=== PATIENT | female | born 1925 | race Caucasian/White ===

== ENCOUNTER 2016-05-07 02:39 | Emergency (ER) | payer OTHER ==
[~2016-05-07] VITALS: Ht 167.6 cm; Wt 81.3 kg
[~2016-05-07 02:39] MED LIST: B-COTAB18 PO; CALC-214 PO; CHOL100010 PO; CMD25 PO; CMD5 PO; CPR500 PO; FLUO20CA35 PO; FURO-85 PO; HYDR-5688 PO; LEVO150T PO; METO50TA7 PO; MGNO400 PO; MULT-188 PO; POTA10CA28 PO; PRED-301 PO; VERA240C2 PO
[2016-05-07 02:44] VITALS: TEMP 36.4; Ht 167.6 cm; Wt 81.3 kg
--- NOTE | 2016-05-07 03:06 | EMERGENCY ROOM VISIT NOTE ---
History Report prepared by Merna: Al Shaikh Under the Supervision of: Dr. Anne Sanabria M.D. First contact with patient: 02:56 Chief Complaint: LEG PAIN,LEG INJURY Stated Complaint: RIGHT LEG PAIN - CALF WARM TO TOUCH,HX BLOOD CLOTS History of Present Illness The patient is an 89 year old female who presents to the Emergency Room with complaints of constant pain in the right lower extremity that began two hours prior to arrival. The patient did not experience any trauma and simply states that she was sitting on the couch when the pain began. She was concerned because she has a history of blood clots. Her last blood clot was found in March of 2013. She did have her INR checked last week, which was 2.0. She denies any pain in her chest or experiencing any shortness of breath. Source of History: patient Onset: 2 hours [employer] Position: leg (right) Timing: constant Associated Symptoms: No SOB, No chest pain Review of Systems See HPI for pertinent positives & negatives. A total of 10 systems reviewed and were otherwise negative. 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 (11) Osteoarthritis (12) Osteoporosis (13) Polymyalgia rheumatica Surgical Problems: (1) Status post appendectomy (2) Status post cataract extraction (3) Status post cholecystectomy (4) Status post partial colectomy (5) Status post right knee replacement Family History Breast cancer SISTER Heart disease FATHER Skin cancer FATHER Suicide BROTHER Social History Smoking Status: Never Smoker Alcohol Use: none Drug Use: none Marital Status: single Housing Status: lives with family Occupation Status: retired Current/Historical Medications Scheduled Acetaminophen (Tylenol), 650 MG PO DAILY B-Complex Vitamins (Vitamin B Complex), 1 TAB PO DAILY Calcium W/ Magnesium (Calcium & Magnesium), 1 TAB PO DAILY Cephalexin Monohydrate (Keflex), 500 MG PO QID Cholecalciferol (Vitamin D3), 1 TAB PO DAILY Fluoxetine (Prozac), 10 MG PO QAM Furosemide (Lasix), 20 MG PO DAILY Latanoprost (Xalatan 0.005% Oph Page), 1 DROPS OP HS Levothyroxine Sodium (Levothyroxine Sodium), 125 MCG PO DAILY Magnesium Oxide (Mag-Ox), 400 MG PO BID Metoprolol Succ (Toprol Xl) (Toprol-Xl), 50 MG PO DAILY Ocuvite Preservision (Ocuvite Preservision), 1 TAB PO DAILY Ofloxacin (Oph) (Ocuflox Oph Soln), 1 DROPS OPL DIRECTED Potassium Chloride (Micro-K Ext Rel), 10 MEQ PO DAILY Prednisone (Prednisone), 5 MG PO DAILY Warfarin Sod (Coumadin), 2.5 MG PO DIRECTED Warfarin Sod (Coumadin), 5 MG PO DIRECTED Allergies Coded Allergies: Alendronate (Verified Allergy, Unknown, 05/07/16) Physical Exam Vital Signs Date Time Temp Pulse Resp B/P Pulse Ox O2 Delivery O2 Flow Rate FiO2 05/07/16 06:36 87 20 132/66 93 05/07/16 05:26 104 20 145/109 95 Room Air 05/07/16 04:16 101 20 144/112 94 Room Air 05/07/16 02:44 36.4 111 18 131/80 95 Room Air Physical Exam Vital signs reviewed. General: Elderly female, in no significant distress. HEENT: No scleral icterus, PERRLA, neck supple. Atraumatic. Cardiovascular: Regular rate and rhythm, no extra sounds. Pulmonary: Clear to auscultation bilaterally, normal work of breathing. Abdomen: Soft, nontender, nondistended, positive bowel sounds. Musculoskeletal: Atraumatic, no peripheral edema. Extremities: There is warmth and tenderness to the right leg along the calf with a small excoriation to the skin of the distal knee with dried blood. No active bleeding. Neurologic: Patient awake alert and oriented x 3 Skin: Warm, dry, no rash Medical Decision & Procedures ER Provider Diagnostic Interpretation: X-ray results as stated below per my interpretation and radiologist interpretation. Other radiology results as stated below per my review and radiologist interpretation: US VENOUS RIGHT LOWER EXTREMITY: Nonocclusive chronic calcified thrombus seen within the popliteal vein. No acute deep vein thrombosis within the lower extremity. Edema noted within the calf. Radiologist: Kevyn Goodwin M.D. CTA CHEST: No evidence of pulmonary embolus. No thoracic aortic dissection or aneurysm. Breathing notion artifact. Probable mild pulmonary vascular congestion. No pleural effusion of pneumothorax Coronary artery calcifications. Mild enlargement of the heart. No pericardial effusion. Subcentimeter mediastinal and hilar hymph nodes, likely reactive. No acute osseous abnormality. Radiologist: Kevyn Arciniega M.D. Laboratory Results 05/07/16 03:30 Red Blood Count 4.07, Mean Corpuscular Volume 97.1, Mean Corpuscular Hemoglobin 31.9, Mean Corpuscular Hemoglobin Concent 32.9, Mean Platelet Volume 9.7, Neutrophils (%) (Auto) 60.1, Lymphocytes (%) (Auto) 26.1, Monocytes (%) (Auto) 10.9, Eosinophils (%) (Auto) 2.5, Basophils (%) (Auto) 0.2, Neutrophils # (Auto ) 5.32, Lymphocytes # (Auto) 2.31, Monocytes # (Auto) 0.97, Eosinophils # (Auto ) 0.22, Basophils # (Auto) 0.02 05/07/16 03:30 Test 05/07/16 03:30 White Blood Count 8.86 K/uL (4.8-10.8) Red Blood Count 4.07 M/uL (4.2-5.4) Hemoglobin 13.0 g/dL (12.0-16.0) Hematocrit 39.5 % (37-47) Mean Corpuscular Volume 97.1 fL (80-100) Mean Corpuscular Hemoglobin 31.9 pg (25-34) Mean Corpuscular Hemoglobin Concent 32.9 g/dl (32-36) Platelet Count 204 K/uL (130-400) Mean Platelet Volume 9.7 fL (7.4-10.4) Neutrophils (%) (Auto) 60.1 % Lymphocytes (%) (Auto) 26.1 % Monocytes (%) (Auto) 10.9 % Eosinophils (%) (Auto) 2.5 % Basophils (%) (Auto) 0.2 % Neutrophils # (Auto) 5.32 K/uL (1.4-6.5) Lymphocytes # (Auto) 2.31 K/uL (1.2-3.4) Monocytes # (Auto) 0.97 K/uL (0.11-0.59) Eosinophils # (Auto) 0.22 K/uL (0-0.5) Basophils # (Auto) 0.02 K/uL (0-0.2) RDW Standard Deviation 54.5 fL (36.4-46.3) RDW Coefficient of Variation 15.3 % (11.5-14.5) Immature Granulocyte % (Auto) 0.2 % Immature Granulocyte # (Auto) 0.02 K/uL (0.00-0.02) Prothrombin Time 24.0 SECONDS (9.0-12.0) Prothromb Time International Ratio 2.2 (0.9-1.1) Activated Partial Thromboplast Time 34.4 SECONDS (21.0-31.0) Partial Thromboplastin Ratio 1.3 Anion Gap 8.0 mmol/L (3-11) Est Creatinine Clear Calc Drug Dose 48.0 ml/min Estimated GFR () 68.9 Estimated GFR (Non- 59.5 BUN/Creatinine Ratio 16.3 (10-20) Calcium Level 8.6 mg/dl (8.5-10.1) Total Bilirubin 0.7 mg/dl (0.2-1) Direct Bilirubin 0.2 mg/dl (0-0.2) Aspartate Amino Transf (AST/SGOT) 16 U/L (15-37) Alanine Aminotransferase (ALT/SGPT) 16 U/L (12-78) Alkaline Phosphatase 77 U/L (45-117) Total Protein 7.4 gm/dl (6.4-8.2) Albumin 3.1 gm/dl (3.4-5.0) Laboratory results per my review. Medications Administered Medications (Trade) Dose Ordered Sig/Mike Route Start Time Stop Time Status Last Admin Dose Admin Metoprolol Succinate (Toprol Xl Tab) 50 mg NOW STAT PO 05/07/16 05:24 05/07/16 05:26 DC 05/07/16 05:34 50 MG Cephalexin Monohydrate (Keflex Cap) 500 mg NOW ONCE PO 05/07/16 06:30 05/07/16 06:31 DC 05/07/16 06:26 500 MG ED Course 0300: Past medical records reviewed. The patient was evaluated in room A3. A complete history and physical examination was performed. 0524: Ordered Metoprolol 50 mg PO. 0630: Ordered Cephalexin 500 mg PO. 0619: Upon reevaluation, the patient appeared to have improvement of his symptoms. I discussed findings with him. He verbalized agreement of the treatment plan. The patient was discharged home. Medical Decision Differential diagnosis: Etiologies such as DVT, musculoskeletal, infection, joint effusion, trauma, lymphedema, idiopathic, CHF, as well as others were entertained.. This pt was evaluated and appeared to be in no distress. Lab work was obtained and is fairly unrevealing. INR is 2.2. US is negative for DVT. Pt is noted to be slightly tachycardic and hypertensive, I suspect this is b/c she is due for her toprol XL this morning. Pt was given 50 mg po. pt has a "problem with picking" and a small wound to anterior cloud, I suspect she has a cellulitis. Pt was given a Rx for keflex for 7 days and asked to f/u closely with her PCP this week. She will return to the ED for worsening of symptoms or any medical concerns. Impression Primary Impression: Cellulitis of right lower extremity Additional Impression: Chronic deep vein thrombosis (DVT) Scribe Attestation The scribe's documentation has been prepared under my direction and personally reviewed by me in its entirety. I confirm that the note above accurately reflects all work, treatment, procedures, and medical decision making performed by me. Departure Information Dispostion Home / Self-Care Prescriptions Cephalexin Monohydrate (KEFLEX) 500 Mg Cap 500 MG PO QID for 7 Days, #28 CAP Prov: Anne Sanabria M.D. 05/07/16 Referrals Radha Camp DO (PCP) Forms HOME CARE DOCUMENTATION FORM, IMPORTANT VISIT INFORMATION Patient Instructions My [facility] Additional Instructions Diagnosis: Chronic DVT right lower extremity, cellulitis Keflex 500 mg 4 times daily for 7 days. Tylenol 650 mg every 6 hours as needed for pain. Follow-up with her primary care physician this week for reevaluation. Return to the emergency department for worsening of symptoms or any medical concerns. Problem Qualifiers Additional Impression: Chronic deep vein thrombosis (DVT) DVT location: lower extremity Affected thrombotic vein of extremity: popliteal Laterality: right Qualified Codes: I82.531 - Chronic embolism and thrombosis of right popliteal vein
[2016-05-07] MEDS ORDERED: CHOL1000 PO (03:11)
[2016-05-07] MEDS ORDERED: LEVO125T4 PO (03:12)
[2016-05-07] MEDS ORDERED: MAGN400T6 PO (03:13)
[2016-05-07] MEDS ORDERED: MULT-190 PO (03:16)
[2016-05-07] MEDS ORDERED: ACET-1311 PO (03:17)
[2016-05-07 03:39] LABS: BASO % 0.2 %; BASO ABS # 0.02 K/uL (0-0.2); COMPLETE YES; EOS % 2.5 %; HEMATOCRIT 39.5 % (37-47); IG% 0.2 %; LYMPH % 26.1 %; LYMPH ABS # 2.31 K/uL (1.2-3.4); MEAN CELL VOLUME 97.1 fL (80-100); MEAN CORPUSCULAR HEMOGLOBIN 31.9 pg (25-34); MEAN CORPUSCULAR HGB CONC 32.9 g/dl (32-36); MEAN PLATELET VOLUME 9.7 fL (7.4-10.4); MONO % 10.9 %; NEUT % 60.1 %; PLATELET COUNT 204 K/uL (130-400); RED BLOOD COUNT 4.07 M/uL (4.2-5.4); WHITE BLOOD COUNT 8.86 K/uL (4.8-10.8)
[2016-05-07 03:51] LABS: INR 2.2 (0.9-1.1); PARTIAL THROMBOPLASTIN RATIO 1.3
[2016-05-07 03:56] LABS: BUN/CREATININE RATIO 16.3 (10-20); CALCIUM 8.6 mg/dl (8.5-10.1); CREATININE 0.87 mg/dl (0.60-1.20); POTASSIUM 3.8 mmol/L (3.5-5.1)
[2016-05-07] MEDS ORDERED: OPTIRAY 320 IV PRN (04:45)
[2016-05-07] MEDS ORDERED: METOPROLOL SUCC 50MG EXT REL TAB PO STA (05:24)
[2016-05-07] MEDS ORDERED: LATA0.5S OP (06:00)
[2016-05-07] MEDS ORDERED: OFLO0.3S OPL (06:01)
[2016-05-07] MEDS ORDERED: CEPH500C2 PO (06:17)
[2016-05-07] MEDS ORDERED: CEPHALEXIN MONOHYDRATE 250 MG CAP PO ONE (06:30)
[2016-05-07 06:36] VITALS: BP 132/66; PULSE 87; O2SAT 93
--- NOTE | 2016-05-07 06:40 | DIAGNOSTIC IMAGING REPORT ---
ULTRASOUND RIGHT VENOUS DOPP LOWER EXT UNILAT CLINICAL HISTORY: Right lower extremity swelling. History of DVT. COMPARISON STUDY: No previous studies for comparison. FINDINGS: Real-time and color flow Doppler imaging were performed. Flow was seen within the femoral, popliteal and calf veins with no acute intraluminal thrombus demonstrated. The saphenous vein is patent. There is wall thickening and calcification within the popliteal vein. This is felt to be chronic. IMPRESSION: No evidence of acute right lower extremity DVT Electronically signed by: Ish Govea M.D. 05/07/2016 6:38 AM Dictated Date/Time: 05/07/2016 6:37 AM
--- NOTE | 2016-05-07 07:17 | DIAGNOSTIC IMAGING REPORT ---
CT ANGIOGRAM OF THE CHEST CLINICAL HISTORY: Tachycardia, history of chronic DVT. COMPARISON STUDY: May 17, 2014 TECHNIQUE: Following the IV administration of 100 mL of Optiray-320, CT angiogram of the thorax was performed from the thoracic inlet to the lung bases utilizing the pulmonary embolus protocol. Images are reviewed in the axial, sagittal, and coronal planes. IV contrast was administered without complication. MIP imaging was performed. CT DOSE: 999.13 mGy.cm FINDINGS: No pathologically enlarged axillary mediastinal or hilar lymph nodes were visualized. There was no evidence of thoracic aortic dilatation. There is suboptimal pulmonary arterial opacification. The examination was repeated with similar results. The technologist reports an IV malfunction. No central emboli are visualized. No pleural effusions are visualized. There was no evidence of focal pulmonary consolidation. There is suspected mild septal thickening/edema. The heart is enlarged. There are coronary artery calcifications. IMPRESSION: 1. No pulmonary emboli identified 2. No evidence of focal pulmonary consolidation 3. Cardiomegaly, coronary artery calcifications, and mild septal thickening/edema. Electronically signed by: Ish Govea M.D. 05/07/2016 7:16 AM Dictated Date/Time: 05/07/2016 7:11 AM
[2016-08-07] MEDS ORDERED: LEVO125T4 PO (20:47)
[2016-08-10] MEDS ORDERED: AMOX875T PO (10:50)
[2016-11-07] MEDS ORDERED: LCTX PO (12:52)
[2016-11-07] MEDS ORDERED: AMOX1TAB43 PO (12:52)
[2016-11-13] MEDS ORDERED: METO1TAB66 PO (12:02)
== END 2016-05-07 06:38 | disposition home or self-care (01) ==
LOC: C.EDB 02:41 → C.EDA 06:38
DX: L03.115 Cellulitis of right lower limb (principal); I82.531 Chronic embolism and thrombosis of right popliteal vein; R26.9 Unspecified abnormalities of gait and mobility; I49.9 Cardiac arrhythmia, unspecified; E03.9 Hypothyroidism, unspecified; H35.30 Unspecified macular degeneration; D47.2 Monoclonal gammopathy; M19.90 Unspecified osteoarthritis, unspecified site; M81.0 Age-related osteoporosis without current pathological fracture; M35.3 Polymyalgia rheumatica; Z80.3 Family history of malignant neoplasm of breast; Z82.49 Family history of ischemic heart disease and other diseases of the circulatory system; Z80.8 Family history of malignant neoplasm of other organs or systems; Z79.01 Long term (current) use of anticoagulants; Z79.899 Other long term (current) drug therapy

== ENCOUNTER 2016-08-06 18:00 | Emergency (ER) | payer OTHER ==
[~2016-08-06 18:00] MED LIST changes: +ACET-1311 PO; +CHOL1000 PO; -CHOL100010 PO; -CPR500 PO; -HYDR-5688 PO; +LATA0.5S OP; +LEVO125T5 PO; -LEVO150T PO; +MAGN400T6 PO; -MGNO400 PO; -MULT-188 PO; +MULT-190 PO; +OFLO0.3S OPL; -VERA240C2 PO
[2016-08-06 18:13] VITALS: TEMP 36.8
[2016-08-06] MEDS ORDERED: SODIUM CHLORIDE 0.9% 1000ML 500 ML IV ONE (18:25)
[2016-08-06] MEDS ORDERED: ONDANSETRON INJ 2 MG/ML 2 ML VIAL IV STA (18:25)
[2016-08-06] MEDS ORDERED: PIPERACILLIN/TAZOBACTAM 4.5 GM/100ML D5W IV STA (18:25)
[2016-08-06] MEDS ORDERED: ACETAMINOPHEN 325 MG TAB PO ONE (18:30)
--- NOTE | 2016-08-06 18:38 | EMERGENCY ROOM VISIT NOTE ---
History Report prepared by Merna: Claire Allison Under the Supervision of: Dr. Jan Huffman M.D. First contact with patient: 18:20 Chief Complaint: WOUND INFECTION Stated Complaint: LF LEG CELLULITIS??,CHILLS,NAUSEA History of Present Illness The patient is a 89 year old female who presents to the Emergency Room with complaints of a worsening left lower extremity infection that was first noticed yesterday. The patient noticed some weeping from the area yesterday, but states that it subsided at night and was not there this morning. She is also experiencing pain in her left leg that worsened this afternoon after riding a motorized scooter while shopping. She is also experiencing erythema on her left lower leg, which she first noticed earlier today. She is also experiencing chills and nausea, but denies vomiting. The patient was scratched by a cat on her left leg 2 days ago. She adds that she had cellulitis in her right leg about one month ago. The patient was evaluated in the ED for that and was discharged. She was treated with Keflex for that infection. The patient is also experiencing increased urinary frequency, but denies cough and congestion. The patient denies any history of diabetes. She adds that she is on 5 mg of prednisone a day. She is on Coumadin for a history of blood clots. She also has a history of atrial fibrillation. Source of History: patient Onset: yesterday Position: leg (left) Quality: other (left lower extremity infection) Timing: worsening Associated Symptoms: + chills, + nausea, + urinary symptoms (increased frequency), No cough Note: left leg pain, left leg erythema, left leg weeping, no congestion Review of Systems See HPI for pertinent positives & negatives. A total of 10 systems reviewed and were otherwise negative. 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 (11) Osteoarthritis (12) Osteoporosis (13) Polymyalgia rheumatica Surgical Problems: (1) Status post appendectomy (2) Status post cataract extraction (3) Status post cholecystectomy (4) Status post partial colectomy (5) Status post right knee replacement Family History Breast cancer SISTER Heart disease FATHER Skin cancer FATHER Suicide BROTHER Social History Smoking Status: Never Smoker Alcohol Use: none Drug Use: none Marital Status: single Housing Status: lives with family Occupation Status: retired Current/Historical Medications Scheduled Acetaminophen (Tylenol), 650 MG PO DAILY Amoxicillin & Pot Clavulanate (Augmentin 875-125 mg), 875 MG PO BID B-Complex Vitamins (Vitamin B Complex), 1 TAB PO DAILY Calcium W/ Magnesium (Calcium & Magnesium), 1 TAB PO DAILY Cholecalciferol (Vitamin D3), 1 TAB PO DAILY Fluoxetine (Prozac), 10 MG PO QAM Furosemide (Lasix), 20 MG PO DAILY Latanoprost (Xalatan 0.005% Oph Page), 1 DROPS OP HS Levothyroxine Sodium (Levothyroxine Sodium), 125 MCG PO DAILY Magnesium Oxide (Mag-Ox), 400 MG PO BID Metoprolol Succ (Toprol Xl) (Toprol-Xl), 50 MG PO DAILY Ocuvite Preservision (Ocuvite Preservision), 1 TAB PO DAILY Ofloxacin (Oph) (Ocuflox Oph Soln), 1 DROPS OPL DIRECTED Potassium Chloride (Micro-K Ext Rel), 10 MEQ PO DAILY Prednisone (Prednisone), 5 MG PO DAILY Warfarin Sod (Coumadin), 2.5 MG PO DIRECTED Warfarin Sod (Coumadin), 5 MG PO DIRECTED Allergies Coded Allergies: Alendronate (Verified Allergy, Unknown, 05/07/16) Physical Exam Vital Signs Date Time Temp Pulse Resp B/P Pulse Ox O2 Delivery O2 Flow Rate FiO2 08/06/16 21:22 89 18 102/59 95 08/06/16 19:49 76 18 128/57 95 Room Air 08/06/16 18:36 90 08/06/16 18:13 36.8 93 18 128/77 93 Room Air Physical Exam GENERAL: Patient is in no acute distress. HEENT: No acute trauma, normocephalic atraumatic, mucous membranes moist, no nasal congestion, no scleral icterus. NECK: No stridor, no adenopathy, no meningismus, trachea is midline. LUNGS: Clear to auscultation bilaterally, no wheeze, no rhonchi, breath sounds equal. HEART: Irregular rhythm with a normal rate, no murmurs. ABDOMEN: Soft, nontender, bowel sounds positive, no hernias, no peritonitis. EXTREMITIES: Bilateral pedal edema that is slightly worse on the left; distal left leg, ankle, and foot are erythematous and warm, no discharge or weeping, exam consistent with cellulitis. NEUROLOGIC: Oriented x 3, no acute motor or sensory deficits, no focal weakness. SKIN: No rash, no jaundice, no diaphoresis. Medical Decision & Procedures ER Provider Diagnostic Interpretation: Radiology results as stated below per my review and radiologist interpretation: CHEST ONE VIEW PORTABLE FINDINGS: Chronic right hilar enlargement. Mild stable cardiomegaly. Lungs are clear. Diaphragms are smooth. IMPRESSION: Chronic change. No acute process. Electronically signed by: Aung Infante M.D. 08/06/2016 7:05 PM Dictated Date/Time: 08/06/2016 7:05 PM Venous Doppler left leg LEFT VENOUS DOPP LOWER EXT UNILAT FINDINGS: Normal study IMPRESSION: Normal study . note is made of lower calf soft tissue edema Electronically signed by: Aung Infante M.D. 08/06/2016 8:45 PM Dictated Date/Time: 08/06/2016 8:44 PM Laboratory Results 08/06/16 18:25 Red Blood Count 4.75, Mean Corpuscular Volume 97.7, Mean Corpuscular Hemoglobin 30.1, Mean Corpuscular Hemoglobin Concent 30.8, Mean Platelet Volume 9.5, Neutrophils (%) (Auto) 86.8, Lymphocytes (%) (Auto) 9.0, Monocytes (%) (Auto) 3.6, Eosinophils (%) (Auto) 0.4, Basophils (%) (Auto) 0.1, Neutrophils # (Auto) 6.74, Lymphocytes # (Auto) 0.70, Monocytes # (Auto) 0.28, Eosinophils # (Auto) 0.03, Basophils # (Auto) 0.01 08/06/16 18:25 Test 08/06/16 18:25 08/06/16 18:44 White Blood Count 7.77 K/uL (4.8-10.8) Red Blood Count 4.75 M/uL (4.2-5.4) Hemoglobin 14.3 g/dL (12.0-16.0) Hematocrit 46.4 % (37-47) Mean Corpuscular Volume 97.7 fL (80-100) Mean Corpuscular Hemoglobin 30.1 pg (25-34) Mean Corpuscular Hemoglobin Concent 30.8 g/dl (32-36) Platelet Count 203 K/uL (130-400) Mean Platelet Volume 9.5 fL (7.4-10.4) Neutrophils (%) (Auto) 86.8 % Lymphocytes (%) (Auto) 9.0 % Monocytes (%) (Auto) 3.6 % Eosinophils (%) (Auto) 0.4 % Basophils (%) (Auto) 0.1 % Neutrophils # (Auto) 6.74 K/uL (1.4-6.5) Lymphocytes # (Auto) 0.70 K/uL (1.2-3.4) Monocytes # (Auto) 0.28 K/uL (0.11-0.59) Eosinophils # (Auto) 0.03 K/uL (0-0.5) Basophils # (Auto) 0.01 K/uL (0-0.2) RDW Standard Deviation 55.7 fL (36.4-46.3) RDW Coefficient of Variation 15.5 % (11.5-14.5) Immature Granulocyte % (Auto) 0.1 % Immature Granulocyte # (Auto) 0.01 K/uL (0.00-0.02) Prothrombin Time 21.4 SECONDS (9.0-12.0) Prothromb Time International Ratio 1.9 (0.9-1.1) Activated Partial Thromboplast Time 28.7 SECONDS (21.0-31.0) Partial Thromboplastin Ratio 1.1 Anion Gap 6.0 mmol/L (3-11) Estimated GFR () 76.9 Estimated GFR (Non- 66.4 BUN/Creatinine Ratio 22.7 (10-20) Calcium Level 8.7 mg/dl (8.5-10.1) Total Bilirubin 1.2 mg/dl (0.2-1) Aspartate Amino Transf (AST/SGOT) 22 U/L (15-37) Alanine Aminotransferase (ALT/SGPT) 22 U/L (12-78) Alkaline Phosphatase 82 U/L (45-117) Total Protein 7.8 gm/dl (6.4-8.2) Albumin 3.4 gm/dl (3.4-5.0) Globulin 4.4 gm/dl (2.5-4.0) Albumin/Globulin Ratio 0.8 (0.9-2) Bedside Lactic Acid Venous 1.13 mmol/L (0.90-1.70) Laboratory results reviewed by me. Medications Administered Medications (Trade) Dose Ordered Sig/Mike Route Start Time Stop Time Status Last Admin Dose Admin Sodium Chloride (Nss 1000ml) 500 ml @ 999 mls/hr Q31M ONCE IV 08/06/16 18:25 08/06/16 18:55 DC 08/06/16 18:25 999 MLS/HR Piperacillin Sod/ Tazobactam Sod (Zosyn Iv) 4.5 gm ONE STAT IV 08/06/16 18:25 08/06/16 18:29 DC 08/06/16 19:23 4.5 GM Acetaminophen (Tylenol Tab) 650 mg ONE ONCE PO 08/06/16 18:30 08/06/16 18:31 DC 08/06/16 19:26 650 MG Ondansetron HCl (Zofran Inj) 4 mg NOW STAT IV 08/06/16 18:25 08/06/16 18:29 DC 08/06/16 19:19 4 MG Amoxicillin/ Clavulanate Potassium (Augmentin Tab) 875 mg BID ONCE PO 08/06/16 21:00 08/06/16 21:01 DC 08/06/16 21:11 875 MG ECG Indication: nausea Rate (beats per minute): 89 Rhythm: atrial fibrillation Findings: nonspecific-ST abn, no acute ischemic change ED Course 182: The patient was evaluated in room B5. A complete history and physical exam was performed. 1825: Ordered Zofran Inj 4 mg IV, Zosyn 4.5 gm IV, Sodium Chloride 500 ml @ 999 mls/hr IV 1830: Ordered Tylenol Tab 650 mg PO 7: Reevaluated the patient. Discussed results and discharge instructions: she verbalized understanding and agreement. The patient is ready for discharge. 2100: Ordered Augmentin Tab 875 mg PO Medical Decision Differential diagnoses considered include cellulitis, DVT, sepsis, bacteremia, hematoma, electrolyte imbalance, anemia. There is no leukocytosis or concerning anemia. No significant electrolyte abnormality, kidney failure or hepatitis. Chest x-ray does not show pneumonia or CHF. Left leg ultrasound does not show DVT. EKG shows A. fib, no acute ischemic change. Blood cultures are pending. Lactic acid level is not elevated making sepsis less likely. INR is elevated consistent with her Coumadin use. The patient has a left leg cellulitis. She has had a cellulitis of the other leg and has done well as an outpatient. She is anxious to be discharged home. The patient was given oral Tylenol and IV Zofran, she received IV Zosyn for antibiotic coverage. The patient is feeling improved, she will be discharged on Augmentin twice a day for 10 days. Tylenol for pain, elevation and rest were encouraged. She can return here if things are worsening or not improving. She will see her doctor's office in a few days for a recheck. Impression Primary Impression: Left leg cellulitis Scribe Attestation The scribe's documentation has been prepared under my direction and personally reviewed by me in its entirety. I confirm that the note above accurately reflects all work, treatment, procedures, and medical decision making performed by me. Departure Information Dispostion Home / Self-Care Prescriptions Amoxicillin & Pot Clavulanate (Augmentin 875-125 mg) 1 Tab Tab 875 MG PO BID for 10 Days, #20 TAB Prov: Jan Huffman M.D. 08/06/16 Referrals Radha Camp DO (PCP) Forms HOME CARE DOCUMENTATION FORM, IMPORTANT VISIT INFORMATION, WORK / SCHOOL INSTRUCTIONS Patient Instructions My [facility] Additional Instructions augmentin 2x per day for 10 days tylenol for fever and chills try to keep the leg elevated and stay off of your feet see you doctor in 2 days for a recheck return for worsening symptoms or if not improving keep a good watch on your coumadin levels as antibiotics can raise the number
[2016-08-06 18:44] LABS: HEMATOCRIT 46.4 % (37-47); MEAN CELL VOLUME 97.7 fL (80-100); MEAN CORPUSCULAR HEMOGLOBIN 30.1 pg (25-34); MEAN CORPUSCULAR HGB CONC 30.8 g/dl (32-36); MEAN PLATELET VOLUME 9.5 fL (7.4-10.4); PLATELET COUNT 203 K/uL (130-400); RED BLOOD COUNT 4.75 M/uL (4.2-5.4); WHITE BLOOD COUNT 7.77 K/uL (4.8-10.8)
[2016-08-06 18:53] LABS: INR 1.9 (0.9-1.1); PARTIAL THROMBOPLASTIN RATIO 1.1; PROTHROMBIN TIME (PATIENT) 21.4 SECONDS (9.0-12.0)
[2016-08-06 19:04] LABS: BASO % 0.1 %; BASO ABS # 0.01 K/uL (0-0.2); COMPLETE YES; EOS % 0.4 %; IG% 0.1 %; MONO % 3.6 %; NEUT % 86.8 %
--- NOTE | 2016-08-06 19:07 | DIAGNOSTIC IMAGING REPORT ---
CHEST ONE VIEW PORTABLE CLINICAL HISTORY: Sepsis dyspnea COMPARISON STUDY: 07/02/2015 FINDINGS: Chronic right hilar enlargement. Mild stable cardiomegaly. Lungs are clear. Diaphragms are smooth. IMPRESSION: Chronic change. No acute process. Electronically signed by: Aung Infante M.D. 08/06/2016 7:05 PM Dictated Date/Time: 08/06/2016 7:05 PM
[2016-08-06 19:10] LABS: ALT/SGPT 22 U/L (12-78); AST/SGOT 22 U/L (15-37); BLOOD UREA NITROGEN 18 mg/dl (7-18); BUN/CREATININE RATIO 22.7 (10-20); CALCIUM 8.7 mg/dl (8.5-10.1); CARBON DIOXIDE 30 mmol/L (21-32); CHLORIDE 104 mmol/L (98-107); CREATININE 0.79 mg/dl (0.60-1.20); GLUCOSE 104 mg/dl (70-99); POTASSIUM 4.2 mmol/L (3.5-5.1); SODIUM 140 mmol/L (136-145)
[2016-08-06 19:13] LABS: ALB/GLOB RATIO 0.8 (0.9-2); ALKALINE PHOSPHATASE 82 U/L (45-117)
--- NOTE | 2016-08-06 20:46 | DIAGNOSTIC IMAGING REPORT ---
Venous Doppler left leg LEFT VENOUS DOPP LOWER EXT UNILAT CLINICAL HISTORY: swelling, hist dv pain. Edema. TECHNIQUE: Venous Doppler COMPARISON STUDY: None FINDINGS: Normal study IMPRESSION: Normal study . note is made of lower calf soft tissue edema Electronically signed by: Aung Infante M.D. 08/06/2016 8:45 PM Dictated Date/Time: 08/06/2016 8:44 PM
[2016-08-06] MEDS ORDERED: AMOX875T PO (20:59)
[2016-08-06] MEDS ORDERED: AMOXICILLIN/CLAVULANATE TAB 875 MG TAB PO ONE (21:00)
[2016-08-06 21:22] VITALS: BP 102/59; PULSE 89; O2SAT 95
[2016-08-07] MEDS ORDERED: DIFL0.0519 OPB (19:21)
[2016-08-07] MEDS ORDERED: TORS20TA2 PO (19:21)
[2016-08-07] MEDS ORDERED: BIMA0.01 OPB (19:21)
[2016-08-07] MEDS ORDERED: SYN25 PO (19:21)
[2016-08-07] MEDS ORDERED: RANI150T2 PO (19:21)
[2016-08-07] MEDS ORDERED: LEVO125T5 PO (20:47)
[2016-08-07] MEDS ORDERED: CALC500C70 PO (20:47)
--- NOTE | 2016-08-09 11:42 | Pharmacy Progress Note ---
ED Pharmacist Culture FollowUp Date of Service: August 09, 2016. Patient returned to the hospital and is currently admitted 2nd positive blood cultures from this ED visit. Now resulted as Pasteurella multocida. Spoke with Adriana Osman from infectious disease who is aware and managing. Patient is currently on azithromycin and is switching from Zosyn to Unasyn based on these results. Further management to be completed by inpatient providers.
[2016-08-10] MEDS ORDERED: AMOX875T PO (10:50)
[2016-10-30] MEDS ORDERED: LEVO125T5 PO (11:04)
[2016-10-30] MEDS ORDERED: METO-452 PO (11:04)
[2016-11-07] MEDS ORDERED: AMOX1TAB43 PO (12:52)
[2016-11-07] MEDS ORDERED: LCTX PO (12:52)
[2016-11-13] MEDS ORDERED: METO-452 PO (12:02)
== END 2016-08-06 21:23 | disposition home or self-care (01) ==
LOC: C.EDB 18:00
DX: L03.116 Cellulitis of left lower limb (principal); I48.91 Unspecified atrial fibrillation; E03.9 Hypothyroidism, unspecified; M19.90 Unspecified osteoarthritis, unspecified site; M81.0 Age-related osteoporosis without current pathological fracture; M35.3 Polymyalgia rheumatica; Z90.49 Acquired absence of other specified parts of digestive tract; Z98.49 Cataract extraction status, unspecified eye; Z96.651 Presence of right artificial knee joint; Z98.890 Other specified postprocedural states; Z79.01 Long term (current) use of anticoagulants; Z79.899 Other long term (current) drug therapy; Z88.8 Allergy status to other drugs, medicaments and biological substances

== ENCOUNTER 2016-08-07 18:21 | Inpatient (IN) | payer OTHER ==
[~2016-08-07] VITALS: Ht 165.1 cm; Wt 76.0 kg
[~2016-08-07 18:21] MED LIST changes: +AMOX875T PO
[2016-08-07] MEDS ORDERED: PIPERACILLIN/TAZOBACTAM 4.5 GM/100ML D5W IV STA (18:45)
[2016-08-07] MEDS ORDERED: SODIUM CHLORIDE 0.9% 1000ML 1,000 ML IV ONE (18:45)
[2016-08-07] MEDS ORDERED: SODIUM CHLORIDE 0.9% 1000ML 500 ML IV STA (18:45)
--- NOTE | 2016-08-07 19:10 | DIAGNOSTIC IMAGING REPORT ---
CHEST ONE VIEW PORTABLE HISTORY: Atypical CHEST PAIN COMPARISON: Chest 08/06/2016. FINDINGS: The lungs are clear. No pleural effusions. No pneumothorax. Mildly tortuous thoracic aorta, unchanged. The heart remains mildly enlarged. Right hilar enlargement remains stable. IMPRESSION: Stable mild cardiomegaly. Electronically signed by: Enoch Ovalle M.D. 08/07/2016 7:09 PM Dictated Date/Time: 08/07/2016 7:08 PM
[2016-08-07 19:16] LABS: HEMATOCRIT 40.3 % (37-47); MEAN CELL VOLUME 96.9 fL (80-100); MEAN CORPUSCULAR HEMOGLOBIN 31.3 pg (25-34); MEAN CORPUSCULAR HGB CONC 32.3 g/dl (32-36); MEAN PLATELET VOLUME 9.5 fL (7.4-10.4); PLATELET COUNT 166 K/uL (130-400); RED BLOOD COUNT 4.16 M/uL (4.2-5.4); WHITE BLOOD COUNT 9.94 K/uL (4.8-10.8)
[2016-08-07] MEDS ORDERED: RANI150T2 PO (19:21)
[2016-08-07] MEDS ORDERED: DIFL0.0519 OPB (19:21)
[2016-08-07] MEDS ORDERED: SYN25 PO (19:21)
[2016-08-07] MEDS ORDERED: TORS20TA2 PO (19:21)
[2016-08-07] MEDS ORDERED: BIMA0.01 OPB (19:21)
[2016-08-07 19:33] LABS: BLOOD UREA NITROGEN 19 mg/dl (7-18); BUN/CREATININE RATIO 24.2 (10-20); CALCIUM 8.3 mg/dl (8.5-10.1); CARBON DIOXIDE 28 mmol/L (21-32); CHLORIDE 107 mmol/L (98-107); CREATININE 0.78 mg/dl (0.60-1.20); GLUCOSE 113 mg/dl (70-99); POTASSIUM 3.9 mmol/L (3.5-5.1); SODIUM 141 mmol/L (136-145)
[2016-08-07 19:36] LABS: ALKALINE PHOSPHATASE 74 U/L (45-117); ALT/SGPT 21 U/L (12-78); AST/SGOT 21 U/L (15-37)
[2016-08-07 19:41] LABS: INR 1.8 (0.9-1.1); PARTIAL THROMBOPLASTIN RATIO 1.5; PROTHROMBIN TIME (PATIENT) 19.7 SECONDS (9.0-12.0)
[2016-08-07 19:59] LABS: BASO % 0.1 %; BASO ABS # 0.01 K/uL (0-0.2); COMPLETE YES; EOS % 0.2 %; IG% 0.2 %; LYMPH % 13.4 %; LYMPH ABS # 1.33 K/uL (1.2-3.4); MONO % 9.1 %
[2016-08-07 20:01] VITALS: BP 122/74; PULSE 90; TEMP 37; O2SAT 95
[2016-08-07] MEDS ORDERED: ONDANSETRON INJ 2 MG/ML 2 ML VIAL IV PRN (20:15)
[2016-08-07 20:30] VITALS: BMI 27.9
[2016-08-07] MEDS ORDERED: PIPERACILL/TAZOBAC CONSULT ACTIVE PRN (20:31)
[2016-08-07] MEDS ORDERED: AZITHROMYCIN 250 MG TAB PO STA (20:36)
[2016-08-07 20:38] VITALS: Ht 165.1 cm; Wt 76.0 kg
[2016-08-07] MEDS ORDERED: PATIENT'S HEIGHT AND/OR WEIGHT NEEDED SCH (20:45)
[2016-08-07] MEDS ORDERED: CALC500C70 PO (20:47)
[2016-08-07] MEDS ORDERED: LEVO125T5 PO (20:47)
--- NOTE | 2016-08-07 21:40 | History and Physical ---
History & Physical Date & Time of Service: August 07, 2016 at 21:17 Chief Complaint: Bacteria in Blood Primary Care Physician: Radha Camp DO History of Present Illness 89 year old female who received a call that she had positive blood cultures and was referred to the ER for further evaluation. Patient notes that 5 days ago a cat scratched the bottom of her left day. The following day and reports her leg was a little sore. By the next day leg started to become red and extend up to the knee. She reports associated chills, nausea, and dry heaves. She was seen in the ER yesterday and discharged home on Augmentin. She also had an US that was negative for DVT. Blood cultures were drawn and are growing gram negative bacilli. Patient reports feeling much better than yesterday. She thinks her LLE redness is a little better. There has not been any drainage. She denies any further chills or fever. She denies chest pain, shortness of breath, lightheadedness, dizziness, diaphoresis, or syncopal event. She denies any urinary symptoms. In the ER, vitals are stable and labs are unremarkable. She was given IV Zosyn. Past Medical/Surgical History Medical Problems: (1) Atrial fibrillation Status: Chronic (2) Chronic diastolic (congestive) heart failure Status: Chronic (3) DVT (deep venous thrombosis) Status: Chronic (4) History of pulmonary embolism Status: Chronic (5) Hypothyroidism Status: Chronic (6) Macular degeneration Status: Chronic (7) Monoclonal gammopathy Status: Chronic (8) Osteoarthritis Status: Chronic (9) Osteoporosis Status: Chronic (10) Polymyalgia rheumatica Status: Chronic Surgical Problems: (1) Status post appendectomy Status: Chronic (2) Status post cataract extraction Status: Chronic (3) Status post cholecystectomy Status: Chronic (4) Status post partial colectomy Permanent Comment: [address] [facility] diverticulitis with perforation Status: Chronic (5) Status post right knee replacement Status: Chronic Family History non contributory due to patient's advanced age Social History Smoking Status: Never Smoker Alcohol Use: none Housing status: lives alone Immunizations History of Influenza Vaccine: Yes Influenza Vaccine Date: Feb 03, 2016 History of Tetanus Vaccine?: Yes Tetanus Immunization Date: Jan 11, 2014 History of Pneumococcal: Yes Pneumococcal Date: Apr 27, 2014 Multi-Drug Resistant Organisms History of MDRO: No Allergies Coded Allergies: Alendronate (Verified Allergy, Unknown, 08/07/16) Home Medications Scheduled Amoxicillin & Pot Clavulanate (Augmentin 875-125 mg), 875 MG PO BID B-Complex Vitamins (Vitamin B Complex), 1 TAB PO DAILY Bimatoprost (Lumigan), 1 DROP OPB HS Calcium/Vitamin D (Os-Keanu 500 Plus D), 1 TAB PO DAILY Cholecalciferol (Vitamin D3), 1 TAB PO DAILY Difluprednate (Durezol), 1 DROP OPB BID Fluoxetine (Prozac), 10 MG PO QAM Levothyroxine Sodium (Levothyroxine Sodium), 1 TAB PO DAILY Magnesium Oxide (Mag-Ox), 400 MG PO DAILY Metoprolol Succ (Toprol Xl) (Toprol-Xl), 25 MG PO DAILY Ocuvite Preservision (Ocuvite Preservision), 1 TAB PO DAILY Potassium Chloride (Micro-K Ext Rel), 10 MEQ PO 2XWK Prednisone (Prednisone), 5 MG PO DAILY Ranitidine HCl (Ranitidine HCl), 150 MG PO BID Torsemide (Demadex), 10 MG PO 2XWK Warfarin Sod (Coumadin), 2.5 MG PO DIRECTED Warfarin Sod (Coumadin), 5 MG PO DIRECTED Scheduled PRN Acetaminophen (Tylenol), 650 MG PO DAILY PRN for Pain Review of Systems ROS per HPI, all other systems reviewed and negative Physical Exam Vital Signs Date Time Temp Pulse Resp B/P Pulse Ox O2 Delivery O2 Flow Rate FiO2 08/07/16 20:30 Room Air 08/07/16 20:20 88 20 113/63 94 Room Air 08/07/16 18:27 37.2 90 18 105/63 95 Room Air General Appearance: no apparent distress Head: normocephalic Eyes: normal inspection ENT: hearing grossly normal Neck: supple, no JVD Respiratory/Chest: lungs clear, normal breath sounds, no respiratory distress Cardiovascular: regular rate, rhythm, no edema, normal peripheral pulses Abdomen/GI: normal bowel sounds, non tender, soft Extremities/Musculoskelatal: normal inspection, no calf tenderness Neurologic/Psych: no motor/sensory deficits, alert, normal mood/affect, oriented x 3 Skin: + pertinent finding (erythema noted to LLE covering foot and extending up the leg to just below the knee, warm to touch, a few scabbed areas noted medially on the lower portion of the leg, no drainage noted; erythema outlined in marker by nurse) Diagnostics Laboratory Results Results Past 24 Hours Test 08/07/16 19:00 08/07/16 19:06 Range/Units White Blood Count 9.94 4.8-10.8 K/uL Red Blood Count 4.16 4.2-5.4 M/uL Hemoglobin 13.0 12.0-16.0 g/dL Hematocrit 40.3 37-47 % Mean Corpuscular Volume 96.9 80-100 fL Mean Corpuscular Hemoglobin 31.3 25-34 pg Mean Corpuscular Hemoglobin Concent 32.3 32-36 g/dl Platelet Count 166 130-400 K/uL Mean Platelet Volume 9.5 7.4-10.4 fL Neutrophils (%) (Auto) 77.0 % Lymphocytes (%) (Auto) 13.4 % Monocytes (%) (Auto) 9.1 % Eosinophils (%) (Auto) 0.2 % Basophils (%) (Auto) 0.1 % Neutrophils # (Auto) 7.66 1.4-6.5 K/uL Lymphocytes # (Auto) 1.33 1.2-3.4 K/uL Monocytes # (Auto) 0.90 0.11-0.59 K/uL Eosinophils # (Auto) 0.02 0-0.5 K/uL Basophils # (Auto) 0.01 0-0.2 K/uL RDW Standard Deviation 56.4 36.4-46.3 fL RDW Coefficient of Variation 15.8 11.5-14.5 % Immature Granulocyte % (Auto) 0.2 % Immature Granulocyte # (Auto) 0.02 0.00-0.02 K/uL Red Blood Cell Morphology Unremarkable Prothrombin Time 19.7 9.0-12.0 SECONDS Prothromb Time International Ratio 1.8 0.9-1.1 Activated Partial Thromboplast Time 38.1 21.0-31.0 SECONDS Partial Thromboplastin Ratio 1.5 Sodium Level 141 136-145 mmol/L Potassium Level 3.9 3.5-5.1 mmol/L Chloride Level 107 98-107 mmol/L Carbon Dioxide Level 28 21-32 mmol/L Anion Gap 6.0 3-11 mmol/L Blood Urea Nitrogen 19 7-18 mg/dl Creatinine 0.78 0.60-1.20 mg/dl Estimated GFR () 78.1 Estimated GFR (Non- 67.4 BUN/Creatinine Ratio 24.2 10-20 Random Glucose 113 70-99 mg/dl Calcium Level 8.3 8.5-10.1 mg/dl Total Bilirubin 1.7 0.2-1 mg/dl Direct Bilirubin 0.5 0-0.2 mg/dl Aspartate Amino Transf (AST/SGOT) 21 15-37 U/L Alanine Aminotransferase (ALT/SGPT) 21 12-78 U/L Alkaline Phosphatase 74 45-117 U/L Total Protein 7.0 6.4-8.2 gm/dl Albumin 2.7 3.4-5.0 gm/dl Lipase 132 73-393 U/L Bedside Lactic Acid Venous 1.05 0.90-1.70 mmol/L Diagnostic Radiology CXR IMPRESSION: Stable mild cardiomegaly. Impression Assessment and Plan GRAM NEGATIVE BACTEREMIA, LLE CELLULITIS - admit to med/surg - patient presenting after being seen in the ER yesterday for LLE redness and diagnosed with cellulitis, discharged on Augmentin; found to have positive blood cultures growing gram negative bacilli - currently no signs of sepsis - afebrile, vitals stable - only notable source at this time is LLE cellulitis, noted patient reports cat scratch - no open areas to culture on leg - also will check urine - noted patient denies urinary symptoms - s/p Zosyn in the ER, will continue with and add on azithromycin for Bartonella coverage in the setting of a cat scratch - ID consult ATRIAL FIBRILLATION - rate controlled on beta panda, will continue - on Coumadin, INR 1.8 - continue Coumadin, check INR daily and adjust accordingly HX DVT/PE - on Coumadin CHRONIC DIASTOLIC CHF - will hold diuretics in the setting of infection - appears to be euvolemic PMR - on chronic Prednisone, will continue - no role for stress dose steroids at this time DVT PROPHYLAXIS - on Coumadin CODE STATUS - Patient is a DNR as per my discussion with her. DISPO - In my clinical judgment this beneficiary meets acute admission criteria, established by [facility], that includes being hospitalized through two midnights. ATTENDING NOTE : record reviewed pt interviewed and examined care coordinated with Anu STEWART please see her documentation for detail patient history 89 yo F came to ED with left lower leg swelling /erythema -cellulitis , had recent episode of cat scratch ( was playing with pat cat , scratch her left leg ) was seen in ED yesterday , lower ext Doppler was negative for DVT was discharged home with oral antibiotics blood culture drawn yesterday -+ ve for gram negative bacilli pt admitted for gram negative bacteremia , will require IV abx P/E: GEN ; no sign of distress , very pleasant HT ; regular S1/S2 LUNGS; CTA ABDOMEN ; soft, non tender EXT ; left legs marked edema , + erythema extending up to knee , + tenderness, increased warmth NEURO: no foal deficit , AAO x3 A/P ; LEFT LEG CELLULITIS /GRAM NEGATIVE BACTEREMIA : secondary to Cat scratch started on IV Unasyn repeat blood culture ordered no evidence of sepsis , normal white count, no fever , hemodynamically stable ID eval requested for duration of abx FULL CODE please refer Anu STEWART documentation for discussion of other issues AMBREEN BECERRIL MD Level of Care Telemetry Resuscitation Status FULL RESUSCITATION VTE Prophylaxis VTE Risk Assessment Done? Y/N: Yes Risk Level: Moderate Given or contraindicated: Warfarin (Coumadin) Additional Copies To Radha Camp,DO
[2016-08-07] MEDS: BIMATOPROST 0.01% OP SOLN 2.5 ML BTL OPB SCH (22:51)
[2016-08-07] MEDS: WARFARIN SOD 2.5 MG TAB PO SCH (22:52)
[2016-08-07] MEDS: RANITIDINE HCL 150 MG TAB PO SCH (22:55)
[2016-08-07] MEDS ORDERED: SODIUM CHLORIDE 0.9% 1000ML 1,000 ML IV SCH (23:00)
[2016-08-07] MEDS ORDERED: WARFARIN SOD 2.5 MG TAB PO ONE (23:15)
--- NOTE | 2016-08-08 00:09 | EMERGENCY ROOM VISIT NOTE ---
History Report prepared by Merna: Shannon Peña Under the Supervision of: Dr. Tobi Cannon M.D. 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 She was in the ED yesterday for leg pain and redness. She was also vomiting and feeling ill. She was contacted today because her blood culture grew out gram-negative bacilli in two cultures. She received 1 dose of Augmentin yesterday and had one today. She is feeling better, but the redness on her leg has spread. Her leg is sore. She reports chills. She has no fever or abdominal pain. She denies feeling lightheaded or dizzy. Her blood pressure has been low lately. A kitten scratched her leg recently. 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 Pt denies lightheadedness, dizziness. Review of Systems See HPI for pertinent positives & negatives. A total of 10 systems reviewed and were otherwise negative. Past Medical & Surgical Medical Problems: (1) Atrial fibrillation (2) Chronic diastolic (congestive) heart failure (3) DVT (deep venous thrombosis) (4) History of pulmonary embolism (5) Hypothyroidism (6) Macular degeneration (7) Monoclonal gammopathy (8) Osteoarthritis (9) Osteoporosis (10) Polymyalgia rheumatica Surgical Problems: (1) Status post appendectomy (2) Status post cataract extraction (3) Status post cholecystectomy (4) Status post partial colectomy (5) Status post right knee replacement Old medical records were reviewed. Nurse's notes were reviewed and I agree with. Family History Breast cancer SISTER Heart disease FATHER Skin cancer FATHER Suicide BROTHER Social History Smoking Status: Never Smoker Alcohol Use: none Drug Use: none Marital Status: single Housing Status: lives with family Occupation Status: retired Current/Historical Medications Scheduled Amoxicillin & Pot Clavulanate (Augmentin 875-125 mg), 875 MG PO BID B-Complex Vitamins (Vitamin B Complex), 1 TAB PO DAILY Bimatoprost (Lumigan), 1 DROP OPB HS Calcium/Vitamin D (Os-Keanu 500 Plus D), 1 TAB PO DAILY Cholecalciferol (Vitamin D3), 1 TAB PO DAILY Difluprednate (Durezol), 1 DROP OPB BID Fluoxetine (Prozac), 10 MG PO QAM Levothyroxine Sodium (Levothyroxine Sodium), 1 TAB PO DAILY Magnesium Oxide (Mag-Ox), 400 MG PO DAILY Metoprolol Succ (Toprol Xl) (Toprol-Xl), 25 MG PO DAILY Ocuvite Preservision (Ocuvite Preservision), 1 TAB PO DAILY Potassium Chloride (Micro-K Ext Rel), 10 MEQ PO 2XWK Prednisone (Prednisone), 5 MG PO DAILY Ranitidine HCl (Ranitidine HCl), 150 MG PO BID Torsemide (Demadex), 10 MG PO 2XWK Warfarin Sod (Coumadin), 2.5 MG PO DIRECTED Warfarin Sod (Coumadin), 5 MG PO DIRECTED Scheduled PRN Acetaminophen (Tylenol), 650 MG PO DAILY PRN for Pain Allergies Coded Allergies: Alendronate (Verified Allergy, Unknown, 08/07/16) Physical Exam Vital Signs Date Time Temp Pulse Resp B/P Pulse Ox O2 Delivery O2 Flow Rate FiO2 08/07/16 20:01 37.0 90 18 122/74 95 Room Air 08/07/16 18:27 37.2 90 18 105/63 95 Room Air Physical Exam General: Non ill appearing older female in no acute distress, breathing comfortably on room air. Normal speech HEENT: Normal cephalic atraumatic. Pupils are equal round and reactive to light. Extraocular movements are intact. Oropharynx is pink with moist mucous membranes, poor dentition. No swelling of the mouth lips or tongue. Neck: Supple with a midline trachea. No meningeal signs or stiffness, no JVD or bruits. No Stridor. Chest: Clear to auscultation bilaterally. No wheezes or rhonchi. No increased work of breathing. Heart: regular rate and rhythm. Abdomen: Soft nontender, nondistended without rebound guarding or rigidity. Extremities: Redness consistent with cellulitis in the left leg extending toward the knee, 2+ distal pulses, chronic vascular changes to both legs. Spine/Back. Non tender to palpation. No CVA tenderness Skin: Good turgor without rashes. Neurologic exam: Cranial nerves two through 12 are intact. Motor and sensation are intact and symmetrical throughout. Medical Decision & Procedures ER Provider Diagnostic Interpretation: X-ray results as stated below per interpretation by me and the radiologist: CHEST ONE VIEW PORTABLE HISTORY: Atypical CHEST PAIN COMPARISON: Chest 08/06/2016. FINDINGS: The lungs are clear. No pleural effusions. No pneumothorax. Mildly tortuous thoracic aorta, unchanged. The heart remains mildly enlarged. Right hilar enlargement remains stable. IMPRESSION: Stable mild cardiomegaly. Electronically signed by: Enoch Ovalle M.D. 08/07/2016 7:09 PM Dictated Date/Time: 08/07/2016 7:08 PM Laboratory Results 08/07/16 19:00 Red Blood Count 4.16, Mean Corpuscular Volume 96.9, Mean Corpuscular Hemoglobin 31.3, Mean Corpuscular Hemoglobin Concent 32.3, Mean Platelet Volume 9.5, Neutrophils (%) (Auto) 77.0, Lymphocytes (%) (Auto) 13.4, Monocytes (%) (Auto) 9.1, Eosinophils (%) (Auto) 0.2, Basophils (%) (Auto) 0.1, Neutrophils # (Auto) 7.66, Lymphocytes # (Auto) 1.33, Monocytes # (Auto) 0.90, Eosinophils # (Auto) 0.02, Basophils # (Auto) 0.01 08/07/16 19:00 Test 08/07/16 19:00 08/07/16 19:06 White Blood Count 9.94 K/uL (4.8-10.8) Red Blood Count 4.16 M/uL (4.2-5.4) Hemoglobin 13.0 g/dL (12.0-16.0) Hematocrit 40.3 % (37-47) Mean Corpuscular Volume 96.9 fL (80-100) Mean Corpuscular Hemoglobin 31.3 pg (25-34) Mean Corpuscular Hemoglobin Concent 32.3 g/dl (32-36) Platelet Count 166 K/uL (130-400) Mean Platelet Volume 9.5 fL (7.4-10.4) Neutrophils (%) (Auto) 77.0 % Lymphocytes (%) (Auto) 13.4 % Monocytes (%) (Auto) 9.1 % Eosinophils (%) (Auto) 0.2 % Basophils (%) (Auto) 0.1 % Neutrophils # (Auto) 7.66 K/uL (1.4-6.5) Lymphocytes # (Auto) 1.33 K/uL (1.2-3.4) Monocytes # (Auto) 0.90 K/uL (0.11-0.59) Eosinophils # (Auto) 0.02 K/uL (0-0.5) Basophils # (Auto) 0.01 K/uL (0-0.2) RDW Standard Deviation 56.4 fL (36.4-46.3) RDW Coefficient of Variation 15.8 % (11.5-14.5) Immature Granulocyte % (Auto) 0.2 % Immature Granulocyte # (Auto) 0.02 K/uL (0.00-0.02) Red Blood Cell Morphology Unremarkable Prothrombin Time 19.7 SECONDS (9.0-12.0) Prothromb Time International Ratio 1.8 (0.9-1.1) Activated Partial Thromboplast Time 38.1 SECONDS (21.0-31.0) Partial Thromboplastin Ratio 1.5 Anion Gap 6.0 mmol/L (3-11) Estimated GFR () 78.1 Estimated GFR (Non- 67.4 BUN/Creatinine Ratio 24.2 (10-20) Calcium Level 8.3 mg/dl (8.5-10.1) Total Bilirubin 1.7 mg/dl (0.2-1) Direct Bilirubin 0.5 mg/dl (0-0.2) Aspartate Amino Transf (AST/SGOT) 21 U/L (15-37) Alanine Aminotransferase (ALT/SGPT) 21 U/L (12-78) Alkaline Phosphatase 74 U/L (45-117) Total Protein 7.0 gm/dl (6.4-8.2) Albumin 2.7 gm/dl (3.4-5.0) Lipase 132 U/L (73-393) Bedside Lactic Acid Venous 1.05 mmol/L (0.90-1.70) Laboratory studies as stated above per my review. Medications Administered Medications (Trade) Dose Ordered Sig/Mike Route Start Time Stop Time Status Last Admin Dose Admin Sodium Chloride 500 ml @ 999 mls/hr Q31M STAT IV 08/07/16 18:45 08/07/16 19:15 DC 08/07/16 19:11 999 MLS/HR Sodium Chloride (Nss 1000ml) 1,000 ml @ 150 mls/hr Q6H40M ONCE IV 08/07/16 18:45 08/07/16 21:34 DC 08/07/16 18:45 150 MLS/HR Piperacillin Sod/ Tazobactam Sod (Zosyn Iv) 4.5 gm NOW STAT IV 08/07/16 18:45 08/07/16 18:48 DC 08/07/16 19:11 4.5 GM ECG Indication: other (arrhythmia) Rate (beats per minute): 87 Rhythm: atrial fibrillation Findings: other (nonspecific T-wave abnormality, no ST elevation) Comparison ECG Date: 06-Aug-2016 Change: ST segment improved. ED Course 1834: Past medical records reviewed. The patient was evaluated in room B3, and a complete history and physical examination were performed. 184: Zosyn Iv 4.5 gm IV, NSS 1000 ml @ 150 mls/hr IV, NSS 500 ml @ 999 mls/hr IV. 1924: Upon reevaluation, the patient is resting comfortably. Antibiotics are hanging. I discussed the results and treatment plan with the patient. She verbalized agreement of the treatment plan. The patient will be evaluated for further management. 1928: I discussed the patient's case with TERRY Edwards Hospitalist service. The patient will be evaluated for further management. Medical Decision Differentials include, but are not limited to; sepsis, cellulitis, pneumonia, UTI, arrhythmia, electrolyte or metabolic abnormality. This patient comes in as described above she has been treated for cellulitis. Her blood cultures did grow out gram negative bacilli from yesterday. She did receive IV Zosyn yesterday. She is actually feeling quite a bit better however her daughter feels the redness on her leg is worse. She is afebrile here. IV access was established and she was given additional Zosyn 4.5 g IV. Her white count lactic acid elevated. She was gently hydrated with IV normal saline as she does have a history of CHF. She was found to be in A. fib. Urinalysis and culture have been ordered but are pending at this point. Romeo was consulted and they are going to continue the IV antibiotics and potentially expand them if necessary as well. The patient be admitted for further treatment and evaluation Consults Time Called: 1919 Consulting Physician: TERRY Edwards Hospitalist service Returned Call: 1928 I discussed the patient's case with her. The patient will be evaluated for further management. Impression Primary Impression: Sepsis Additional Impressions: Cellulitis Positive blood culture Scribe Attestation The scribe's documentation has been prepared under my direction and personally reviewed by me in its entirety. I confirm that the note above accurately reflects all work, treatment, procedures, and medical decision making performed by me. Departure Information Dispostion Being Evaluated By Hospitalist Referrals Radha Camp DO (PCP) Patient Instructions My [facility] Problem Qualifiers
[2016-08-08 00:12] VITALS: BP 117/74; PULSE 71; TEMP 36.8; O2SAT 96
[2016-08-08] MEDS: PIPERACILL/TAZOBAC IV 3.375 GM in DEXTROSE 5% 100ML IV SCH ×3 (01:15→16:21)
[2016-08-08 04:34] LABS: HEMATOCRIT 35.6 % (37-47); MEAN CELL VOLUME 96.2 fL (80-100); MEAN CORPUSCULAR HEMOGLOBIN 31.4 pg (25-34); MEAN CORPUSCULAR HGB CONC 32.6 g/dl (32-36); MEAN PLATELET VOLUME 9.2 fL (7.4-10.4); PLATELET COUNT 147 K/uL (130-400); WHITE BLOOD COUNT 8.84 K/uL (4.8-10.8)
[2016-08-08 04:41] LABS: INR 1.6 (0.9-1.1); PROTHROMBIN TIME (PATIENT) 17.4 SECONDS (9.0-12.0)
[2016-08-08 04:56] LABS: CALCIUM 7.9 mg/dl (8.5-10.1); CREATININE 0.71 mg/dl (0.60-1.20); POTASSIUM 3.5 mmol/L (3.5-5.1)
[2016-08-08 05:23] LABS: URINE APPEARANCE CLEAR (CLEAR); URINE BILIRUBIN NEG (NEG); URINE COLOR YELLOW; URINE NITRITE NEG (NEG); URINE SPECIFIC GRAVITY 1.026 (1.000-1.030); UROBILINOGEN NEG (NEG)
[2016-08-08 05:28] LABS: MANUAL MICROSCOPIC REQUIRED? NO; REVIEW REQ? NO
[2016-08-08] MEDS: LEVOTHYROXINE 125 MCG TAB PO SCH (06:08)
[2016-08-08 07:57] VITALS: BP 107/70; PULSE 91; TEMP 36.9; O2SAT 93
[2016-08-08 08:00] VITALS: O2SAT 93
[2016-08-08] MEDS: FLUOXETINE HCL 10 MG CAP PO SCH (08:00)
[2016-08-08] MEDS: VITAMIN B COMPLEX TAB PO SCH (08:00)
[2016-08-08] MEDS: CALCIUM 600MG + VIT D 400 IU TAB PO SCH (08:01)
[2016-08-08] MEDS: MAGNESIUM OXIDE 400 MG TAB PO SCH (08:01)
[2016-08-08] MEDS: METOPROLOL SUCC 25MG EXT REL TAB PO SCH (08:01)
[2016-08-08] MEDS: CHOLECALCIFEROL 1000 INTER.UNIT TAB PO SCH (08:01)
[2016-08-08] MEDS: RANITIDINE HCL 150 MG TAB PO SCH ×2 (08:01→20:58)
[2016-08-08] MEDS: AZITHROMYCIN 250 MG TAB PO SCH (08:01)
[2016-08-08] MEDS: CEROVITE ADV FORMULA TAB PO SCH (08:07)
[2016-08-08] MEDS: ACETAMINOPHEN 325 MG TAB PO PRN (08:10)
--- NOTE | 2016-08-08 10:16 | Medical Consult ---
Consultation Date of Consultation: August 08, 2016. Attending Physician: Con Quarles MD Reason for Consultation: Gram negative bacteremia History of Present Illness The patient is an 89-year-old female who presented to the hospital with concerns of positive blood cultures for gram-negative bacilli. The patient was seen in the emergency department on 08/06/2016 for complaints of left lower extremity cellulitis. At that time, the patient states that she has been scratched by a cat home, and had noted that her leg became increasingly erythematous, edematous, and painful. She does have history of cellulitis in left lower extremity, but not recently. 2/ blood cultures from her emergency department visit started growing Gram-negative bacilli, and the patient was contacted and told to return to the emergency department for admission. The patient's white blood cell count on admission was 9.94. Her creatinine today was 0.71. The patient did also have a chest x-ray since admission, which showed stable cardiomegaly but no other acute findings. Repeat blood cultures, and urine culture are pending. She is currently on IV Zosyn. The patient was previously discharged home on p.o. Augmentin. Past Medical/Surgical History Medical Problems: (1) Cellulitis Status: Acute (2) Cellulitis of right lower extremity Status: Acute (3) Chronic deep vein thrombosis (DVT) Status: Acute (4) Degenerative joint disease Status: Acute (5) Left leg cellulitis Status: Acute (6) Positive blood culture Status: Acute (7) Sepsis Status: Acute Medical Problems: (1) Atrial fibrillation (2) Chronic diastolic (congestive) heart failure (3) DVT (deep venous thrombosis) (4) History of pulmonary embolism (5) Hypothyroidism (6) Macular degeneration (7) Monoclonal gammopathy (8) Osteoarthritis (9) Osteoporosis (10) Polymyalgia rheumatica Surgical Problems: (1) Status post appendectomy (2) Status post cataract extraction (3) Status post cholecystectomy (4) Status post partial colectomy (5) Status post right knee replacement Family History Breast cancer SISTER Heart disease FATHER Skin cancer FATHER Suicide BROTHER Noncontributory Social History Smoking Status: Never Smoker Alcohol Use: none Drug Use: none Marital Status: single Housing Status: lives with family Occupation Status: retired Allergies Coded Allergies: Alendronate (Verified Allergy, Unknown, 08/07/16) Home Medications Reported Home Medications Medications Dose Route/Sig Max Daily Dose Days Date Category Dose Instructions Os-Keanu 500 Plus D (Calcium/Vitamin D) Tab 1 Tab PO DAILY 08/07/16 Reported Levothyroxine Sodium 125 Mcg Tab 1 Tab PO DAILY 30 08/07/16 Reported Lumigan (Bimatoprost) 0.01 % Page 1 Drop OPB HS 08/07/16 Reported Durezol (Difluprednate) 0.05 % Emu 1 Drop OPB BID 08/07/16 Reported Demadex (Torsemide) 20 Mg Tab 10 Mg PO 2XWK 08/07/16 Reported Ranitidine HCl 150 Mg Tab 150 Mg PO BID 08/07/16 Reported Augmentin 875-125 mg (Amoxicillin & Pot Clavulanate) 1 Tab Tab 875 Mg PO BID 10 08/06/16 Rx Tylenol (Acetaminophen) 325 Mg Tab 650 Mg PO DAILY PRN 05/07/16 Reported Ocuvite Preservision (Multivitamins/Minerals) 1 Tab Tab 1 Tab PO DAILY 05/07/16 Reported Mag-Ox (Magnesium Oxide) 400 Mg Tab 400 Mg PO DAILY 05/07/16 Reported Vitamin D3 (Cholecalciferol) 1,000 Unit Tab 1 Tab PO DAILY 90 05/07/16 Reported Micro-K Ext Rel (Potassium Chloride) 10 Meq Capcr 10 Meq PO 2XWK 07/02/15 Reported Coumadin (Warfarin Sod) 5 Mg Tab 5 Mg PO DIRECTED 07/02/15 Reported TAKE 5 MG SATURDAY AND SATURDAY Coumadin (Warfarin Sod) 2.5 Mg Tab 2.5 Mg PO DIRECTED 07/02/15 Reported TAKE 2.5 MG ,SAT,, Saturday Vitamin B Complex (B-Complex Vitamins) 1 Tab Tab 1 Tab PO DAILY 05/17/14 Reported Toprol-Xl (Metoprolol Succinate) 50 Mg Tabcr 25 Mg PO DAILY 05/17/14 Reported Prednisone 5 Mg Tab 5 Mg PO DAILY 05/17/14 Reported Prozac (Fluoxetine HCl) 20 Mg Cap 10 Mg PO QAM 05/17/14 Reported Current Inpatient Medications Current Inpatient Medications Medications (Trade) Dose Ordered Sig/Mike Route Start Time Stop Time Status Last Admin Dose Admin Acetaminophen (Tylenol Tab) 650 mg Q4H PRN PO 08/07/16 20:15 09/06/16 20:14 08/08/16 08:10 650 MG Ondansetron HCl (Zofran Inj) 4 mg Q6H PRN IV 08/07/16 20:15 09/06/16 20:14 Piperacillin Sod/ Tazobactam Sod (Consult) 1 ea UD PRN N/A 08/07/16 20:31 09/06/16 20:30 Azithromycin (Zithromax Tab) 250 mg QAM PO 08/08/16 09:00 08/11/16 09:01 08/08/16 08:01 250 MG Calcium/Vitamin D (Caltrate Plus Tab) 1 tab DAILY PO 08/08/16 09:00 09/07/16 08:59 08/08/16 08:01 1 TAB Cholecalciferol (Vitamin D Tab) 1,000 inter.unit DAILY PO 08/08/16 09:00 09/07/16 08:59 08/08/16 08:01 1,000 INTER.UNIT Fluoxetine HCl (Prozac Cap) 10 mg QAM PO 08/08/16 09:00 09/07/16 08:59 08/08/16 08:00 10 MG Levothyroxine Sodium (Synthroid Tab) 125 mcg DAILYBB PO 08/08/16 06:30 09/07/16 06:29 08/08/16 06:08 125 MCG Magnesium Oxide (Mag-Ox Tab) 400 mg DAILY PO 08/08/16 09:00 09/07/16 08:59 08/08/16 08:01 400 MG Metoprolol Succinate (Toprol Xl Tab) 25 mg DAILY PO 08/08/16 09:00 09/07/16 08:59 08/08/16 08:01 25 MG Multivitamins/ Minerals (Multivitamin W/ Minerals Tab) 1 tab DAILY PO 08/08/16 09:00 09/07/16 08:59 Prednisone (PredniSONE TAB) 5 mg DAILY PO 08/08/16 09:00 09/07/16 08:59 08/08/16 08:00 5 MG Ranitidine HCl (zANTac TAB) 150 mg BID PO 08/07/16 21:00 09/06/16 20:59 08/08/16 08:01 150 MG Warfarin Sodium (Coumadin Tab) 2.5 mg SuTuWeThSa@1600 PO 08/07/16 22:00 09/06/16 21:59 08/07/16 22:52 2.5 MG Warfarin Sodium (Coumadin Tab) 5 mg MoFr@1600 PO 08/10/16 16:00 09/09/16 15:59 Vitamin B Complex (Vitamin B Complex) 1 tab DAILY PO 08/08/16 09:00 09/07/16 08:59 08/08/16 08:00 1 TAB Bimatoprost (Lumigan 0.01%) 1 drops HS OPB 08/07/16 21:00 09/06/16 20:59 08/07/16 22:51 1 DROPS Miscellaneous Information 1 ea 1 ea QS N/A 08/08/16 08:00 09/07/16 07:59 Piperacillin Sod/ Tazobactam Sod 3.375 gm/Dextrose 115 ml @ 28.75 mls/ hr Q8H IV 08/08/16 01:00 08/22/16 00:59 08/08/16 08:10 28.75 MLS/HR Sodium Chloride (Nss 1000ml) 1,000 ml @ 75 mls/hr [id number] IV 08/07/16 23:00 08/08/16 12:19 08/07/16 23:43 75 MLS/HR Review of Systems Constitutional: + chills ([employer]- now resolved), + fever Eyes: No worsening of vision ENT: No hearing loss Respiratory: No cough, No shortness of breath Cardiovascular: No chest pain Abdomen: + nausea, No diarrhea, No pain, No vomiting Musculoskeletal: + swelling (left lower extremity), No joint pain Genitourinary - Female: No dysuria, No urinary frequency, No urinary urgency Integumentary: + color change (erythema LLE), No rash Physical Exam Date Time Temp Pulse Resp B/P Pulse Ox O2 Delivery O2 Flow Rate FiO2 08/08/16 08:00 93 Room Air 08/08/16 07:57 36.9 91 19 107/70 93 Room Air 08/08/16 00:12 36.8 71 20 117/74 96 Room Air 08/08/16 00:00 Room Air 08/07/16 20:30 Room Air 08/07/16 20:20 88 20 113/63 94 Room Air 08/07/16 20:01 37.0 90 18 122/74 95 Room Air 08/07/16 18:27 37.2 90 18 105/63 95 Room Air General Appearance: WD/WN, no apparent distress Head: normocephalic, atraumatic Eyes: normal inspection, sclerae normal ENT: hearing grossly normal Neck: supple, trachea midline Respiratory/Chest: chest non-tender, lungs clear, normal breath sounds, no respiratory distress, no accessory muscle use Cardiovascular: regular rate, rhythm, no murmur Abdomen/GI: normal bowel sounds, non tender Back: normal inspection Extremities/Musculoskelatal: + pertinent finding (moderate edema of the LLE with tenderness to palpation especially around ankle and achilles. Trace to 1+ pitting edema RLE) Skin: + pertinent finding (LLE with Moderate erythema and petechiae. Note 3 tiny puncture wounds of the LLE. ) Laboratory Results CHEST ONE VIEW PORTABLE HISTORY: Atypical CHEST PAIN COMPARISON: Chest 08/06/2016. FINDINGS: The lungs are clear. No pleural effusions. No pneumothorax. Mildly tortuous thoracic aorta, unchanged. The heart remains mildly enlarged. Right hilar enlargement remains stable. IMPRESSION: Stable mild cardiomegaly. Item Value Date Time Blood Culture Received 08/08/16 0425 Blood Pending Blood Culture Received 08/08/16 0420 Blood Pending Urine Culture Received 08/08/16 0000 Urine , Clean Catch Pending Last 24 Hours Test 08/07/16 19:00 08/07/16 19:06 08/08/16 00:00 08/08/16 04:20 White Blood Count 9.94 K/uL 8.84 K/uL Red Blood Count 4.16 M/uL 3.70 M/uL Hemoglobin 13.0 g/dL 11.6 g/dL Hematocrit 40.3 % 35.6 % Mean Corpuscular Volume 96.9 fL 96.2 fL Mean Corpuscular Hemoglobin 31.3 pg 31.4 pg Mean Corpuscular Hemoglobin Concent 32.3 g/dl 32.6 g/dl Platelet Count 166 K/uL 147 K/uL Mean Platelet Volume 9.5 fL 9.2 fL Neutrophils (%) (Auto) 77.0 % Lymphocytes (%) (Auto) 13.4 % Monocytes (%) (Auto) 9.1 % Eosinophils (%) (Auto) 0.2 % Basophils (%) (Auto) 0.1 % Neutrophils # (Auto) 7.66 K/uL Lymphocytes # (Auto) 1.33 K/uL Monocytes # (Auto) 0.90 K/uL Eosinophils # (Auto) 0.02 K/uL Basophils # (Auto) 0.01 K/uL RDW Standard Deviation 56.4 fL 55.9 fL RDW Coefficient of Variation 15.8 % 15.9 % Immature Granulocyte % (Auto) 0.2 % Immature Granulocyte # (Auto) 0.02 K/uL Red Blood Cell Morphology Unremarkable Prothrombin Time 19.7 SECONDS 17.4 SECONDS Prothromb Time International Ratio 1.8 1.6 Activated Partial Thromboplast Time 38.1 SECONDS Partial Thromboplastin Ratio 1.5 Sodium Level 141 mmol/L 143 mmol/L Potassium Level 3.9 mmol/L 3.5 mmol/L Chloride Level 107 mmol/L 108 mmol/L Carbon Dioxide Level 28 mmol/L 29 mmol/L Anion Gap 6.0 mmol/L 6.0 mmol/L Blood Urea Nitrogen 19 mg/dl 16 mg/dl Creatinine 0.78 mg/dl 0.71 mg/dl Estimated GFR () 78.1 87.5 Estimated GFR (Non- 67.4 75.5 BUN/Creatinine Ratio 24.2 22.0 Random Glucose 113 mg/dl 91 mg/dl Calcium Level 8.3 mg/dl 7.9 mg/dl Total Bilirubin 1.7 mg/dl Direct Bilirubin 0.5 mg/dl Aspartate Amino Transf (AST/SGOT) 21 U/L Alanine Aminotransferase (ALT/SGPT) 21 U/L Alkaline Phosphatase 74 U/L Total Protein 7.0 gm/dl Albumin 2.7 gm/dl Lipase 132 U/L Bedside Lactic Acid Venous 1.05 mmol/L Urine Color YELLOW Urine Appearance CLEAR Urine pH 5.0 Urine Specific [place] 1.026 Urine Protein NEG Urine Glucose (UA) NEG Urine Ketones TRACE Urine Occult Blood NEG Urine Nitrite NEG Urine Bilirubin NEG Urine Urobilinogen NEG Urine Leukocyte Esterase NEG Est Creatinine Clear Calc Drug Dose 54.8 ml/min Assessment & Plan Patient with left lower extremity cellulitis and gram negative bacteremia pending identification. The patient overall is improving and is currently on IV Zosyn. Continue Zosyn pending cultures. Recommend LLE X-Ray to evaluate bone/ joint spaces. May need CT scan if improvement is not seen. We will follow. PROVIDER ADDENDUM: Patient examined and reviewed with Ms. Dawson. Agree with above assessment. Suspect that gram-negative bacilli will returning officer to be pasteurella given prior cat scratch. This should be well covered with IV Zosyn.
--- NOTE | 2016-08-08 14:02 | Progress Note ---
Internal Med Progress Note Date of Service: August 08, 2016. Provider Documentation: SUBJECTIVE: Seen and examined at bedside. Patient states Left leg pain with ambulation. LLE redness, swelling improving. Denies any new complaints. OBJECTIVE: Vital Signs-as noted below Physical Exam: General Appearance:Moderately built and nourished, no apparent distress Head: normocephalic, Atraumatic Eyes: normal inspection, EOMI, PERRL Neck: supple, Trachea midline Respiratory/Chest: Normal breath sounds, CTA Cardiovascular: S1, S2, No murmur Abdomen/GI:Soft, Non tender, Bowel sounds present Extremities/Musculoskelatal:Left LLE swelling, redness improving. +edema Neurologic/Psych:AAOX3, grossly no focal neurological deficits Skin: normal color, warm Lab data as noted below. ASSESSMENT & PLAN: GRAM NEGATIVE BACTEREMIA, LLE CELLULITIS patient presented with LLE redness secondary to cat scratch No signs of sepsis Continue Zosyn, azithromycin for now Follow up cultures Appreciate ID input Will get X ray of leg Blood cultures from 08/06: X2: Gram negative bacilli ATRIAL FIBRILLATION rate controlled Continue BB INR 1.6 continue Coumadin Monitor INR H/O DVT/PE on Coumadin CHRONIC DIASTOLIC CHF hold diuretics for now appears euvolemic PMR On chronic Prednisone DVT PX: on Coumadin CODE STATUS DNR DISPOSITION: Continue to monitor Vital Signs: Date Time Temp Pulse Resp B/P Pulse Ox O2 Delivery O2 Flow Rate FiO2 08/08/16 08:00 93 Room Air 08/08/16 07:57 36.9 91 19 107/70 93 Room Air 08/08/16 00:12 36.8 71 20 117/74 96 Room Air 08/08/16 00:00 Room Air 08/07/16 20:30 Room Air 08/07/16 20:20 88 20 113/63 94 Room Air 08/07/16 20:01 37.0 90 18 122/74 95 Room Air 08/07/16 18:27 37.2 90 18 105/63 95 Room Air Lab Results: Results Past 24 Hours Test 08/07/16 19:00 08/07/16 19:06 08/08/16 00:00 08/08/16 04:20 Range/Units White Blood Count 9.94 8.84 4.8-10.8 K/uL Red Blood Count 4.16 3.70 4.2-5.4 M/uL Hemoglobin 13.0 11.6 12.0-16.0 g/dL Hematocrit 40.3 35.6 37-47 % Mean Corpuscular Volume 96.9 96.2 80-100 fL Mean Corpuscular Hemoglobin 31.3 31.4 25-34 pg Mean Corpuscular Hemoglobin Concent 32.3 32.6 32-36 g/dl Platelet Count 166 147 130-400 K/uL Mean Platelet Volume 9.5 9.2 7.4-10.4 fL Neutrophils (%) (Auto) 77.0 % Lymphocytes (%) (Auto) 13.4 % Monocytes (%) (Auto) 9.1 % Eosinophils (%) (Auto) 0.2 % Basophils (%) (Auto) 0.1 % Neutrophils # (Auto) 7.66 1.4-6.5 K/uL Lymphocytes # (Auto) 1.33 1.2-3.4 K/uL Monocytes # (Auto) 0.90 0.11-0.59 K/uL Eosinophils # (Auto) 0.02 0-0.5 K/uL Basophils # (Auto) 0.01 0-0.2 K/uL RDW Standard Deviation 56.4 55.9 36.4-46.3 fL RDW Coefficient of Variation 15.8 15.9 11.5-14.5 % Immature Granulocyte % (Auto) 0.2 % Immature Granulocyte # (Auto) 0.02 0.00-0.02 K/uL Red Blood Cell Morphology Unremarkable Prothrombin Time 19.7 17.4 9.0-12.0 SECONDS Prothromb Time International Ratio 1.8 1.6 0.9-1.1 Activated Partial Thromboplast Time 38.1 21.0-31.0 SECONDS Partial Thromboplastin Ratio 1.5 Sodium Level 141 143 136-145 mmol/L Potassium Level 3.9 3.5 3.5-5.1 mmol/L Chloride Level 107 108 98-107 mmol/L Carbon Dioxide Level 28 29 21-32 mmol/L Anion Gap 6.0 6.0 3-11 mmol/L Blood Urea Nitrogen 19 16 7-18 mg/dl Creatinine 0.78 0.71 0.60-1.20 mg/dl Estimated GFR () 78.1 87.5 Estimated GFR (Non- 67.4 75.5 BUN/Creatinine Ratio 24.2 22.0 10-20 Random Glucose 113 91 70-99 mg/dl Calcium Level 8.3 7.9 8.5-10.1 mg/dl Total Bilirubin 1.7 0.2-1 mg/dl Direct Bilirubin 0.5 0-0.2 mg/dl Aspartate Amino Transf (AST/SGOT) 21 15-37 U/L Alanine Aminotransferase (ALT/SGPT) 21 12-78 U/L Alkaline Phosphatase 74 45-117 U/L Total Protein 7.0 6.4-8.2 gm/dl Albumin 2.7 3.4-5.0 gm/dl Lipase 132 73-393 U/L Bedside Lactic Acid Venous 1.05 0.90-1.70 mmol/L Urine Color YELLOW Urine Appearance CLEAR CLEAR Urine pH 5.0 4.5-7.5 Urine Specific [place] 1.026 1.000-1.030 Urine Protein NEG NEG Urine Glucose (UA) NEG NEG Urine Ketones TRACE NEG Urine Occult Blood NEG NEG Urine Nitrite NEG NEG Urine Bilirubin NEG NEG Urine Urobilinogen NEG NEG Urine Leukocyte Esterase NEG NEG Est Creatinine Clear Calc Drug Dose 54.8 ml/min Microbiology Results 08/08/16 Blood Culture, Received Pending 08/08/16 Blood Culture, Received Pending 08/08/16 Urine Culture, Received Pending
[2016-08-08 15:03] VITALS: BP 115/74; PULSE 98; TEMP 36.7; O2SAT 94
--- NOTE | 2016-08-08 15:35 | DIAGNOSTIC IMAGING REPORT ---
LEFT TIBIA/FIBULA 2 VIEWS ROUTINE HISTORY: L leg cellulitis/ r/o infection joint spaces COMPARISON STUDY: None. FINDINGS: Diffuse soft tissue swelling throughout the left lower leg. No radiopaque foreign bodies. Mild vascular calcifications. No underlying bony abnormality to suggest osteomyelitis. No fracture or dislocation. IMPRESSION: Diffuse soft tissue swelling within the left lower leg. No underlying bony abnormality. Electronically signed by: Enoch Ovalle M.D. 08/08/2016 3:34 PM Dictated Date/Time: 08/08/2016 3:32 PM
--- NOTE | 2016-08-08 15:38 | DIAGNOSTIC IMAGING REPORT ---
LEFT ANKLE MIN 3 VIEWS ROUTINE, LEFT FOOT MIN 3 VIEWS ROUTINE CLINICAL HISTORY: /Left lower leg cellulitis. Assess for infection of joint spaces. COMPARISON STUDY: None. FINDINGS: Plantar and posterior calcaneal spurs. Diffuse soft tissue swelling and skin thickening within the ankle and left foot. No underlying bony destruction to suggest osteomyelitis. No joint space irregularity or destruction to suggest a septic arthritis. Mild vascular calcifications. No radiopaque foreign bodies. No fracture or dislocation. Incidental note is made of an os navicularis. IMPRESSION: Diffuse soft tissue swelling and skin thickening within the left ankle and left foot. No underlying bony abnormality to suggest osteomyelitis or septic arthritis. Electronically signed by: Enoch Ovalle M.D. 08/08/2016 3:36 PM Dictated Date/Time: 08/08/2016 3:34 PM
[2016-08-08 16:10] VITALS: O2SAT 94
[2016-08-08] MEDS: WARFARIN SOD 2.5 MG TAB PO SCH (16:22)
[2016-08-08] MEDS: BIMATOPROST 0.01% OP SOLN 2.5 ML BTL OPB SCH (20:59)
[2016-08-08 23:51] VITALS: BP 126/81; PULSE 100; TEMP 36.7; O2SAT 97
[2016-08-09] VITALS: O2SAT 94
[2016-08-09] MEDS: PIPERACILL/TAZOBAC IV 3.375 GM in DEXTROSE 5% 100ML IV SCH ×2 (00:34→08:41)
[2016-08-09] MEDS: LEVOTHYROXINE 125 MCG TAB PO SCH (04:53)
[2016-08-09 06:52] LABS: COMPLETE YES; EOS % 1.7 %; HEMATOCRIT 37.6 % (37-47); IG% 0.3 %; LYMPH % 24.5 %; LYMPH ABS # 1.48 K/uL (1.2-3.4); MEAN CELL VOLUME 97.7 fL (80-100); MEAN CORPUSCULAR HEMOGLOBIN 31.4 pg (25-34); MEAN CORPUSCULAR HGB CONC 32.2 g/dl (32-36); MEAN PLATELET VOLUME 9.8 fL (7.4-10.4); MONO % 13.4 %; NEUT % 60.1 %; PLATELET COUNT 142 K/uL (130-400); RED BLOOD COUNT 3.85 M/uL (4.2-5.4); WHITE BLOOD COUNT 6.04 K/uL (4.8-10.8)
[2016-08-09 07:10] LABS: INR 1.8 (0.9-1.1); PROTHROMBIN TIME (PATIENT) 19.4 SECONDS (9.0-12.0)
[2016-08-09 07:23] LABS: BUN/CREATININE RATIO 16.8 (10-20); CALCIUM 8.1 mg/dl (8.5-10.1); CREATININE 0.69 mg/dl (0.60-1.20); POTASSIUM 3.4 mmol/L (3.5-5.1)
[2016-08-09] MEDS ORDERED: POTASSIUM CHLORIDE 10 MEQ TABCR PO ONE (07:45)
[2016-08-09] MEDS: ACETAMINOPHEN 325 MG TAB PO PRN (07:56)
[2016-08-09] MEDS: METOPROLOL SUCC 25MG EXT REL TAB PO SCH (07:56)
[2016-08-09] MEDS: CEROVITE ADV FORMULA TAB PO SCH (07:57)
[2016-08-09] MEDS: VITAMIN B COMPLEX TAB PO SCH (07:57)
[2016-08-09] MEDS: RANITIDINE HCL 150 MG TAB PO SCH ×2 (07:57→21:09)
[2016-08-09] MEDS: MAGNESIUM OXIDE 400 MG TAB PO SCH (07:57)
[2016-08-09] MEDS: FLUOXETINE HCL 10 MG CAP PO SCH (07:57)
[2016-08-09] MEDS: CALCIUM 600MG + VIT D 400 IU TAB PO SCH (07:57)
[2016-08-09] MEDS: AZITHROMYCIN 250 MG TAB PO SCH (07:58)
[2016-08-09] MEDS: CHOLECALCIFEROL 1000 INTER.UNIT TAB PO SCH (07:58)
[2016-08-09 08:00] VITALS: O2SAT 96
[2016-08-09 08:03] VITALS: BP_SYST 136; BP_SYST 147; BP_DIAS 84; BP_DIAS 89; PULSE 95; TEMP 36.8; O2SAT 96
--- NOTE | 2016-08-09 11:41 | Progress Note ---
Internal Med Progress Note Date of Service: August 09, 2016. Provider Documentation: SUBJECTIVE: Seen and examined at bedside. Patient states Left leg pain, redness, swelling is much improved. Has minimal pain with ambulation. Offers no other complaints. OBJECTIVE: Vital Signs-as noted below Physical Exam: General Appearance:Moderately built and nourished, no apparent distress Head: normocephalic, Atraumatic Eyes: normal inspection, EOMI, PERRL Neck: supple, Trachea midline Respiratory/Chest: Normal breath sounds, CTA Cardiovascular: Irregularly, Irregular, No murmur Abdomen/GI:Soft, Non tender, Bowel sounds present Extremities/Musculoskelatal:Left LLE swelling, redness improving. +edema Neurologic/Psych:AAOX3, grossly no focal neurological deficits Skin: normal color, warm Lab data as noted below. ASSESSMENT & PLAN: PASTEURELLA MULTOCIDA BACTEREMIA, LLE CELLULITIS patient presented with LLE redness secondary to cat scratch No signs of sepsis S/P Zosyn for 1 day Continue Unasyn, azithromycin for now Follow up cultures Appreciate ID input X ray of leg: No bony bony abnormality to suggest osteomyelitis or septic arthritis. Blood cultures from 08/06:PASTEURELLA MULTOCIDA Repeat blood cultures 08/08: No growth to date HYPOKALEMIA: Replace and monitor ATRIAL FIBRILLATION rate controlled Continue BB INR 1.8 today continue Coumadin Monitor INR H/O DVT/PE on Coumadin CHRONIC DIASTOLIC CHF hold diuretics for now appears euvolemic PMR On chronic Prednisone DVT PX: on Coumadin CODE STATUS DNR DISPOSITION: Continue to monitor Likely discharge tomorrow if stable Vital Signs: Date Time Temp Pulse Resp B/P Pulse Ox O2 Delivery O2 Flow Rate FiO2 08/09/16 08:03 36.8 95 20 147/84 96 Room Air 136/89 08/09/16 08:00 96 Room Air 08/09/16 00:00 94 Room Air 08/08/16 23:51 36.7 100 18 126/81 97 Room Air 08/08/16 16:10 94 Room Air 08/08/16 15:03 36.7 98 18 115/74 94 Room Air Lab Results: Results Past 24 Hours Test 08/09/16 06:34 Range/Units White Blood Count 6.04 4.8-10.8 K/uL Red Blood Count 3.85 4.2-5.4 M/uL Hemoglobin 12.1 12.0-16.0 g/dL Hematocrit 37.6 37-47 % Mean Corpuscular Volume 97.7 80-100 fL Mean Corpuscular Hemoglobin 31.4 25-34 pg Mean Corpuscular Hemoglobin Concent 32.2 32-36 g/dl Platelet Count 142 130-400 K/uL Mean Platelet Volume 9.8 7.4-10.4 fL Neutrophils (%) (Auto) 60.1 % Lymphocytes (%) (Auto) 24.5 % Monocytes (%) (Auto) 13.4 % Eosinophils (%) (Auto) 1.7 % Basophils (%) (Auto) 0.0 % Neutrophils # (Auto) 3.63 1.4-6.5 K/uL Lymphocytes # (Auto) 1.48 1.2-3.4 K/uL Monocytes # (Auto) 0.81 0.11-0.59 K/uL Eosinophils # (Auto) 0.10 0-0.5 K/uL Basophils # (Auto) 0.00 0-0.2 K/uL RDW Standard Deviation 58.0 36.4-46.3 fL RDW Coefficient of Variation 16.1 11.5-14.5 % Immature Granulocyte % (Auto) 0.3 % Immature Granulocyte # (Auto) 0.02 0.00-0.02 K/uL Prothrombin Time 19.4 9.0-12.0 SECONDS Prothromb Time International Ratio 1.8 0.9-1.1 Sodium Level 145 136-145 mmol/L Potassium Level 3.4 3.5-5.1 mmol/L Chloride Level 111 98-107 mmol/L Carbon Dioxide Level 27 21-32 mmol/L Anion Gap 7.0 3-11 mmol/L Blood Urea Nitrogen 12 7-18 mg/dl Creatinine 0.69 0.60-1.20 mg/dl Est Creatinine Clear Calc Drug Dose 56.4 ml/min Estimated GFR () 89.5 Estimated GFR (Non- 77.2 BUN/Creatinine Ratio 16.8 10-20 Random Glucose 73 70-99 mg/dl Calcium Level 8.1 8.5-10.1 mg/dl Microbiology Results 08/08/16 C.difficile Toxin B Gene (PCR) - Final, Complete No C. difficile toxin B gene detected
--- NOTE | 2016-08-09 11:48 | Infectious Disease Progress Nt ---
Progress Note Date of Service August 09, 2016. Subjective Pt evaluation today including: conversation w/ patient, physical exam, chart review, lab review, review of studies, conversation w/ databases computer consultant ([facility]- pharmacy), review of inpatient medication list Patient is feeling well today. Her leg pain is less today, and she has been up moving around with minimal pain. Her blood cultures from the ED on 08/06 are growing Pasturella Multocida in 2/2 cultures. Repeat blood cultures are showing no growth. WBC count today was 6.04. Creatinine has been stable and was 0.69 this morning. C. Diff toxin was completed and was negative. Urine culture is still pending. Ankle X-Ray showed diffuse soft tissue swelling and skin thickening within the left ankle and foot, but no underlying abnormality to suggest osteomyelitis or septic arthritis. All Other Systems: Reviewed and Negative Medications Current Inpatient Medications Medications (Trade) Dose Ordered Sig/Mike Route Start Time Stop Time Status Last Admin Dose Admin Acetaminophen (Tylenol Tab) 650 mg Q4H PRN PO 08/07/16 20:15 09/06/16 20:14 08/09/16 07:56 650 MG Ondansetron HCl (Zofran Inj) 4 mg Q6H PRN IV 08/07/16 20:15 09/06/16 20:14 Azithromycin (Zithromax Tab) 250 mg QAM PO 08/08/16 09:00 08/11/16 09:01 08/09/16 07:58 250 MG Calcium/Vitamin D (Caltrate Plus Tab) 1 tab DAILY PO 08/08/16 09:00 09/07/16 08:59 08/09/16 07:57 1 TAB Cholecalciferol (Vitamin D Tab) 1,000 inter.unit DAILY PO 08/08/16 09:00 09/07/16 08:59 08/09/16 07:58 1,000 INTER.UNIT Fluoxetine HCl (Prozac Cap) 10 mg QAM PO 08/08/16 09:00 09/07/16 08:59 08/09/16 07:57 10 MG Levothyroxine Sodium (Synthroid Tab) 125 mcg DAILYBB PO 08/08/16 06:30 09/07/16 06:29 08/09/16 04:53 125 MCG Magnesium Oxide (Mag-Ox Tab) 400 mg DAILY PO 08/08/16 09:00 09/07/16 08:59 08/09/16 07:57 400 MG Metoprolol Succinate (Toprol Xl Tab) 25 mg DAILY PO 08/08/16 09:00 09/07/16 08:59 08/09/16 07:56 25 MG Multivitamins/ Minerals (Multivitamin W/ Minerals Tab) 1 tab DAILY PO 08/08/16 09:00 09/07/16 08:59 Prednisone (PredniSONE TAB) 5 mg DAILY PO 08/08/16 09:00 09/07/16 08:59 08/09/16 07:57 5 MG Ranitidine HCl (zANTac TAB) 150 mg BID PO 08/07/16 21:00 09/06/16 20:59 08/09/16 07:57 150 MG Warfarin Sodium (Coumadin Tab) 2.5 mg SuTuWeThSa@1600 PO 08/07/16 22:00 09/06/16 21:59 08/08/16 16:22 2.5 MG Warfarin Sodium (Coumadin Tab) 5 mg MoFr@1600 PO 08/10/16 16:00 09/09/16 15:59 Vitamin B Complex (Vitamin B Complex) 1 tab DAILY PO 08/08/16 09:00 09/07/16 08:59 08/09/16 07:57 1 TAB Bimatoprost (Lumigan 0.01%) 1 drops HS OPB 08/07/16 21:00 09/06/16 20:59 08/08/16 20:59 1 DROPS Miscellaneous Information 1 ea 1 ea QS N/A 08/08/16 08:00 09/07/16 07:59 Ampicillin Sodium/ Sulbactam Sodium/ Sodium Chloride (Unasyn Inj/Nss 100ml) 108 ml @ 216 mls/hr Q6H IV 08/09/16 16:00 08/19/16 15:59 Objective Vital Signs Date Time Temp Pulse Resp B/P Pulse Ox O2 Delivery O2 Flow Rate FiO2 08/09/16 08:03 36.8 95 20 147/84 96 Room Air 136/89 08/09/16 08:00 96 Room Air 08/09/16 00:00 94 Room Air 08/08/16 23:51 36.7 100 18 126/81 97 Room Air 08/08/16 16:10 94 Room Air 08/08/16 15:03 36.7 98 18 115/74 94 Room Air Physical Exam General Appearance: WD/WN, no apparent distress Eyes: normal inspection, sclerae normal ENT: hearing grossly normal Neck: supple, trachea midline Respiratory/Chest: no respiratory distress, no accessory muscle use Cardiovascular: regular rate, rhythm Extremities: + pertinent finding (1-2+ pitting edema of the left lower extremity. ) Laboratory Results Item Value Date Time C.difficile Toxin B Gene (PCR) - Final Complete 08/08/16 1635 Stool No C. difficile toxin B gene detected Blood Culture - Preliminary Resulted 08/08/16 0425 Blood NO GROWTH TO DATE. Blood Culture - Preliminary Resulted 08/08/16 0420 Blood NO GROWTH TO DATE. Urine Culture Received 08/08/16 0000 Urine , Clean Catch Pending LEFT ANKLE MIN 3 VIEWS ROUTINE, LEFT FOOT MIN 3 VIEWS ROUTINE CLINICAL HISTORY: /Left lower leg cellulitis. Assess for infection of joint spaces. COMPARISON STUDY: None. FINDINGS: Plantar and posterior calcaneal spurs. Diffuse soft tissue swelling and skin thickening within the ankle and left foot. No underlying bony destruction to suggest osteomyelitis. No joint space irregularity or destruction to suggest a septic arthritis. Mild vascular calcifications. No radiopaque foreign bodies. No fracture or dislocation. Incidental note is made of an os navicularis. IMPRESSION: Diffuse soft tissue swelling and skin thickening within the left ankle and left foot. No underlying bony abnormality to suggest osteomyelitis or septic arthritis. Last 24 Hours Test 08/09/16 06:34 White Blood Count 6.04 K/uL Red Blood Count 3.85 M/uL Hemoglobin 12.1 g/dL Hematocrit 37.6 % Mean Corpuscular Volume 97.7 fL Mean Corpuscular Hemoglobin 31.4 pg Mean Corpuscular Hemoglobin Concent 32.2 g/dl Platelet Count 142 K/uL Mean Platelet Volume 9.8 fL Neutrophils (%) (Auto) 60.1 % Lymphocytes (%) (Auto) 24.5 % Monocytes (%) (Auto) 13.4 % Eosinophils (%) (Auto) 1.7 % Basophils (%) (Auto) 0.0 % Neutrophils # (Auto) 3.63 K/uL Lymphocytes # (Auto) 1.48 K/uL Monocytes # (Auto) 0.81 K/uL Eosinophils # (Auto) 0.10 K/uL Basophils # (Auto) 0.00 K/uL RDW Standard Deviation 58.0 fL RDW Coefficient of Variation 16.1 % Immature Granulocyte % (Auto) 0.3 % Immature Granulocyte # (Auto) 0.02 K/uL Prothrombin Time 19.4 SECONDS Prothromb Time International Ratio 1.8 Sodium Level 145 mmol/L Potassium Level 3.4 mmol/L Chloride Level 111 mmol/L Carbon Dioxide Level 27 mmol/L Anion Gap 7.0 mmol/L Blood Urea Nitrogen 12 mg/dl Creatinine 0.69 mg/dl Est Creatinine Clear Calc Drug Dose 56.4 ml/min Estimated GFR () 89.5 Estimated GFR (Non- 77.2 BUN/Creatinine Ratio 16.8 Random Glucose 73 mg/dl Calcium Level 8.1 mg/dl Assessment and Plan Patient with left lower extremity cellulitis and Pasteurella bacteremia. The patient overall is improving and is currently on IV Zosyn. Will narrow spectrum to IV Unasyn after discussion with pharmacy. Recommend continuing IV abx therapy today and then transition to PO Augmentin tomorrow to complete 14 days. We will follow. PROVIDER ADDENDUM: Patient reviewed with Ms. Osman. Agree with above assessment.
[2016-08-09 15:07] VITALS: BP 124/83; PULSE 95; TEMP 36.6; O2SAT 96
[2016-08-09 16:10] VITALS: O2SAT 94
[2016-08-09] MEDS: WARFARIN SOD 2.5 MG TAB PO SCH (17:46)
[2016-08-09] MEDS: AMPICILLIN/SULBACTAM SOD INJ 3,000 MG in SODIUM CHLORIDE 0.9% 100ML 100 ML IV SCH ×2 (17:50→21:08)
[2016-08-09] MEDS: BIMATOPROST 0.01% OP SOLN 2.5 ML BTL OPB SCH (21:09)
[2016-08-09 23:30] VITALS: BP 151/93; PULSE 57; TEMP 36.8; O2SAT 96
[2016-08-10] MEDS: AMPICILLIN/SULBACTAM SOD INJ 3,000 MG in SODIUM CHLORIDE 0.9% 100ML 100 ML IV SCH ×2 (03:55→09:28)
[2016-08-10] MEDS: LEVOTHYROXINE 125 MCG TAB PO SCH (03:55)
[2016-08-10] MEDS: MAGNESIUM OXIDE 400 MG TAB PO SCH (07:28)
[2016-08-10] MEDS: FLUOXETINE HCL 10 MG CAP PO SCH (07:28)
[2016-08-10] MEDS: AZITHROMYCIN 250 MG TAB PO SCH (07:28)
[2016-08-10] MEDS: VITAMIN B COMPLEX TAB PO SCH (07:28)
[2016-08-10] MEDS: CEROVITE ADV FORMULA TAB PO SCH (07:29)
[2016-08-10] MEDS: CALCIUM 600MG + VIT D 400 IU TAB PO SCH (07:29)
[2016-08-10] MEDS: CHOLECALCIFEROL 1000 INTER.UNIT TAB PO SCH (07:29)
[2016-08-10] MEDS: METOPROLOL SUCC 25MG EXT REL TAB PO SCH (07:29)
[2016-08-10] MEDS: RANITIDINE HCL 150 MG TAB PO SCH (07:30)
[2016-08-10] MEDS: ACETAMINOPHEN 325 MG TAB PO PRN (07:39)
[2016-08-10 07:46] VITALS: BP 119/77; PULSE 69; TEMP 36.5; O2SAT 95
[2016-08-10 08:00] VITALS: O2SAT 95
[2016-08-10 08:15] LABS: PROTHROMBIN TIME (PATIENT) 22.6 SECONDS (9.0-12.0)
[2016-08-10 08:36] LABS: CREATININE 0.7 mg/dl (0.60-1.20); POTASSIUM 3.7 mmol/L (3.5-5.1)
[2016-08-10 08:51] LABS: CALCIUM 8.3 mg/dl (8.5-10.1)
--- NOTE | 2016-08-10 10:05 | Infectious Disease Progress Nt ---
Progress Note Date of Service August 10, 2016. Subjective Pt evaluation today including: conversation w/ patient, physical exam, chart review, lab review, review of studies, conversation w/ solutions delivery consultant (Dr. Quarles) , review of inpatient medication list Patient's ED blood cultures grew Pasteurella. Repeat cultures continue to show NGTD. She is improving. She feels that her leg is almost back to 'normal' color. Her pain is less when she is up walking around now and is minimal when lying in bed. Creatinine was 0.70 this morning. She continues to tolerate IV Unasyn well and her bowels have formed slightly. All Other Systems: Reviewed and Negative Medications Reported Home Medications Medications Dose Route/Sig Max Daily Dose Days Date Category Dose Instructions Os-Keanu 500 Plus D (Calcium/Vitamin D) Tab 1 Tab PO DAILY 08/07/16 Reported Levothyroxine Sodium 125 Mcg Tab 1 Tab PO DAILY 30 08/07/16 Reported Lumigan (Bimatoprost) 0.01 % Page 1 Drop OPB HS 08/07/16 Reported Durezol (Difluprednate) 0.05 % Emu 1 Drop OPB BID 08/07/16 Reported Demadex (Torsemide) 20 Mg Tab 10 Mg PO 2XWK 08/07/16 Reported Ranitidine HCl 150 Mg Tab 150 Mg PO BID 08/07/16 Reported Augmentin 875-125 mg (Amoxicillin & Pot Clavulanate) 1 Tab Tab 875 Mg PO BID 10 08/06/16 Rx Tylenol (Acetaminophen) 325 Mg Tab 650 Mg PO DAILY PRN 05/07/16 Reported Ocuvite Preservision (Multivitamins/Minerals) 1 Tab Tab 1 Tab PO DAILY 05/07/16 Reported Mag-Ox (Magnesium Oxide) 400 Mg Tab 400 Mg PO DAILY 05/07/16 Reported Vitamin D3 (Cholecalciferol) 1,000 Unit Tab 1 Tab PO DAILY 90 05/07/16 Reported Micro-K Ext Rel (Potassium Chloride) 10 Meq Capcr 10 Meq PO 2XWK 07/02/15 Reported Coumadin (Warfarin Sod) 5 Mg Tab 5 Mg PO DIRECTED 07/02/15 Reported TAKE 5 MG SATURDAY AND SATURDAY Coumadin (Warfarin Sod) 2.5 Mg Tab 2.5 Mg PO DIRECTED 07/02/15 Reported TAKE 2.5 MG ,SAT,, Saturday Vitamin B Complex (B-Complex Vitamins) 1 Tab Tab 1 Tab PO DAILY 05/17/14 Reported Toprol-Xl (Metoprolol Succinate) 50 Mg Tabcr 25 Mg PO DAILY 05/17/14 Reported Prednisone 5 Mg Tab 5 Mg PO DAILY 05/17/14 Reported Prozac (Fluoxetine HCl) 20 Mg Cap 10 Mg PO QAM 05/17/14 Reported Objective Vital Signs Date Time Temp Pulse Resp B/P Pulse Ox O2 Delivery O2 Flow Rate FiO2 08/10/16 08:00 95 Room Air 08/10/16 07:46 36.5 69 18 119/77 95 Room Air 08/10/16 00:00 Room Air 08/09/16 23:30 36.8 57 20 151/93 96 Room Air 08/09/16 16:10 94 Room Air 08/09/16 15:07 36.6 95 20 124/83 96 Room Air Physical Exam General Appearance: WD/WN, no apparent distress Eyes: normal inspection, sclerae normal ENT: hearing grossly normal Neck: supple, trachea midline Respiratory/Chest: chest non-tender, lungs clear, normal breath sounds, no respiratory distress, no accessory muscle use Cardiovascular: regular rate, rhythm Abdomen: normal bowel sounds, non tender, soft Neurologic/Psychiatric: alert, normal mood/affect, oriented x 3 Skin: normal color, warm/dry, no rash Laboratory Results Item Value Date Time Blood Culture - Preliminary Resulted 08/08/16424 Blood NO GROWTH TO DATE. Blood Culture - Preliminary Resulted 08/08/16 042 Blood NO GROWTH TO DATE. Last 24 Hours Test 08/10/16 07:11 Prothrombin Time 22.6 SECONDS Prothromb Time International Ratio 2.0 Sodium Level 145 mmol/L Potassium Level 3.7 mmol/L Chloride Level 110 mmol/L Carbon Dioxide Level 28 mmol/L Anion Gap 7.0 mmol/L Blood Urea Nitrogen 11 mg/dl Creatinine 0.70 mg/dl Est Creatinine Clear Calc Drug Dose 55.6 ml/min Estimated GFR () 89.0 Estimated GFR (Non- 76.8 BUN/Creatinine Ratio 15.0 Random Glucose 71 mg/dl Calcium Level 8.3 mg/dl Assessment and Plan Patient with left lower extremity cellulitis and Pasteurella bacteremia. Patient is currently on IV Unasyn. She is much improved. She can transition to PO Augmentin. Recommend finishing 14 days with a tentative stop date of 08/20/16. We will follow up as outpatient prior to D/C. Thanks PROVIDER ADDENDUM: Pt. reviewed with Ms. Osman. agree with above assessment.
--- NOTE | 2016-08-10 10:30 | Progress Note ---
Internal Med Progress Note Date of Service: August 10, 2016. Provider Documentation: SUBJECTIVE: Seen and examined at bedside. Patient states Left leg pain is resolved.Also denies pain with ambulation. Offers no other complaints. Eager to get discharged. OBJECTIVE: Vital Signs-as noted below Physical Exam: General Appearance:Moderately built and nourished, no apparent distress Head: normocephalic, Atraumatic Eyes: normal inspection, EOMI, PERRL Neck: supple, Trachea midline Respiratory/Chest: Normal breath sounds, CTA Cardiovascular: Irregularly, Irregular, No murmur Abdomen/GI:Soft, Non tender, Bowel sounds present Extremities/Musculoskelatal:Left LLE swelling, redness improving. +edema Neurologic/Psych:AAOX3, grossly no focal neurological deficits Skin: normal color, warm Lab data as noted below. ASSESSMENT & PLAN: PASTEURELLA MULTOCIDA BACTEREMIA, LLE CELLULITIS patient presented with LLE redness secondary to cat scratch No signs of sepsis S/P Zosyn for 1 day S/P Unasyn, azithromycin for 2 days Appreciate ID input X ray of leg: No bony bony abnormality to suggest osteomyelitis or septic arthritis. Blood cultures from 08/06:PASTEURELLA MULTOCIDA Repeat blood cultures 08/08: No growth to date Antibiotics transitioned to Augmentin per ID recommendations. Stop date 08/20/16 HYPOKALEMIA: Replace and monitor Resolved ATRIAL FIBRILLATION rate controlled Continue BB INR 2.0 today continue Coumadin Monitor INR H/O DVT/PE on Coumadin CHRONIC DIASTOLIC CHF hold diuretics for now appears euvolemic PMR On chronic Prednisone DVT PX: on Coumadin CODE STATUS DNR DISPOSITION: Continue to monitor Plan to discharge home today Follow up with on 08/15/16 at 1:45pm Follow up with your Infectious disease doctor in 1 week as advised Follow up with Coumadin clinic for PT/INR checks and Coumadin dosage as advised Complete the antibiotic course as prescribed Vital Signs: Date Time Temp Pulse Resp B/P Pulse Ox O2 Delivery O2 Flow Rate FiO2 08/10/16 08:00 95 Room Air 08/10/16 07:46 36.5 69 18 119/77 95 Room Air 08/10/16 00:00 Room Air 08/09/16 23:30 36.8 57 20 151/93 96 Room Air 08/09/16 16:10 94 Room Air 08/09/16 15:07 36.6 95 20 124/83 96 Room Air Lab Results: Results Past 24 Hours Test 08/10/16 07:11 Range/Units Prothrombin Time 22.6 9.0-12.0 SECONDS Prothromb Time International Ratio 2.0 0.9-1.1 Sodium Level 145 136-145 mmol/L Potassium Level 3.7 3.5-5.1 mmol/L Chloride Level 110 98-107 mmol/L Carbon Dioxide Level 28 21-32 mmol/L Anion Gap 7.0 3-11 mmol/L Blood Urea Nitrogen 11 7-18 mg/dl Creatinine 0.70 0.60-1.20 mg/dl Est Creatinine Clear Calc Drug Dose 55.6 ml/min Estimated GFR () 89.0 Estimated GFR (Non- 76.8 BUN/Creatinine Ratio 15.0 10-20 Random Glucose 71 70-99 mg/dl Calcium Level 8.3 8.5-10.1 mg/dl
[2016-08-10] MEDS ORDERED: AMOX875T PO (10:50)
--- NOTE | 2016-08-10 10:53 | Discharge Summary ---
Discharge Summary Date of Service August 10, 2016. Discharge Summary Admission Date: August 07, 2016 at 20:06 Discharge Date: August 10, 2016 Discharge Disposition: Home Principal Diagnosis: PASTEURELLA MULTOCIDA BACTEREMIA, Left leg CELLULITIS Procedures: CXR: Stable mild cardiomegaly. Tibia/Fibula: Diffuse soft tissue swelling within the left lower leg. No underlying bony abnormality. Foot X ray: Diffuse soft tissue swelling and skin thickening within the left ankle and left foot. No underlying bony abnormality to suggest osteomyelitis or septic arthritis. Ankle X ray: Diffuse soft tissue swelling and skin thickening within the left ankle and left foot. No underlying bony abnormality to suggest osteomyelitis or septic arthritis. Consultations: ID Pending Studies/Follow-Up: Follow up with on 08/15/16 at 1:45pm Follow up with your Infectious disease doctor in 1 week as advised Follow up with Coumadin clinic for PT/INR checks and Coumadin dosage as advised Complete the antibiotic course as prescribed Medication Reconciliation Continued Medications: Acetaminophen (Tylenol) 325 Mg Tab 650 MG PO DAILY PRN for Pain, TAB Amoxicillin & Pot Clavulanate (Augmentin 875-125 mg) 1 Tab Tab 875 MG PO BID for 11 Days, #22 TAB (This prescription has been renewed) B-Complex Vitamins (Vitamin B Complex) 1 Tab Tab 1 TAB PO DAILY Bimatoprost (Lumigan) 0.01 % Page 1 DROP OPB HS, #0 Calcium/Vitamin D (Os-Keanu 500 Plus D) Tab 1 TAB PO DAILY, TAB Cholecalciferol (Vitamin D3) 1,000 Unit Tab 1 TAB PO DAILY for 90 Days, #90 TAB 3 Refills Difluprednate (Durezol) 0.05 % Emu 1 DROP OPB BID, #0 Fluoxetine (Prozac) 20 Mg Cap 10 MG PO QAM, CAP Levothyroxine Sodium (Levothyroxine Sodium) 125 Mcg Tab 1 TAB PO DAILY for 30 Days, #30 TAB 5 Refills Magnesium Oxide (Mag-Ox) 400 Mg Tab 400 MG PO DAILY, TAB Metoprolol Succ (Toprol Xl) (Toprol-Xl) 50 Mg Tabcr 25 MG PO DAILY, #30 TAB Ocuvite Preservision (Ocuvite Preservision) 1 Tab Tab 1 TAB PO DAILY, TAB Potassium Chloride (Micro-K Ext Rel) 10 Meq Capcr 10 MEQ PO 2XWK, CAP Prednisone (Prednisone) 5 Mg Tab 5 MG PO DAILY, TAB Ranitidine HCl (Ranitidine HCl) 150 Mg Tab 150 MG PO BID, #60 Torsemide (Demadex) 20 Mg Tab 10 MG PO 2XWK, TAB Warfarin Sod (Coumadin) 2.5 Mg Tab 2.5 MG PO DIRECTED TAKE 2.5 MG ,SAT,, Saturday Warfarin Sod (Coumadin) 5 Mg Tab 5 MG PO DIRECTED TAKE 5 MG SATURDAY AND SATURDAY Admission Information HPI (per Admitting provider): 89 year old female who received a call that she had positive blood cultures and was referred to the ER for further evaluation. Patient notes that 5 days ago a cat scratched the bottom of her left day. The following day and reports her leg was a little sore. By the next day leg started to become red and extend up to the knee. She reports associated chills, nausea, and dry heaves. She was seen in the ER yesterday and discharged home on Augmentin. She also had an US that was negative for DVT. Blood cultures were drawn and are growing gram negative bacilli. Patient reports feeling much better than yesterday. She thinks her LLE redness is a little better. There has not been any drainage. She denies any further chills or fever. She denies chest pain, shortness of breath, lightheadedness, dizziness, diaphoresis, or syncopal event. She denies any urinary symptoms. In the ER, vitals are stable and labs are unremarkable. She was given IV Zosyn. Physical Exam (per Admitting): General Appearance: no apparent distress Head: normocephalic Eyes: normal inspection ENT: hearing grossly normal Neck: supple, no JVD Respiratory/Chest: lungs clear, normal breath sounds, no respiratory distress Cardiovascular: regular rate, rhythm, no edema, normal peripheral pulses Abdomen/GI: normal bowel sounds, non tender, soft Extremities/Musculoskelatal: normal inspection, no calf tenderness Neurologic/Psych: no motor/sensory deficits, alert, normal mood/affect, oriented x 3 Skin: + pertinent finding (erythema noted to LLE covering foot and extending up the leg to just below the knee, warm to touch, a few scabbed areas noted medially on the lower portion of the leg, no drainage noted; erythema outlined in marker by nurse) Hospital Course PASTEURELLA MULTOCIDA BACTEREMIA, LLE CELLULITIS patient presented with LLE redness secondary to cat scratch No signs of sepsis S/P Zosyn for 1 day S/P Unasyn, azithromycin for 2 days Appreciate ID input X ray of leg: No bony bony abnormality to suggest osteomyelitis or septic arthritis. Blood cultures from 08/06:PASTEURELLA MULTOCIDA Repeat blood cultures 08/08: No growth to date Antibiotics transitioned to Augmentin per ID recommendations. Stop date 08/20/16 HYPOKALEMIA: Replace and monitor Resolved ATRIAL FIBRILLATION rate controlled Continue BB INR 2.0 today continue Coumadin Monitor INR H/O DVT/PE on Coumadin CHRONIC DIASTOLIC CHF hold diuretics for now appears euvolemic PMR On chronic Prednisone DVT PX: on Coumadin CODE STATUS DNR DISPOSITION: Continue to monitor Plan to discharge home today Follow up with on 08/15/16 at 1:45pm Follow up with your Infectious disease doctor in 1 week as advised Follow up with Coumadin clinic for PT/INR checks and Coumadin dosage as advised Complete the antibiotic course as prescribed Total time spent on discharge = 33 minutes This includes examination of the patient, discharge planning, medication reconciliation, and communication with other providers. Discharge Instructions Discharge Instructions Date of Service August 10, 2016. Admission Reason for Admission: Bacteremia, Cellulitis Discharge Discharge Diagnosis / Problem: PASTEURELLA MULTOCIDA BACTEREMIA, Left leg CELLULITIS Discharge Goals Goal(s): Decrease discomfort, Improve function Activity Recommendations Activity Limitations: resume your previous activity Exercise/Sports Limitations: as tolerated . Instructions / Follow-Up Instructions / Follow-Up Follow up with on 08/15/16 at 1:45pm Follow up with your Infectious disease doctor in 1 week as advised Follow up with Coumadin clinic for PT/INR checks and Coumadin dosage as advised Complete the antibiotic course as prescribed Current Hospital Diet Patient's current hospital diet: AHA Diet (Heart Healthy) Discharge Diet Recommended Diet: AHA Diet (Heart Healthy) Pending Studies Studies pending at discharge: no Medical Emergencies . Who to Call and When: Medical Emergencies: If at any time you feel your situation is an emergency, please call 911 immediately. . Non-Emergent Contact Non-Emergency issues call your: Primary Care Provider Call Non-Emergent contact if: you have a fever, your pain is not controlled, your pain is worsening, your pain is unusual for you, you have any medication questions . . "Provider Documentation" section prepared by Con Quarles. . VTE Core Measure Inpt VTE Proph given/why not?: Warfarin (Coumadin)
[2016-08-10 10:55] VITALS: BP 119/77; PULSE 69; TEMP 36.5; O2SAT 95
[2016-08-10] MEDS ORDERED: WARFARIN SOD 5 MG TAB PO SCH (16:00)
[2016-08-10] MEDS ORDERED: AMOXICILLIN/CLAVULANATE TAB 875 MG TAB PO SCH (17:00)
[2016-10-30] MEDS ORDERED: LEVO125T5 PO (11:04)
[2016-10-30] MEDS ORDERED: METO-452 PO (11:04)
[2016-11-07] MEDS ORDERED: AMOX1TAB43 PO (12:52)
[2016-11-07] MEDS ORDERED: LCTX PO (12:52)
[2016-11-13] MEDS ORDERED: METO-452 PO (12:02)
== END 2016-08-10 12:05 | disposition home or self-care (01) | DRG 603 ==
LOC: ENRESERVTM → ENRESERVDT → C.EDB 18:22 → C.MS2W 20:06
PROVIDERS: ADMIT Hospitalist; ATTEND Internal Medicine
DX: L03.116 Cellulitis of left lower limb (principal); A28 Other zoonotic bacterial diseases, not elsewhere classified; I50.32 Chronic diastolic (congestive) heart failure; I48.91 Unspecified atrial fibrillation; E03.9 Hypothyroidism, unspecified; Z86.718 Personal history of other venous thrombosis and embolism; Z66 Do not resuscitate; Z86.711 Personal history of pulmonary embolism; M35.3 Polymyalgia rheumatica; D47.2 Monoclonal gammopathy; M19.90 Unspecified osteoarthritis, unspecified site; H35.30 Unspecified macular degeneration; M81.0 Age-related osteoporosis without current pathological fracture; Z90.49 Acquired absence of other specified parts of digestive tract; Z98.49 Cataract extraction status, unspecified eye; Z88.8 Allergy status to other drugs, medicaments and biological substances; Z79.01 Long term (current) use of anticoagulants; Z79.899 Other long term (current) drug therapy; Z80.3 Family history of malignant neoplasm of breast; Z80.8 Family history of malignant neoplasm of other organs or systems; Z82.49 Family history of ischemic heart disease and other diseases of the circulatory system; Z96.651 Presence of right artificial knee joint; Z81.8 Family history of other mental and behavioral disorders; Z98.890 Other specified postprocedural states

== ENCOUNTER 2016-10-30 09:46 | Inpatient (IN) | payer OTHER ==
[~2016-10-30] VITALS: Ht 167.6 cm; Wt 85.0 kg
[~2016-10-30 09:46] MED LIST changes: +BIMA0.01 OPB; -CALC-214 PO; +CALC500C70 PO; +DIFL0.0519 OPB; -FURO-85 PO; -LATA0.5S OP; +LEVO125T4 PO; -LEVO125T5 PO; -OFLO0.3S OPL; +RANI150T2 PO; +TORS20TA2 PO
[2016-10-30] MEDS ORDERED: SODIUM CHLORIDE 0.9% 500ML 500 ML IV STA ×3 (10:14→13:53)
--- NOTE | 2016-10-30 10:19 | EMERGENCY ROOM VISIT NOTE ---
History Report prepared by Cristhianibyesenia: Jazzmine Franklin Under the Supervision of: Dr. Bradford Corbin D.O. First contact with patient: 10:08 Chief Complaint: VOMITING Stated Complaint: VOMITING FOR 3 DAYS - UNABLE TO AMBULATE - DIZZY Nursing Triage Summary: pt reports she has been vomiting and sick since staurday pt appears whitaker in color . daughter states pt has been vomiting black coffee looking emesis and been dizzy. History of Present Illness The patient is an 89 year old female who presents to the Emergency Room with complaints of persistent nausea and vomiting for the past 3 days. She is accompanied by her daughter. She states her vomit looks like "dark brown coffee grounds". She also complains of "pain all over" her body and dizziness. She admits to a history of heart failure and states she has still been taking her medications as prescribed. Her daughter reports the only thing she can keep down is water. The patient denies any fevers but admits to the chills last night. 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 A total of 10 systems reviewed and were otherwise negative. Past Medical & Surgical Medical Problems: (1) Atrial fibrillation (2) Chronic diastolic (congestive) heart failure (3) DVT (deep venous thrombosis) (4) History of pulmonary embolism (5) Hypothyroidism (6) Macular degeneration (7) Monoclonal gammopathy (8) Osteoarthritis (9) Osteoporosis (10) Polymyalgia rheumatica Surgical Problems: (1) Status post appendectomy (2) Status post cataract extraction (3) Status post cholecystectomy (4) Status post partial colectomy (5) Status post right knee replacement Family History Breast cancer SISTER Heart disease FATHER Skin cancer FATHER Suicide BROTHER Social History Smoking Status: Never Smoker Alcohol Use: none Drug Use: none Marital Status: single, Housing Status: lives with family Occupation Status: retired Current/Historical Medications Scheduled B-Complex W/ Folic Acid (B Complex), 1 TAB PO DAILY Bimatoprost (Lumigan), 1 DROPS OPB HS Calcium Carbonate-Vitamin D (Calcium + D), 1 TAB PO DAILY Cholecalciferol (Vitamin D), 1,000 UNIT PO DAILY Difluprednate (Durezol), 1 DROP OPB BID Fluoxetine (Prozac), 10 MG PO DAILY Latanoprost (Xalatan 0.005% Oph Page), 1 DROPS OPB HS Levothyroxine Sodium (Levothyroxine Sodium), 125 MCG PO QAM Magnesium Oxide (Mag-Ox), 400 MG PO DAILY Metoprolol Succinate (Toprol Xl), 25 MG PO DAILY Potassium Chloride (Micro-K Ext Rel), 10 MEQ PO UD Prednisone (Prednisone), 5 MG PO DAILY Ranitidine Hcl (Zantac), 150 MG PO BID Warfarin Sod (Coumadin), 2.5 MG PO UD Scheduled PRN Acetaminophen (Tylenol), 650 MG PO DAILY PRN for Pain Albuterol Hfa (Ventolin Hfa), 2 PUFFS INH Q4H PRN for cough or wheezing Polyethylene Glycol-Propylene (Systane), 2 DROPS OP QID PRN for dry eyes Torsemide (Demadex), 10 MG PO WK PRN for SWELLING Allergies Coded Allergies: Alendronate (Verified Allergy, Unknown, 08/07/16) Physical Exam Vital Signs Date Time Temp Pulse Resp B/P (MAP) Pulse Ox O2 Delivery O2 Flow Rate FiO2 10/30/16 12:10 106 22 79/57 95 Nasal Cannula 2.0 10/30/16 12:00 95 Nasal Cannula 2.0 10/30/16 11:06 127 19 80/59 92 Nasal Cannula 3.0 10/30/16 10:30 124 18 80/59 94 Nasal Cannula 3.0 10/30/16 10:15 135 23 68/48 94 Nasal Cannula 3.0 10/30/16 10:05 Room Air 10/30/16 10:04 158 10/30/16 09:50 36.4 99 18 70/49 92 Physical Exam GENERAL: Patient is awake, but very listless appearing. She does not appear to be in pain or uncomfortable. EYES: The conjunctivae are clear. The pupils are round and reactive. EARS, NOSE, MOUTH AND THROAT: The nose is without any evidence of any deformity. Mucous membranes are dry, tongue is midline NECK: The neck is nontender and supple. RESPIRATORY: Lung sounds were diminished throughout with rales at both bases. Tachypnea with mild conversational dyspnea noted. CARDIOVASCULAR: Heart sounds were tachycardic and irregular. No definite murmurs noted. GASTROINTESTINAL: The abdomen is soft, with tenderness in the LUQ. There was no guarding or rigidity appreciated. MUSCULOSKELETAL/EXTREMITIES: There is no evidence of gross deformity full range of motion is noted in the hips and shoulders SKIN: Pedal edema bilaterally. Skin is cool and dry. There is no obvious evidence of any rash. There are no petechiae, pallor or cyanosis noted. NEUROLOGIC: Patient is awake alert and oriented x3 Medical Decision & Procedures ER Provider Diagnostic Interpretation: Radiology results as stated below per my review and radiologist interpretation: SINGLE VIEW CHEST CLINICAL HISTORY: Sepsis. FINDINGS: An AP, portable, upright chest radiograph is compared to study dated 08/07/2016. Correlation is made with chest CT dated . The examination is degraded by portable technique and patient rotation. The heart is enlarged and there is atherosclerotic calcification of the thoracic aorta. The pulmonary vasculature is noncongested. There is patchy airspace consolidation present at both lung bases, right greater than left. Small pleural effusions are noted. No pneumothorax is seen. The skeletal structures are osteopenic. Advanced degenerative change is seen in the shoulders. Calcified joint bodies are noted on the right. IMPRESSION: 1. Cardiomegaly without radiographic evidence of congestive failure. 2. There is patchy airspace consolidation seen at both lung bases, right greater than left. The appearance suggests pneumonia/aspiration pneumonitis. Clinical correlation will be required and radiographic follow-up to resolution is recommended. 3. Trace pleural effusions are noted. Electronically signed by: Jan Finney M.D. 10/30/2016 10:34 AM Laboratory Results 10/30/16 10:15 Red Blood Count 4.40, Mean Corpuscular Volume 100.2, Mean Corpuscular Hemoglobin 32.5, Mean Corpuscular Hemoglobin Concent 32.4, Mean Platelet Volume 10.3, Neutrophils (%) (Auto) 72.0, Lymphocytes (%) (Auto) 15.2, Monocytes (%) ( Auto) 11.6, Eosinophils (%) (Auto) 0.3, Basophils (%) (Auto) 0.3, Neutrophils # (Auto) 2.36, Lymphocytes # (Auto) 0.50, Monocytes # (Auto) 0.38, Eosinophils # ( Auto) 0.01, Basophils # (Auto) 0.01 Test 10/30/16 10:15 10/30/16 11:03 10/30/16 11:15 White Blood Count 3.28 K/uL (4.8-10.8) Red Blood Count 4.40 M/uL (4.2-5.4) Hemoglobin 14.3 g/dL (12.0-16.0) Hematocrit 44.1 % (37-47) Mean Corpuscular Volume 100.2 fL (80-100) Mean Corpuscular Hemoglobin 32.5 pg (25-34) Mean Corpuscular Hemoglobin Concent 32.4 g/dl (32-36) Platelet Count 170 K/uL (130-400) Mean Platelet Volume 10.3 fL (7.4-10.4) Neutrophils (%) (Auto) 72.0 % Lymphocytes (%) (Auto) 15.2 % Monocytes (%) (Auto) 11.6 % Eosinophils (%) (Auto) 0.3 % Basophils (%) (Auto) 0.3 % Neutrophils # (Auto) 2.36 K/uL (1.4-6.5) Lymphocytes # (Auto) 0.50 K/uL (1.2-3.4) Monocytes # (Auto) 0.38 K/uL (0.11-0.59) Eosinophils # (Auto) 0.01 K/uL (0-0.5) Basophils # (Auto) 0.01 K/uL (0-0.2) RDW Standard Deviation 53.4 fL (36.4-46.3) RDW Coefficient of Variation 14.7 % (11.5-14.5) Immature Granulocyte % (Auto) 0.6 % Immature Granulocyte # (Auto) 0.02 K/uL (0.00-0.02) Toxic Vacuolation 1+ Erythrocyte Sedimentation Rate 48 mm/hr (0-21) Prothrombin Time 13.7 SECONDS (9.0-12.0) Prothromb Time International Ratio 1.3 (0.9-1.1) Activated Partial Thromboplast Time 27.3 SECONDS (21.0-31.0) Partial Thromboplastin Ratio 1.1 Est Creatinine Clear Calc Drug Dose 25.2 ml/min Total Bilirubin 3.3 mg/dl (0.2-1) Aspartate Amino Transf (AST/SGOT) 16 U/L (15-37) Alanine Aminotransferase (ALT/SGPT) 15 U/L (12-78) Alkaline Phosphatase 66 U/L (45-117) C-Reactive Protein 14.50 mg/dl (0-0.29) Pro-B-Type Natriuretic Peptide 9844 pg/ml (0-1800) Total Protein 7.4 gm/dl (6.4-8.2) Albumin 2.9 gm/dl (3.4-5.0) Globulin 4.5 gm/dl (2.5-4.0) Albumin/Globulin Ratio 0.6 (0.9-2) Lipase 119 U/L (73-393) Thyroid Stimulating Hormone (TSH) 0.569 uIu/ml (0.300-4.500) Random Cortisol 47.89 mcg/dl Venous Blood pH 7.37 (7.36-7.41) Venous Blood Partial Pressure CO2 50 mmHg (38.0-50.0) Venous Blood Partial Pressure O2 27 mmHg Venous Blood HCO3 28 mmol/L Venous Blood Oxygen Saturation < 60.0 % Venous Blood Base Excess 1.7 mEq/L Bedside Lactic Acid Venous 4.91 mmol/L (0.90-1.70) Laboratory results per my review. Medications Administered Medications (Trade) Dose Ordered Sig/Mike Route Start Time Stop Time Status Last Admin Dose Admin Sodium Chloride 500 ml @ 999 mls/hr Q31M STAT IV 10/30/16 10:14 10/30/16 10:44 DC 10/30/16 11:03 999 MLS/HR Piperacillin Sod/ Tazobactam Sod (Zosyn Iv) 4.5 gm NOW STAT IV 10/30/16 10:41 10/30/16 10:42 DC 10/30/16 11:16 4.5 GM Sodium Chloride 500 ml @ 999 mls/hr Q31M STAT IV 10/30/16 10:41 10/30/16 11:11 DC 10/30/16 10:15 999 MLS/HR Magnesium Sulfate (Magnesium Sulfate) 1 gm NOW STAT IV 10/30/16 11:17 10/30/16 11:18 DC 10/30/16 12:06 1 GM Levofloxacin 750 mg/Prmx 150 ml @ 100 mls/hr Q24H STAT IV 10/30/16 11:29 10/30/16 12:58 DC 10/30/16 12:05 100 MLS/HR Sodium Chloride 1,000 ml @ 999 mls/hr Q1H1M IV 10/30/16 11:30 10/30/16 12:30 DC 10/30/16 12:05 999 MLS/HR ECG Indication: vomiting Rate (beats per minute): 150 Rhythm: atrial fibrillation (atrial fibrillation with RVR) Findings: ST depression (Diffuse ST depressions noted), other (No PVC) Comparison ECG Date: ST depressions are new when compared to EKG from August 07, 2016 ED Course 1010: The patient was evaluated in room A11B. A complete history and physical examination were performed. 1014: NSS 500 ml @ 999 mls/hr IV. 1041: NSS 500 ml @ 999 mls/hr IV, Zosyn 4.5 gm IV. 1117: Magnesium Sulfate 1 gm IV. 1120. I reevaluated the patient. She is resting comfortably. I discussed her results and my recommendation she remain in the hospital for further evaluation and management and she and her daughter verbalized complete understanding and agreement. 1127: I discussed the patients case with Tali Aaron PA-C, [facility]. The patient will be further evaluated. Medical Decision Prior records/ancillary studies reviewed. Triage Nursing notes reviewed. Additional history obtained from the family. The patient's history was concerning for nausea, vomiting, diarrhea, and abdominal pain. Differential diagnosis: Etiologies such as gastroenteritis, food borne illness, infections, appendicitis , diverticulitis, inflammatory bowel disease, obstruction, GI bleed, biliary pathology, as well as others were entertained. The patient is an 89-year-old female who presented to the emergency department for an evaluation of nausea and vomiting. The patient has a history of bowel resection in the past. She appears to have a sign of bowel obstruction on CT. She also has pneumonia hypotension. I'm concerned the patient may have sepsis. The patient was treated with IV fluids IV antibiotics in emergency department. The patient's daughter states that the patient has advanced directives and would not want to be intubated or have a central line. I discussed the patient' s laboratory and radiographic studies with her. She was feeling much better on subsequent reevaluation. I discussed her case with the on-call [facility] group. They've agreed to evaluate the patient in the emergency department for further management and disposition. Medication Reconcilliation Current Medication List: was personally reviewed by me Blood Pressure Screening Patient's blood pressure: Low blood pressure Blood pressure disposition: Referred to PCP Consults Time Called: 1125 Consulting Physician: Tali Aaron PA-C, [facility] Returned Call: [phone] I discussed the patients case with Tali [facility]C, [facility]. The patient will be further evaluated. Impression Primary Impression: Sepsis Additional Impressions: Pneumonia Hypotension Hypomagnesemia Bowel obstruction Scribe Attestation The scribe's documentation has been prepared under my direction and personally reviewed by me in its entirety. I confirm that the note above accurately reflects all work, treatment, procedures, and medical decision making performed by me. Departure Information Dispostion Being Evaluated By Hospitalist Referrals Radha Camp DO (PCP) Patient Instructions My [facility] Problem Qualifiers Primary Impression: Sepsis Sepsis type: sepsis due to unspecified organism Qualified Codes: A41.9 - Sepsis, unspecified organism Additional Impressions: Pneumonia Pneumonia type: due to unspecified organism Laterality: unspecified laterality Lung location: unspecified part of lung Qualified Codes: J18.9 - Pneumonia, unspecified organism Hypotension Hypotension type: unspecified hypotension type Qualified Codes: I95.9 - Hypotension, unspecified Bowel obstruction Intestinal obstruction type: unspecified Qualified Codes: K56.60 - Unspecified intestinal obstruction
[2016-10-30 10:32] LABS: HEMATOCRIT 44.1 % (37-47); MEAN CELL VOLUME 100.2 fL (80-100); MEAN CORPUSCULAR HEMOGLOBIN 32.5 pg (25-34); MEAN CORPUSCULAR HGB CONC 32.4 g/dl (32-36); MEAN PLATELET VOLUME 10.3 fL (7.4-10.4); PLATELET COUNT 170 K/uL (130-400); WHITE BLOOD COUNT 3.28 K/uL (4.8-10.8)
--- NOTE | 2016-10-30 10:35 | DIAGNOSTIC IMAGING REPORT ---
SINGLE VIEW CHEST CLINICAL HISTORY: Sepsis. FINDINGS: An AP, portable, upright chest radiograph is compared to study dated 08/07/2016. Correlation is made with chest CT dated . The examination is degraded by portable technique and patient rotation. The heart is enlarged and there is atherosclerotic calcification of the thoracic aorta. The pulmonary vasculature is noncongested. There is patchy airspace consolidation present at both lung bases, right greater than left. Small pleural effusions are noted. No pneumothorax is seen. The skeletal structures are osteopenic. Advanced degenerative change is seen in the shoulders. Calcified joint bodies are noted on the right. IMPRESSION: 1. Cardiomegaly without radiographic evidence of congestive failure. 2. There is patchy airspace consolidation seen at both lung bases, right greater than left. The appearance suggests pneumonia/aspiration pneumonitis. Clinical correlation will be required and radiographic follow-up to resolution is recommended. 3. Trace pleural effusions are noted. Electronically signed by: Jan Finney M.D. 10/30/2016 10:34 AM Dictated Date/Time: 10/30/2016 10:32 AM
[2016-10-30] MEDS ORDERED: PIPERACILLIN/TAZOBACTAM 4.5 GM/100ML D5W IV STA (10:41)
[2016-10-30 10:46] LABS: INR 1.3 (0.9-1.1); PARTIAL THROMBOPLASTIN RATIO 1.1; PROTHROMBIN TIME (PATIENT) 13.7 SECONDS (9.0-12.0)
[2016-10-30 10:54] LABS: BUN/CREATININE RATIO 23.6 (10-20); C-REACTIVE PROTEIN 14.5 mg/dl (0-0.29); CALCIUM 9.3 mg/dl (8.5-10.1); CREATININE 1.6 mg/dl (0.60-1.20); MAGNESIUM 1.3 mg/dl (1.8-2.4)
[2016-10-30 10:57] LABS: ALB/GLOB RATIO 0.6 (0.9-2); CKMB/CK RATIO 2.1 (0-3.0); PHOSPHORUS 2.1 mg/dl (2.5-4.9)
[2016-10-30 10:58] LABS: BASO % 0.3 %; BASO ABS # 0.01 K/uL (0-0.2); COMPLETE YES; EOS % 0.3 %; IG% 0.6 %; LYMPH % 15.2 %; MONO % 11.6 %; VACUOLIZATION 1+
[2016-10-30] MEDS ORDERED: TORS10TA14 PO (11:04)
[2016-10-30] MEDS ORDERED: METO1TAB66 PO (11:04)
[2016-10-30] MEDS ORDERED: LATA0.5S OPB (11:04)
[2016-10-30] MEDS ORDERED: LEVO125T4 PO (11:04)
[2016-10-30] MEDS ORDERED: PRED-301 PO (11:04)
[2016-10-30] MEDS ORDERED: RANI150T3 PO (11:04)
[2016-10-30] MEDS ORDERED: POTA10CA28 PO (11:04)
[2016-10-30] MEDS ORDERED: MAGN400T6 PO (11:04)
[2016-10-30] MEDS ORDERED: WARF5TAB90 PO (11:04)
[2016-10-30] MEDS ORDERED: VERA120T65 PO (11:04)
[2016-10-30] MEDS ORDERED: CMD/25 PO (11:04)
[2016-10-30] MEDS ORDERED: FLUO10CA48 PO (11:04)
[2016-10-30] MEDS ORDERED: AMOX500C3 PO (11:04)
[2016-10-30 11:16] LABS: VEN BLOOD GAS BASE EXCESS 1.7 mEq/L; VENOUS BLOOD GAS PCO2 50 mmHg (38.0-50.0); VENOUS BLOOD GAS PO2 27 mmHg
[2016-10-30] MEDS ORDERED: MAGNESIUM SULFATE 1GM / D5W 1 GM BAG IV STA (11:17)
[2016-10-30 11:18] LABS: VEN BLD GAS O2 SATURATION < 60.0 %
[2016-10-30] MEDS ORDERED: LEVOFLOXACIN / D5W 750 MG in PREMIXED IN D5W 150 ML IV STA (11:29)
[2016-10-30] MEDS ORDERED: SODIUM CHLORIDE 0.9% 1000ML 1,000 ML IV SCH (11:30)
[2016-10-30] MEDS ORDERED: LEVAQUIN 750MG / 150ML D5W ONE (11:59)
[2016-10-30 12:00] VITALS: O2SAT 95; Ht 167.6 cm; Wt 85.0 kg
--- NOTE | 2016-10-30 12:15 | DIAGNOSTIC IMAGING REPORT ---
ABD/PELVIS NO IV OR ORAL CONT CLINICAL HISTORY: 89 years-old Female presenting with vomiting. TECHNIQUE: Multidetector CT of the abdomen and pelvis was performed without the use of intravenous contrast. IV contrast: None. A dose lowering technique was used consistent with the principles of ALARA (as low as reasonably achievable). COMPARISON: 04/09/2014. CT DOSE (mGy.cm): The estimated cumulative dose is 798.59 mGycm. 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 Lung bases: Extensive solid and groundglass consolidation in a dependent distribution throughout all visualized lobes but more prominently involving the right lung. Multichamber enlargement of the heart. Aortic valve calcification. No pericardial or pleural effusion. Liver: Mild nodularity of the contour of the liver. Borderline hepatic steatosis by liver density. Well-defined hypodensity at the inferior right hepatic lobe unchanged from prior and incompletely evaluated but likely hepatic cyst or hamartoma. Biliary: No gross biliary ductal dilatation allowing for noncontrast technique. Gallbladder surgically absent. Pancreas: Mild parenchymal atrophy. Spleen: Normal. Adrenal glands: Normal. Kidneys and ureters: Nonobstructing 3 mm calculus noted at the lower pole of the left kidney. Ureters are nondilated. No hydronephrosis. Hyperdense 11 mm lesion noted anteriorly at the left upper pole (series 3 image 96). Bladder: Decompressed with a Chua catheter. No bladder calculi or significant perivesicular fat stranding. Pelvic organs: Uterus and ovaries normal. Bowel: Apparent postsurgical changes of subtotal colectomy with the residual distal sigmoid colon demonstrating diverticulosis. A presumed enterocolonic anastomosis in the pelvis is not delineated given the absence of oral and intravenous contrast. No radiodense suture line is appreciated. Dilatation of small bowel measures up to 3.2 cm in diameter. Decompressed distal small bowel. More than one transition point may be present, although an apparent transition point is noted in the anterior superior pelvis (series 3 image 306). Suggestion of mild small bowel wall thickening in the segment between the proximal dilated small bowel and distal decompressed bowel. No evidence of pneumatosis. Peritoneal cavity: Small amount of free fluid in the pelvis. No free gas. Vasculature: Atherosclerosis of the normal caliber abdominal aorta. Lymph nodes: Scattered subcentimeter retroperitoneal and upper abdominal lymph nodes, nonspecific. Abdominal wall: Postsurgical changes along the midline in the infraumbilical region. Musculoskeletal: Degenerative changes of the spine. IMPRESSION: 1. Evidence of small bowel obstruction with at least one transition point likely secondary to adhesions in the superior pelvis. Postsurgical changes of subtotal colectomy suspected, though evaluation limited by the absence of oral and intravenous contrast. 2. Suggestion of an intervening small bowel wall thickening between the dilated proximal small bowel and distal decompressed small bowel. This could indicate enteritis. 3. Multifocal opacities in the lungs greater in the right lung, consistent with multifocal pneumonia. 4. Nonobstructing 3 mm left renal calculus. 5. Indeterminate 11 mm hyperdense left renal lesion. This could indicate a hemorrhagic or pertinacious cysts, although evaluation is incomplete without intravenous contrast. Further evaluation could be considered as clinically indicated. Electronically signed by: Saad Campos M.D. 10/30/2016 12:14 PM Dictated Date/Time: 10/30/2016 12:01 PM
[2016-10-30] MEDS ORDERED: POTASSIUM PHOS 3 MMOL/1 ML INFUSION IV SCH (12:53)
[2016-10-30] MEDS ORDERED: ACETAMINOPHEN 325 MG TAB PO PRN (13:00)
[2016-10-30] MEDS ORDERED: PIPERACILL/TAZOBAC CONSULT ACTIVE PRN (13:05)
[2016-10-30] MEDS ORDERED: LEVOFLOXACIN CONSULT ACTIVE PRN (13:22)
[2016-10-30] MEDS ORDERED: DIFL0.0519 OPB (13:43)
[2016-10-30] MEDS ORDERED: ACET-1311 PO (13:43)
[2016-10-30] MEDS ORDERED: CALC600T9 PO (13:43)
[2016-10-30] MEDS ORDERED: B-COTAB53 PO (13:43)
[2016-10-30] MEDS ORDERED: POLYSOL4 OP (13:43)
[2016-10-30] MEDS ORDERED: VNTHFA/IN INH (13:43)
[2016-10-30] MEDS ORDERED: BIMA0.01 OPB (13:43)
[2016-10-30] MEDS ORDERED: CHOL100010 PO (13:43)
[2016-10-30] MEDS ORDERED: ALBUTEROL HFA 8 GM INHALER INH PRN (13:45)
[2016-10-30] MEDS ORDERED: MAGNESIUM SULFATE 1GM / D5W 1 GM BAG ONE (14:15)
[2016-10-30] MEDS ORDERED: POTASSIUM CHLR 10 MEQ / WTR 10 MEQ in PREMIXED WATER 100 ML IV ONE (14:30)
[2016-10-30] MEDS: ONDANSETRON INJ 2 MG/ML 2 ML VIAL IV PRN (14:34)
[2016-10-30 15:21] VITALS: BP 100/63; PULSE 114; TEMP 36.6; O2SAT 92
[2016-10-30] MEDS: NSS + 20MEQ KCL 1000ML 1,000 ML IV SCH ×2 (15:57→23:51)
[2016-10-30] MEDS: PIPERACILL/TAZOBAC IV 3.375 GM in DEXTROSE 5% 100ML IV SCH ×2 (15:58→23:50)
[2016-10-30 16:00] VITALS: O2SAT 92
[2016-10-30] MEDS ORDERED: MAGNESIUM SULFATE 1GM / D5W 1 GM in PREMIXED IN D5W 100 ML IV ONE (16:00)
[2016-10-30] MEDS ORDERED: MAGNESIUM SULFATE 1GM / D5W 1 GM in PREMIXED IN D5W 100 ML IV SCH (16:00)
[2016-10-30] MEDS ORDERED: POTASSIUM PHOSPHATE INJ 15 MMOL in SODIUM CHLORIDE 0.9% 250ML 250 ML IV SCH (16:00)
[2016-10-30 16:11] LABS: URINE APPEARANCE TURBID (CLEAR); URINE COLOR DK YELLOW; URINE EPITHELIAL CELL AUTO >30 /lpf (0-5); URINE NITRITE POS (NEG); URINE SPECIFIC GRAVITY 1.032 (1.000-1.030); UROBILINOGEN NEG (NEG)
[2016-10-30 16:12] LABS: MANUAL MICROSCOPIC REQUIRED? NO; REVIEW REQ? YES
[2016-10-30 16:14] LABS: URINE BILIRUBIN NEG (NEG)
[2016-10-30 16:27] LABS: CKMB/CK RATIO 3.4 (0-3.0)
[2016-10-30] MEDS ORDERED: SODIUM CHLORIDE 0.9% 500ML 500 ML IV ONE (17:00)
[2016-10-30] MEDS ORDERED: METOPROLOL SUCC 25MG EXT REL TAB PO ONE (17:00)
[2016-10-30] MEDS ORDERED: LEVOTHYROXINE SODIUM INJ 62.5 MCG in SYRINGE 0 ML IV ONE (17:30)
[2016-10-30] MEDS ORDERED: VANCOMYCIN CONSULT ACTIVE PRN (18:00)
--- NOTE | 2016-10-30 18:24 | Surgery Consultation ---
Consultation Date of Consultation: Oct 30, 2016. Attending Physician: Dr. Ravi Reason for Consultation: SBO (Keila Ramos ., NAVJOTC) History of Present Illness Ariela is a very pleasant 89 year-old female who presented to emergency department today with complaint of persistent abdominal pain and vomiting for 3 days. Ariela states the pain began Saturday evening into Saturday morning. Describes pain as sharp and very severe. Throughout the entire abdomen. Then had associated vomiting Saturday evening. Has not been able to keep anything down for the past 3 days. Last bowel movement was this morning and was liquid, mostly water. Has not passed any gas or bowel movement since. Actually has felt slightly better this morning and pain is improved. She had associated chills but no fever. Bloating was present prior to pain. No vomiting blood or blood in the stools. Has never had this type of pain before. She has a history of subtotal colectomy in 2000 for diverticulosis and chronic bleeding. She also had appendectomy at time of colectomy and prior cholecystectomy. No other abdominal surgeries. She has a history of atrial fibrillation as well as pulmonary embolism x 2 which she is on Coumadin for. Her INR today was 1.3. She had a CT scan of abdomen and pelvis without Contrast which showed dilated small bowel measuring 3.2 cm with a clear transition point in the anterior superior pelvis. Another transition point may be present but not completely evident. No pneumoperitoneum. No leukocytosis. Her vitals show tachycardia however she is currently in a-fib and hypotension. CXR showing possible aspiration pneumonia. H&H stable at 14.3 /44.1. Her BUN and creatinine are elevated at 38/1.60 respectively. (Keila Ramos ., RUSLAN-C) Past Medical/Surgical History Medical Problems: (1) Bowel obstruction Status: Acute (2) Cellulitis Status: Acute (3) Cellulitis of right lower extremity Status: Acute (4) Chronic deep vein thrombosis (DVT) Status: Acute (5) Degenerative joint disease Status: Acute (6) Hypomagnesemia Status: Acute (7) Hypotension Status: Acute (8) Left leg cellulitis Status: Acute (9) Pneumonia Status: Acute (10) Positive blood culture Status: Acute (11) Sepsis Status: Acute (12) Sepsis Status: Acute (Keila Ramos, RUSLAN-C) Family History Breast cancer SISTER Heart disease FATHER Skin cancer FATHER Suicide BROTHER (Keila Ramos PA-C) Breast cancer SISTER Heart disease FATHER Skin cancer FATHER Suicide BROTHER (Aung Ravi M.D.) Social History Smoking Status: Never Smoker Drug Use: none Marital Status: single, Housing Status: lives with family Occupation Status: retired (Keila Ramos PA-C) Allergies Coded Allergies: Alendronate (Verified Allergy, Unknown, 08/07/16) Home Medications Scheduled B-Complex W/ Folic Acid (B Complex), 1 TAB PO DAILY Bimatoprost (Lumigan), 1 DROPS OPB HS Calcium Carbonate-Vitamin D (Calcium + D), 1 TAB PO DAILY Cholecalciferol (Vitamin D), 1,000 UNIT PO DAILY Difluprednate (Durezol), 1 DROP OPB BID Fluoxetine (Prozac), 10 MG PO DAILY Latanoprost (Xalatan 0.005% Oph Page), 1 DROPS OPB HS Levothyroxine Sodium (Levothyroxine Sodium), 125 MCG PO QAM Magnesium Oxide (Mag-Ox), 400 MG PO DAILY Metoprolol Succinate (Toprol Xl), 25 MG PO DAILY Potassium Chloride (Micro-K Ext Rel), 10 MEQ PO UD Prednisone (Prednisone), 5 MG PO DAILY Ranitidine Hcl (Zantac), 150 MG PO BID Warfarin Sod (Coumadin), 2.5 MG PO UD Scheduled PRN Acetaminophen (Tylenol), 650 MG PO DAILY PRN for Pain Albuterol Hfa (Ventolin Hfa), 2 PUFFS INH Q4H PRN for cough or wheezing Polyethylene Glycol-Propylene (Systane), 2 DROPS OP QID PRN for dry eyes Torsemide (Demadex), 10 MG PO WK PRN for SWELLING Current Inpatient Medications Current Inpatient Medications Medications (Trade) Dose Ordered Sig/Mike Route Start Time Stop Time Status Last Admin Dose Admin Magnesium Sulfate 1 gm/Prmx 100 ml @ 100 mls/hr NOW STAT IV 10/30/16 12:03 10/30/16 13:02 UNV Potassium Chloride 10 meq/ Prmx 100 ml @ 100 mls/hr NOW STAT IV 10/30/16 12:06 10/30/16 13:05 UNV Ondansetron HCl (Zofran Inj) 4 mg Q6H PRN IV 10/30/16 13:00 11/29/16 12:59 Magnesium Sulfate 1 gm/Prmx 100 ml @ 100 mls/hr NOW ONCE IV 10/30/16 13:00 10/30/16 13:59 UNV Potassium Phosphate (Potassium Phosphate Replacement) 15 mmol NOW IV 10/30/16 12:53 11/29/16 12:52 UNV Potassium Chloride/Sodium Chloride 1,000 ml @ 125 mls/hr Q8H IV 10/30/16 13:00 11/29/16 12:59 UNV Piperacillin Sod/ Tazobactam Sod (Consult) 1 ea UD PRN N/A 10/30/16 13:05 11/29/16 13:04 Levofloxacin (Consult) 1 ea UD PRN N/A 10/30/16 13:22 11/29/16 13:21 Albuterol (Ventolin Hfa Inhaler) 2 puffs Q4H PRN INH 10/30/16 13:45 11/29/16 13:44 UNV Fluoxetine HCl (Prozac Cap) 10 mg DAILY PO 10/31/16 09:00 11/30/16 08:59 UNV Latanoprost (Xalatan Oph Soln) 1 drops HS OPB 10/30/16 21:00 11/29/16 20:59 UNV Prednisone (PredniSONE TAB) 5 mg DAILY PO 10/31/16 09:00 11/30/16 08:59 UNV Non-Formulary Medication (Bimatoprost (Lumigan)) 1 drops HS OPB 10/30/16 21:00 11/29/16 20:59 UNV Non-Formulary Medication (Difluprednate (Durezol)) 1 drop BID OPB 10/30/16 21:00 11/29/16 20:59 UNV Non-Formulary Medication (Polyethylene Glycol-Propylene (Systane)) 2 drops QID PRN OP 10/30/16 13:45 11/29/16 13:44 UNV Sodium Chloride 500 ml @ 999 mls/hr Q31M STAT IV 10/30/16 13:53 10/30/16 14:23 UNV Potassium Chloride 10 meq/ Prmx 100 ml @ 100 mls/hr NOW ONCE IV 10/30/16 14:30 10/30/16 15:29 (Keila Ramos PA-C) Review of Systems Constitutional: + chills, No fever Respiratory: + cough (chronic with sputum production), No shortness of breath Cardiovascular: No chest pain Abdomen: + pain (generalized abdominal pain), + nausea, + vomiting Endocrine: + fatigue Hematologic / Lymphatic: No abnormal bleeding/bruising Integumentary: No rash (Keila Ramos PA-C) Physical Exam Date Time Temp Pulse Resp B/P (MAP) Pulse Ox O2 Delivery O2 Flow Rate FiO2 10/30/16 13:30 105 19 83/60 95 Nasal Cannula 2.0 10/30/16 13:00 92 21 91/58 97 Nasal Cannula 2.0 10/30/16 12:30 107 20 91/58 95 Nasal Cannula 2.0 10/30/16 12:10 106 22 79/57 95 Nasal Cannula 2.0 10/30/16 12:00 95 Nasal Cannula 2.0 10/30/16 11:06 127 19 80/59 92 Nasal Cannula 3.0 10/30/16 10:30 124 18 80/59 94 Nasal Cannula 3.0 10/30/16 10:15 135 23 68/48 94 Nasal Cannula 3.0 10/30/16 10:05 Room Air 10/30/16 10:04 158 10/30/16 09:50 36.4 99 18 70/49 92 General Appearance: WD/WN, no apparent distress Head: normocephalic, atraumatic Eyes: sclerae normal ENT: hearing grossly normal Neck: trachea midline Respiratory/Chest: lungs clear, normal breath sounds, no respiratory distress, no accessory muscle use Cardiovascular: no murmur, + tachycardia, + irregularly irregular, + abnormal rate, + abnormal rhythm Abdomen/GI: normal bowel sounds (a few bowel sounds but minimal), non tender, soft, no organomegaly, no pulsatile mass, + distended (nontender, guarding, rebound, rigidity, or peritonitis), + pertinent finding (midline laparotomy scar present) Back: normal inspection Extremities/Musculoskelatal: no pedal edema Neurologic/Psych: alert, normal mood/affect, oriented x 3 Skin: normal color, warm/dry, no rash (Keila Ramos PA-C) Laboratory Results Last 24 Hours Test 10/30/16 10:15 10/30/16 11:03 10/30/16 11:15 10/30/16 13:46 White Blood Count 3.28 K/uL Red Blood Count 4.40 M/uL Hemoglobin 14.3 g/dL Hematocrit 44.1 % Mean Corpuscular Volume 100.2 fL Mean Corpuscular Hemoglobin 32.5 pg Mean Corpuscular Hemoglobin Concent 32.4 g/dl Platelet Count 170 K/uL Mean Platelet Volume 10.3 fL Neutrophils (%) (Auto) 72.0 % Lymphocytes (%) (Auto) 15.2 % Monocytes (%) (Auto) 11.6 % Eosinophils (%) (Auto) 0.3 % Basophils (%) (Auto) 0.3 % Neutrophils # (Auto) 2.36 K/uL Lymphocytes # (Auto) 0.50 K/uL Monocytes # (Auto) 0.38 K/uL Eosinophils # (Auto) 0.01 K/uL Basophils # (Auto) 0.01 K/uL RDW Standard Deviation 53.4 fL RDW Coefficient of Variation 14.7 % Immature Granulocyte % (Auto) 0.6 % Immature Granulocyte # (Auto) 0.02 K/uL Toxic Vacuolation 1+ Erythrocyte Sedimentation Rate 48 mm/hr Prothrombin Time 13.7 SECONDS Prothromb Time International Ratio 1.3 Activated Partial Thromboplast Time 27.3 SECONDS Partial Thromboplastin Ratio 1.1 Sodium Level 138 mmol/L Potassium Level 3.0 mmol/L Chloride Level 100 mmol/L Carbon Dioxide Level 28 mmol/L Anion Gap 10.0 mmol/L Blood Urea Nitrogen 38 mg/dl Creatinine 1.60 mg/dl Est Creatinine Clear Calc Drug Dose 25.2 ml/min Estimated GFR () 32.8 Estimated GFR (Non- 28.3 BUN/Creatinine Ratio 23.6 Random Glucose 93 mg/dl Calcium Level 9.3 mg/dl Phosphorus Level 2.1 mg/dl Magnesium Level 1.3 mg/dl Total Bilirubin 3.3 mg/dl Aspartate Amino Transf (AST/SGOT) 16 U/L Alanine Aminotransferase (ALT/SGPT) 15 U/L Alkaline Phosphatase 66 U/L Total Creatine Kinase 42 U/L Creatine Kinase MB 0.9 ng/ml Creatine Kinase MB Ratio 2.1 Troponin I 0.039 ng/ml C-Reactive Protein 14.50 mg/dl Pro-B-Type Natriuretic Peptide 9844 pg/ml Total Protein 7.4 gm/dl Albumin 2.9 gm/dl Globulin 4.5 gm/dl Albumin/Globulin Ratio 0.6 Lipase 119 U/L Random Cortisol 47.89 mcg/dl Venous Blood pH 7.37 Venous Blood Partial Pressure CO2 50 mmHg Venous Blood Partial Pressure O2 27 mmHg Venous Blood HCO3 28 mmol/L Venous Blood Oxygen Saturation < 60.0 % Venous Blood Base Excess 1.7 mEq/L Bedside Lactic Acid Venous 4.91 mmol/L Test 10/30/16 14:00 SINGLE VIEW CHEST CLINICAL HISTORY: Sepsis. FINDINGS: An AP, portable, upright chest radiograph is compared to study dated 08/07/2016. Correlation is made with chest CT dated . The examination is degraded by portable technique and patient rotation. The heart is enlarged and there is atherosclerotic calcification of the thoracic aorta. The pulmonary vasculature is noncongested. There is patchy airspace consolidation present at both lung bases, right greater than left. Small pleural effusions are noted. No pneumothorax is seen. The skeletal structures are osteopenic. Advanced degenerative change is seen in the shoulders. Calcified joint bodies are noted on the right. IMPRESSION: 1. Cardiomegaly without radiographic evidence of congestive failure. 2. There is patchy airspace consolidation seen at both lung bases, right greater than left. The appearance suggests pneumonia/aspiration pneumonitis. Clinical correlation will be required and radiographic follow-up to resolution is recommended. 3. Trace pleural effusions are noted. ABD/PELVIS NO IV OR ORAL CONT CLINICAL HISTORY: 89 years-old Female presenting with vomiting. TECHNIQUE: Multidetector CT of the abdomen and pelvis was performed without the use of intravenous contrast. IV contrast: None. A dose lowering technique was used consistent with the principles of ALARA (as low as reasonably achievable). COMPARISON: 04/09/2014. CT DOSE (mGy.cm): The estimated cumulative dose is 798.59 mGycm. FINDINGS: [employer] topogram: Stacked appearance of gaseous distended small bowel. Lung bases: Extensive solid and groundglass consolidation in a dependent distribution throughout all visualized lobes but more prominently involving the right lung. Multichamber enlargement of the heart. Aortic valve calcification. No pericardial or pleural effusion. Liver: Mild nodularity of the contour of the liver. Borderline hepatic steatosis by liver density. Well-defined hypodensity at the inferior right hepatic lobe unchanged from prior and incompletely evaluated but likely hepatic cyst or hamartoma. Biliary: No gross biliary ductal dilatation allowing for noncontrast technique. Gallbladder surgically absent. Pancreas: Mild parenchymal atrophy. Spleen: Normal. Adrenal glands: Normal. Kidneys and ureters: Nonobstructing 3 mm calculus noted at the lower pole of the left kidney. Ureters are nondilated. No hydronephrosis. Hyperdense 11 mm lesion noted anteriorly at the left upper pole (series 3 image [id number]). Bladder: Decompressed with a Chua catheter. No bladder calculi or significant perivesicular fat stranding. Pelvic organs: Uterus and ovaries normal. Bowel: Apparent postsurgical changes of subtotal colectomy with the residual distal sigmoid colon demonstrating diverticulosis. A presumed enterocolonic anastomosis in the pelvis is not delineated given the absence of oral and intravenous contrast. No radiodense suture line is appreciated. Dilatation of small bowel measures up to 3.2 cm in diameter. Decompressed distal small bowel. More than one transition point may be present, although an apparent transition point is noted in the anterior superior pelvis (series 3 image [id number]). Suggestion of mild small bowel wall thickening in the segment between the proximal dilated small bowel and distal decompressed bowel. No evidence of pneumatosis. Peritoneal cavity: Small amount of free fluid in the pelvis. No free gas. Vasculature: Atherosclerosis of the normal caliber abdominal aorta. Lymph nodes: Scattered subcentimeter retroperitoneal and upper abdominal lymph nodes, nonspecific. Abdominal wall: Postsurgical changes along the midline in the infraumbilical region. Musculoskeletal: Degenerative changes of the spine. IMPRESSION: 1. Evidence of small bowel obstruction with at least one transition point likely secondary to adhesions in the superior pelvis. Postsurgical changes of subtotal colectomy suspected, though evaluation limited by the absence of oral and intravenous contrast. 2. Suggestion of an intervening small bowel wall thickening between the dilated proximal small bowel and distal decompressed small bowel. This could indicate enteritis. 3. Multifocal opacities in the lungs greater in the right lung, consistent with multifocal pneumonia. 4. Nonobstructing 3 mm left renal calculus. 5. Indeterminate 11 mm hyperdense left renal lesion. This could indicate a hemorrhagic or pertinacious cysts, although evaluation is incomplete without intravenous contrast. Further evaluation could be considered as clinically indicated. (Keila Ramos ., PA-C) Assessment & Plan 89 year-old female who presented to emergency department today with complaint of abdominal pain and vomiting x [address] scan showing evidence of small bowel obstruction with transition point in the anterior superior pelvis. She is s/p subtotal colectomy for GI bleeding from diverticulosis in 2000 and laparoscopic cholecystectomy. Vitals show tachycardia (a-fib) and hypotensive and CXR showing possible aspiration pneumonia. Abdominal examination is soft, mildly distended, with a few bowel sounds x 4 quadrants, nontender on examination. Plan: Would recommend conservative treatment at this time: Keep NPO, IV fluids, IV pain management as needed. Low threshold for placement of NGT if vomiting occurs. Repeat am labs Continue current medical management will continue to follow Dr. Ravi has seen and examined patient , agrees with above (Keila Ramos ., RUSLAN-C) I have interviewed and examined this patient and I agree wit the above note. She has had nausea and vomiting over the last 2-[address] findings are noted. Her pain and nausea have resolved and she had a bm earlier. I agree wit conservative management at the present time. (Aung Ravi M.D.)
--- NOTE | 2016-10-30 18:25 | History and Physical ---
History & Physical Date & Time of Service: Oct 30, 2016 at 13:19 Chief Complaint: Vomiting For 3 Days - Unable To Ambulate - Dizzy Primary Care Physician: Radha Camp DO History of Present Illness Source: patient, family (daughter at bedside), clinic records, hospital records This is an 89 y/o female with PMH of grade II diastolic dysfunction, atrial fibrillation on Coumadin, hx DVT/PE, PMR on chronic steroids, hypothyroidism, hx partial colectomy due to diverticulosis, and other problems listed below who presents to the ED with abdominal pain and vomiting. Patient reports becoming ill 2-3 days ago with abdominal pain described as tightness in band like distribution around her abdomen and back. Two days ago developed vomiting, with last episode yesterday evening. Emesis was light brown in color but not coffee ground. PO intake was low- just fluids and toast. Took meds yesterday but not today. She reports minimal liquid stool over past few days, last BM this morning. No flatus since that time. No longer having abdominal pain or N/V. Patient did not note any ozzie aspiration episode. She reports chronic cough productive of clear sputum, has not had any change. Had chills last evening. Has felt lightheaded (resolved while lying in bed currently) and generally weak. Urine production is decreased. No fevers, SOB, chest pain, dysuria, frequency, LE edema. Past Medical/Surgical History Medical Problems: (1) Atrial fibrillation Status: Chronic (2) Chronic diastolic (congestive) heart failure Status: Chronic (3) DVT (deep venous thrombosis) Status: Chronic (4) History of pulmonary embolism Status: Chronic (5) Hypothyroidism Status: Chronic (6) Macular degeneration Status: Chronic (7) Monoclonal gammopathy Status: Chronic (8) Osteoarthritis Status: Chronic (9) Osteoporosis Status: Chronic (10) Polymyalgia rheumatica Status: Chronic Surgical Problems: (1) Status post appendectomy Status: Chronic (2) Status post cataract extraction Status: Chronic (3) Status post cholecystectomy Status: Chronic (4) Status post partial colectomy Permanent Comment: 2000 [facility] diverticulitis with perforation Status: Chronic (5) Status post right knee replacement Status: Chronic Family History Breast cancer SISTER Heart disease FATHER Skin cancer FATHER Suicide BROTHER Social History Smoking Status: Never Smoker Alcohol Use: occasionally Drug Use: none Marital Status: single, Housing status: lives alone (functions well, ambulates with walker. daughter lives nearby. ) Occupational Status: retired Immunizations History of Influenza Vaccine: Yes Influenza Vaccine Date: Feb 03, 2016 History of Tetanus Vaccine?: Yes Tetanus Immunization Date: Jan 11, 2014 History of Pneumococcal: Yes Pneumococcal Date: Apr 27, 2014 Multi-Drug Resistant Organisms History of MDRO: No Allergies Coded Allergies: Alendronate (Verified Allergy, Unknown, 08/07/16) Home Medications Scheduled B-Complex W/ Folic Acid (B Complex), 1 TAB PO DAILY Bimatoprost (Lumigan), 1 DROPS OPB HS Calcium Carbonate-Vitamin D (Calcium + D), 1 TAB PO DAILY Cholecalciferol (Vitamin D), 1,000 UNIT PO DAILY Difluprednate (Durezol), 1 DROP OPB BID Fluoxetine (Prozac), 10 MG PO DAILY Latanoprost (Xalatan 0.005% Oph Page), 1 DROPS OPB HS Levothyroxine Sodium (Levothyroxine Sodium), 125 MCG PO QAM Magnesium Oxide (Mag-Ox), 400 MG PO DAILY Metoprolol Succinate (Toprol Xl), 25 MG PO DAILY Potassium Chloride (Micro-K Ext Rel), 10 MEQ PO UD Prednisone (Prednisone), 5 MG PO DAILY Ranitidine Hcl (Zantac), 150 MG PO BID Warfarin Sod (Coumadin), 2.5 MG PO UD Scheduled PRN Acetaminophen (Tylenol), 650 MG PO DAILY PRN for Pain Albuterol Hfa (Ventolin Hfa), 2 PUFFS INH Q4H PRN for cough or wheezing Polyethylene Glycol-Propylene (Systane), 2 DROPS OP QID PRN for dry eyes Torsemide (Demadex), 10 MG PO WK PRN for SWELLING Review of Systems Ten systems reviewed and negative except as noted in HPI. Physical Exam Vital Signs Date Time Temp Pulse Resp B/P (MAP) Pulse Ox O2 Delivery O2 Flow Rate FiO2 10/30/16 12:10 106 22 79/57 95 Nasal Cannula 2.0 10/30/16 12:00 95 Nasal Cannula 2.0 10/30/16 11:06 127 19 80/59 92 Nasal Cannula 3.0 10/30/16 10:30 124 18 80/59 94 Nasal Cannula 3.0 10/30/16 10:15 135 23 68/48 94 Nasal Cannula 3.0 10/30/16 10:05 Room Air 10/30/16 10:04 158 10/30/16 09:50 36.4 99 18 70/49 92 General Appearance: WD/WN, no apparent distress, + pertinent finding (pleasant alert 89 y/o female, appears comfortable in bed, daughter at bedside) Head: normocephalic, atraumatic Eyes: normal inspection, PERRL, EOMI, sclerae normal ENT: normal ENT inspection, + pertinent finding (hard of hearing) Neck: supple, trachea midline Respiratory/Chest: no respiratory distress, no accessory muscle use, + decreased breath sounds, + rales (right base), + pertinent finding (saturating well on 2 liters NC) Cardiovascular: no murmur, + tachycardia (rate 100), + irregularly irregular Abdomen/GI: soft, + abnormal bowel sounds (hyperactive bowel sounds), + pertinent finding (tender in LUQ. no rebound. ) Genitourinary - Female: + pertinent finding (forte draining concentrated yellow urine) Extremities/Musculoskelatal: normal inspection, no calf tenderness, no pedal edema Neurologic/Psych: alert, normal mood/affect, oriented x 3, + pertinent finding (grossly nonfocal) Skin: normal color, warm/dry Diagnostics Laboratory Results Results Past 24 Hours Test 10/30/16 10:15 10/30/16 11:03 10/30/16 11:15 Range/Units White Blood Count 3.28 4.8-10.8 K/uL Red Blood Count 4.40 4.2-5.4 M/uL Hemoglobin 14.3 12.0-16.0 g/dL Hematocrit 44.1 37-47 % Mean Corpuscular Volume 100.2 80-100 fL Mean Corpuscular Hemoglobin 32.5 25-34 pg Mean Corpuscular Hemoglobin Concent 32.4 32-36 g/dl Platelet Count 170 130-400 K/uL Mean Platelet Volume 10.3 7.4-10.4 fL Neutrophils (%) (Auto) 72.0 % Lymphocytes (%) (Auto) 15.2 % Monocytes (%) (Auto) 11.6 % Eosinophils (%) (Auto) 0.3 % Basophils (%) (Auto) 0.3 % Neutrophils # (Auto) 2.36 1.4-6.5 K/uL Lymphocytes # (Auto) 0.50 1.2-3.4 K/uL Monocytes # (Auto) 0.38 0.11-0.59 K/uL Eosinophils # (Auto) 0.01 0-0.5 K/uL Basophils # (Auto) 0.01 0-0.2 K/uL RDW Standard Deviation 53.4 36.4-46.3 fL RDW Coefficient of Variation 14.7 11.5-14.5 % Immature Granulocyte % (Auto) 0.6 % Immature Granulocyte # (Auto) 0.02 0.00-0.02 K/uL Toxic Vacuolation 1+ Erythrocyte Sedimentation Rate 48 0-21 mm/hr Prothrombin Time 13.7 9.0-12.0 SECONDS Prothromb Time International Ratio 1.3 0.9-1.1 Activated Partial Thromboplast Time 27.3 21.0-31.0 SECONDS Partial Thromboplastin Ratio 1.1 Sodium Level 138 136-145 mmol/L Potassium Level 3.0 3.5-5.1 mmol/L Chloride Level 100 98-107 mmol/L Carbon Dioxide Level 28 21-32 mmol/L Anion Gap 10.0 3-11 mmol/L Blood Urea Nitrogen 38 7-18 mg/dl Creatinine 1.60 0.60-1.20 mg/dl Est Creatinine Clear Calc Drug Dose 25.2 ml/min Estimated GFR () 32.8 Estimated GFR (Non- 28.3 BUN/Creatinine Ratio 23.6 10-20 Random Glucose 93 70-99 mg/dl Calcium Level 9.3 8.5-10.1 mg/dl Phosphorus Level 2.1 2.5-4.9 mg/dl Magnesium Level 1.3 1.8-2.4 mg/dl Total Bilirubin 3.3 0.2-1 mg/dl Aspartate Amino Transf (AST/SGOT) 16 15-37 U/L Alanine Aminotransferase (ALT/SGPT) 15 12-78 U/L Alkaline Phosphatase 66 45-117 U/L Total Creatine Kinase 42 26-192 U/L Creatine Kinase MB 0.9 0.5-3.6 ng/ml Creatine Kinase MB Ratio 2.1 0-3.0 Troponin I 0.039 0-0.045 ng/ml C-Reactive Protein 14.50 0-0.29 mg/dl Pro-B-Type Natriuretic Peptide 9844 0-1800 pg/ml Total Protein 7.4 6.4-8.2 gm/dl Albumin 2.9 3.4-5.0 gm/dl Globulin 4.5 2.5-4.0 gm/dl Albumin/Globulin Ratio 0.6 0.9-2 Lipase 119 73-393 U/L Random Cortisol 47.89 mcg/dl Venous Blood pH 7.37 7.36-7.41 Venous Blood Partial Pressure CO2 50 38.0-50.0 mmHg Venous Blood Partial Pressure O2 27 mmHg Venous Blood HCO3 28 mmol/L Venous Blood Oxygen Saturation < 60.0 % Venous Blood Base Excess 1.7 mEq/L Bedside Lactic Acid Venous 4.91 0.90-1.70 mmol/L Microbiology Results 10/30/16 Blood Culture, Received Pending 10/30/16 Blood Culture, Received Pending Diagnostic Radiology SINGLE VIEW CHEST IMPRESSION: 1. Cardiomegaly without radiographic evidence of congestive failure. 2. There is patchy airspace consolidation seen at both lung bases, right greater than left. The appearance suggests pneumonia/aspiration pneumonitis. Clinical correlation will be required and radiographic follow-up to resolution is recommended. 3. Trace pleural effusions are noted. ABD/PELVIS NO IV OR ORAL CONT IMPRESSION: 1. Evidence of small bowel obstruction with at least one transition point likely secondary to adhesions in the superior pelvis. Postsurgical changes of subtotal colectomy suspected, though evaluation limited by the absence of oral and intravenous contrast. 2. Suggestion of an intervening small bowel wall thickening between the dilated proximal small bowel and distal decompressed small bowel. This could indicate enteritis. 3. Multifocal opacities in the lungs greater in the right lung, consistent with multifocal pneumonia. 4. Nonobstructing 3 mm left renal calculus. 5. Indeterminate 11 mm hyperdense left renal lesion. This could indicate a hemorrhagic or pertinacious cysts, although evaluation is incomplete without intravenous contrast. Further evaluation could be considered as clinically indicated. EKG atrial fibrillation with RVR, ST depression in leads I-II and V3-V6- new when compared to prior EKG Impression Assessment and Plan HYPOTENSION Secondary to SEPSIS from MULTIFOCAL ASPIRATION PNEUMONIA and HYPOVOLEMIA from poor PO/ GI loss Presented hypotensive to 60s systolic, tachycardic, WBC 3.2K, POC lactic acid 4.9; afebrile Received 2 liters IVF's with initial improvement to 90's; now SBP in 80s, will give another 500 mL bolus then 125/hour Empiric antibiotics- Zosyn and Levaquin Blood cultures pending; check sputum cultures; check stool culture and C. diff given GI symptoms and possible enteritis on CT, check UA/ urine culture Recheck lactate at 1400 Patient/ daughter at bedside state they do not want central line MULTIFOCAL ASPIRATION PNEUMONIA In setting of recent nausea/ vomiting Empiric antibiotics as above F/u blood and sputum cultures Speech therapy consult SMALL BOWEL OBSTRUCTION Presented with recent abdominal pain, N/V, minimal liquid stool CT a/p shows SBO with at least one transition point likely secondary to adhesions in the superior pelvis, postsurgical changes of subtotal colectomy, suggestion of an intervening small bowel wall thickening between the dilated proximal small bowel and distal decompressed small bowel, this could indicate enteritis Patient will be NPO NG tube not indicated as she is no longer vomiting Check stool culture and C. diff Consult general surgery; discussed with Keila Ramos PA-C ATRIAL FIBRILLATION WITH RVR Known history of Afib Rate up to 150s in ER Improved with IVF's, now in 100's Resume metoprolol once BP stabilizes On Coumadin, INR subtherapeutic (1.3); hold for now due to SBO; monitor INR EKG CHANGES Diffuse ST depressions in I-II and V3-V6- new from prior EKG, possibly rate related No chest pain; initial troponin negative Check repeat EKG now that rate is improved Trend serial cardiac enzymes ELECTROLYTE ABNORMALITIES Due to GI loss Replace potassium, magnesium, phosphorous Recheck electrolytes at 1800 GARETH Due to dehydration, hypotension Creat is 1.6 from baseline 0.7 IV fluids Hold torsemide Monitor renal function GRADE II DIASTOLIC DYSFUNCTION Currently hypovolemic; CXR without overt volume overload Receiving IVF's; torsemide held (on 10 mg once per week at home) Monitor volume status HYPOTHYROIDISM Check TSH Convert levothyroxine to IV PMR On chronic prednisone 5 mg daily- resume tomorrow AM HISTORY OF DVT/ PE INR subtherapeutic Hold Coumadin due to SBO CODE STATUS DNR/ DNI per my discussion with the patient and her daughter at bedside. Does not want central line. Daughter unsure if patient would want surgical intervention, stated "will cross that road when we get to it". DISPOSITION Lives alone, daughter lives close by Follows with Dr. Camp for primary care Patient seen in collaboration with Dr. Quarles. Please see his addendum. Attending Note: Patient is an 89 yr female with multiple comorbidities presents with history of nausea, vomiting, LLQ abdominal pain since 3 days duration. She was found to be hypotensive, afib with RVR, clinically dehydrated. CT abdomen is suggestive of SBO and enteritis. CXR is suggestive of possible Aspiration pneumonia. Labs suggestive of GARETH, hypokalemia, hypomagnesemia, Hypophosphatemia. Physical Exam: Vitals signs as noted above General Appearance:Moderately built and nourished, no apparent distress Head: normocephalic, Atraumatic Eyes: normal inspection, EOMI, PERRL Neck: supple, Trachea midline Respiratory/Chest: Normal breath sounds, mild basal creps Cardiovascular: Irregularly irregular, tachycardia, No murmur Abdomen/GI:Soft, LLQ mild tender, Bowel sounds present Extremities/Musculoskelatal:normal inspection, no edema Neurologic/Psych:grossly no focal neurological deficits Skin:normal color,warm Assessment and Plan: Sepsis Likely secondary to Aspiration pneumonia and enteritis Aggressive IV fluids, broad spectrum IV antibiotics with Vanco, Zosyn and levaquin Patient and daughter prefers no aggressive management Speech eval BP usually runs in 90s (SBP) per patient Monitor lactate SBO: Conservative management for now Bowel rest, NPO, IV fluids Surgery consulted NG tube if develops nausea Stool for C.diff negative Afib with RVR: H/O DVT/PE Missed home BB today Will resume BB Mild elevation in troponin likely demand ischemia EKG:ST changes improved on repeat EKG Trend cardiac enzymes Patient denies chest pain Subtherapeutic INR: Will resume Coumadin once SBO resolves Will keep on Heparin SQ for now GARETH: likely prerenal IV Fluids Hold torsemide Monitor renal function I personally reviewed the record. Patient is interviewed and examined at bedside. Patient's care is coordinated with Tali Berrios PA-C. Please refer to the documentation above for details of patient's presentation and for discussion of other issues. Advanced Directives Existing Living Will: Yes Existing Power of Insurance Agent: Yes VTE Prophylaxis VTE Risk Assessment Done? Y/N: Yes Risk Level: Moderate Given or contraindicated: Warfarin (Coumadin)
[2016-10-30] MEDS ORDERED: VANCOMYCIN INJ 2,000 MG in SODIUM CHLORIDE 0.9% 500ML 500 ML IV SCH (18:30)
--- NOTE | 2016-10-30 18:32 | Progress Note ---
Progress Note Post Crystalloid Evaluation Date: Oct 30, 2016 Time: 17:20 Subjective Patient seen and examined in room 277. Feels comfortable. Denies dizziness, chest pain, SOB, abdominal pain, N/V. Physical Exam Vital Signs: Vital Signs Date Time Temp Pulse Resp B/P (MAP) Pulse Ox O2 Delivery O2 Flow Rate FiO2 10/30/16 15:21 36.6 114 20 100/63 (75) 92 Nasal Cannula 2.0 Lungs: no respiratory distress, no accessory muscle use, + pertinent finding ( rales right base) Heart: + tachycardia, + irregularly irregular Peripheral Pulse: Normal Capillary Refill: Normal (less than 2 seconds) Skin: Turgor (decreased turgor), [place] Assessment & Plan Presence of: Septic Shock SEPTIC SHOCK Vitals improving with IVF's, no longer hypotensive, heart rate improving Repeat lactic acid due to 1999 See H&P for additional details
[2016-10-30] MEDS: POTASSIUM CHLR 10 MEQ / WTR 10 MEQ in PREMIXED WATER 100 ML IV SCH ×4 (18:52→22:14)
[2016-10-30 19:16] LABS: BUN/CREATININE RATIO 33.3 (10-20); CALCIUM 8.3 mg/dl (8.5-10.1); CREATININE 1.2 mg/dl (0.60-1.20); PHOSPHORUS 4.1 mg/dl (2.5-4.9); POTASSIUM 3.9 mmol/L (3.5-5.1)
[2016-10-30 19:18] VITALS: BP 92/56; PULSE 111; TEMP 37.1; O2SAT 96
[2016-10-30] MEDS: BIMATOPROST 0.01% OP SOLN 2.5 ML BTL OPB SCH (21:00)
[2016-10-30] MEDS: LATANOPROST 0.005% OP SOLN 2.5 ML BTL OPB SCH (21:09)
[2016-10-30] MEDS: HEPARIN SOD 5000 UNIT/0.5 ML CARP SQ SCH (22:18)
[2016-10-30] MEDS ORDERED: SODIUM CHLORIDE 0.9% 1000ML 500 ML IV ONE (22:45)
[2016-10-30 22:56] LABS: CKMB/CK RATIO 2.9 (0-3.0)
[2016-10-30 23:43] VITALS: BP 113/68; PULSE 97; TEMP 36.9; O2SAT 95
[2016-10-31] VITALS (9 sets, daily range): BP systolic 112–137; BP diastolic 71–82; PULSE 112–141; TEMP 36.5–37.1; O2SAT 91–97
[2016-10-31 04:02] LABS: HEMATOCRIT 36.6 % (37-47); MEAN CELL VOLUME 99.5 fL (80-100); MEAN CORPUSCULAR HEMOGLOBIN 32.1 pg (25-34); MEAN CORPUSCULAR HGB CONC 32.2 g/dl (32-36); MEAN PLATELET VOLUME 9.8 fL (7.4-10.4); PLATELET COUNT 138 K/uL (130-400); RED BLOOD COUNT 3.68 M/uL (4.2-5.4); WHITE BLOOD COUNT 3.53 K/uL (4.8-10.8)
[2016-10-31 04:10] LABS: INR 1.3 (0.9-1.1); PROTHROMBIN TIME (PATIENT) 13.6 SECONDS (9.0-12.0)
[2016-10-31] MEDS: ONDANSETRON INJ 2 MG/ML 2 ML VIAL IV PRN ×2 (04:13→10:57)
[2016-10-31 04:40] LABS: BUN/CREATININE RATIO 44.8 (10-20); CALCIUM 7.5 mg/dl (8.5-10.1); CKMB/CK RATIO 4.1 (0-3.0); CREATININE 0.81 mg/dl (0.60-1.20); MAGNESIUM 2.1 mg/dl (1.8-2.4); POTASSIUM 4.1 mmol/L (3.5-5.1)
[2016-10-31 05:32] LABS: PHOSPHORUS 2.8 mg/dl (2.5-4.9)
[2016-10-31] MEDS: HEPARIN SOD 5000 UNIT/0.5 ML CARP SQ SCH ×3 (05:42→22:20)
[2016-10-31] MEDS ORDERED: PROMETHAZINE HCL INJ 12.5 MG in SODIUM CHLORIDE 0.9% 50ML 50 ML IV PRN (05:45)
[2016-10-31] MEDS: NSS + 20MEQ KCL 1000ML 1,000 ML IV SCH ×2 (07:51→16:12)
[2016-10-31] MEDS: LEVOTHYROXINE SODIUM INJ 62.5 MCG in SYRINGE 0 ML IV SCH (07:51)
[2016-10-31] MEDS: PIPERACILL/TAZOBAC IV 3.375 GM in DEXTROSE 5% 100ML IV SCH ×3 (07:51→23:31)
[2016-10-31] MEDS: FLUOXETINE HCL 10 MG CAP PO SCH (09:00)
[2016-10-31] MEDS ORDERED: METOPROLOL SUCC 25MG EXT REL TAB PO SCH (09:00)
[2016-10-31] MEDS ORDERED: METOPROLOL SUCC 50MG EXT REL TAB PO SCH (09:00)
[2016-10-31] MEDS ORDERED: LEVOFLOXACIN / D5W 750 MG in PREMIXED IN D5W 150 ML IV SCH (09:00)
--- NOTE | 2016-10-31 09:44 | Surgery Progress Note ---
Surgery Progress Note Date of Service Oct 31, 2016. Subjective Patient examined at bedside this morning. Afebrile, vitals stable on 2L O2 via NC, no acute events overnight. Overall, states pain is improved from yesterday ; feels less distended, having BMs. Remains NPO, does not have an NGT. Feeling nauseated this morning, about to get a dose of phenergan. Has not been up out of bed much, plans to ambulate today. Objective Vital Signs: Date Time Temp Pulse Resp B/P (MAP) Pulse Ox O2 Delivery O2 Flow Rate FiO2 10/31/16 07:55 36.6 117 16 112/74 (87) 95 Room Air 10/31/16 04:05 36.5 125 24 121/71 (88) 96 2.0 10/31/16 04:00 Nasal Cannula 2.0 10/31/16 00:00 Nasal Cannula 2.0 10/30/16 23:43 36.9 97 18 113/68 (83) 95 2.0 10/30/16 20:15 Nasal Cannula 2.0 10/30/16 19:18 37.1 111 18 92/56 (68) 96 Room Air 10/30/16 16:00 Nasal Cannula 2.0 10/30/16 16:00 92 Nasal Cannula 2.0 10/30/16 15:21 36.6 114 20 100/63 (75) 92 Nasal Cannula 2.0 10/30/16 14:29 111 26 89/63 97 10/30/16 13:30 105 19 83/60 95 Nasal Cannula 2.0 10/30/16 13:00 92 21 91/58 97 Nasal Cannula 2.0 10/30/16 12:30 107 20 91/58 95 Nasal Cannula 2.0 10/30/16 12:10 106 22 79/57 95 Nasal Cannula 2.0 10/30/16 12:00 95 Nasal Cannula 2.0 10/30/16 11:06 127 19 80/59 92 Nasal Cannula 3.0 10/30/16 10:30 124 18 80/59 94 Nasal Cannula 3.0 10/30/16 10:15 135 23 68/48 94 Nasal Cannula 3.0 10/30/16 10:05 Room Air 10/30/16 10:04 158 10/30/16 09:50 36.4 99 18 70/49 92 General Appearance: WD/WN, no apparent distress Head: normocephalic, atraumatic Neck: supple Respiratory/Chest: normal breath sounds, no respiratory distress, no accessory muscle use Cardiovascular: regular rate, rhythm Abdomen: normal bowel sounds, non tender, non distended, soft Laboratory Results: Results Past 24 Hours Test 10/30/16 10:15 10/30/16 11:03 10/30/16 11:15 10/30/16 15:00 Range/Units White Blood Count 3.28 4.8-10.8 K/uL Red Blood Count 4.40 4.2-5.4 M/uL Hemoglobin 14.3 12.0-16.0 g/dL Hematocrit 44.1 37-47 % Mean Corpuscular Volume 100.2 80-100 fL Mean Corpuscular Hemoglobin 32.5 25-34 pg Mean Corpuscular Hemoglobin Concent 32.4 32-36 g/dl Platelet Count 170 130-400 K/uL Mean Platelet Volume 10.3 7.4-10.4 fL Neutrophils (%) (Auto) 72.0 % Lymphocytes (%) (Auto) 15.2 % Monocytes (%) (Auto) 11.6 % Eosinophils (%) (Auto) 0.3 % Basophils (%) (Auto) 0.3 % Neutrophils # (Auto) 2.36 1.4-6.5 K/uL Lymphocytes # (Auto) 0.50 1.2-3.4 K/uL Monocytes # (Auto) 0.38 0.11-0.59 K/uL Eosinophils # (Auto) 0.01 0-0.5 K/uL Basophils # (Auto) 0.01 0-0.2 K/uL RDW Standard Deviation 53.4 36.4-46.3 fL RDW Coefficient of Variation 14.7 11.5-14.5 % Immature Granulocyte % (Auto) 0.6 % Immature Granulocyte # (Auto) 0.02 0.00-0.02 K/uL Toxic Vacuolation 1+ Erythrocyte Sedimentation Rate 48 0-21 mm/hr Prothrombin Time 13.7 9.0-12.0 SECONDS Prothromb Time International Ratio 1.3 0.9-1.1 Activated Partial Thromboplast Time 27.3 21.0-31.0 SECONDS Partial Thromboplastin Ratio 1.1 Sodium Level 138 136-145 mmol/L Potassium Level 3.0 3.5-5.1 mmol/L Chloride Level 100 98-107 mmol/L Carbon Dioxide Level 28 21-32 mmol/L Anion Gap 10.0 3-11 mmol/L Blood Urea Nitrogen 38 7-18 mg/dl Creatinine 1.60 0.60-1.20 mg/dl Est Creatinine Clear Calc Drug Dose 25.2 ml/min Estimated GFR () 32.8 Estimated GFR (Non- 28.3 BUN/Creatinine Ratio 23.6 10-20 Random Glucose 93 70-99 mg/dl Calcium Level 9.3 8.5-10.1 mg/dl Phosphorus Level 2.1 2.5-4.9 mg/dl Magnesium Level 1.3 1.8-2.4 mg/dl Total Bilirubin 3.3 0.2-1 mg/dl Aspartate Amino Transf (AST/SGOT) 16 15-37 U/L Alanine Aminotransferase (ALT/SGPT) 15 12-78 U/L Alkaline Phosphatase 66 45-117 U/L Total Creatine Kinase 42 26-192 U/L Creatine Kinase MB 0.9 0.5-3.6 ng/ml Creatine Kinase MB Ratio 2.1 0-3.0 Troponin I 0.039 0-0.045 ng/ml C-Reactive Protein 14.50 0-0.29 mg/dl Pro-B-Type Natriuretic Peptide 9844 0-1800 pg/ml Total Protein 7.4 6.4-8.2 gm/dl Albumin 2.9 3.4-5.0 gm/dl Globulin 4.5 2.5-4.0 gm/dl Albumin/Globulin Ratio 0.6 0.9-2 Lipase 119 73-393 U/L Thyroid Stimulating Hormone (TSH) 0.569 0.300-4.500 uIu/ml Random Cortisol 47.89 mcg/dl Venous Blood pH 7.37 7.36-7.41 Venous Blood Partial Pressure CO2 50 38.0-50.0 mmHg Venous Blood Partial Pressure O2 27 mmHg Venous Blood HCO3 28 mmol/L Venous Blood Oxygen Saturation < 60.0 % Venous Blood Base Excess 1.7 mEq/L Bedside Lactic Acid Venous 4.91 0.90-1.70 mmol/L Urine Color DK YELLOW Urine Appearance TURBID CLEAR Urine pH 5.0 4.5-7.5 Urine Specific [place] 1.032 1.000-1.030 Urine Protein 1+ NEG Urine Glucose (UA) NEG NEG Urine Ketones TRACE NEG Urine Occult Blood NEG NEG Urine Nitrite POS NEG Urine Bilirubin NEG NEG Urine Urobilinogen NEG NEG Urine Leukocyte Esterase TRACE NEG Urine WBC (Auto) 10-30 0-5 /hpf Urine RBC (Auto) 5-10 0-4 /hpf Urine Hyaline Casts (Auto) 5-10 0-5 /lpf Urine Epithelial Cells (Auto) >30 0-5 /lpf Urine Bacteria (Auto) NEG NEG Urine Renal Epithelial Cells 0-5 /lpf Urine Pathogenic Casts 0 /lpf Urine Sperm (Auto) Test 10/30/16 15:42 10/30/16 18:11 10/30/16 19:45 10/30/16 22:22 Range/Units Lactic Acid Level 4.0 2.4 0.4-2.0 mmol/L Total Creatine Kinase 50 48 26-192 U/L Creatine Kinase MB 1.7 1.4 0.5-3.6 ng/ml Creatine Kinase MB Ratio 3.4 2.9 0-3.0 Troponin I 0.247 0.261 0-0.045 ng/ml Sodium Level 139 136-145 mmol/L Potassium Level 3.9 3.5-5.1 mmol/L Chloride Level 104 98-107 mmol/L Carbon Dioxide Level 27 21-32 mmol/L Anion Gap 8.0 3-11 mmol/L Blood Urea Nitrogen 40 7-18 mg/dl Creatinine 1.20 0.60-1.20 mg/dl Est Creatinine Clear Calc Drug Dose 33.2 ml/min Estimated GFR () 46.4 Estimated GFR (Non- 40.0 BUN/Creatinine Ratio 33.3 10-20 Random Glucose 89 70-99 mg/dl Calcium Level 8.3 8.5-10.1 mg/dl Phosphorus Level 4.1 2.5-4.9 mg/dl Magnesium Level 2.0 1.8-2.4 mg/dl Test 10/31/16 03:52 Range/Units White Blood Count 3.53 4.8-10.8 K/uL Red Blood Count 3.68 4.2-5.4 M/uL Hemoglobin 11.8 12.0-16.0 g/dL Hematocrit 36.6 37-47 % Mean Corpuscular Volume 99.5 80-100 fL Mean Corpuscular Hemoglobin 32.1 25-34 pg Mean Corpuscular Hemoglobin Concent 32.2 32-36 g/dl RDW Standard Deviation 53.4 36.4-46.3 fL RDW Coefficient of Variation 14.7 11.5-14.5 % Platelet Count 138 130-400 K/uL Mean Platelet Volume 9.8 7.4-10.4 fL Prothrombin Time 13.6 9.0-12.0 SECONDS Prothromb Time International Ratio 1.3 0.9-1.1 Sodium Level 140 136-145 mmol/L Potassium Level 4.1 3.5-5.1 mmol/L Chloride Level 108 98-107 mmol/L Carbon Dioxide Level 25 21-32 mmol/L Anion Gap 7.0 3-11 mmol/L Blood Urea Nitrogen 36 7-18 mg/dl Creatinine 0.81 0.60-1.20 mg/dl Est Creatinine Clear Calc Drug Dose 49.2 ml/min Estimated GFR () 74.6 Estimated GFR (Non- 64.4 BUN/Creatinine Ratio 44.8 10-20 Random Glucose 89 70-99 mg/dl Lactic Acid Level 1.4 0.4-2.0 mmol/L Calcium Level 7.5 8.5-10.1 mg/dl Phosphorus Level 2.8 2.5-4.9 mg/dl Magnesium Level 2.1 1.8-2.4 mg/dl Total Creatine Kinase 39 26-192 U/L Creatine Kinase MB 1.6 0.5-3.6 ng/ml Creatine Kinase MB Ratio 4.1 0-3.0 Troponin I 0.187 0-0.045 ng/ml Random Vancomycin Level 16.1 mcg/ml Microbiology Results 10/30/16 Blood Culture, Received Pending 10/30/16 Blood Culture, Received Pending 10/30/16 MRSA DNA Surveillance Screen - Final, Complete Specimen Positive for MRSA by DNA Probe 10/30/16 C.difficile Toxin B Gene (PCR) - Final, Complete No C. difficile toxin B gene detected 10/30/16 Shiga Toxin Test, Received Pending 10/30/16 Stool Culture, Received Pending 10/30/16 Urine Culture, Received Pending Assessment & Plan Ariela Rodriguez is an 89 year old woman who was admitted with signs and symptoms of partial small bowel obstruction with transition point in the anterior superior pelvis. She is s/p subtotal colectomy for GI bleeding from diverticulosis in 2000 and laparoscopic cholecystectomy. Also with CXR showing possible aspiration pneumonia. Abdominal examination is soft, less distended today, with a few bowel sounds x 4 quadrants, nontender on examination. Plan: -Continue non operative management at this time: NPO, IVF Hydration, IV pain control as needed. Low threshold for placement of NGT if vomiting occurs. -Trend labs, replete electrolytes as needed -Rest of care per primary team -Will continue to follow Effie Dickson MD 10/31/16
[2016-10-31] MEDS ORDERED: VANCOMYCIN INJ 1,500 MG in SODIUM CHLORIDE 0.9% 500ML 500 ML IV ONE (10:15)
--- NOTE | 2016-10-31 10:21 | Pharmacy Progress Note ---
Pharmacy Antibiotic Consult Date of Service: Oct 31, 2016. Pharmacy Dosing Scope Pharmacy is consulted to initiate vancomycin IV dosing therapy, order appropriate labs and adjust drug dose/frequency. Subjective The patient is a 89 year old female admitted on Oct 30, 2016 at 12:15. Objective Height (Feet): 5 Height (Inches): 6.00 Weight (Kilograms): 79.300 Lab Results (24hrs): Test 10/30/16 11:03 10/30/16 11:15 10/30/16 15:00 10/30/16 18:11 Venous Blood pH 7.37 (7.36-7.41) Venous Blood Partial Pressure CO2 50 mmHg (38.0-50.0) Venous Blood Partial Pressure O2 27 mmHg Venous Blood HCO3 28 mmol/L Venous Blood Oxygen Saturation < 60.0 % Venous Blood Base Excess 1.7 mEq/L Bedside Lactic Acid Venous 4.91 mmol/L (0.90-1.70) Urine Color DK YELLOW Urine Appearance TURBID (CLEAR) Urine pH 5.0 (4.5-7.5) Urine Specific Grady 1.032 (1.000-1.030) Urine Protein 1+ (NEG) Urine Glucose (UA) NEG (NEG) Urine Ketones TRACE (NEG) Urine Occult Blood NEG (NEG) Urine Nitrite POS (NEG) Urine Bilirubin NEG (NEG) Urine Urobilinogen NEG (NEG) Urine Leukocyte Esterase TRACE (NEG) Urine WBC (Auto) 10-30 /hpf (0-5) Urine RBC (Auto) 5-10 /hpf (0-4) Urine Hyaline Casts (Auto) 5-10 /lpf (0-5) Urine Epithelial Cells (Auto) >30 /lpf (0-5) Urine Bacteria (Auto) NEG (NEG) Urine Renal Epithelial Cells /lpf (0-5) Urine Pathogenic Casts /lpf (0) Urine Sperm (Auto) Sodium Level 139 mmol/L (136-145) Potassium Level 3.9 mmol/L (3.5-5.1) Chloride Level 104 mmol/L (98-107) Carbon Dioxide Level 27 mmol/L (21-32) Anion Gap 8.0 mmol/L (3-11) Blood Urea Nitrogen 40 mg/dl (7-18) Creatinine 1.20 mg/dl (0.60-1.20) Est Creatinine Clear Calc Drug Dose 33.2 ml/min Estimated GFR () 46.4 Estimated GFR (Non- 40.0 BUN/Creatinine Ratio 33.3 (10-20) Random Glucose 89 mg/dl (70-99) Calcium Level 8.3 mg/dl (8.5-10.1) Phosphorus Level 4.1 mg/dl (2.5-4.9) Magnesium Level 2.0 mg/dl (1.8-2.4) Test 10/30/16 19:45 10/30/16 22:22 10/31/16 03:52 Lactic Acid Level 2.4 mmol/L (0.4-2.0) 1.4 mmol/L (0.4-2.0) Total Creatine Kinase 48 U/L (26-192) 39 U/L (26-192) Creatine Kinase MB 1.4 ng/ml (0.5-3.6) 1.6 ng/ml (0.5-3.6) Creatine Kinase MB Ratio 2.9 (0-3.0) 4.1 (0-3.0) Troponin I 0.261 ng/ml (0-0.045) 0.187 ng/ml (0-0.045) White Blood Count 3.53 K/uL (4.8-10.8) Red Blood Count 3.68 M/uL (4.2-5.4) Hemoglobin 11.8 g/dL (12.0-16.0) Hematocrit 36.6 % (37-47) Mean Corpuscular Volume 99.5 fL (80-100) Mean Corpuscular Hemoglobin 32.1 pg (25-34) Mean Corpuscular Hemoglobin Concent 32.2 g/dl (32-36) RDW Standard Deviation 53.4 fL (36.4-46.3) RDW Coefficient of Variation 14.7 % (11.5-14.5) Platelet Count 138 K/uL (130-400) Mean Platelet Volume 9.8 fL (7.4-10.4) Prothrombin Time 13.6 SECONDS (9.0-12.0) Prothromb Time International Ratio 1.3 (0.9-1.1) Sodium Level 140 mmol/L (136-145) Potassium Level 4.1 mmol/L (3.5-5.1) Chloride Level 108 mmol/L (98-107) Carbon Dioxide Level 25 mmol/L (21-32) Anion Gap 7.0 mmol/L (3-11) Blood Urea Nitrogen 36 mg/dl (7-18) Creatinine 0.81 mg/dl (0.60-1.20) Est Creatinine Clear Calc Drug Dose 49.2 ml/min Estimated GFR () 74.6 Estimated GFR (Non- 64.4 BUN/Creatinine Ratio 44.8 (10-20) Random Glucose 89 mg/dl (70-99) Calcium Level 7.5 mg/dl (8.5-10.1) Phosphorus Level 2.8 mg/dl (2.5-4.9) Magnesium Level 2.1 mg/dl (1.8-2.4) Random Vancomycin Level 16.1 mcg/ml Assessment & Plan Assessment * 89 yo F with sepsis 2nd SBO vs. PNA, on Zosyn, levofloxacin, and vancomycin. Nasal swab positive for MRSA. * SCr improving, now at/near baseline with eCrCL ~40 mL/min equating to estimated vancomycin t1/2 of 18 hr * Goal vancomycin trough 15-20 mcg/mL * Random level this AM therapeutic at 16.1 mcg/mL * Will continue vancomycin at 19 mg/kg IV q18h * Trough prior to 4th overall dose Plan * Vancomycin 1500 mg IV q18h * Trough 11/01 @ 2130 Pharmacy will continue to follow and will adjust dose/frequency as necessary. Thank you
--- NOTE | 2016-10-31 10:56 | Clinical Documentation Query ---
CLINICAL DOCUMENTATION QUERY Dr. MENDIETA, In your clinical opinion is this patient being managed for: ( X ) Type II OK due to demand ischemia ( ) Other explanation of clinical findings (Please Explain) ( ) Unable to determine (Please Define) ( ) Need to Discuss ( ) Not Agree The medical record reflects the following clinical findings, treatment, and risk factors. Clinical Indicators:89 yo female presenting with sepsis/septic shock, aspiration pneumonia, GARETH. Trops 0.039/0.247/0.261/0.187, HR 99-158, BP 68-92/49-60. Treatment:tele, O2 support, monitor EKG, continue toprol xl, IV fluids Risk Factors:sepsis, hypotension, tachycardia, hypoxia, GARETH, pneumonia, A fib with RVR Type 2: OK related to ischemia associated with increased O2 demand or decreased supply Please clarify and document your clinical opinion in the progress notes and discharge summary. Terms such as "probable", "suspected", "likely", "questionable", "possible", or "still to be ruled out" are acceptable. IF IN AGREEMENT, YOU MUST DOCUMENT ABOVE DIAGNOSTIC STATEMENT IN DAILY PROGRESS NOTES AND DISCHARGE SUMMARY. This document is not part of the patient's record. Thank You, Jaida Bob, VARUN [phone]
[2016-10-31] MEDS: METOPROLOL TARTRATE 1 MG/ML VIAL IV PRN (11:18)
[2016-10-31] MEDS ORDERED: NURSING VERBAL MED ORDER ONE (15:45)
[2016-10-31] MEDS ORDERED: METOPROLOL TARTRATE 1 MG/ML VIAL IV ONE (15:45)
--- NOTE | 2016-10-31 15:59 | Progress Note ---
Internal Med Progress Note Date of Service: Oct 31, 2016. Provider Documentation: SUBJECTIVE: Seen and examined at bedside. States had multiple episodes of nausea and vomiting since this morning Prefers no colostomy Also reports heartburn and anxiety Denies chest pain, SOB Abd pain is improved Had 2 small BMs today OBJECTIVE: Vital Signs-as noted below General Appearance:Moderately built and nourished, no apparent distress Head: normocephalic, Atraumatic Eyes: normal inspection, EOMI, PERRL Neck: supple, Trachea midline Respiratory/Chest: Normal breath sounds, CTA Cardiovascular: Irregularly irregular, tachycardia, No murmur Abdomen/GI:Soft, LLQ mild tender, Bowel sounds present Extremities/Musculoskelatal:normal inspection, no edema Neurologic/Psych:grossly no focal neurological deficits Skin:normal color,warm Lab data as noted below ASSESSMENT & PLAN: Sepsis Likely secondary to Aspiration pneumonia and enteritis Continue IV fluids, IV antibiotics: Vanco, Zosyn and levaquin Patient and daughter prefers no aggressive management Speech eval Lactate trended down Blood culture pending Stool studies negative SBO: Conservative management Bowel rest, NPO, IV fluids Appreciate Surgery input Patient prefers no colostomy Afib with RVR: H/O DVT/PE Lopressor PRN for rate control Resume PO meds when able Troponin trended down: Likely Type II [place] due to demand ischemia EKG:ST changes improved on repeat EKG Patient denies chest pain Subtherapeutic INR: Will resume Coumadin once SBO resolves Heparin SQ for now: Discussed with family about risks and benefits (In agreement ) GARETH: likely prerenal Resolved On IV Fluids Hold torsemide Monitor renal function Hypokalemia/Hypomagnesemia: Likely secondary to GI loss and Diuretics Monitor Grade II diastolic dysfunction No signs of exacerbation CXR without overt volume overload torsemide held (on 10 mg once per week at home) for now Hypothyroidism Continue levothyroxine IV TSH:wnl PMR On chronic prednisone 5 mg daily GERD: Ranitidine IV Anxiety: PRN Ativan CODE STATUS DNR/ DNI per patient and her daughter (DPOA) DISPOSITION Follows with Dr. Camp for primary care Continue to monitor in Tele Vital Signs: Date Time Temp Pulse Resp B/P (MAP) Pulse Ox O2 Delivery O2 Flow Rate FiO2 10/31/16 16:13 36.7 135 20 136/79 (98) 94 Room Air 10/31/16 16:12 135 136/79 10/31/16 12:00 95 Room Air 2.0 10/31/16 11:18 139 132/92 10/31/16 08:00 95 Room Air 2.0 10/31/16 07:55 36.6 117 16 112/74 (87) 95 Room Air 10/31/16 04:05 36.5 125 24 121/71 (88) 96 2.0 10/31/16 04:00 Nasal Cannula 2.0 10/31/16 00:00 Nasal Cannula 2.0 10/30/16 23:43 36.9 97 18 113/68 (83) 95 2.0 10/30/16 20:15 Nasal Cannula 2.0 Lab Results: Results Past 24 Hours Test 10/30/16 19:45 10/30/16 22:22 10/31/16 03:52 Range/Units Lactic Acid Level 2.4 1.4 0.4-2.0 mmol/L Total Creatine Kinase 48 39 26-192 U/L Creatine Kinase MB 1.4 1.6 0.5-3.6 ng/ml Creatine Kinase MB Ratio 2.9 4.1 0-3.0 Troponin I 0.261 0.187 0-0.045 ng/ml White Blood Count 3.53 4.8-10.8 K/uL Red Blood Count 3.68 4.2-5.4 M/uL Hemoglobin 11.8 12.0-16.0 g/dL Hematocrit 36.6 37-47 % Mean Corpuscular Volume 99.5 80-100 fL Mean Corpuscular Hemoglobin 32.1 25-34 pg Mean Corpuscular Hemoglobin Concent 32.2 32-36 g/dl RDW Standard Deviation 53.4 36.4-46.3 fL RDW Coefficient of Variation 14.7 11.5-14.5 % Platelet Count 138 130-400 K/uL Mean Platelet Volume 9.8 7.4-10.4 fL Prothrombin Time 13.6 9.0-12.0 SECONDS Prothromb Time International Ratio 1.3 0.9-1.1 Sodium Level 140 136-145 mmol/L Potassium Level 4.1 3.5-5.1 mmol/L Chloride Level 108 98-107 mmol/L Carbon Dioxide Level 25 21-32 mmol/L Anion Gap 7.0 3-11 mmol/L Blood Urea Nitrogen 36 7-18 mg/dl Creatinine 0.81 0.60-1.20 mg/dl Est Creatinine Clear Calc Drug Dose 49.2 ml/min Estimated GFR () 74.6 Estimated GFR (Non- 64.4 BUN/Creatinine Ratio 44.8 10-20 Random Glucose 89 70-99 mg/dl Calcium Level 7.5 8.5-10.1 mg/dl Phosphorus Level 2.8 2.5-4.9 mg/dl Magnesium Level 2.1 1.8-2.4 mg/dl Random Vancomycin Level 16.1 mcg/ml
[2016-10-31] MEDS: RANITIDINE IV 50 MG in DEXTROSE 5% 100ML 100 ML IV SCH ×2 (17:10→23:31)
[2016-10-31] MEDS: LORAZEPAM INJ 0.5 MG in SYRINGE 0.25 ML IV PRN (19:26)
[2016-10-31] MEDS: LATANOPROST 0.005% OP SOLN 2.5 ML BTL OPB SCH ×2 (21:00→22:17)
[2016-10-31] MEDS: BIMATOPROST 0.01% OP SOLN 2.5 ML BTL OPB SCH (22:17)
--- NOTE | 2016-10-31 22:26 | DIAGNOSTIC IMAGING REPORT ---
KUB HISTORY: check NGT placement COMPARISON: None. FINDINGS: The NG tube terminates at the expected location of the distal esophagus. This should be advanced by approximately 10 cm. The heart is enlarged. Small bilateral pleural effusions and patchy bibasilar densities. Cholecystectomy. Dilated gas-filled loops of small bowel are again noted consistent with a small bowel obstruction. No renal calculi. No ureteral calculi. No pneumoperitoneum or pneumatosis. IMPRESSION: 1. The NG tube terminates at the distal esophagus. This should be advanced by approximately 10 cm. 2. Persistent small bowel obstruction. Electronically signed by: Enoch Ovalle M.D. 10/31/2016 10:25 PM Dictated Date/Time: 10/31/2016 10:23 PM
--- NOTE | 2016-10-31 23:01 | DIAGNOSTIC IMAGING REPORT ---
KUB HISTORY: to verify NGT placement COMPARISON: None. FINDINGS: The NG tube is been advanced and now resides within the body of the stomach. Persistent small bowel obstruction pattern. Cholecystectomy. No renal calculi. No ureteral calculi. No pneumoperitoneum or pneumatosis. IMPRESSION: The NG tube terminates in the body of the stomach. Electronically signed by: Enoch Ovalle M.D. 10/31/2016 10:59 PM Dictated Date/Time: 10/31/2016 10:59 PM
[2016-11-01] VITALS (10 sets, daily range): BP systolic 111–144; BP diastolic 74–93; PULSE 111–121; TEMP 36.7–37.1; O2SAT 92–97
[2016-11-01] MEDS: METOPROLOL TARTRATE 1 MG/ML VIAL IV PRN (00:49)
[2016-11-01] MEDS: NSS + 20MEQ KCL 1000ML 1,000 ML IV SCH ×3 (01:39→21:35)
[2016-11-01] MEDS ORDERED: VANCOMYCIN INJ 1,500 MG in SODIUM CHLORIDE 0.9% 500ML 500 ML IV SCH (04:00)
[2016-11-01] MEDS ORDERED: METOPROLOL SUCC 25MG EXT REL TAB PO ONE (05:07)
[2016-11-01] MEDS ORDERED: METOPROLOL TARTRATE 1 MG/ML VIAL IV ONE (05:18)
[2016-11-01] MEDS: HEPARIN SOD 5000 UNIT/0.5 ML CARP SQ SCH (05:32)
[2016-11-01 06:35] LABS: HEMATOCRIT 37.8 % (37-47); MEAN CELL VOLUME 101.9 fL (80-100); MEAN CORPUSCULAR HGB CONC 30.4 g/dl (32-36); PLATELET COUNT 159 K/uL (130-400); RED BLOOD COUNT 3.71 M/uL (4.2-5.4); WHITE BLOOD COUNT 4.28 K/uL (4.8-10.8)
[2016-11-01 07:09] LABS: BUN/CREATININE RATIO 44.9 (10-20); CALCIUM 8.3 mg/dl (8.5-10.1); CREATININE 0.55 mg/dl (0.60-1.20); MAGNESIUM 1.9 mg/dl (1.8-2.4)
[2016-11-01 07:35] LABS: BASO % 0.2 %; BASO ABS # 0.01 K/uL (0-0.2); COMPLETE YES; DOHLE BODIES 1+; ECHINOCYTES 1+; EOS % 0.2 %; IG% 0.2 %; LARGE PLATELETS 1+; LYMPH % 13.1 %; LYMPH ABS # 0.56 K/uL (1.2-3.4); NEUT % 75.3 %; VACUOLIZATION 1+
[2016-11-01] MEDS: PIPERACILL/TAZOBAC IV 3.375 GM in DEXTROSE 5% 100ML IV SCH ×2 (08:15→17:07)
[2016-11-01] MEDS: RANITIDINE IV 50 MG in DEXTROSE 5% 100ML 100 ML IV SCH ×2 (08:15→17:07)
[2016-11-01] MEDS: FLUOXETINE HCL 10 MG CAP PO SCH (08:25)
[2016-11-01] MEDS ORDERED: METOPROLOL SUCC 25MG EXT REL TAB PO SCH (09:00)
--- NOTE | 2016-11-01 09:06 | DIAGNOSTIC IMAGING REPORT ---
KUB CLINICAL HISTORY: SBO COMPARISON STUDY: 10/31/2016 FINDINGS: There are persistent dilated small bowel loops measuring up to 5 cm. There is a possibility of colonic gas. The findings are consistent with a small bowel obstruction. There is a nasogastric tube with its tip projected over the distal esophagus. IMPRESSION: 1. The nasogastric tube is positioned with its tip projected over the distal esophagus 2. Small bowel obstructive pattern with small bowel loops measuring up to 5 cm in diameter Electronically signed by: Ish Govea M.D. 11/01/2016 9:04 AM Dictated Date/Time: 11/01/2016 9:03 AM
[2016-11-01] MEDS: LEVOTHYROXINE SODIUM INJ 62.5 MCG in SYRINGE 0 ML IV SCH (09:27)
--- NOTE | 2016-11-01 10:45 | Pharmacy Progress Note ---
Pharmacy Antibiotic Prog Note Date of Service Nov 01, 2016. Subjective The patient is currently receiving vancomycin 1500 mg IV every 18 hours. The patient is currently on day # 3 IV therapy. Objective Height (Feet): 5 Height (Inches): 6.00 Weight (Kilograms): 80.800 Lab Results (24hrs): Test 10/31/16 21:34 11/01/16 06:14 Vancomycin Level Trough 14.9 mcg/ml (SEE COMMENT) White Blood Count 4.28 K/uL (4.8-10.8) Red Blood Count 3.71 M/uL (4.2-5.4) Hemoglobin 11.5 g/dL (12.0-16.0) Hematocrit 37.8 % (37-47) Mean Corpuscular Volume 101.9 fL (80-100) Mean Corpuscular Hemoglobin 31.0 pg (25-34) Mean Corpuscular Hemoglobin Concent 30.4 g/dl (32-36) Platelet Count 159 K/uL (130-400) Mean Platelet Volume 10.0 fL (7.4-10.4) Neutrophils (%) (Auto) 75.3 % Lymphocytes (%) (Auto) 13.1 % Monocytes (%) (Auto) 11.0 % Eosinophils (%) (Auto) 0.2 % Basophils (%) (Auto) 0.2 % Neutrophils # (Auto) 3.22 K/uL (1.4-6.5) Lymphocytes # (Auto) 0.56 K/uL (1.2-3.4) Monocytes # (Auto) 0.47 K/uL (0.11-0.59) Eosinophils # (Auto) 0.01 K/uL (0-0.5) Basophils # (Auto) 0.01 K/uL (0-0.2) RDW Standard Deviation 55.2 fL (36.4-46.3) RDW Coefficient of Variation 15.0 % (11.5-14.5) Immature Granulocyte % (Auto) 0.2 % Immature Granulocyte # (Auto) 0.01 K/uL (0.00-0.02) Toxic Vacuolation 1+ Dohle Bodies 1+ Large Platelets 1+ Echinocytes 1+ Sodium Level 142 mmol/L (136-145) Potassium Level 4.0 mmol/L (3.5-5.1) Chloride Level 113 mmol/L (98-107) Carbon Dioxide Level 23 mmol/L (21-32) Anion Gap 6.0 mmol/L (3-11) Blood Urea Nitrogen 25 mg/dl (7-18) Creatinine 0.55 mg/dl (0.60-1.20) Est Creatinine Clear Calc Drug Dose 74.3 ml/min Estimated GFR () 96.4 Estimated GFR (Non- 83.2 BUN/Creatinine Ratio 44.9 (10-20) Random Glucose 89 mg/dl (70-99) Calcium Level 8.3 mg/dl (8.5-10.1) Magnesium Level 1.9 mg/dl (1.8-2.4) Micro Results: Date/Time Source Procedure Growth Status 10/30/16 11:03 Blood Blood Culture - Preliminary NO GROWTH TO DATE. Resulted 10/30/16 10:55 Blood Blood Culture - Preliminary NO GROWTH TO DATE. Resulted 10/30/16 15:15 Nasal MRSA DNA Surveillance Screen - Final Specimen Positive for MRSA by DNA Probe Complete 10/30/16 15:15 Stool C.difficile Toxin B Gene (PCR) - Final No C. difficile toxin B gene detected Complete 10/30/16 15:15 Stool Shiga Toxin Test - Preliminary Resulted 10/30/16 15:15 Stool Stool Culture - Preliminary NO SALMONELLA ISOLATED TO DATE,... Resulted 10/30/16 15:15 Urine,Catheterized Urine Culture - Final NO GROWTH - LESS THAN 1,000 COLONIES/ML Complete Assessment & Plan Assessment: * 89 yo F admitted 10/30 for possible sepsis from SBO vs. PNA * Nasal swab (+) for MRSA * Cultures NGTD * Trough level was 14.9, slightly subtherapeutic; goal trough 15-20 mcg/mL * Trough was drawn early on 10/31, ~10.13 hours from previous dose ( ~6.5 hours prior to third dose overall) * Patient may still have some accumulation but SCr trending down * Will adjust frequency to q12 Plan: * Vancomycin 1500 mg q12H * Trough 11/02 @ 1530 Pharmacy will continue to follow and will adjust dose/frequency as necessary. Thank you
[2016-11-01] MEDS ORDERED: LEVOFLOXACIN 750MG / D5W IV SCH (11:00)
[2016-11-01] MEDS: METOPROLOL TARTRATE 1 MG/ML VIAL IV. SCH ×2 (12:36→18:32)
--- NOTE | 2016-11-01 13:04 | Surgery Progress Note ---
Surgery Progress Note Date of Service Nov 01, 2016. Subjective Post OP Day: HD #2 feeling better today, able to sleep last night, no nausea or vomiting today No abdominal pain No bowel movements or flatus today Burning on urination but peeing well. Objective Vital Signs: Date Time Temp Pulse Resp B/P (MAP) Pulse Ox O2 Delivery O2 Flow Rate FiO2 11/01/16 12:36 119 126/82 11/01/16 12:17 37.0 117 20 134/81 (98) 96 2.0 11/01/16 08:00 95 Room Air 2.0 11/01/16 07:43 36.7 113 20 111/76 (88) 95 2.0 11/01/16 05:41 135 136/89 11/01/16 04:00 Nasal Cannula 2.0 11/01/16 03:15 37.1 111 20 117/75 (89) 96 Nasal Cannula 2.0 11/01/16 00:49 137 124/88 11/01/16 00:00 Nasal Cannula 2.0 10/31/16 22:53 36.5 113 18 137/82 (100) 97 Nasal Cannula 2.0 10/31/16 21:31 112 127/76 (93) 91 Nasal Cannula 2.0 10/31/16 20:00 37.1 141 18 126/80 (95) 96 Nasal Cannula 2.0 10/31/16 20:00 95 Nasal Cannula 2.0 10/31/16 16:13 36.7 135 20 136/79 (98) 94 Room Air 10/31/16 16:12 135 136/79 10/31/16 16:00 95 Nasal Cannula 2.0 Physical Exam: nasogastric drainage (dark bilious output) General Appearance: WD/WN, no apparent distress Head: normocephalic, atraumatic Neck: trachea midline Respiratory/Chest: no respiratory distress, no accessory muscle use Abdomen: non tender, non distended, soft, + abnormal bowel sounds (absent) Laboratory Results: Results Past 24 Hours Test 10/31/16 21:34 11/01/16 06:14 Range/Units Vancomycin Level Trough 14.9 SEE COMMENT mcg/ml White Blood Count 4.28 4.8-10.8 K/uL Red Blood Count 3.71 4.2-5.4 M/uL Hemoglobin 11.5 12.0-16.0 g/dL Hematocrit 37.8 37-47 % Mean Corpuscular Volume 101.9 80-100 fL Mean Corpuscular Hemoglobin 31.0 25-34 pg Mean Corpuscular Hemoglobin Concent 30.4 32-36 g/dl Platelet Count 159 130-400 K/uL Mean Platelet Volume 10.0 7.4-10.4 fL Neutrophils (%) (Auto) 75.3 % Lymphocytes (%) (Auto) 13.1 % Monocytes (%) (Auto) 11.0 % Eosinophils (%) (Auto) 0.2 % Basophils (%) (Auto) 0.2 % Neutrophils # (Auto) 3.22 1.4-6.5 K/uL Lymphocytes # (Auto) 0.56 1.2-3.4 K/uL Monocytes # (Auto) 0.47 0.11-0.59 K/uL Eosinophils # (Auto) 0.01 0-0.5 K/uL Basophils # (Auto) 0.01 0-0.2 K/uL RDW Standard Deviation 55.2 36.4-46.3 fL RDW Coefficient of Variation 15.0 11.5-14.5 % Immature Granulocyte % (Auto) 0.2 % Immature Granulocyte # (Auto) 0.01 0.00-0.02 K/uL Toxic Vacuolation 1+ Dohle Bodies 1+ Large Platelets 1+ Echinocytes 1+ Sodium Level 142 136-145 mmol/L Potassium Level 4.0 3.5-5.1 mmol/L Chloride Level 113 98-107 mmol/L Carbon Dioxide Level 23 21-32 mmol/L Anion Gap 6.0 3-11 mmol/L Blood Urea Nitrogen 25 7-18 mg/dl Creatinine 0.55 0.60-1.20 mg/dl Est Creatinine Clear Calc Drug Dose 74.3 ml/min Estimated GFR () 96.4 Estimated GFR (Non- 83.2 BUN/Creatinine Ratio 44.9 10-20 Random Glucose 89 70-99 mg/dl Calcium Level 8.3 8.5-10.1 mg/dl Magnesium Level 1.9 1.8-2.4 mg/dl Diagnostic Interpretation: KUB CLINICAL HISTORY: SBO COMPARISON STUDY: 10/31/2016 FINDINGS: There are persistent dilated small bowel loops measuring up to 5 cm. There is a possibility of colonic gas. The findings are consistent with a small bowel obstruction. There is a nasogastric tube with its tip projected over the distal esophagus. IMPRESSION: 1. The nasogastric tube is positioned with its tip projected over the distal esophagus 2. Small bowel obstructive pattern with small bowel loops measuring up to 5 cm in diameter Assessment & Plan SBO - vitals stable other than tachycardia (a-fib) - NGT placed 50 cc since placement - KUB this am showed dilated small bowel up to 5 cm and NGT at distal esophagus, advanced 6 cm. - no bowel movement or flatus today Plan: Continue conservative management at this time: IV fluids, NPO, IV pain management, and NGT to LIS Continue current medical management for Aspiration pneumonia: IV antibiotics OOB to chair when possible and ambulation is encouraged Continue medical management will follow Dr. Ravi has seen patient, agrees with above
[2016-11-01] MEDS ORDERED: HEPARIN IV LOW DOSE NO BOLUS SCH (13:10)
--- NOTE | 2016-11-01 13:31 | Progress Note ---
Internal Med Progress Note Date of Service: Nov 01, 2016. Provider Documentation: SUBJECTIVE: Seen and examined at bedside. States feeling much better today Denies chest pain, SOB, abd pain NG tube in place No BM yet today Heartburn improved OBJECTIVE: Vital Signs-as noted below General Appearance:Moderately built and nourished, no apparent distress Head: normocephalic, Atraumatic Eyes: normal inspection, EOMI, PERRL Neck: supple, Trachea midline Respiratory/Chest: Normal breath sounds, CTA Cardiovascular: Irregularly irregular, tachycardia, No murmur Abdomen/GI:Soft, LLQ mild tender, Bowel sounds present Extremities/Musculoskelatal:normal inspection, no edema Neurologic/Psych:grossly no focal neurological deficits Skin:normal color,warm Lab data as noted below ASSESSMENT & PLAN: Sepsis Likely secondary to Aspiration pneumonia and enteritis Continue IV fluids, IV antibiotics: Vanco, Zosyn and levaquin Patient and daughter prefers no aggressive management Speech eval Lactate trended down Blood/Urine culture: Negative to date Stool studies negative SBO: Conservative management Bowel rest, NPO, IV fluids, NG tube Appreciate Surgery input Patient prefers no colostomy Afib with RVR: H/O DVT/PE Lopressor PRN for rate control Resume PO meds when able Troponin trended down: Likely Type II [place] due to demand ischemia EKG:ST changes improved on repeat EKG Patient denies chest pain On Heparin ggt for now. Plan to resume Coumadin when able GARETH: likely prerenal Resolved On IV Fluids Hold torsemide Monitor renal function Hypokalemia/Hypomagnesemia: Likely secondary to GI loss and Diuretics Monitor Grade II diastolic dysfunction No signs of exacerbation CXR without overt volume overload torsemide held (on 10 mg once per week at home) for now Hypothyroidism Continue levothyroxine IV TSH:wnl PMR On chronic prednisone 5 mg daily GERD: Ranitidine IV Anxiety: PRN Ativan CODE STATUS DNR/ DNI per patient and her daughter (DPOA) DISPOSITION Follows with Dr. Camp for primary care Continue to monitor in Tele Vital Signs: Date Time Temp Pulse Resp B/P (MAP) Pulse Ox O2 Delivery O2 Flow Rate FiO2 11/01/16 12:36 119 126/82 11/01/16 12:17 37.0 117 20 134/81 (98) 96 2.0 11/01/16 08:00 95 Room Air 2.0 11/01/16 07:43 36.7 113 20 111/76 (88) 95 2.0 11/01/16 05:41 135 136/89 11/01/16 04:00 Nasal Cannula 2.0 11/01/16 03:15 37.1 111 20 117/75 (89) 96 Nasal Cannula 2.0 11/01/16 00:49 137 124/88 11/01/16 00:00 Nasal Cannula 2.0 10/31/16 22:53 36.5 113 18 137/82 (100) 97 Nasal Cannula 2.0 10/31/16 21:31 112 127/76 (93) 91 Nasal Cannula 2.0 10/31/16 20:00 37.1 141 18 126/80 (95) 96 Nasal Cannula 2.0 10/31/16 20:00 95 Nasal Cannula 2.0 10/31/16 16:13 36.7 135 20 136/79 (98) 94 Room Air 10/31/16 16:12 135 136/79 10/31/16 16:00 95 Nasal Cannula 2.0 Lab Results: Results Past 24 Hours Test 10/31/16 21:34 11/01/16 06:14 11/01/16 13:18 Range/Units Vancomycin Level Trough 14.9 SEE COMMENT mcg/ml White Blood Count 4.28 4.8-10.8 K/uL Red Blood Count 3.71 4.2-5.4 M/uL Hemoglobin 11.5 12.0-16.0 g/dL Hematocrit 37.8 37-47 % Mean Corpuscular Volume 101.9 80-100 fL Mean Corpuscular Hemoglobin 31.0 25-34 pg Mean Corpuscular Hemoglobin Concent 30.4 32-36 g/dl Platelet Count 159 130-400 K/uL Mean Platelet Volume 10.0 7.4-10.4 fL Neutrophils (%) (Auto) 75.3 % Lymphocytes (%) (Auto) 13.1 % Monocytes (%) (Auto) 11.0 % Eosinophils (%) (Auto) 0.2 % Basophils (%) (Auto) 0.2 % Neutrophils # (Auto) 3.22 1.4-6.5 K/uL Lymphocytes # (Auto) 0.56 1.2-3.4 K/uL Monocytes # (Auto) 0.47 0.11-0.59 K/uL Eosinophils # (Auto) 0.01 0-0.5 K/uL Basophils # (Auto) 0.01 0-0.2 K/uL RDW Standard Deviation 55.2 36.4-46.3 fL RDW Coefficient of Variation 15.0 11.5-14.5 % Immature Granulocyte % (Auto) 0.2 % Immature Granulocyte # (Auto) 0.01 0.00-0.02 K/uL Toxic Vacuolation 1+ Dohle Bodies 1+ Large Platelets 1+ Echinocytes 1+ Sodium Level 142 136-145 mmol/L Potassium Level 4.0 3.5-5.1 mmol/L Chloride Level 113 98-107 mmol/L Carbon Dioxide Level 23 21-32 mmol/L Anion Gap 6.0 3-11 mmol/L Blood Urea Nitrogen 25 7-18 mg/dl Creatinine 0.55 0.60-1.20 mg/dl Est Creatinine Clear Calc Drug Dose 74.3 ml/min Estimated GFR () 96.4 Estimated GFR (Non- 83.2 BUN/Creatinine Ratio 44.9 10-20 Random Glucose 89 70-99 mg/dl Calcium Level 8.3 8.5-10.1 mg/dl Magnesium Level 1.9 1.8-2.4 mg/dl
[2016-11-01 13:41] LABS: HEMATOCRIT 37.3 % (37-47); MEAN CELL VOLUME 102.5 fL (80-100); MEAN CORPUSCULAR HEMOGLOBIN 32.4 pg (25-34); MEAN PLATELET VOLUME 10.3 fL (7.4-10.4); PLATELET COUNT 149 K/uL (130-400); RED BLOOD COUNT 3.64 M/uL (4.2-5.4); WHITE BLOOD COUNT 5.19 K/uL (4.8-10.8)
[2016-11-01 14:06] LABS: INR 1.3 (0.9-1.1); MEAN CORPUSCULAR HGB CONC 31.6 g/dl (32-36); PARTIAL THROMBOPLASTIN RATIO 1.6; PROTHROMBIN TIME (PATIENT) 13.9 SECONDS (9.0-12.0)
[2016-11-01 14:13] LABS: BASO % 0.2 %; BASO ABS # 0.01 K/uL (0-0.2); COMPLETE YES; DOHLE BODIES 1+; EOS % 0.4 %; IG% 0.4 %; LYMPH % 14.5 %; LYMPH ABS # 0.75 K/uL (1.2-3.4); MONO % 11.9 %; NEUT % 72.6 %; TOXIC GRANULATION 1+; VACUOLIZATION 1+
[2016-11-01] MEDS: HEPARIN 25,000 UNIT/500ML D5W 500 ML IV PRN ×2 (14:27→21:31)
[2016-11-01] MEDS: VANCOMYCIN INJ 1,500 MG in SODIUM CHLORIDE 0.9% 500ML 500 ML IV SCH (17:07)
[2016-11-01] MEDS: LATANOPROST 0.005% OP SOLN 2.5 ML BTL OPB SCH (21:00)
[2016-11-01 21:01] LABS: PARTIAL THROMBOPLASTIN RATIO 2.8
[2016-11-01] MEDS ORDERED: VANCOMYCIN TROUGH ONE (21:30)
[2016-11-01] MEDS: BIMATOPROST 0.01% OP SOLN 2.5 ML BTL OPB SCH (21:34)
[2016-11-01] MEDS: LORAZEPAM INJ 0.5 MG in SYRINGE 0.25 ML IV PRN (22:23)
[2016-11-02] VITALS (10 sets, daily range): BP systolic 114–138; BP diastolic 75–90; PULSE 85–125; TEMP 36.4–38.9; O2SAT 90–97
[2016-11-02] MEDS: METOPROLOL TARTRATE 1 MG/ML VIAL IV. SCH ×4 (00:18→23:43)
[2016-11-02] MEDS: PIPERACILL/TAZOBAC IV 3.375 GM in DEXTROSE 5% 100ML IV SCH ×4 (00:19→23:44)
[2016-11-02] MEDS: RANITIDINE IV 50 MG in DEXTROSE 5% 100ML 100 ML IV SCH ×4 (00:19→23:44)
[2016-11-02 04:11] LABS: BASO % 0.1 %; BASO ABS # 0.01 K/uL (0-0.2); COMPLETE YES; HEMATOCRIT 37.1 % (37-47); IG% 0.6 %; LYMPH % 14.2 %; LYMPH ABS # 0.95 K/uL (1.2-3.4); MEAN CELL VOLUME 100.8 fL (80-100); MEAN CORPUSCULAR HEMOGLOBIN 33.4 pg (25-34); MEAN CORPUSCULAR HGB CONC 33.2 g/dl (32-36); MEAN PLATELET VOLUME 9.7 fL (7.4-10.4); MONO % 12.9 %; NEUT % 71.2 %; PLATELET COUNT 148 K/uL (130-400); RED BLOOD COUNT 3.68 M/uL (4.2-5.4); WHITE BLOOD COUNT 6.69 K/uL (4.8-10.8)
[2016-11-02] MEDS: VANCOMYCIN INJ 1,500 MG in SODIUM CHLORIDE 0.9% 500ML 500 ML IV SCH ×2 (04:11→18:54)
[2016-11-02] MEDS: NSS + 20MEQ KCL 1000ML 1,000 ML IV SCH ×2 (04:14→15:38)
[2016-11-02 04:32] LABS: INR 1.3 (0.9-1.1); PARTIAL THROMBOPLASTIN RATIO 2.2; PROTHROMBIN TIME (PATIENT) 14.2 SECONDS (9.0-12.0)
[2016-11-02 04:33] LABS: BUN/CREATININE RATIO 41.6 (10-20); CALCIUM 8.3 mg/dl (8.5-10.1); CREATININE 0.45 mg/dl (0.60-1.20)
[2016-11-02] MEDS: FLUOXETINE HCL 10 MG CAP PO SCH (08:05)
[2016-11-02] MEDS: METOPROLOL TARTRATE 1 MG/ML VIAL IV PRN (08:13)
[2016-11-02] MEDS: LEVOTHYROXINE SODIUM INJ 62.5 MCG in SYRINGE 0 ML IV SCH (08:55)
[2016-11-02] MEDS ORDERED: METOPROLOL TARTRATE 1 MG/ML VIAL IV STA (12:21)
--- NOTE | 2016-11-02 12:25 | Surgery Progress Note ---
Surgery Progress Note Date of Service Nov 02, 2016. Subjective Post OP Day: HD # 3 + feeling well, No complaints, No chest pain, No SOB, No bowel movement, No flatus, No nausea, No vomiting NGT pulled last evening, has not had any nausea or vomiting since. No abdominal pain. No bowel movement so far today. No flatus. Objective Vital Signs: Date Time Temp Pulse Resp B/P (MAP) Pulse Ox O2 Delivery O2 Flow Rate FiO2 11/02/16 11:32 36.5 118 18 118/77 (91) 90 Nasal Cannula 2.0 11/02/16 08:13 126 121/76 11/02/16 07:06 37.0 106 20 121/79 (93) 97 1.0 11/02/16 05:32 125 114/75 11/02/16 04:00 Nasal Cannula 1.0 11/02/16 04:00 36.7 125 18 114/75 (88) Nasal Cannula 1.0 11/02/16 00:18 127 113/82 11/02/16 00:00 Nasal Cannula 1.0 11/01/16 23:25 36.7 121 18 121/79 (93) 96 Room Air 11/01/16 20:00 97 Room Air 1.0 11/01/16 19:35 36.7 113 20 129/74 (92) 92 Nasal Cannula 1.0 11/01/16 18:32 128 122/85 11/01/16 16:00 96 Room Air 1.0 11/01/16 16:00 96 Nasal Cannula 2.0 11/01/16 15:18 36.8 121 20 144/93 (110) 92 2.0 11/01/16 12:36 119 126/82 General Appearance: WD/WN, no apparent distress Head: normocephalic, atraumatic Neck: trachea midline Respiratory/Chest: no respiratory distress, no accessory muscle use Abdomen: non tender, soft, no organomegaly, no pulsatile mass, + abnormal bowel sounds (hypoactive), + distended (mild), + pertinent finding (midline laparotomy scar present) Laboratory Results: Results Past 24 Hours Test 11/01/16 13:26 11/01/16 20:17 11/02/16 03:38 Range/Units White Blood Count 5.19 6.69 4.8-10.8 K/uL Red Blood Count 3.64 3.68 4.2-5.4 M/uL Hemoglobin 11.8 12.3 12.0-16.0 g/dL Hematocrit 37.3 37.1 37-47 % Mean Corpuscular Volume 102.5 100.8 80-100 fL Mean Corpuscular Hemoglobin 32.4 33.4 25-34 pg Mean Corpuscular Hemoglobin Concent 31.6 33.2 32-36 g/dl Platelet Count 149 148 130-400 K/uL Mean Platelet Volume 10.3 9.7 7.4-10.4 fL Neutrophils (%) (Auto) 72.6 71.2 % Lymphocytes (%) (Auto) 14.5 14.2 % Monocytes (%) (Auto) 11.9 12.9 % Eosinophils (%) (Auto) 0.4 1.0 % Basophils (%) (Auto) 0.2 0.1 % Neutrophils # (Auto) 3.77 4.76 1.4-6.5 K/uL Lymphocytes # (Auto) 0.75 0.95 1.2-3.4 K/uL Monocytes # (Auto) 0.62 0.86 0.11-0.59 K/uL Eosinophils # (Auto) 0.02 0.07 0-0.5 K/uL Basophils # (Auto) 0.01 0.01 0-0.2 K/uL RDW Standard Deviation 56.0 55.1 36.4-46.3 fL RDW Coefficient of Variation 15.0 14.9 11.5-14.5 % Immature Granulocyte % (Auto) 0.4 0.6 % Immature Granulocyte # (Auto) 0.02 0.04 0.00-0.02 K/uL Toxic Granulation 1+ Toxic Vacuolation 1+ Dohle Bodies 1+ Macrocytosis PRESENT Prothrombin Time 13.9 14.2 9.0-12.0 SECONDS Prothromb Time International Ratio 1.3 1.3 0.9-1.1 Activated Partial Thromboplast Time 41.5 71.7 57.3 21.0-31.0 SECONDS Partial Thromboplastin Ratio 1.6 2.8 2.2 Sodium Level 141 136-145 mmol/L Potassium Level 4.0 3.5-5.1 mmol/L Chloride Level 114 98-107 mmol/L Carbon Dioxide Level 24 21-32 mmol/L Anion Gap 3.0 3-11 mmol/L Blood Urea Nitrogen 19 7-18 mg/dl Creatinine 0.45 0.60-1.20 mg/dl Est Creatinine Clear Calc Drug Dose 90.8 ml/min Estimated GFR () 103.0 Estimated GFR (Non- 88.8 BUN/Creatinine Ratio 41.6 10-20 Random Glucose 87 70-99 mg/dl Calcium Level 8.3 8.5-10.1 mg/dl Assessment & Plan SBO - vitals stable other than tachycardia (a-fib) - NGT pulled last evening, no further nausea or vomiting - no abdominal pain and examination benign other than some mild distention - no bowel movement or flatus today Plan: Continue conservative management at this time: NPO except ice chips, IV fluids, IV antibiotics, and Pain management as needed Continue current medical management will follow Dr. Littlejohn to cover this weekend Dr. Ravi has seen and examined patient, agrees with above
[2016-11-02] MEDS ORDERED: FUROSEMIDE INJ 20 MG in SYRINGE 0 ML IV ONE (14:00)
--- NOTE | 2016-11-02 15:18 | Cardiology Consultation ---
Cardiology Consultation Date of Consultation: Nov 02, 2016 History of Present Illness Ariela Rodriguez is a 89 year old female seen in cardiology consultation per the request of Dr. Tate for cardiac management of atrial fibrillation with rapid ventricular rate. The patient was also on [facility] PAC of our practice having most recently been seen on 09/25/16. She has a history of chronic atrial fibrillation, recurrent pulmonary embolism, and chronic diastolic heart failure. Holter monitor had been performed as an outpatient in August 2016 revealing a predominant rhythm of atrial fibrillation with an average ventricular rate of 75 bpm. She is typically on metoprolol tartrate 25 mg twice a day and Coumadin as outpatient. The patient had initially presented to the emergency department on 10/30/16 with complaints of difficulty ambulating and dizziness. She also complained of 2-3 days of abdominal pain. She's been treated with broad-spectrum antibiotics for presumed aspiration pneumonia and enteritis, and is also being followed by general surgery for small bowel obstruction. On initial presentation the patient was in a reasonable rate controlled atrial fibrillation, but over the last 2 days she has been tachycardic and currently her fibrillation with rapid ventricular rate at 120-130 bpm was present on the monitor. During my visit the patient she had no subjective cardiac symptoms and has no subjective sensation that her heart is racing. She is not taking her oral medications due to her nothing by mouth status. Past Medical/Surgical History Problem List: Medical Problems: (1) Atrial fibrillation (2) Chronic diastolic (congestive) heart failure (3) DVT (deep venous thrombosis) (4) History of pulmonary embolism (5) Hypothyroidism (6) Macular degeneration (7) Monoclonal gammopathy (8) Osteoarthritis (9) Osteoporosis (10) Polymyalgia rheumatica Surgical Problems: (1) Status post appendectomy (2) Status post cataract extraction (3) Status post cholecystectomy (4) Status post partial colectomy (5) Status post right knee replacement History Social History: She is a lifelong nonsmoker Family History: Sr. with history of breast cancer, father with heart disease, details unknown Review Of Systems See above for pertinent positives & negatives. A total of 10 systems reviewed and were otherwise negative. Allergies Coded Allergies: Alendronate (Verified Allergy, Unknown, 08/07/16) Medications Reported Home Medications Medications Dose Route/Sig Max Daily Dose Days Date Category Dose Instructions Durezol (Difluprednate) 0.05 % Emu 1 Drop OPB BID 10/30/16 Reported Calcium + D (Calcium Carbonate-Vitamin D) 1 Tab Tab 1 Tab PO DAILY 10/30/16 Reported Lumigan (Bimatoprost) 0.01 % Page 1 Drops OPB HS 90 10/30/16 Reported B Complex (B-Complex W/ Folic Acid) 1 Tab Tab 1 Tab PO DAILY 10/30/16 Reported Ventolin Hfa (Albuterol) 200 Puffs/[id number] Mcg Aers 2 Puffs INH Q4H PRN 10/30/16 Reported Tylenol (Acetaminophen) 325 Mg Tab 650 Mg PO DAILY PRN 10/30/16 Reported Systane (Polyethylene Glycol-Propylene) 1 Page Page 2 Drops OP QID PRN 10/30/16 Reported Vitamin D (Cholecalciferol) 1,000 Unit Tab 1,000 Unit PO DAILY 10/30/16 Reported Micro-K Ext Rel (Potassium Chloride) 10 Meq Cap 10 Meq PO UD 10/30/16 Reported Take 10 mEq by mouth on days when torsemide is taken. Xalatan 0.005% Oph Page (Latanoprost) 0.005 % Page 1 Drops OPB HS 10/30/16 Reported Demadex (Torsemide) 10 Mg Tab 10 Mg PO WK PRN 10/30/16 Reported Wednesdays Toprol Xl (Metoprolol Succinate) 50 Mg Tab 25 Mg PO DAILY 10/30/16 Reported Levothyroxine Sodium 125 Mcg Tab 125 Mcg PO QAM 10/30/16 Reported TAKE ON AN EMPTY STOMACH Coumadin (Warfarin Sod) 2.5 Mg Tab 2.5 Mg PO UD 10/30/16 Reported Take 5 mg by mouth on Saturday and Saturday. Take 2.5 mg by mouth on Saturday, Saturday, Saturday, , Saturday. Prozac (Fluoxetine HCl) 10 Mg Cap 10 Mg PO DAILY 10/30/16 Reported Zantac (Ranitidine HCl) 150 Mg Tab 150 Mg PO BID 10/30/16 Reported Prednisone 5 Mg Tab 5 Mg PO DAILY 10/30/16 Reported Mag-Ox (Magnesium Oxide) 400 Mg Tab 400 Mg PO DAILY 10/30/16 Reported Physical Exam Vital Signs (Last 8hrs): Last 8 Hrs Date Time Temp Pulse Resp B/P (MAP) Pulse Ox O2 Delivery O2 Flow Rate FiO2 11/02/16 12:35 120 136/95 11/02/16 12:00 97 Nasal Cannula 1.0 11/02/16 11:32 36.5 118 18 118/77 (91) 90 Nasal Cannula 2.0 11/02/16 08:13 126 121/76 11/02/16 08:00 97 Nasal Cannula 1.0 General Appearance: Alert and Oriented x3. NAD. Head: Normocephalic Atraumatic. Eyes: PERRLA, EOMI, conjunctiva and sclera clear Neck: Supple. No carotid bruits noted. No JVD. No HJD. Respiratory: Breath sounds clear to auscultation bilaterally. No w/r/r. Cardiovascular: Reg rate and rhythm. S1 and S2 noted. No murmurs, rubs, gallops. PMI non displace. Abdomen: Normal bowel sounds, soft nontender. no abdominal bruits. Extremities: No edema, no clubbing or cyanosis. distal pulses 2/4 bilaterally. Neuro: No focal deficits. Psychiatric: Normal affect. Data Last Resulted 11/02/16 03:38 Red Blood Count 3.68, Mean Corpuscular Volume 100.8, Mean Corpuscular Hemoglobin 33.4, Mean Corpuscular Hemoglobin Concent 33.2, Mean Platelet Volume 9.7, Neutrophils (%) (Auto) 71.2, Lymphocytes (%) (Auto) 14.2, Monocytes (%) ( Auto) 12.9, Eosinophils (%) (Auto) 1.0, Basophils (%) (Auto) 0.1, Neutrophils # (Auto) 4.76, Lymphocytes # (Auto) 0.95, Monocytes # (Auto) 0.86, Eosinophils # ( Auto) 0.07, Basophils # (Auto) 0.01 Last Resulted 11/02/16 03:38 Past 24 Hours Test 11/02/16 03:38 Range/Units Prothromb Time International Ratio 1.3 H 0.9-1.1 Prothrombin Time 14.2 H 9.0-12.0 SECONDS Mild troponin I elevation is noted during this hospital stay of0.247,0.261, 0.187 ng per mL 3 readings. Assessment & Plan Impression: Chronic atrial fibrillation. Rapid rate due to underlying infection/small bowel obstruction issues. Unable to tolerate her typical oral medications due to small bowel obstruction. She is not toxic in appearance at present and appears to be mentating well. Recommendations: She is currently on metoprolol tartrate 2.5 mg IV every 6 hours, will increase this to 5 mg IV every 6 hours. Her blood pressure is stable at present. And upon inspection of her intake and uptake summaries she has been +2 L for the last several days, and I'm concerned that she will develop volume overload given her chronic diastolic heart failure and therefore I have also ordered a one-time dose of furosemide 20 mg IV 1. Would recommend trying to keep her intake and output take even to perhaps a little bit positive. Regarding stroke prophylaxis, Coumadin is on hold, continue unfractionated heparin infusion. Update metabolic panel tomorrow. Roger Muhammad DO, FACC, FACOI Associate [employer] [facility] [place], [facility]
[2016-11-02] MEDS ORDERED: VANCOMYCIN TROUGH SCH (15:30)
--- NOTE | 2016-11-02 15:51 | Progress Note ---
Internal Med Progress Note Date of Service: Nov 02, 2016. Provider Documentation: SUBJECTIVE: Seen and examined at bedside. States having a small BM today Denies nausea, vomiting, abd pain, chest pain, SOB NG tube removed overnight OBJECTIVE: Vital Signs-as noted below General Appearance:Moderately built and nourished, no apparent distress Head: normocephalic, Atraumatic Eyes: normal inspection, EOMI, PERRL Neck: supple, Trachea midline Respiratory/Chest: Normal breath sounds, CTA Cardiovascular: Irregularly irregular, tachycardia, No murmur Abdomen/GI:Soft, non tender, Bowel sounds present Extremities/Musculoskelatal:normal inspection, no edema Neurologic/Psych:grossly no focal neurological deficits Skin:normal color,warm Lab data as noted below ASSESSMENT & PLAN: Sepsis Likely secondary to Aspiration pneumonia and enteritis Continue IV fluids, IV antibiotics: Millie Caal DC Levaquin Patient and daughter prefers no aggressive management Speech eval Lactate trended down Blood/Urine culture: Negative to date Stool studies negative SBO: Conservative management Bowel rest, NPO, IV fluids, NG tube Appreciate Surgery input Patient prefers no colostomy Afib with RVR: H/O DVT/PE Lopressor PRN for rate control Resume PO meds when able Troponin trended down: Likely Type II TN due to demand ischemia EKG:ST changes improved on repeat EKG Patient denies chest pain On Heparin ggt for now. Plan to resume Coumadin when able Appreciate cardiology input GARETH: likely prerenal Resolved On IV Fluids Hold torsemide Monitor renal function Hypokalemia/Hypomagnesemia: Likely secondary to GI loss and Diuretics Monitor Grade II diastolic dysfunction No signs of exacerbation CXR without overt volume overload torsemide held (on 10 mg once per week at home) for now Hypothyroidism Continue levothyroxine IV TSH:wnl PMR On chronic prednisone 5 mg daily GERD: Ranitidine IV Anxiety: PRN Ativan CODE STATUS DNR/ DNI per patient and her daughter (DPOA) DISPOSITION Follows with Dr. Camp for primary care Continue to monitor in Tele Vital Signs: Date Time Temp Pulse Resp B/P (MAP) Pulse Ox O2 Delivery O2 Flow Rate FiO2 11/02/16 15:27 36.4 85 22 138/88 (105) 96 Nasal Cannula 2.0 11/02/16 12:35 120 136/95 11/02/16 12:00 97 Nasal Cannula 1.0 11/02/16 11:32 36.5 118 18 118/77 (91) 90 Nasal Cannula 2.0 11/02/16 08:13 126 121/76 11/02/16 08:00 97 Nasal Cannula 1.0 11/02/16 07:06 37.0 106 20 121/79 (93) 97 1.0 11/02/16 05:32 125 114/75 11/02/16 04:00 Nasal Cannula 1.0 11/02/16 04:00 36.7 125 18 114/75 (88) Nasal Cannula 1.0 11/02/16 00:18 127 113/82 11/02/16 00:00 Nasal Cannula 1.0 11/01/16 23:25 36.7 121 18 121/79 (93) 96 Room Air 11/01/16 20:00 97 Room Air 1.0 11/01/16 19:35 36.7 113 20 129/74 (92) 92 Nasal Cannula 1.0 11/01/16 18:32 128 122/85 11/01/16 16:00 96 Room Air 1.0 11/01/16 16:00 96 Nasal Cannula 2.0 Lab Results: Results Past 24 Hours Test 11/01/16 20:17 11/02/16 03:38 11/02/16 15:26 Range/Units Activated Partial Thromboplast Time 71.7 57.3 21.0-31.0 SECONDS Partial Thromboplastin Ratio 2.8 2.2 White Blood Count 6.69 4.8-10.8 K/uL Red Blood Count 3.68 4.2-5.4 M/uL Hemoglobin 12.3 12.0-16.0 g/dL Hematocrit 37.1 37-47 % Mean Corpuscular Volume 100.8 80-100 fL Mean Corpuscular Hemoglobin 33.4 25-34 pg Mean Corpuscular Hemoglobin Concent 33.2 32-36 g/dl Platelet Count 148 130-400 K/uL Mean Platelet Volume 9.7 7.4-10.4 fL Neutrophils (%) (Auto) 71.2 % Lymphocytes (%) (Auto) 14.2 % Monocytes (%) (Auto) 12.9 % Eosinophils (%) (Auto) 1.0 % Basophils (%) (Auto) 0.1 % Neutrophils # (Auto) 4.76 1.4-6.5 K/uL Lymphocytes # (Auto) 0.95 1.2-3.4 K/uL Monocytes # (Auto) 0.86 0.11-0.59 K/uL Eosinophils # (Auto) 0.07 0-0.5 K/uL Basophils # (Auto) 0.01 0-0.2 K/uL RDW Standard Deviation 55.1 36.4-46.3 fL RDW Coefficient of Variation 14.9 11.5-14.5 % Immature Granulocyte % (Auto) 0.6 % Immature Granulocyte # (Auto) 0.04 0.00-0.02 K/uL Prothrombin Time 14.2 9.0-12.0 SECONDS Prothromb Time International Ratio 1.3 0.9-1.1 Sodium Level 141 136-145 mmol/L Potassium Level 4.0 3.5-5.1 mmol/L Chloride Level 114 98-107 mmol/L Carbon Dioxide Level 24 21-32 mmol/L Anion Gap 3.0 3-11 mmol/L Blood Urea Nitrogen 19 7-18 mg/dl Creatinine 0.45 0.60-1.20 mg/dl Est Creatinine Clear Calc Drug Dose 90.8 ml/min Estimated GFR () 103.0 Estimated GFR (Non- 88.8 BUN/Creatinine Ratio 41.6 10-20 Random Glucose 87 70-99 mg/dl Calcium Level 8.3 8.5-10.1 mg/dl
[2016-11-02] MEDS: LATANOPROST 0.005% OP SOLN 2.5 ML BTL OPB SCH (21:16)
[2016-11-02] MEDS: LORAZEPAM INJ 0.5 MG in SYRINGE 0.25 ML IV PRN (21:17)
[2016-11-02] MEDS: BIMATOPROST 0.01% OP SOLN 2.5 ML BTL OPB SCH (21:17)
[2016-11-02] MEDS: HEPARIN 25,000 UNIT/500ML D5W 500 ML IV PRN (23:00)
[2016-11-03] VITALS (13 sets, daily range): BP systolic 119–144; BP diastolic 76–92; PULSE 71–122; TEMP 36.4–37.3; O2SAT 92–95
[2016-11-03] MEDS ORDERED: DEXTROSE 50% 50 ML SYR IV ONE (02:15)
[2016-11-03] MEDS ORDERED: DEXTROSE 5% 1000ML 1,000 ML IV SCH (03:15)
--- NOTE | 2016-11-03 05:40 | Surgery Progress Note ---
Surgery Progress Note Date of Service Nov 03, 2016. Subjective awake, alert no pain, some bowel function, no flatus Objective Vital Signs: Date Time Temp Pulse Resp B/P (MAP) Pulse Ox O2 Delivery O2 Flow Rate FiO2 11/03/16 04:00 36.9 118 20 124/87 (99) 94 Nasal Cannula 11/03/16 04:00 Nasal Cannula 2.0 11/03/16 00:00 36.8 120 20 143/92 (109) 93 11/03/16 00:00 Nasal Cannula 1.0 11/02/16 23:43 122 143/92 11/02/16 20:04 36.8 110 18 137/90 (106) 96 Nasal Cannula 2.0 11/02/16 20:00 Nasal Cannula 1.0 11/02/16 17:56 116 137/78 11/02/16 16:00 96 Nasal Cannula 2.0 11/02/16 15:27 36.4 85 22 138/88 (105) 96 Nasal Cannula 2.0 11/02/16 12:35 120 136/95 11/02/16 12:00 97 Nasal Cannula 1.0 11/02/16 11:32 36.5 118 18 118/77 (91) 90 Nasal Cannula 2.0 11/02/16 08:13 126 121/76 11/02/16 08:00 97 Nasal Cannula 1.0 11/02/16 07:06 37.0 106 20 121/79 (93) 97 1.0 General Appearance: no apparent distress Respiratory/Chest: no respiratory distress Abdomen: + pertinent finding (mild distention, decreased bowel snds) Laboratory Results: Results Past 24 Hours Test 11/02/16 15:26 11/03/16 01:13 11/03/16 03:15 11/03/16 04:44 Range/Units Vancomycin Level Trough 17.6 SEE COMMENT mcg/ml Bedside Glucose 70 70-90 mg/dl Assessment & Plan 11/03/16- will try sips of clears, add Senokot S and dose of mineral oil try to advance very slowly. If N/V- NG with CT/contrast check labs
[2016-11-03] MEDS: METOPROLOL TARTRATE 1 MG/ML VIAL IV. SCH ×4 (06:03→23:11)
[2016-11-03] MEDS: VANCOMYCIN INJ 1,500 MG in SODIUM CHLORIDE 0.9% 500ML 500 ML IV SCH (06:06)
[2016-11-03 06:30] LABS: INR 1.5 (0.9-1.1)
[2016-11-03 07:05] LABS: BUN/CREATININE RATIO 24.8 (10-20); CALCIUM 8.1 mg/dl (8.5-10.1); CREATININE 0.46 mg/dl (0.60-1.20); MAGNESIUM 1.2 mg/dl (1.8-2.4); PHOSPHORUS 1.5 mg/dl (2.5-4.9); POTASSIUM 3.3 mmol/L (3.5-5.1)
[2016-11-03] MEDS ORDERED: POTASSIUM PHOS 3 MMOL/1 ML INFUSION IV STA (07:20)
[2016-11-03] MEDS: POTASSIUM CHLR 10 MEQ / WTR 10 MEQ in PREMIXED WATER 100 ML IV SCH ×2 (07:47→13:19)
[2016-11-03] MEDS: PIPERACILL/TAZOBAC IV 3.375 GM in DEXTROSE 5% 100ML IV SCH ×3 (07:58→23:08)
[2016-11-03] MEDS ORDERED: MINERAL OIL 30 ML UDC PO ONE (08:00)
[2016-11-03] MEDS: FLUOXETINE HCL 10 MG CAP PO SCH (08:05)
[2016-11-03] MEDS: DOCUSATE SODIUM/SENNA 50/8.6MG TAB PO SCH ×2 (08:05→23:09)
[2016-11-03] MEDS: METOPROLOL TARTRATE 1 MG/ML VIAL IV PRN (08:36)
[2016-11-03] MEDS: LEVOTHYROXINE SODIUM INJ 62.5 MCG in SYRINGE 0 ML IV SCH (09:05)
[2016-11-03] MEDS ORDERED: NURSING VERBAL MED ORDER ONE ×9 (09:15→17:30)
[2016-11-03] MEDS ORDERED: POTASSIUM PHOSPHATE INJ 21 MMOL in SODIUM CHLORIDE 0.9% 500ML 500 ML IV SCH (09:45)
[2016-11-03] MEDS ORDERED: KETOROLAC TROMETHAMINE 15 MG/ML VIAL IV. ONE (10:00)
--- NOTE | 2016-11-03 10:07 | DIAGNOSTIC IMAGING REPORT ---
CHEST ONE VIEW PORTABLE CLINICAL HISTORY: Tachycardia. Hypotension. COMPARISON STUDY: Chest radiograph October 30, 2016. FINDINGS: There is no pneumothorax. There may be a trace right pleural effusion. Cardiomegaly is unchanged. There is no convincing evidence for pulmonary edema. Right lower lung consolidation has slightly progressed. Multifocal left mid and left basilar airspace opacity has progressed. IMPRESSION: 1. Extensive bilateral airspace opacities which suggest progression of multifocal pneumonia. 2. Pulmonary vascular congestion without overt pulmonary edema. Electronically signed by: Jairon Ward M.D. 11/03/2016 10:06 AM Dictated Date/Time: 11/03/2016 10:04 AM
[2016-11-03] MEDS: RANITIDINE HCL 150 MG TAB PO SCH ×2 (10:28→23:09)
--- NOTE | 2016-11-03 11:29 | Progress Note ---
Internal Med Progress Note Date of Service: Nov 03, 2016. Provider Documentation: SUBJECTIVE: Seen and examined at bedside. Had BM yesterday, None today States feeling better Denies nausea, vomiting, abd pain, chest pain, SOB OBJECTIVE: Vital Signs-as noted below General Appearance:Moderately built and nourished, no apparent distress Head: normocephalic, Atraumatic Eyes: normal inspection, EOMI, PERRL Neck: supple, Trachea midline Respiratory/Chest: Coarse breath sounds, few creps Cardiovascular: Irregularly irregular, tachycardia, No murmur Abdomen/GI:Soft, non tender, Bowel sounds present Extremities/Musculoskelatal:normal inspection, no edema Neurologic/Psych:grossly no focal neurological deficits Skin:normal color,warm Lab data as noted below ASSESSMENT & PLAN: Sepsis Likely secondary to Aspiration pneumonia and enteritis Continue IV fluids, IV antibiotics: Vanco, Zosyn for now Day 5 Levaquin discontinued Patient and daughter prefers no aggressive management Aspiration precautions Lactate trended down Blood/Urine culture: Negative to date IV fluids reduced as has tendency to develop volume overload Incentive Spirometry SBO: Conservative management IV fluids NG tube discontinued Appreciate Surgery input Patient prefers no colostomy Slowly improving Afib with RVR: H/O DVT/PE Lopressor Q6H, PRN for rate control Resume PO meds when able Troponin trended down: Likely Type II OR due to demand ischemia EKG:ST changes improved on repeat EKG Patient denies chest pain On Heparin ggt for now. Plan to resume Coumadin when able Appreciate cardiology input GARETH: likely prerenal Resolved On IV Fluids Hold torsemide Monitor renal function Hypokalemia/Hypomagnesemia/Hypophosphatemia: Likely secondary to GI loss and Diuretics, poor oral intake Replace and Monitor Grade II diastolic dysfunction No signs of exacerbation CXR without overt volume overload torsemide held (on 10 mg once per week at home) for now Hypothyroidism Continue levothyroxine IV TSH:wnl PMR On chronic prednisone 5 mg daily GERD: Continue Ranitidine Anxiety: PRN Ativan CODE STATUS DNR/ DNI per patient and her daughter (DPOA) DISPOSITION Follows with Dr. Camp for primary care Continue to monitor in Tele Vital Signs: Date Time Temp Pulse Resp B/P (MAP) Pulse Ox O2 Delivery O2 Flow Rate FiO2 11/03/16 11:39 37.3 71 16 119/76 (90) Nasal Cannula 2.0 92 11/03/16 11:32 116 120/84 11/03/16 08:36 120 135/91 11/03/16 08:00 94 Nasal Cannula 2.0 11/03/16 07:25 36.4 108 20 137/86 (103) 94 Nasal Cannula 2.0 11/03/16 06:03 132 125/81 11/03/16 04:00 36.9 118 20 124/87 (99) 94 Nasal Cannula 11/03/16 04:00 Nasal Cannula 2.0 11/03/16 00:00 36.8 120 20 143/92 (109) 93 11/03/16 00:00 Nasal Cannula 1.0 11/02/16 23:43 122 143/92 11/02/16 20:04 36.8 110 18 137/90 (106) 96 Nasal Cannula 2.0 11/02/16 20:00 Nasal Cannula 1.0 11/02/16 17:56 116 137/78 11/02/16 16:00 96 Nasal Cannula 2.0 11/02/16 15:27 36.4 85 22 138/88 (105) 96 Nasal Cannula 2.0 11/02/16 12:35 120 136/95 11/02/16 12:00 97 Nasal Cannula 1.0 Lab Results: Results Past 24 Hours Test 11/02/16 15:26 11/03/16 01:13 11/03/16 05:38 Range/Units Vancomycin Level Trough 17.6 SEE COMMENT mcg/ml Bedside Glucose 70 70-90 mg/dl Prothrombin Time 16.0 9.0-12.0 SECONDS Prothromb Time International Ratio 1.5 0.9-1.1 Activated Partial Thromboplast Time 51.1 21.0-31.0 SECONDS Partial Thromboplastin Ratio 2.0 Sodium Level 142 136-145 mmol/L Potassium Level 3.3 3.5-5.1 mmol/L Chloride Level 111 98-107 mmol/L Carbon Dioxide Level 25 21-32 mmol/L Anion Gap 6.0 3-11 mmol/L Blood Urea Nitrogen 11 7-18 mg/dl Creatinine 0.46 0.60-1.20 mg/dl Est Creatinine Clear Calc Drug Dose 91.4 ml/min Estimated GFR () 102.2 Estimated GFR (Non- 88.2 BUN/Creatinine Ratio 24.8 10-20 Random Glucose 102 70-99 mg/dl Calcium Level 8.1 8.5-10.1 mg/dl Phosphorus Level 1.5 2.5-4.9 mg/dl Magnesium Level 1.2 1.8-2.4 mg/dl
[2016-11-03] MEDS: MAGNESIUM SULFATE 1GM / D5W 1 GM in PREMIXED IN D5W 100 ML IV SCH ×2 (12:45→15:09)
[2016-11-03] MEDS: LIDODERM (LIDOCAINE) PATCH 5% TD SCH (13:48)
[2016-11-03] MEDS: LORAZEPAM INJ 0.5 MG in SYRINGE 0.25 ML IV PRN (13:48)
--- NOTE | 2016-11-03 13:55 | Cardiology Follow-Up ---
Subjective General Date of Service: Nov 03, 2016. Pt evaluation today including: conversation w/ patient, physical exam, chart review, lab review, review of studies, review of inpatient medication list History of Present Illness The patient is a 89 year old female seen in follow-up. No abdominal pain. No flatus. Denies chest pain or palpitations. Heart rate improved with titration of metoprolol, however, remains elevated. Patient offers no complaints. Allergies Coded Allergies: Alendronate (Verified Allergy, Unknown, 08/07/16) Social History Smoking Status: Never Smoker Hx Tobacco Use In Past Year?: No Hx Alcohol Use - Type And Amou: No Hx Substance Use - Type And Am: No Problem List Medical Problems: (1) Bowel obstruction Status: Acute (2) Cellulitis Status: Acute (3) Cellulitis of right lower extremity Status: Acute (4) Chronic deep vein thrombosis (DVT) Status: Acute (5) Degenerative joint disease Status: Acute (6) Hypomagnesemia Status: Acute (7) Hypotension Status: Acute (8) Left leg cellulitis Status: Acute (9) Pneumonia Status: Acute (10) Positive blood culture Status: Acute (11) Sepsis Status: Acute (12) Sepsis Status: Acute Review of Systems Respiratory: No cough, No sputum, No wheezing, No shortness of breath, No dyspnea on exertion, No dyspnea at rest, No hemoptysis Cardiac: No chest pain, No orthopnea, No PND, No edema, No claudication, No palpitations Physical Exam Vital Signs Last Vital Signs Documentation Date Time Temp Pulse Resp B/P (MAP) Pulse Ox O2 Delivery O2 Flow Rate FiO2 11/03/16 11:39 37.3 71 16 119/76 (90) Nasal Cannula 2.0 92 11/03/16 08:00 94 Physical Exam Constitutional: General Apperance: heathly-appearing Level of Distress: NAD Ambulation: ambulating normally Head: normocephalic, atraumatic Neck: supple, trachea midline Lungs: Auscultation: no wheezing, no rales/crackles, no rhonchi Cardiovascular: Heart Auscultation: no murmurs, tachycardia, irregular rate rhythm Peripheral Pulses: Bruits: none appreciated Abdomen: Bowel Sounds: absent Inspection & Palpation: no tenderness, guarding & rebound, distended Extremities: no cyanosis, no edema, no clubbing, no ulcers Neurologic: Gait & Station: pertinent finding (no focal deficit) Cranial Nerves: grossly intact Assessment and Plan Assessment and Plan Impression: 1. Chronic atrial fibrillation with borderline rate control. - heart rate improved with titration of IV metoprolol 2. SBO Recommendations: Continue IV metoprolol 5 mg every 6 hours. Continue IV heparin. Restart oral metoprolol and Coumadin when patient able to tolerate PO meds. Monitor telemetry. Laboratory Results Last 24 Hours Test 11/02/16 15:26 11/03/16 01:13 11/03/16 05:38 Vancomycin Level Trough 17.6 mcg/ml Bedside Glucose 70 mg/dl Prothrombin Time 16.0 SECONDS Prothromb Time International Ratio 1.5 Activated Partial Thromboplast Time 51.1 SECONDS Partial Thromboplastin Ratio 2.0 Sodium Level 142 mmol/L Potassium Level 3.3 mmol/L Chloride Level 111 mmol/L Carbon Dioxide Level 25 mmol/L Anion Gap 6.0 mmol/L Blood Urea Nitrogen 11 mg/dl Creatinine 0.46 mg/dl Est Creatinine Clear Calc Drug Dose 91.4 ml/min Estimated GFR () 102.2 Estimated GFR (Non- 88.2 BUN/Creatinine Ratio 24.8 Random Glucose 102 mg/dl Calcium Level 8.1 mg/dl Phosphorus Level 1.5 mg/dl Magnesium Level 1.2 mg/dl
[2016-11-03] MEDS ORDERED: FUROSEMIDE INJ 40 MG in SYRINGE 0 ML IV SCH (14:45)
[2016-11-03] MEDS ORDERED: HALOPERIDOL LACTATE 5 MG/ML 1 ML VIAL IM STA (17:08)
[2016-11-03] MEDS: VANCOMYCIN INJ 1,500 MG in SODIUM CHLORIDE 0.9% 250ML 250 ML IV SCH (17:39)
[2016-11-03] MEDS ORDERED: LORAZEPAM 0.5 MG TAB PO SCH (21:00)
[2016-11-03] MEDS: BIMATOPROST 0.01% OP SOLN 2.5 ML BTL OPB SCH (23:11)
[2016-11-03] MEDS: LATANOPROST 0.005% OP SOLN 2.5 ML BTL OPB SCH (23:11)
[2016-11-04] VITALS (10 sets, daily range): BP systolic 120–143; BP diastolic 83–93; PULSE 103–120; TEMP 36.6–37.2; O2SAT 91–97
[2016-11-04 01:34] LABS: HEMATOCRIT 35.3 % (37-47); MEAN CELL VOLUME 97.2 fL (80-100); MEAN CORPUSCULAR HEMOGLOBIN 33.1 pg (25-34); MEAN PLATELET VOLUME 9.8 fL (7.4-10.4); PLATELET COUNT 167 K/uL (130-400); RED BLOOD COUNT 3.63 M/uL (4.2-5.4); WHITE BLOOD COUNT 9.26 K/uL (4.8-10.8)
[2016-11-04 01:56] LABS: PARTIAL THROMBOPLASTIN RATIO 2.3
[2016-11-04 02:03] LABS: BUN/CREATININE RATIO 15.6 (10-20); CALCIUM 7.7 mg/dl (8.5-10.1); CREATININE 0.52 mg/dl (0.60-1.20); MAGNESIUM 1.2 mg/dl (1.8-2.4); POTASSIUM 3.1 mmol/L (3.5-5.1)
[2016-11-04] MEDS ORDERED: POTASSIUM CHLORIDE 10 MEQ TABCR PO STA (02:05)
[2016-11-04 02:15] LABS: PHOSPHORUS 2.6 mg/dl (2.5-4.9)
[2016-11-04] MEDS ORDERED: POTASSIUM CHLORIDE INJ 20 MEQ in DEXTROSE 5% 1000ML 1,000 ML IV SCH (02:30)
[2016-11-04 02:32] LABS: BASO % 0.4 %; BASO ABS # 0.04 K/uL (0-0.2); COMPLETE YES; DOHLE BODIES 1+; ECHINOCYTES 1+; EOS % 0.3 %; IG% 4.3 %; LYMPH % 15.3 %; LYMPH ABS # 1.42 K/uL (1.2-3.4); MONO % 16.5 %; NEUT % 63.2 %; OVALOCYTES 1+; TOXIC GRANULATION OCCASIONAL; VACUOLIZATION OCCASIONAL
[2016-11-04] MEDS: MAGNESIUM SULFATE 1GM / D5W 1 GM in PREMIXED IN D5W 100 ML IV SCH ×5 (02:34→16:48)
[2016-11-04] MEDS ORDERED: POTASSIUM CHLORIDE 10 MEQ TABCR PO ONE (04:00)
[2016-11-04] MEDS: METOPROLOL TARTRATE 1 MG/ML VIAL IV PRN ×2 (05:00→10:40)
[2016-11-04] MEDS ORDERED: VANCOMYCIN TROUGH ONE (05:30)
[2016-11-04] MEDS: VANCOMYCIN INJ 1,500 MG in SODIUM CHLORIDE 0.9% 250ML 250 ML IV SCH (05:55)
[2016-11-04] MEDS: METOPROLOL TARTRATE 1 MG/ML VIAL IV. SCH ×2 (05:56→13:01)
--- NOTE | 2016-11-04 06:56 | Surgery Progress Note ---
Surgery Progress Note Date of Service Nov 04, 2016. Subjective No N/V since NG removed, having some bowel movements tolerating some sips Objective Vital Signs: Date Time Temp Pulse Resp B/P (MAP) Pulse Ox O2 Delivery O2 Flow Rate FiO2 11/04/16 05:56 110 11/04/16 05:07 92 Nasal Cannula 2.0 11/04/16 05:00 119 11/04/16 04:27 37.0 116 18 131/83 (99) 92 2.0 11/04/16 02:17 92 Nasal Cannula 2.0 11/04/16 00:44 36.7 120 20 120/83 (95) 93 2.0 11/03/16 23:30 92 Nasal Cannula 2.0 11/03/16 23:11 121 11/03/16 20:28 92 Nasal Cannula 2.0 11/03/16 20:20 92 Nasal Cannula 2.0 11/03/16 20:14 37.0 122 18 131/90 (104) 95 2.0 11/03/16 17:20 130 127/84 11/03/16 16:00 92 Nasal Cannula 2.0 11/03/16 15:36 37.2 120 18 144/83 (103) 92 Nasal Cannula 2.0 11/03/16 12:00 94 Nasal Cannula 2.0 92 11/03/16 11:39 37.3 71 16 119/76 (90) Nasal Cannula 2.0 92 11/03/16 11:32 116 120/84 11/03/16 08:36 120 135/91 11/03/16 08:00 94 Nasal Cannula 2.0 11/03/16 07:25 36.4 108 20 137/86 (103) 94 Nasal Cannula 2.0 General Appearance: no apparent distress Respiratory/Chest: no respiratory distress Abdomen: + pertinent finding (some bs, distended- nontender) Laboratory Results: Results Past 24 Hours Test 11/03/16 14:46 11/03/16 15:55 11/04/16 01:17 11/04/16 01:26 Range/Units Bedside Glucose 77 82 103 70-90 mg/dl White Blood Count 9.26 4.8-10.8 K/uL Red Blood Count 3.63 4.2-5.4 M/uL Hemoglobin 12.0 12.0-16.0 g/dL Hematocrit 35.3 37-47 % Mean Corpuscular Volume 97.2 80-100 fL Mean Corpuscular Hemoglobin 33.1 25-34 pg Mean Corpuscular Hemoglobin Concent 34.0 32-36 g/dl Platelet Count 167 130-400 K/uL Mean Platelet Volume 9.8 7.4-10.4 fL Neutrophils (%) (Auto) 63.2 % Lymphocytes (%) (Auto) 15.3 % Monocytes (%) (Auto) 16.5 % Eosinophils (%) (Auto) 0.3 % Basophils (%) (Auto) 0.4 % Neutrophils # (Auto) 5.84 1.4-6.5 K/uL Lymphocytes # (Auto) 1.42 1.2-3.4 K/uL Monocytes # (Auto) 1.53 0.11-0.59 K/uL Eosinophils # (Auto) 0.03 0-0.5 K/uL Basophils # (Auto) 0.04 0-0.2 K/uL RDW Standard Deviation 51.8 36.4-46.3 fL RDW Coefficient of Variation 14.5 11.5-14.5 % Immature Granulocyte % (Auto) 4.3 % Immature Granulocyte # (Auto) 0.40 0.00-0.02 K/uL Nucleated RBC Absolute Count (auto) 0.04 0-0 K/uL Nucleated Red Blood Cells % 0.4 % Toxic Granulation OCCASIONAL Toxic Vacuolation OCCASIONAL Dohle Bodies 1+ Ovalocytes 1+ Echinocytes 1+ Activated Partial Thromboplast Time 58.8 21.0-31.0 SECONDS Partial Thromboplastin Ratio 2.3 Sodium Level 139 136-145 mmol/L Potassium Level 3.1 3.5-5.1 mmol/L Chloride Level 105 98-107 mmol/L Carbon Dioxide Level 27 21-32 mmol/L Anion Gap 7.0 3-11 mmol/L Blood Urea Nitrogen 8 7-18 mg/dl Creatinine 0.52 0.60-1.20 mg/dl Est Creatinine Clear Calc Drug Dose 80.9 ml/min Estimated GFR () 98.2 Estimated GFR (Non- 84.7 BUN/Creatinine Ratio 15.6 10-20 Random Glucose 114 70-99 mg/dl Calcium Level 7.7 8.5-10.1 mg/dl Phosphorus Level 2.6 2.5-4.9 mg/dl Magnesium Level 1.2 1.8-2.4 mg/dl Test 11/04/16 05:30 Range/Units Assessment & Plan 11/04/16- Can try some clear liquids- if pt has recurrent N/V- will need NG, possible CT w/ contrast to assess transit of contrast. Received Mg/Phos yesterday- check today 11/03/16- will try sips of clears, add Senokot S and dose of mineral oil try to advance very slowly. If N/V- NG with CT/contrast check labs 11/03/16- will try sips of clears, add Senokot S and dose of mineral oil try to advance very slowly. If N/V- NG with CT/contrast check labs
[2016-11-04] MEDS: PIPERACILL/TAZOBAC IV 3.375 GM in DEXTROSE 5% 100ML IV SCH ×2 (07:44→16:47)
--- NOTE | 2016-11-04 08:15 | Progress Note ---
Internal Med Progress Note Date of Service: Nov 04, 2016. Vital Signs: Date Time Temp Pulse Resp B/P (MAP) Pulse Ox O2 Delivery O2 Flow Rate FiO2 11/04/16 07:44 37.1 110 20 143/89 (107) 93 Nasal Cannula 2.0 11/04/16 05:56 110 11/04/16 05:07 92 Nasal Cannula 2.0 11/04/16 05:00 119 11/04/16 04:27 37.0 116 18 131/83 (99) 92 2.0 11/04/16 02:17 92 Nasal Cannula 2.0 11/04/16 00:44 36.7 120 20 120/83 (95) 93 2.0 11/03/16 23:30 92 Nasal Cannula 2.0 11/03/16 23:11 121 11/03/16 20:28 92 Nasal Cannula 2.0 11/03/16 20:20 92 Nasal Cannula 2.0 11/03/16 20:14 37.0 122 18 131/90 (104) 95 2.0 11/03/16 17:20 130 127/84 11/03/16 16:00 92 Nasal Cannula 2.0 11/03/16 15:36 37.2 120 18 144/83 (103) 92 Nasal Cannula 2.0 11/03/16 12:00 94 Nasal Cannula 2.0 92 11/03/16 11:39 37.3 71 16 119/76 (90) Nasal Cannula 2.0 92 11/03/16 11:32 116 120/84 Lab Results: Results Past 24 Hours Test 11/03/16 14:46 11/03/16 15:55 11/04/16 01:17 11/04/16 01:26 Range/Units Bedside Glucose 77 82 103 70-90 mg/dl White Blood Count 9.26 4.8-10.8 K/uL Red Blood Count 3.63 4.2-5.4 M/uL Hemoglobin 12.0 12.0-16.0 g/dL Hematocrit 35.3 37-47 % Mean Corpuscular Volume 97.2 80-100 fL Mean Corpuscular Hemoglobin 33.1 25-34 pg Mean Corpuscular Hemoglobin Concent 34.0 32-36 g/dl Platelet Count 167 130-400 K/uL Mean Platelet Volume 9.8 7.4-10.4 fL Neutrophils (%) (Auto) 63.2 % Lymphocytes (%) (Auto) 15.3 % Monocytes (%) (Auto) 16.5 % Eosinophils (%) (Auto) 0.3 % Basophils (%) (Auto) 0.4 % Neutrophils # (Auto) 5.84 1.4-6.5 K/uL Lymphocytes # (Auto) 1.42 1.2-3.4 K/uL Monocytes # (Auto) 1.53 0.11-0.59 K/uL Eosinophils # (Auto) 0.03 0-0.5 K/uL Basophils # (Auto) 0.04 0-0.2 K/uL RDW Standard Deviation 51.8 36.4-46.3 fL RDW Coefficient of Variation 14.5 11.5-14.5 % Immature Granulocyte % (Auto) 4.3 % Immature Granulocyte # (Auto) 0.40 0.00-0.02 K/uL Nucleated RBC Absolute Count (auto) 0.04 0-0 K/uL Nucleated Red Blood Cells % 0.4 % Toxic Granulation OCCASIONAL Toxic Vacuolation OCCASIONAL Dohle Bodies 1+ Ovalocytes 1+ Echinocytes 1+ Activated Partial Thromboplast Time 58.8 21.0-31.0 SECONDS Partial Thromboplastin Ratio 2.3 Sodium Level 139 136-145 mmol/L Potassium Level 3.1 3.5-5.1 mmol/L Chloride Level 105 98-107 mmol/L Carbon Dioxide Level 27 21-32 mmol/L Anion Gap 7.0 3-11 mmol/L Blood Urea Nitrogen 8 7-18 mg/dl Creatinine 0.52 0.60-1.20 mg/dl Est Creatinine Clear Calc Drug Dose 80.9 ml/min Estimated GFR () 98.2 Estimated GFR (Non- 84.7 BUN/Creatinine Ratio 15.6 10-20 Random Glucose 114 70-99 mg/dl Calcium Level 7.7 8.5-10.1 mg/dl Phosphorus Level 2.6 2.5-4.9 mg/dl Magnesium Level 1.2 1.8-2.4 mg/dl
[2016-11-04] MEDS ORDERED: RANITIDINE IV 50 MG in DEXTROSE 5% 100ML 100 ML IV ONE (08:30)
[2016-11-04] MEDS: HEPARIN 25,000 UNIT/500ML D5W 500 ML IV PRN (08:37)
--- NOTE | 2016-11-04 08:37 | Progress Note ---
Internal Med Progress Note Date of Service: Nov 04, 2016. Provider Documentation: SUBJECTIVE: Seen and examined at bedside. Reports some pleuritic pain which increases with breathing Had BM yesterday, None today Also reports heartburn Confusion seems to be resolving Denies nausea, vomiting, abd pain, SOB OBJECTIVE: Vital Signs-as noted below General Appearance:Moderately built and nourished, no apparent distress Head: normocephalic, Atraumatic Eyes: normal inspection, EOMI, PERRL Neck: supple, Trachea midline Respiratory/Chest: Coarse breath sounds, few creps Cardiovascular: Irregularly irregular, tachycardia, No murmur Abdomen/GI:Soft, non tender, Bowel sounds present Extremities/Musculoskelatal:normal inspection, no edema Neurologic/Psych:grossly no focal neurological deficits Skin:normal color,warm Lab data as noted below ASSESSMENT & PLAN: Sepsis Likely secondary to Aspiration pneumonia and enteritis Continue IV fluids Continue Zosyn Day 6/7 Vancomycin, Levaquin discontinued Patient and daughter prefers no aggressive management Aspiration precautions Lactate trended down Blood/Urine culture: Negative to date IV fluids reduced as has tendency to develop volume overload Incentive Spirometry SBO: IV fluids NG tube discontinued Appreciate Surgery input Patient prefers no colostomy Slowly improving Afib with RVR: H/O DVT/PE Lopressor Q6H, PRN for rate control Resume PO meds when able Troponin trended down: Likely Type II TX due to demand ischemia EKG:ST changes improved on repeat EKG On Heparin ggt for now. Plan to resume Coumadin when able Appreciate cardiology input Oral Candidiasis: Nystatin for 7 days GARETH: likely prerenal Resolved On IV Fluids Hold torsemide Monitor renal function Hypokalemia/Hypomagnesemia/Hypophosphatemia: Likely secondary to GI loss and Diuretics, poor oral intake Replace and Monitor Grade II diastolic dysfunction No signs of exacerbation CXR without overt volume overload torsemide held (on 10 mg once per week at home) for now Hypothyroidism Continue levothyroxine IV TSH:wnl PMR On chronic prednisone 5 mg daily GERD: Continue Ranitidine Anxiety: PRN Ativan CODE STATUS DNR/ DNI per patient and her daughter (DPOA) DISPOSITION Follows with Dr. Camp for primary care Continue to monitor in Tele Vital Signs: Date Time Temp Pulse Resp B/P (MAP) Pulse Ox O2 Delivery O2 Flow Rate FiO2 11/04/16 07:44 37.1 110 20 143/89 (107) 93 Nasal Cannula 2.0 11/04/16 05:56 110 11/04/16 05:07 92 Nasal Cannula 2.0 11/04/16 05:00 119 11/04/16 04:27 37.0 116 18 131/83 (99) 92 2.0 11/04/16 02:17 92 Nasal Cannula 2.0 11/04/16 00:44 36.7 120 20 120/83 (95) 93 2.0 11/03/16 23:30 92 Nasal Cannula 2.0 11/03/16 23:11 121 11/03/16 20:28 92 Nasal Cannula 2.0 11/03/16 20:20 92 Nasal Cannula 2.0 11/03/16 20:14 37.0 122 18 131/90 (104) 95 2.0 11/03/16 17:20 130 127/84 11/03/16 16:00 92 Nasal Cannula 2.0 11/03/16 15:36 37.2 120 18 144/83 (103) 92 Nasal Cannula 2.0 11/03/16 12:00 94 Nasal Cannula 2.0 92 11/03/16 11:39 37.3 71 16 119/76 (90) Nasal Cannula 2.0 92 11/03/16 11:32 116 120/84 11/03/16 08:36 120 135/91 Lab Results: Results Past 24 Hours Test 11/03/16 14:46 11/03/16 15:55 11/04/16 01:17 11/04/16 01:26 Range/Units Bedside Glucose 77 82 103 70-90 mg/dl White Blood Count 9.26 4.8-10.8 K/uL Red Blood Count 3.63 4.2-5.4 M/uL Hemoglobin 12.0 12.0-16.0 g/dL Hematocrit 35.3 37-47 % Mean Corpuscular Volume 97.2 80-100 fL Mean Corpuscular Hemoglobin 33.1 25-34 pg Mean Corpuscular Hemoglobin Concent 34.0 32-36 g/dl Platelet Count 167 130-400 K/uL Mean Platelet Volume 9.8 7.4-10.4 fL Neutrophils (%) (Auto) 63.2 % Lymphocytes (%) (Auto) 15.3 % Monocytes (%) (Auto) 16.5 % Eosinophils (%) (Auto) 0.3 % Basophils (%) (Auto) 0.4 % Neutrophils # (Auto) 5.84 1.4-6.5 K/uL Lymphocytes # (Auto) 1.42 1.2-3.4 K/uL Monocytes # (Auto) 1.53 0.11-0.59 K/uL Eosinophils # (Auto) 0.03 0-0.5 K/uL Basophils # (Auto) 0.04 0-0.2 K/uL RDW Standard Deviation 51.8 36.4-46.3 fL RDW Coefficient of Variation 14.5 11.5-14.5 % Immature Granulocyte % (Auto) 4.3 % Immature Granulocyte # (Auto) 0.40 0.00-0.02 K/uL Nucleated RBC Absolute Count (auto) 0.04 0-0 K/uL Nucleated Red Blood Cells % 0.4 % Toxic Granulation OCCASIONAL Toxic Vacuolation OCCASIONAL Dohle Bodies 1+ Ovalocytes 1+ Echinocytes 1+ Activated Partial Thromboplast Time 58.8 21.0-31.0 SECONDS Partial Thromboplastin Ratio 2.3 Sodium Level 139 136-145 mmol/L Potassium Level 3.1 3.5-5.1 mmol/L Chloride Level 105 98-107 mmol/L Carbon Dioxide Level 27 21-32 mmol/L Anion Gap 7.0 3-11 mmol/L Blood Urea Nitrogen 8 7-18 mg/dl Creatinine 0.52 0.60-1.20 mg/dl Est Creatinine Clear Calc Drug Dose 80.9 ml/min Estimated GFR () 98.2 Estimated GFR (Non- 84.7 BUN/Creatinine Ratio 15.6 10-20 Random Glucose 114 70-99 mg/dl Calcium Level 7.7 8.5-10.1 mg/dl Phosphorus Level 2.6 2.5-4.9 mg/dl Magnesium Level 1.2 1.8-2.4 mg/dl
[2016-11-04] MEDS: RANITIDINE HCL 150 MG TAB PO SCH ×2 (08:42→21:09)
[2016-11-04] MEDS: LIDODERM (LIDOCAINE) PATCH 5% TD SCH (08:44)
[2016-11-04] MEDS: DOCUSATE SODIUM/SENNA 50/8.6MG TAB PO SCH ×2 (08:44→21:09)
[2016-11-04] MEDS: FLUOXETINE HCL 10 MG CAP PO SCH (08:44)
[2016-11-04] MEDS: LEVOTHYROXINE SODIUM INJ 62.5 MCG in SYRINGE 0 ML IV SCH (08:53)
[2016-11-04] MEDS ORDERED: MAGIC MOUTHWASH PO SCH (09:00)
[2016-11-04] MEDS: DEXAMETHASONE CONC SOLN 3.75 MG, NYSTATIN SUSP 30 ML, DiphenhydrAMINE HCL SYRUP 300 MG,... PO SCH ×20 (09:00→21:08)
[2016-11-04] MEDS ORDERED: FUROSEMIDE INJ 20 MG in SYRINGE 0 ML IV ONE (09:30)
[2016-11-04 13:35] LABS: BUN/CREATININE RATIO 11.8 (10-20); CALCIUM 7.9 mg/dl (8.5-10.1); CREATININE 0.54 mg/dl (0.60-1.20); MAGNESIUM 1.5 mg/dl (1.8-2.4); POTASSIUM 3.5 mmol/L (3.5-5.1)
[2016-11-04] MEDS ORDERED: METOPROLOL TARTRATE 25 MG TAB PO ONE (15:03)
--- NOTE | 2016-11-04 15:08 | Cardiology Follow-Up ---
Subjective General Date of Service: Nov 04, 2016. Pt evaluation today including: conversation w/ patient, conversation w/ family , physical exam, chart review, lab review, review of studies, review of inpatient medication list History of Present Illness The patient is a 89 year old female seen in follow-up. Tolerated midday meal. Had bowel movement earlier today. Heart rate remains elevated. Notes left-sided abdominal discomfort which is slowly improving. No chest pain. Allergies Coded Allergies: Alendronate (Verified Allergy, Unknown, 08/07/16) Social History Smoking Status: Never Smoker Hx Tobacco Use In Past Year?: No Hx Alcohol Use - Type And Amou: No Hx Substance Use - Type And Am: No Problem List Medical Problems: (1) Bowel obstruction Status: Acute (2) Cellulitis Status: Acute (3) Cellulitis of right lower extremity Status: Acute (4) Chronic deep vein thrombosis (DVT) Status: Acute (5) Degenerative joint disease Status: Acute (6) Hypomagnesemia Status: Acute (7) Hypotension Status: Acute (8) Left leg cellulitis Status: Acute (9) Pneumonia Status: Acute (10) Positive blood culture Status: Acute (11) Sepsis Status: Acute (12) Sepsis Status: Acute Review of Systems Respiratory: No cough, No sputum, No wheezing, No shortness of breath, No dyspnea on exertion, No dyspnea at rest, No hemoptysis Cardiac: No chest pain, No orthopnea, No PND, No edema Physical Exam Vital Signs Last Vital Signs Documentation Date Time Temp Pulse Resp B/P (MAP) Pulse Ox O2 Delivery O2 Flow Rate FiO2 11/04/16 13:01 122 130/72 11/04/16 12:17 37.2 20 91 Nasal Cannula 2.0 11/03/16 12:00 92 Physical Exam Constitutional: General Apperance: heathly-appearing Level of Distress: NAD Ambulation: ambulating normally Head: normocephalic, atraumatic Neck: supple, trachea midline Lungs: Auscultation: no wheezing, no rales/crackles, no rhonchi Cardiovascular: Heart Auscultation: no murmurs, tachycardia, irregular rate rhythm Peripheral Pulses: Bruits: none appreciated Abdomen: Bowel Sounds: absent Inspection & Palpation: no tenderness, guarding & rebound, distended Extremities: no cyanosis, no edema, no clubbing, no ulcers Neurologic: Gait & Station: pertinent finding (no focal deficit) Cranial Nerves: grossly intact Assessment and Plan Assessment and Plan Impression: 1. Chronic atrial fibrillation with RVR - Patient asymptomatic 2. SBO - resolving Recommendations: Discontinue IV metoprolol. Restart metoprolol tartrate 25mg BID. Continue IV heparin. Restart Coumadin when cleared by surgical service. Monitor telemetry. Laboratory Results Last 24 Hours Test 11/03/16 15:55 11/04/16 01:17 11/04/16 01:26 11/04/16 12:44 Bedside Glucose 82 mg/dl 103 mg/dl White Blood Count 9.26 K/uL Red Blood Count 3.63 M/uL Hemoglobin 12.0 g/dL Hematocrit 35.3 % Mean Corpuscular Volume 97.2 fL Mean Corpuscular Hemoglobin 33.1 pg Mean Corpuscular Hemoglobin Concent 34.0 g/dl Platelet Count 167 K/uL Mean Platelet Volume 9.8 fL Neutrophils (%) (Auto) 63.2 % Lymphocytes (%) (Auto) 15.3 % Monocytes (%) (Auto) 16.5 % Eosinophils (%) (Auto) 0.3 % Basophils (%) (Auto) 0.4 % Neutrophils # (Auto) 5.84 K/uL Lymphocytes # (Auto) 1.42 K/uL Monocytes # (Auto) 1.53 K/uL Eosinophils # (Auto) 0.03 K/uL Basophils # (Auto) 0.04 K/uL RDW Standard Deviation 51.8 fL RDW Coefficient of Variation 14.5 % Immature Granulocyte % (Auto) 4.3 % Immature Granulocyte # (Auto) 0.40 K/uL Nucleated RBC Absolute Count (auto) 0.04 K/uL Nucleated Red Blood Cells % 0.4 % Toxic Granulation OCCASIONAL Toxic Vacuolation OCCASIONAL Dohle Bodies 1+ Ovalocytes 1+ Echinocytes 1+ Activated Partial Thromboplast Time 58.8 SECONDS Partial Thromboplastin Ratio 2.3 Sodium Level 139 mmol/L 136 mmol/L Potassium Level 3.1 mmol/L 3.5 mmol/L Chloride Level 105 mmol/L 103 mmol/L Carbon Dioxide Level 27 mmol/L 29 mmol/L Anion Gap 7.0 mmol/L 4.0 mmol/L Blood Urea Nitrogen 8 mg/dl 6 mg/dl Creatinine 0.52 mg/dl 0.54 mg/dl Est Creatinine Clear Calc Drug Dose 80.9 ml/min 77.8 ml/min Estimated GFR () 98.2 97.0 Estimated GFR (Non- 84.7 83.7 BUN/Creatinine Ratio 15.6 11.8 Random Glucose 114 mg/dl 112 mg/dl Calcium Level 7.7 mg/dl 7.9 mg/dl Phosphorus Level 2.6 mg/dl Magnesium Level 1.2 mg/dl 1.5 mg/dl
[2016-11-04] MEDS ORDERED: METOPROLOL TARTRATE 1 MG/ML VIAL IV. SCH (16:00)
[2016-11-04] MEDS: POTASSIUM CHLR 10 MEQ / WTR 10 MEQ in PREMIXED WATER 100 ML IV SCH ×4 (17:45→21:08)
[2016-11-04] MEDS: LATANOPROST 0.005% OP SOLN 2.5 ML BTL OPB SCH (21:08)
[2016-11-04] MEDS: BIMATOPROST 0.01% OP SOLN 2.5 ML BTL OPB SCH (21:08)
[2016-11-04] MEDS: METOPROLOL TARTRATE 25 MG TAB PO SCH (21:09)
[2016-11-05] VITALS (8 sets, daily range): BP systolic 118–139; BP diastolic 74–96; PULSE 75–109; TEMP 36.3–37.5; O2SAT 94–98
[2016-11-05] MEDS: PIPERACILL/TAZOBAC IV 3.375 GM in DEXTROSE 5% 100ML IV SCH ×2 (00:05→07:48)
[2016-11-05 07:24] LABS: PARTIAL THROMBOPLASTIN RATIO 1.9
[2016-11-05 07:33] LABS: CALCIUM 8.3 mg/dl (8.5-10.1); CREATININE 0.53 mg/dl (0.60-1.20); MAGNESIUM 1.7 mg/dl (1.8-2.4); PHOSPHORUS 2.6 mg/dl (2.5-4.9); POTASSIUM 4.2 mmol/L (3.5-5.1)
[2016-11-05] MEDS: FLUOXETINE HCL 10 MG CAP PO SCH (07:41)
[2016-11-05] MEDS: RANITIDINE HCL 150 MG TAB PO SCH ×2 (07:41→21:13)
[2016-11-05] MEDS: DOCUSATE SODIUM/SENNA 50/8.6MG TAB PO SCH ×2 (07:43→21:00)
[2016-11-05] MEDS: METOPROLOL TARTRATE 25 MG TAB PO SCH ×2 (07:44→21:14)
[2016-11-05] MEDS: LIDODERM (LIDOCAINE) PATCH 5% TD SCH (07:50)
[2016-11-05] MEDS: DEXAMETHASONE CONC SOLN 3.75 MG, NYSTATIN SUSP 30 ML, DiphenhydrAMINE HCL SYRUP 300 MG,... PO SCH ×20 (07:51→21:00)
[2016-11-05] MEDS: LEVOTHYROXINE SODIUM INJ 62.5 MCG in SYRINGE 0 ML IV SCH (07:52)
--- NOTE | 2016-11-05 10:59 | Surgery Progress Note ---
Surgery Progress Note Date of Service Nov 05, 2016. Subjective Post OP Day: HD # 6 + feeling well, + bowel movement, + flatus, + diet (tolerating clear liquids), No complaints, No chest pain, No SOB, No nausea, No vomiting OOB sitting in chair on encounter Objective Vital Signs: Date Time Temp Pulse Resp B/P (MAP) Pulse Ox O2 Delivery O2 Flow Rate FiO2 11/05/16 08:00 96 Nasal Cannula 2.0 11/05/16 07:17 36.3 95 16 131/87 (102) 96 2.0 11/05/16 04:05 36.3 108 20 122/78 (93) 95 Nasal Cannula 2.0 11/05/16 04:00 Nasal Cannula 2.0 11/05/16 00:10 36.9 109 20 118/74 (89) 94 Nasal Cannula 2.0 11/05/16 00:00 Nasal Cannula 2.0 11/04/16 20:06 36.6 109 18 136/84 (101) 95 Room Air 11/04/16 20:00 Nasal Cannula 2.0 11/04/16 16:13 36.8 103 18 132/93 (106) 94 Nasal Cannula 2.0 11/04/16 16:00 Nasal Cannula 2.0 11/04/16 13:01 122 130/72 11/04/16 12:17 37.2 103 20 132/93 (106) 91 Nasal Cannula 2.0 11/04/16 12:00 97 Nasal Cannula 2.0 General Appearance: WD/WN, no apparent distress Head: normocephalic, atraumatic Respiratory/Chest: no respiratory distress, no accessory muscle use Extremities: no pedal edema Laboratory Results: Results Past 24 Hours Test 11/04/16 12:44 11/05/16 06:38 Range/Units Sodium Level 136 136 136-145 mmol/L Potassium Level 3.5 4.2 3.5-5.1 mmol/L Chloride Level 103 104 98-107 mmol/L Carbon Dioxide Level 29 28 21-32 mmol/L Anion Gap 4.0 4.0 3-11 mmol/L Blood Urea Nitrogen 6 6 7-18 mg/dl Creatinine 0.54 0.53 0.60-1.20 mg/dl Est Creatinine Clear Calc Drug Dose 77.8 79.2 ml/min Estimated GFR () 97.0 97.6 Estimated GFR (Non- 83.7 84.2 BUN/Creatinine Ratio 11.8 11.0 10-20 Random Glucose 112 101 70-99 mg/dl Calcium Level 7.9 8.3 8.5-10.1 mg/dl Magnesium Level 1.5 1.7 1.8-2.4 mg/dl Activated Partial Thromboplast Time 49.4 21.0-31.0 SECONDS Partial Thromboplastin Ratio 1.9 Phosphorus Level 2.6 2.5-4.9 mg/dl Assessment & Plan SBO- resolving - vitals stable other than tachycardia (a-fib) - no further nausea or vomiting - + bowel function Plan: advance diet as tolerated continue current medical management our services signing off, please call with any concerns Dr. Ravi has seen patient , agrees with above
--- NOTE | 2016-11-05 13:59 | Cardiology Follow-Up ---
Subjective General Date of Service: Nov 05, 2016. Pt evaluation today including: conversation w/ patient, conversation w/ family , physical exam, chart review, lab review, review of studies, review of inpatient medication list History of Present Illness The patient is a 89 year old female seen in follow-up. Tolerating solid food. Reports to bowel movement earlier today. Denies chest pain, shortness of breath, or palpitations. Heart rate improved with transition to oral metoprolol. Patient reports severe weakness. Working with physical therapy. Planning rehabilitation at [facility] prior to returning home. Allergies Coded Allergies: Alendronate (Verified Allergy, Unknown, 08/07/16) Social History Smoking Status: Never Smoker Hx Tobacco Use In Past Year?: No Hx Alcohol Use - Type And Amou: No Hx Substance Use - Type And Am: No Problem List Medical Problems: (1) Bowel obstruction Status: Acute (2) Cellulitis Status: Acute (3) Cellulitis of right lower extremity Status: Acute (4) Chronic deep vein thrombosis (DVT) Status: Acute (5) Degenerative joint disease Status: Acute (6) Hypomagnesemia Status: Acute (7) Hypotension Status: Acute (8) Left leg cellulitis Status: Acute (9) Pneumonia Status: Acute (10) Positive blood culture Status: Acute (11) Sepsis Status: Acute (12) Sepsis Status: Acute Review of Systems Respiratory: No cough, No sputum, No wheezing, No shortness of breath, No dyspnea at rest, No hemoptysis Cardiac: No chest pain, No orthopnea, No PND, No edema, No palpitations Physical Exam Vital Signs Last Vital Signs Documentation Date Time Temp Pulse Resp B/P (MAP) Pulse Ox O2 Delivery O2 Flow Rate FiO2 11/05/16 12:01 96 Nasal Cannula 2.0 11/05/16 11:44 36.6 75 17 128/84 (99) 11/03/16 12:00 92 Physical Exam Constitutional: General Apperance: heathly-appearing Level of Distress: NAD Ambulation: ambulating normally Head: normocephalic, atraumatic Neck: supple, trachea midline Lungs: Auscultation: no wheezing, no rales/crackles, no rhonchi Cardiovascular: Heart Auscultation: normal S1, normal S2, no murmurs, irregular rate rhythm Peripheral Pulses: Bruits: none appreciated Abdomen: Bowel Sounds: absent Inspection & Palpation: no tenderness, guarding & rebound, distended Extremities: no cyanosis, no edema, no clubbing, no ulcers Neurologic: Gait & Station: pertinent finding (no focal deficit) Cranial Nerves: grossly intact Assessment and Plan Assessment and Plan Impression: 1. Chronic atrial fibrillation with RVR - Patient asymptomatic - Heart rate improving with transition to oral metoprolol - Anticoagulated with intravenous heparin infusion; warfarin on hold since admission 2. SBO - resolved; tolerating solid food Recommendations: Restart Coumadin 5 mg daily. Repeat PT/INR in the a.m. Continue IV heparin until INR > 2.0. Consider Lovenox bridging at time of discharge if INR remains subtherapeutic. Monitor telemetry. Laboratory Results Last 24 Hours Test 11/05/16 06:38 Activated Partial Thromboplast Time 49.4 SECONDS Partial Thromboplastin Ratio 1.9 Sodium Level 136 mmol/L Potassium Level 4.2 mmol/L Chloride Level 104 mmol/L Carbon Dioxide Level 28 mmol/L Anion Gap 4.0 mmol/L Blood Urea Nitrogen 6 mg/dl Creatinine 0.53 mg/dl Est Creatinine Clear Calc Drug Dose 79.2 ml/min Estimated GFR () 97.6 Estimated GFR (Non- 84.2 BUN/Creatinine Ratio 11.0 Random Glucose 101 mg/dl Calcium Level 8.3 mg/dl Phosphorus Level 2.6 mg/dl Magnesium Level 1.7 mg/dl
--- NOTE | 2016-11-05 14:19 | Progress Note ---
Internal Med Progress Note Date of Service: Nov 05, 2016. Provider Documentation: SUBJECTIVE: Seen and examined at bedside. States feeling better today Gets tired with minimal activity Had BM today, tolerating diet Denies chest pain, nausea, vomiting, abd pain, SOB OBJECTIVE: Vital Signs-as noted below General Appearance:Moderately built and nourished, no apparent distress Head: normocephalic, Atraumatic Eyes: normal inspection, EOMI, PERRL Neck: supple, Trachea midline Respiratory/Chest: Coarse breath sounds, CTA Cardiovascular: Irregularly irregular, No murmur Abdomen/GI:Soft, non tender, Bowel sounds present Extremities/Musculoskelatal:normal inspection, no edema Neurologic/Psych:grossly no focal neurological deficits Skin:normal color,warm Lab data as noted below ASSESSMENT & PLAN: Sepsis Likely secondary to Aspiration pneumonia and enteritis DC IV fluids Continue Zosyn Day 09/21 >>> Augmentin to complete 10 day course Vancomycin, Levaquin discontinued Patient and daughter prefers no aggressive management Aspiration precautions Lactate trended down Blood/Urine culture: Negative to date Incentive Spirometry SBO: Improved S/P IV fluids NG tube discontinued Appreciate Surgery input Patient prefers no colostomy Afib with RVR: H/O DVT/PE Continue BB Heparin ggt till INR therapeutic Monitor INR Resumed Coumadin today Appreciate cardiology input Oral Candidiasis: Nystatin for 7 days GARETH: likely prerenal Resolved On IV Fluids Hold torsemide Monitor renal function Hypokalemia/Hypomagnesemia/Hypophosphatemia: Likely secondary to GI loss and Diuretics, poor oral intake Replace and Monitor Grade II diastolic dysfunction No signs of exacerbation CXR without overt volume overload torsemide held (on 10 mg once per week at home) for now Hypothyroidism Continue levothyroxine TSH:wnl PMR On chronic prednisone 5 mg daily GERD: Continue Ranitidine Anxiety: PRN Ativan CODE STATUS DNR/ DNI per patient and her daughter (DPOA) DISPOSITION Follows with Dr. Camp for primary care Continue to monitor in Tele Will benefit from Rehab Vital Signs: Date Time Temp Pulse Resp B/P (MAP) Pulse Ox O2 Delivery O2 Flow Rate FiO2 11/05/16 12:01 96 Nasal Cannula 2.0 11/05/16 11:44 36.6 75 17 128/84 (99) 96 11/05/16 08:00 96 Nasal Cannula 2.0 11/05/16 07:17 36.3 95 16 131/87 (102) 96 2.0 11/05/16 04:05 36.3 108 20 122/78 (93) 95 Nasal Cannula 2.0 11/05/16 04:00 Nasal Cannula 2.0 11/05/16 00:10 36.9 109 20 118/74 (89) 94 Nasal Cannula 2.0 11/05/16 00:00 Nasal Cannula 2.0 11/04/16 20:06 36.6 109 18 136/84 (101) 95 Room Air 11/04/16 20:00 Nasal Cannula 2.0 11/04/16 16:13 36.8 103 18 132/93 (106) 94 Nasal Cannula 2.0 11/04/16 16:00 Nasal Cannula 2.0 Lab Results: Results Past 24 Hours Test 11/05/16 06:38 Range/Units Activated Partial Thromboplast Time 49.4 21.0-31.0 SECONDS Partial Thromboplastin Ratio 1.9 Sodium Level 136 136-145 mmol/L Potassium Level 4.2 3.5-5.1 mmol/L Chloride Level 104 98-107 mmol/L Carbon Dioxide Level 28 21-32 mmol/L Anion Gap 4.0 3-11 mmol/L Blood Urea Nitrogen 6 7-18 mg/dl Creatinine 0.53 0.60-1.20 mg/dl Est Creatinine Clear Calc Drug Dose 79.2 ml/min Estimated GFR () 97.6 Estimated GFR (Non- 84.2 BUN/Creatinine Ratio 11.0 10-20 Random Glucose 101 70-99 mg/dl Calcium Level 8.3 8.5-10.1 mg/dl Phosphorus Level 2.6 2.5-4.9 mg/dl Magnesium Level 1.7 1.8-2.4 mg/dl
[2016-11-05] MEDS ORDERED: MAGNESIUM SULFATE 1GM / D5W 1 GM in PREMIXED IN D5W 100 ML IV ONE (15:00)
[2016-11-05] MEDS: WARFARIN SOD 5 MG TAB PO SCH (15:59)
[2016-11-05] MEDS: HEPARIN 25,000 UNIT/500ML D5W 500 ML IV PRN (16:00)
[2016-11-05] MEDS: LATANOPROST 0.005% OP SOLN 2.5 ML BTL OPB SCH (21:15)
[2016-11-05] MEDS: BIMATOPROST 0.01% OP SOLN 2.5 ML BTL OPB SCH (21:15)
[2016-11-06] VITALS (10 sets, daily range): BP systolic 108–144; BP diastolic 66–88; PULSE 85–114; TEMP 36.4–36.8; O2SAT 93–98
[2016-11-06] MEDS: LEVOTHYROXINE 125 MCG TAB PO SCH (05:45)
[2016-11-06 06:52] LABS: HEMATOCRIT 36.8 % (37-47); MEAN CELL VOLUME 99.2 fL (80-100); MEAN CORPUSCULAR HEMOGLOBIN 32.3 pg (25-34); MEAN CORPUSCULAR HGB CONC 32.6 g/dl (32-36); MEAN PLATELET VOLUME 9.7 fL (7.4-10.4); PLATELET COUNT 241 K/uL (130-400); RED BLOOD COUNT 3.71 M/uL (4.2-5.4); WHITE BLOOD COUNT 8.17 K/uL (4.8-10.8)
[2016-11-06 07:18] LABS: PARTIAL THROMBOPLASTIN RATIO 2.1
[2016-11-06 07:30] LABS: BUN/CREATININE RATIO 15.8 (10-20); CALCIUM 8.5 mg/dl (8.5-10.1); CREATININE 0.5 mg/dl (0.60-1.20); MAGNESIUM 1.5 mg/dl (1.8-2.4); POTASSIUM 3.8 mmol/L (3.5-5.1)
[2016-11-06] MEDS: RANITIDINE HCL 150 MG TAB PO SCH ×2 (08:42→21:32)
[2016-11-06] MEDS: FLUOXETINE HCL 10 MG CAP PO SCH (08:42)
[2016-11-06] MEDS: DOCUSATE SODIUM/SENNA 50/8.6MG TAB PO SCH ×2 (08:42→21:00)
[2016-11-06] MEDS: METOPROLOL TARTRATE 25 MG TAB PO SCH ×2 (08:42→21:52)
[2016-11-06] MEDS: LIDODERM (LIDOCAINE) PATCH 5% TD SCH (08:43)
[2016-11-06] MEDS: AMOXICILLIN/CLAVULANATE TAB 875 MG TAB PO SCH ×2 (08:50→17:07)
[2016-11-06] MEDS: DEXAMETHASONE CONC SOLN 3.75 MG, NYSTATIN SUSP 30 ML, DiphenhydrAMINE HCL SYRUP 300 MG,... PO SCH ×20 (08:59→21:29)
[2016-11-06] MEDS ORDERED: MAGNESIUM SULFATE 1GM / D5W 1 GM in PREMIXED IN D5W 100 ML IV STA (10:20)
--- NOTE | 2016-11-06 13:11 | Progress Note ---
Internal Med Progress Note Date of Service: Nov 06, 2016. Provider Documentation: SUBJECTIVE: The patient was seen and examined Feels a lot better Denies any symptoms except some weakness OBJECTIVE: Vital Signs-as noted below Exam: General-No distress at rets Eyes-normal ENT-normal Neck-supple Lungs-clear to auscultate bilaterally Heart-Regular,no murmur appreciated Abdomen-Benign,no masses,bowel sound present Extremities-Trace edema bilaterally Neuro-AAOx3 generally weak and lethargic Lab data as noted below. ASSESSMENT & PLAN: Sepsis Likely secondary to Aspiration pneumonia and enteritis Was on IVF and started on IV Zosyn Day 09/21 >>> Augmentin to complete 10 day course Vancomycin and Levaquin discontinued Patient and daughter prefers no aggressive management Aspiration precautions Blood/Urine culture: Negative to date and Lactate level improved Incentive Spirometry Clinically a lot better Getting PT/OT SBO: Improved with conservative management S/P IV fluids NG tube discontinued Appreciate Surgery input Patient prefers no colostomy A fib with RVR:H/O DVT/PE Continue BB Heparin ggt till INR therapeutic Appreciate Cardiology input Coumadin started on 11/05/16 Monitor INR GARETH: Likely prerenal Resolved Restart Furosemide as before Hypokalemia/Hypomagnesemia/Hypophosphatemia: Likely secondary to GI loss and Diuretics, poor oral intake Replace and Monitor Grade II diastolic dysfunction No signs of exacerbation CXR without overt volume overload Torsemide held (on 10 mg once per week at home) for now Will resume as an OP Hypothyroidism Continue levothyroxine TSH:wnl PMR On chronic prednisone 5 mg daily GERD: Continue Ranitidine Anxiety: PRN Ativan CODE STATUS DNR/ DNI per patient and her daughter (DPOA) DISPOSITION Follows with Dr. Camp for primary care Continue to monitor in Tele Will benefit from Rehab-awaiting placement Vital Signs: Date Time Temp Pulse Resp B/P (MAP) Pulse Ox O2 Delivery O2 Flow Rate FiO2 11/06/16 12:30 96 Nasal Cannula 2.0 11/06/16 11:41 36.7 98 18 118/76 (90) 95 2.0 11/06/16 08:00 96 Nasal Cannula 2.0 11/06/16 07:20 36.4 96 20 110/70 (83) 96 2.0 11/06/16 04:47 111 14 108/66 (80) 94 Nasal Cannula 2.0 11/06/16 04:00 96 Nasal Cannula 94.0 11/06/16 00:00 96 Room Air 11/06/16 00:00 36.5 114 16 120/70 (87) 96 Room Air 11/05/16 21:11 36.9 101 18 139/91 (107) 98 Nasal Cannula 2.0 11/05/16 20:00 Nasal Cannula 2.0 11/05/16 16:00 Nasal Cannula 2.0 11/05/16 15:01 37.5 95 18 126/96 (106) 96 Nasal Cannula 2.0 Lab Results: Results Past 24 Hours Test 11/06/16 06:19 Range/Units White Blood Count 8.17 4.8-10.8 K/uL Red Blood Count 3.71 4.2-5.4 M/uL Hemoglobin 12.0 12.0-16.0 g/dL Hematocrit 36.8 37-47 % Mean Corpuscular Volume 99.2 80-100 fL Mean Corpuscular Hemoglobin 32.3 25-34 pg Mean Corpuscular Hemoglobin Concent 32.6 32-36 g/dl RDW Standard Deviation 52.0 36.4-46.3 fL RDW Coefficient of Variation 14.5 11.5-14.5 % Platelet Count 241 130-400 K/uL Mean Platelet Volume 9.7 7.4-10.4 fL Activated Partial Thromboplast Time 55.2 21.0-31.0 SECONDS Partial Thromboplastin Ratio 2.1 Sodium Level 140 136-145 mmol/L Potassium Level 3.8 3.5-5.1 mmol/L Chloride Level 104 98-107 mmol/L Carbon Dioxide Level 32 21-32 mmol/L Anion Gap 4.0 3-11 mmol/L Blood Urea Nitrogen 8 7-18 mg/dl Creatinine 0.50 0.60-1.20 mg/dl Est Creatinine Clear Calc Drug Dose 84.0 ml/min Estimated GFR () 99.5 Estimated GFR (Non- 85.8 BUN/Creatinine Ratio 15.8 10-20 Random Glucose 79 70-99 mg/dl Calcium Level 8.5 8.5-10.1 mg/dl Magnesium Level 1.5 1.8-2.4 mg/dl
--- NOTE | 2016-11-06 14:07 | Cardiology Follow-Up ---
Subjective General Date of Service: Nov 06, 2016. Pt evaluation today including: conversation w/ patient, conversation w/ family , physical exam, chart review, lab review, review of studies, review of inpatient medication list History of Present Illness The patient is a 89 year old female seen in follow-up. Heart rate mildly improved overnight. Tolerating diet and oral medications. Previously reported abdominal discomfort has improved. Denies chest discomfort or shortness of breath. Coumadin restarted yesterday. Allergies Coded Allergies: Alendronate (Verified Allergy, Unknown, 08/07/16) Social History Smoking Status: Never Smoker Hx Tobacco Use In Past Year?: No Hx Alcohol Use - Type And Amou: No Hx Substance Use - Type And Am: No Problem List Medical Problems: (1) Bowel obstruction Status: Acute (2) Cellulitis Status: Acute (3) Cellulitis of right lower extremity Status: Acute (4) Chronic deep vein thrombosis (DVT) Status: Acute (5) Degenerative joint disease Status: Acute (6) Hypomagnesemia Status: Acute (7) Hypotension Status: Acute (8) Left leg cellulitis Status: Acute (9) Pneumonia Status: Acute (10) Positive blood culture Status: Acute (11) Sepsis Status: Acute (12) Sepsis Status: Acute Review of Systems Respiratory: + dyspnea on exertion, No cough, No sputum, No wheezing, No shortness of breath, No dyspnea at rest, No hemoptysis Cardiac: No chest pain, No orthopnea, No PND, No edema, No claudication, No palpitations Physical Exam Vital Signs Last Vital Signs Documentation Date Time Temp Pulse Resp B/P (MAP) Pulse Ox O2 Delivery O2 Flow Rate FiO2 11/06/16 12:30 96 Nasal Cannula 2.0 11/06/16 11:41 36.7 98 18 118/76 (90) 11/03/16 12:00 92 Physical Exam Constitutional: General Apperance: heathly-appearing Level of Distress: NAD Ambulation: ambulating normally Head: normocephalic, atraumatic Neck: supple, trachea midline Lungs: Auscultation: no wheezing, no rales/crackles, no rhonchi Cardiovascular: Heart Auscultation: normal S1, normal S2, no murmurs, irregular rate rhythm Peripheral Pulses: Bruits: none appreciated Abdomen: Bowel Sounds: absent Inspection & Palpation: soft, non-distended, no tenderness, guarding & rebound Extremities: no cyanosis, no edema, no clubbing, no ulcers Neurologic: Gait & Station: pertinent finding (no focal deficit) Cranial Nerves: grossly intact Assessment and Plan Assessment and Plan Impression: 1. Chronic atrial fibrillation with RVR - Patient asymptomatic - Heart rate improving with oral metoprolol - Anticoagulated with intravenous heparin infusion; warfarin restarted yesterday. 2. SBO - resolved; tolerating solid food, +BM Recommendations: Continue Coumadin 5 mg daily. Repeat PT/INR today and in the a.m. Continue IV heparin until INR > 2.0. Consider Lovenox bridging at time of discharge if INR remains subtherapeutic. Monitor telemetry. Laboratory Results Last 24 Hours Test 11/06/16 06:19 11/06/16 13:49 White Blood Count 8.17 K/uL Red Blood Count 3.71 M/uL Hemoglobin 12.0 g/dL Hematocrit 36.8 % Mean Corpuscular Volume 99.2 fL Mean Corpuscular Hemoglobin 32.3 pg Mean Corpuscular Hemoglobin Concent 32.6 g/dl RDW Standard Deviation 52.0 fL RDW Coefficient of Variation 14.5 % Platelet Count 241 K/uL Mean Platelet Volume 9.7 fL Activated Partial Thromboplast Time 55.2 SECONDS Partial Thromboplastin Ratio 2.1 Sodium Level 140 mmol/L Potassium Level 3.8 mmol/L Chloride Level 104 mmol/L Carbon Dioxide Level 32 mmol/L Anion Gap 4.0 mmol/L Blood Urea Nitrogen 8 mg/dl Creatinine 0.50 mg/dl Est Creatinine Clear Calc Drug Dose 84.0 ml/min Estimated GFR () 99.5 Estimated GFR (Non- 85.8 BUN/Creatinine Ratio 15.8 Random Glucose 79 mg/dl Calcium Level 8.5 mg/dl Magnesium Level 1.5 mg/dl
[2016-11-06 14:19] LABS: INR 1.8 (0.9-1.1); PROTHROMBIN TIME (PATIENT) 20.1 SECONDS (9.0-12.0)
[2016-11-06] MEDS: WARFARIN SOD 5 MG TAB PO SCH (17:07)
[2016-11-06] MEDS: LATANOPROST 0.005% OP SOLN 2.5 ML BTL OPB SCH (21:29)
[2016-11-06] MEDS: BIMATOPROST 0.01% OP SOLN 2.5 ML BTL OPB SCH (21:29)
[2016-11-07] MEDS: HEPARIN 25,000 UNIT/500ML D5W 500 ML IV PRN (02:16)
[2016-11-07 04:08] VITALS: BP 123/75; PULSE 103; TEMP 36.7; O2SAT 94
[2016-11-07] MEDS: LEVOTHYROXINE 125 MCG TAB PO SCH (06:06)
[2016-11-07 07:13] VITALS: BP 126/75; PULSE 100; TEMP 36.5; O2SAT 91
[2016-11-07 07:17] LABS: INR 2.5 (0.9-1.1); PARTIAL THROMBOPLASTIN RATIO 2.1
[2016-11-07 07:25] LABS: BUN/CREATININE RATIO 15.5 (10-20); CALCIUM 8.6 mg/dl (8.5-10.1); CREATININE 0.53 mg/dl (0.60-1.20); MAGNESIUM 1.4 mg/dl (1.8-2.4); POTASSIUM 3.9 mmol/L (3.5-5.1)
[2016-11-07 07:28] LABS: PHOSPHORUS 3.9 mg/dl (2.5-4.9)
[2016-11-07] MEDS: MAGNESIUM SULFATE 1GM / D5W 1 GM in PREMIXED IN D5W 100 ML IV SCH ×2 (08:32→09:39)
[2016-11-07] MEDS: DOCUSATE SODIUM/SENNA 50/8.6MG TAB PO SCH (08:33)
[2016-11-07] MEDS: FLUOXETINE HCL 10 MG CAP PO SCH (08:33)
[2016-11-07] MEDS: RANITIDINE HCL 150 MG TAB PO SCH (08:33)
[2016-11-07] MEDS: LIDODERM (LIDOCAINE) PATCH 5% TD SCH (08:34)
[2016-11-07] MEDS: AMOXICILLIN/CLAVULANATE TAB 875 MG TAB PO SCH (08:35)
[2016-11-07] MEDS: DEXAMETHASONE CONC SOLN 3.75 MG, NYSTATIN SUSP 30 ML, DiphenhydrAMINE HCL SYRUP 300 MG,... PO SCH ×10 (09:11→13:00)
[2016-11-07 09:16] VITALS: PULSE 96; O2SAT 95
[2016-11-07] MEDS: METOPROLOL TARTRATE 25 MG TAB PO SCH (09:16)
[2016-11-07 11:10] VITALS: BP 103/69; PULSE 88; TEMP 36.8; O2SAT 93
--- NOTE | 2016-11-07 12:48 | Progress Note ---
Internal Med Progress Note Date of Service: Nov 07, 2016. Provider Documentation: SUBJECTIVE: The patient was seen and examined Feels a lot better Denies any symptoms except some weakness Feels much better today OBJECTIVE: Vital Signs-as noted below Exam: General-No distress at rest Eyes-normal ENT-normal Neck-supple Lungs-clear to auscultate bilaterally Heart-Regular,no murmur appreciated Abdomen-Benign,no masses,bowel sound present Extremities-Trace edema bilaterally Neuro-AAOx3 generally weak and lethargic Lab data as noted below. ASSESSMENT & PLAN: Sepsis Likely secondary to Aspiration pneumonia and enteritis Was on IVF and started on IV Zosyn Day 09/21 >>> Augmentin to complete 10 day course Vancomycin and Levaquin discontinued Patient and daughter prefers no aggressive management Aspiration precautions Blood/Urine culture: Negative to date and Lactate level improved Incentive Spirometry Clinically a lot better Getting PT/OT -ready to be discharged today SBO: Improved with conservative management S/P IV fluids NG tube discontinued Appreciate Surgery input Patient prefers no colostomy Resolved A fib with RVR:H/O DVT/PE Continue BB Heparin ggt till INR therapeutic Appreciate Cardiology input Coumadin started on 11/05/16 Monitor INR -therapeutic at 2.5 today GARETH: Likely prerenal Resolved Restart Furosemide on daicharge Hypokalemia/Hypomagnesemia/Hypophosphatemia: Likely secondary to GI loss and Diuretics, poor oral intake Replace and Monitor Normalized Grade II diastolic dysfunction No signs of exacerbation CXR without overt volume overload Torsemide held (on 10 mg once per week at home) for now Will resume as an OP Hypothyroidism Continue levothyroxine TSH:wnl PMR On chronic prednisone 5 mg daily GERD: Continue Ranitidine Anxiety: PRN Ativan CODE STATUS DNR/ DNI per patient and her daughter (DPOA) DISPOSITION Follows with Dr. Camp for primary care Continue to monitor in Tele Will benefit from Rehab-awaiting placement Vital Signs: Date Time Temp Pulse Resp B/P (MAP) Pulse Ox O2 Delivery O2 Flow Rate FiO2 11/07/16 11:10 36.8 88 18 103/69 (80) 93 11/07/16 09:16 96 95 Nasal Cannula 2.0 11/07/16 08:00 Nasal Cannula 2.0 11/07/16 07:13 36.5 100 18 126/75 (92) 91 11/07/16 04:08 36.7 103 20 123/75 (91) 94 Room Air 11/07/16 04:00 Nasal Cannula 2.0 11/07/16 00:00 Nasal Cannula 2.0 11/06/16 23:51 36.5 110 20 133/76 (95) 93 Room Air 11/06/16 20:33 36.8 85 16 144/88 (106) 98 Nasal Cannula 2.0 11/06/16 20:00 Nasal Cannula 2.0 11/06/16 16:00 Nasal Cannula 2.0 11/06/16 15:41 36.8 98 16 126/80 (95) 95 Nasal Cannula 2.0 Lab Results: Results Past 24 Hours Test 11/06/16 13:49 11/07/16 05:58 11/07/16 06:01 Range/Units Prothrombin Time 20.1 28.0 9.0-12.0 SECONDS Prothromb Time International Ratio 1.8 2.5 0.9-1.1 Activated Partial Thromboplast Time 53.7 21.0-31.0 SECONDS Partial Thromboplastin Ratio 2.1 Sodium Level 140 136-145 mmol/L Potassium Level 3.9 3.5-5.1 mmol/L Chloride Level 102 98-107 mmol/L Carbon Dioxide Level 31 21-32 mmol/L Anion Gap 7.0 3-11 mmol/L Blood Urea Nitrogen 8 7-18 mg/dl Creatinine 0.53 0.60-1.20 mg/dl Est Creatinine Clear Calc Drug Dose 79.0 ml/min Estimated GFR () 97.6 Estimated GFR (Non- 84.2 BUN/Creatinine Ratio 15.5 10-20 Random Glucose 77 70-99 mg/dl Calcium Level 8.6 8.5-10.1 mg/dl Phosphorus Level 3.9 2.5-4.9 mg/dl Magnesium Level 1.4 1.8-2.4 mg/dl
[2016-11-07] MEDS ORDERED: LCTX PO (12:52)
[2016-11-07] MEDS ORDERED: AMOX1TAB43 PO (12:52)
--- NOTE | 2016-11-07 12:56 | Discharge Instructions ---
Discharge Instructions Date of Service Nov 07, 2016. Admission Reason for Admission: Hypotension, Pneumonia Discharge Discharge Diagnosis / Problem: Sepsis due to Aspiration Pneumonia,AF on Coumadin,SBO-resolved Discharge Goals Goal(s): Prevent Disease Progression Activity Recommendations Activity Level: Assistance Required Therapies: Physical Therapy, Occupational Therapy . Additional Information Patient informed of condition: Yes Advance Directives: No DNR: Yes Level of Care: Skilled Communicable Disease: No Prognosis: Stable Oxygen at (LPM): 2 liters via NC as needed Chua Catheter: No Instructions / Follow-Up Instructions / Follow-Up Dr Camp on 11/12/16 at 10:55AM Current Hospital Diet Patient's current hospital diet: Regular Diet Discharge Diet Recommended Diet: Regular Diet (Take precaution to prevent Aspiration) Fluid Restriction: 1500 ml (6 cups) Pending Studies Studies pending at discharge: no Medical Emergencies . Who to Call and When: Medical Emergencies: If at any time you feel your situation is an emergency, please call 911 immediately. . Non-Emergent Contact Non-Emergency issues call your: Primary Care Provider . Past History Medical & Surgical History: (1) Aspiration pneumonia (2) Hypothyroidism (3) Polymyalgia rheumatica (4) Atrial fibrillation (5) Chronic diastolic (congestive) heart failure (6) Status post right knee replacement (7) Status post cholecystectomy (8) Status post cataract extraction (9) Status post partial colectomy (10) Status post appendectomy . "Provider Documentation" section prepared by Jamilah Parisi. . Core Measure Problem Core Measures: None
[2016-11-07] MEDS ORDERED: TORSEMIDE 20 MG TAB PO ONE (13:15)
--- NOTE | 2016-11-07 13:18 | Cardiology Follow-Up ---
Subjective General Date of Service: Nov 07, 2016. Pt evaluation today including: conversation w/ patient, conversation w/ family , physical exam, chart review, lab review, review of studies, review of inpatient medication list History of Present Illness The patient is a 89 year old female seen in follow-up. Sitting in a chair at bedside. Heart rate improved however elevated with periods of activity. Denies chest pain or shortness of breath. Bilateral ankle edema noted today. Patient typically takes 10 mg of torsemide as needed for edema as an outpatient. Possible transfer to rehabilitation facility today. Allergies Coded Allergies: Alendronate (Verified Allergy, Unknown, 08/07/16) Social History Smoking Status: Never Smoker Hx Tobacco Use In Past Year?: No Hx Alcohol Use - Type And Amou: No Hx Substance Use - Type And Am: No Problem List Medical Problems: (1) Bowel obstruction Status: Acute (2) Cellulitis Status: Acute (3) Cellulitis of right lower extremity Status: Acute (4) Chronic deep vein thrombosis (DVT) Status: Acute (5) Degenerative joint disease Status: Acute (6) Hypomagnesemia Status: Acute (7) Hypotension Status: Acute (8) Left leg cellulitis Status: Acute (9) Pneumonia Status: Acute (10) Positive blood culture Status: Acute (11) Sepsis Status: Acute (12) Sepsis Status: Acute Review of Systems Respiratory: + dyspnea on exertion, No cough, No sputum, No wheezing, No shortness of breath, No dyspnea at rest, No hemoptysis Cardiac: + edema, No chest pain, No orthopnea, No PND, No claudication, No palpitations Physical Exam Vital Signs Last Vital Signs Documentation Date Time Temp Pulse Resp B/P (MAP) Pulse Ox O2 Delivery O2 Flow Rate FiO2 11/07/16 11:10 36.8 88 18 103/69 (80) 93 11/07/16 09:16 Nasal Cannula 2.0 11/03/16 12:00 92 Physical Exam Constitutional: General Apperance: heathly-appearing Level of Distress: NAD Ambulation: ambulating normally Head: normocephalic, atraumatic Neck: supple, trachea midline Lungs: Auscultation: no wheezing, no rales/crackles, no rhonchi Cardiovascular: Heart Auscultation: normal S1, normal S2, no murmurs, irregular rate rhythm Peripheral Pulses: Bruits: none appreciated Abdomen: Bowel Sounds: absent Inspection & Palpation: soft, non-distended, no tenderness, guarding & rebound Extremities: no cyanosis, no edema, no clubbing, no ulcers, edema (1+ bilateral ankle edema, + stasis changes.) Neurologic: Gait & Station: pertinent finding (no focal deficit) Cranial Nerves: grossly intact Assessment and Plan Assessment and Plan Impression: 1. Chronic atrial fibrillation with RVR - Patient asymptomatic - Heart rate improving with oral metoprolol - Anticoagulated with intravenous heparin infusion; warfarin restarted yesterday. 2. Dependent pedal and ankle edema - acute on chronic 3. SBO - resolved; tolerating solid food, +BM Recommendations: Discontinue intravenous heparin. Continue Coumadin dosing for goal INR of 2.0-3.0. Give 10 mg torsemide by mouth 1 today. Continue metoprolol 25 mg twice daily. Repeat PT/INR in a.m. Patient stable for transfer to rehabilitation from a cardiovascular perspective. Recommend Demadex be prescribed as needed for recurrent edema. Outpatient follow-up with Aung Fernandez PA-C scheduled. Laboratory Results Last 24 Hours Test 11/06/16 13:49 11/07/16 05:58 11/07/16 06:01 Prothrombin Time 20.1 SECONDS 28.0 SECONDS Prothromb Time International Ratio 1.8 2.5 Activated Partial Thromboplast Time 53.7 SECONDS Partial Thromboplastin Ratio 2.1 Sodium Level 140 mmol/L Potassium Level 3.9 mmol/L Chloride Level 102 mmol/L Carbon Dioxide Level 31 mmol/L Anion Gap 7.0 mmol/L Blood Urea Nitrogen 8 mg/dl Creatinine 0.53 mg/dl Est Creatinine Clear Calc Drug Dose 79.0 ml/min Estimated GFR () 97.6 Estimated GFR (Non- 84.2 BUN/Creatinine Ratio 15.5 Random Glucose 77 mg/dl Calcium Level 8.6 mg/dl Phosphorus Level 3.9 mg/dl Magnesium Level 1.4 mg/dl
[2016-11-07 14:09] VITALS: BP 103/69; PULSE 88; TEMP 36.8; O2SAT 93
[2016-11-07] MEDS: WARFARIN SOD 5 MG TAB PO SCH (15:41)
--- NOTE | 2016-11-08 11:02 | Discharge Summary ---
Discharge Summary Date of Service Nov 08, 2016. Discharge Summary Admission Date: Oct 30, 2016 at 12:15 Discharge Date: Nov 07, 2016 Discharge Disposition: detention facility Principal Diagnosis: Sepsis due to Aspiration Pneumonia,AF on Coumadin (keep INR between 2-3),SBO- resolved Secondary Diagnoses/Problems: Please see H&P and Hospital Progress note Consultations: Cardiology and Surgery Medication Reconciliation New Medications: Lactobacillus Acidophilus (Lactinex) Tab 2 TAB PO BID, #20 TAB Amoxicillin & Pot Clavulanate (Amoxicillin/Clavulanate P) 1 Tab Tab 875 MG PO BIDM for 3 Days, #6 TAB Continued Medications: Acetaminophen (Tylenol) 325 Mg Tab 650 MG PO DAILY PRN for Pain, TAB Albuterol Hfa (Ventolin Hfa) 200 Puffs/77858 Mcg Aers 2 PUFFS INH Q4H PRN for cough or wheezing, #1 INHALER B-Complex W/ Folic Acid (B Complex) 1 Tab Tab 1 TAB PO DAILY Bimatoprost (Lumigan) 0.01 % Page 1 DROPS OPB HS for 90 Days, #7.5 ML 3 Refills Calcium Carbonate-Vitamin D (Calcium + D) 1 Tab Tab 1 TAB PO DAILY Cholecalciferol (Vitamin D) 1,000 Unit Tab 1000 UNIT PO DAILY Difluprednate (Durezol) 0.05 % Emu 1 DROP OPB BID Fluoxetine (Prozac) 10 Mg Cap 10 MG PO DAILY Latanoprost (Xalatan 0.005% Oph Page) 0.005 % Page 1 DROPS OPB HS Levothyroxine Sodium (Levothyroxine Sodium) 125 Mcg Tab 125 MCG PO QAM TAKE ON AN EMPTY STOMACH Magnesium Oxide (Mag-Ox) 400 Mg Tab 400 MG PO DAILY Metoprolol Succinate (Toprol Xl) 50 Mg Tab 25 MG PO DAILY Polyethylene Glycol-Propylene (Systane) 1 Page Page 2 DROPS OP QID PRN for dry eyes, #30 ML 5 Refills Potassium Chloride (Micro-K Ext Rel) 10 Meq Cap 10 MEQ PO UD Take 10 mEq by mouth on days when torsemide is taken. Prednisone (Prednisone) 5 Mg Tab 5 MG PO DAILY Ranitidine Hcl (Zantac) 150 Mg Tab 150 MG PO BID Torsemide (Demadex) 10 Mg Tab 10 MG PO WK PRN for SWELLING Wednesdays Warfarin Sod (Coumadin) 2.5 Mg Tab 2.5 MG PO UD Take 5 mg by mouth on Saturday and Saturday. Take 2.5 mg by mouth on Saturday, Saturday, Saturday, , Saturday. Admission Information HPI (per Admitting provider): This is an 89 y/o female with PMH of grade II diastolic dysfunction, atrial fibrillation on Coumadin, hx DVT/PE, PMR on chronic steroids, hypothyroidism, hx partial colectomy due to diverticulosis, and other problems listed below who presents to the ED with abdominal pain and vomiting. Patient reports becoming ill 2-3 days ago with abdominal pain described as tightness in band like distribution around her abdomen and back. Two days ago developed vomiting, with last episode yesterday evening. Emesis was light brown in color but not coffee ground. PO intake was low- just fluids and toast. Took meds yesterday but not today. She reports minimal liquid stool over past few days, last BM this morning. No flatus since that time. No longer having abdominal pain or N/V. Patient did not note any ozzie aspiration episode. She reports chronic cough productive of clear sputum, has not had any change. Had chills last evening. Has felt lightheaded (resolved while lying in bed currently) and generally weak. Urine production is decreased. No fevers, SOB, chest pain, dysuria, frequency, LE edema. Past Medical/Surgical History Medical Problems: (1) Atrial fibrillation Status: Chronic (2) Chronic diastolic (congestive) heart failure Status: Chronic (3) DVT (deep venous thrombosis) Status: Chronic (4) History of pulmonary embolism Status: Chronic (5) Hypothyroidism Status: Chronic (6) Macular degeneration Status: Chronic (7) Monoclonal gammopathy Status: Chronic (8) Osteoarthritis Status: Chronic (9) Osteoporosis Status: Chronic (10) Polymyalgia rheumatica Status: Chronic Surgical Problems: (1) Status post appendectomy Status: Chronic (2) Status post cataract extraction Status: Chronic (3) Status post cholecystectomy Status: Chronic (4) Status post partial colectomy Permanent Comment: [facility] diverticulitis with perforation Status: Chronic (5) Status post right knee replacement Status: Chronic Family History Breast cancer SISTER Heart disease FATHER Skin cancer FATHER Suicide BROTHER Social History Smoking Status: Never Smoker Alcohol Use: occasionally Drug Use: none Marital Status: single, Housing status: lives alone (functions well, ambulates with walker. daughter lives nearby. ) Occupational Status: retired Immunizations History of Influenza Vaccine: Yes Influenza Vaccine Date: Feb 03, 2016 History of Tetanus Vaccine?: Yes Tetanus Immunization Date: Jan 11, 2014 History of Pneumococcal: Yes Pneumococcal Date: Apr 27, 2014 Multi-Drug Resistant Organisms History of MDRO: No Allergies Coded Allergies: Alendronate (Verified Allergy, Unknown, 08/07/16) Home Medications Scheduled B-Complex W/ Folic Acid (B Complex), 1 TAB PO DAILY Bimatoprost (Lumigan), 1 DROPS OPB HS Calcium Carbonate-Vitamin D (Calcium + D), 1 TAB PO DAILY Cholecalciferol (Vitamin D), 1,000 UNIT PO DAILY Difluprednate (Durezol), 1 DROP OPB BID Fluoxetine (Prozac), 10 MG PO DAILY Latanoprost (Xalatan 0.005% Oph Page), 1 DROPS OPB HS Levothyroxine Sodium (Levothyroxine Sodium), 125 MCG PO QAM Magnesium Oxide (Mag-Ox), 400 MG PO DAILY Metoprolol Succinate (Toprol Xl), 25 MG PO DAILY Potassium Chloride (Micro-K Ext Rel), 10 MEQ PO UD Prednisone (Prednisone), 5 MG PO DAILY Ranitidine Hcl (Zantac), 150 MG PO BID Warfarin Sod (Coumadin), 2.5 MG PO UD Scheduled PRN Acetaminophen (Tylenol), 650 MG PO DAILY PRN for Pain Albuterol Hfa (Ventolin Hfa), 2 PUFFS INH Q4H PRN for cough or wheezing Polyethylene Glycol-Propylene (Systane), 2 DROPS OP QID PRN for dry eyes Torsemide (Demadex), 10 MG PO WK PRN for SWELLING Review of Systems Ten systems reviewed and negative except as noted in HPI. Physical Ex - H&P Physical Exam Vital Signs Date Time Temp Pulse Resp B/P (MAP) Pulse Ox O2 Delivery O2 Flow Rate FiO2 10/30/16 12:10 106 22 79/57 95 Nasal Cannula 2.0 10/30/16 12:00 95 Nasal Cannula 2.0 10/30/16 11:06 127 19 80/59 92 Nasal Cannula 3.0 10/30/16 10:30 124 18 80/59 94 Nasal Cannula 3.0 10/30/16 10:15 135 23 68/48 94 Nasal Cannula 3.0 10/30/16 10:05 Room Air 10/30/16 10:04 158 10/30/16 09:50 36.4 99 18 70/49 92 General Appearance: WD/WN, no apparent distress, + pertinent finding (pleasant alert 89 y/o female, appears comfortable in bed, daughter at bedside) Head: normocephalic, atraumatic Eyes: normal inspection, PERRL, EOMI, sclerae normal ENT: normal ENT inspection, + pertinent finding (hard of hearing) Neck: supple, trachea midline Respiratory/Chest: no respiratory distress, no accessory muscle use, + decreased breath sounds, + rales (right base), + pertinent finding (saturating well on 2 liters NC) Cardiovascular: no murmur, + tachycardia (rate 100), + irregularly irregular Abdomen/GI: soft, + abnormal bowel sounds (hyperactive bowel sounds), + pertinent finding (tender in LUQ. no rebound. ) Genitourinary - Female: + pertinent finding (forte draining concentrated yellow urine) Extremities/Musculoskelatal: normal inspection, no calf tenderness, no pedal edema Neurologic/Psych: alert, normal mood/affect, oriented x 3, + pertinent finding (grossly nonfocal) Skin: normal color, warm/dry Diagnostics - H&P Diagnostics Laboratory Results Results Past 24 Hours Test 10/30/16 10:15 10/30/16 11:03 10/30/16 11:15 Range/Units White Blood Count 3.28 4.8-10.8 K/uL Red Blood Count 4.40 4.2-5.4 M/uL Hemoglobin 14.3 12.0-16.0 g/dL Hematocrit 44.1 37-47 % Mean Corpuscular Volume 100.2 80-100 fL Mean Corpuscular Hemoglobin 32.5 25-34 pg Mean Corpuscular Hemoglobin Concent 32.4 32-36 g/dl Platelet Count 170 130-400 K/uL Mean Platelet Volume 10.3 7.4-10.4 fL Neutrophils (%) (Auto) 72.0 % Lymphocytes (%) (Auto) 15.2 % Monocytes (%) (Auto) 11.6 % Eosinophils (%) (Auto) 0.3 % Basophils (%) (Auto) 0.3 % Neutrophils # (Auto) 2.36 1.4-6.5 K/uL Lymphocytes # (Auto) 0.50 1.2-3.4 K/uL Monocytes # (Auto) 0.38 0.11-0.59 K/uL Eosinophils # (Auto) 0.01 0-0.5 K/uL Basophils # (Auto) 0.01 0-0.2 K/uL RDW Standard Deviation 53.4 36.4-46.3 fL RDW Coefficient of Variation 14.7 11.5-14.5 % Immature Granulocyte % (Auto) 0.6 % Immature Granulocyte # (Auto) 0.02 0.00-0.02 K/uL Toxic Vacuolation 1+ Erythrocyte Sedimentation Rate 48 0-21 mm/hr Prothrombin Time 13.7 9.0-12.0 SECONDS Prothromb Time International Ratio 1.3 0.9-1.1 Activated Partial Thromboplast Time 27.3 21.0-31.0 SECONDS Partial Thromboplastin Ratio 1.1 Sodium Level 138 136-145 mmol/L Potassium Level 3.0 3.5-5.1 mmol/L Chloride Level 100 98-107 mmol/L Carbon Dioxide Level 28 21-32 mmol/L Anion Gap 10.0 3-11 mmol/L Blood Urea Nitrogen 38 7-18 mg/dl Creatinine 1.60 0.60-1.20 mg/dl Est Creatinine Clear Calc Drug Dose 25.2 ml/min Estimated GFR () 32.8 Estimated GFR (Non- 28.3 BUN/Creatinine Ratio 23.6 10-20 Random Glucose 93 70-99 mg/dl Calcium Level 9.3 8.5-10.1 mg/dl Phosphorus Level 2.1 2.5-4.9 mg/dl Magnesium Level 1.3 1.8-2.4 mg/dl Total Bilirubin 3.3 0.2-1 mg/dl Aspartate Amino Transf (AST/SGOT) 16 15-37 U/L Alanine Aminotransferase (ALT/SGPT) 15 12-78 U/L Alkaline Phosphatase 66 45-117 U/L Total Creatine Kinase 42 26-192 U/L Creatine Kinase MB 0.9 0.5-3.6 ng/ml Creatine Kinase MB Ratio 2.1 0-3.0 Troponin I 0.039 0-0.045 ng/ml C-Reactive Protein 14.50 0-0.29 mg/dl Pro-B-Type Natriuretic Peptide 9844 0-1800 pg/ml Total Protein 7.4 6.4-8.2 gm/dl Albumin 2.9 3.4-5.0 gm/dl Globulin 4.5 2.5-4.0 gm/dl Albumin/Globulin Ratio 0.6 0.9-2 Lipase 119 73-393 U/L Random Cortisol 47.89 mcg/dl Venous Blood pH 7.37 7.36-7.41 Venous Blood Partial Pressure CO2 50 38.0-50.0 mmHg Venous Blood Partial Pressure O2 27 mmHg Venous Blood HCO3 28 mmol/L Venous Blood Oxygen Saturation < 60.0 % Venous Blood Base Excess 1.7 mEq/L Bedside Lactic Acid Venous 4.91 0.90-1.70 mmol/L Microbiology Results 10/30/16 Blood Culture, Received Pending 10/30/16 Blood Culture, Received Pending Diagnostic Radiology SINGLE VIEW CHEST IMPRESSION: 1. Cardiomegaly without radiographic evidence of congestive failure. 2. There is patchy airspace consolidation seen at both lung bases, right greater than left. The appearance suggests pneumonia/aspiration pneumonitis. Clinical correlation will be required and radiographic follow-up to resolution is recommended. 3. Trace pleural effusions are noted. ABD/PELVIS NO IV OR ORAL CONT IMPRESSION: 1. Evidence of small bowel obstruction with at least one transition point likely secondary to adhesions in the superior pelvis. Postsurgical changes of subtotal colectomy suspected, though evaluation limited by the absence of oral and intravenous contrast. 2. Suggestion of an intervening small bowel wall thickening between the dilated proximal small bowel and distal decompressed small bowel. This could indicate enteritis. 3. Multifocal opacities in the lungs greater in the right lung, consistent with multifocal pneumonia. 4. Nonobstructing 3 mm left renal calculus. 5. Indeterminate 11 mm hyperdense left renal lesion. This could indicate a hemorrhagic or pertinacious cysts, although evaluation is incomplete without intravenous contrast. Further evaluation could be considered as clinically indicated. EKG atrial fibrillation with RVR, ST depression in leads I-II and V3-V6- new when compared to prior EKG Impression - H&P Impression Assessment and Plan HYPOTENSION Secondary to SEPSIS from MULTIFOCAL ASPIRATION PNEUMONIA and HYPOVOLEMIA from poor PO/ GI loss Presented hypotensive to 60s systolic, tachycardic, WBC 3.2K, POC lactic acid 4.9; afebrile Received 2 liters IVF's with initial improvement to 90's; now SBP in 80s, will give another 500 mL bolus then 125/hour Empiric antibiotics- Zosyn and Levaquin Blood cultures pending; check sputum cultures; check stool culture and C. diff given GI symptoms and possible enteritis on CT, check UA/ urine culture Recheck lactate at 1400 Patient/ daughter at bedside state they do not want central line MULTIFOCAL ASPIRATION PNEUMONIA In setting of recent nausea/ vomiting Empiric antibiotics as above F/u blood and sputum cultures Speech therapy consult SMALL BOWEL OBSTRUCTION Presented with recent abdominal pain, N/V, minimal liquid stool CT a/p shows SBO with at least one transition point likely secondary to adhesions in the superior pelvis, postsurgical changes of subtotal colectomy, suggestion of an intervening small bowel wall thickening between the dilated proximal small bowel and distal decompressed small bowel, this could indicate enteritis Patient will be NPO NG tube not indicated as she is no longer vomiting Check stool culture and C. diff Consult general surgery; discussed with Keila Ramos PA-C ATRIAL FIBRILLATION WITH RVR Known history of Afib Rate up to 150s in ER Improved with IVF's, now in 100's Resume metoprolol once BP stabilizes On Coumadin, INR subtherapeutic (1.3); hold for now due to SBO; monitor INR EKG CHANGES Diffuse ST depressions in I-II and V3-V6- new from prior EKG, possibly rate related No chest pain; initial troponin negative Check repeat EKG now that rate is improved Trend serial cardiac enzymes ELECTROLYTE ABNORMALITIES Due to GI loss Replace potassium, magnesium, phosphorous Recheck electrolytes at 1800 GARETH Due to dehydration, hypotension Creat is 1.6 from baseline 0.7 IV fluids Hold torsemide Monitor renal function GRADE II DIASTOLIC DYSFUNCTION Currently hypovolemic; CXR without overt volume overload Receiving IVF's; torsemide held (on 10 mg once per week at home) Monitor volume status HYPOTHYROIDISM Check TSH Convert levothyroxine to IV PMR On chronic prednisone 5 mg daily- resume tomorrow AM HISTORY OF DVT/ PE INR subtherapeutic Hold Coumadin due to SBO CODE STATUS DNR/ DNI per my discussion with the patient and her daughter at bedside. Does not want central line. Daughter unsure if patient would want surgical intervention, stated "will cross that road when we get to it". DISPOSITION Lives alone, daughter lives close by Follows with Dr. Camp for primary care Patient seen in collaboration with Dr. Quarles. Please see his addendum. Attending Note: Patient is an 89 yr female with multiple comorbidities presents with history of nausea, vomiting, LLQ abdominal pain since 3 days duration. She was found to be hypotensive, afib with RVR, clinically dehydrated. CT abdomen is suggestive of SBO and enteritis. CXR is suggestive of possible Aspiration pneumonia. Labs suggestive of GARETH, hypokalemia, hypomagnesemia, Hypophosphatemia. Physical Exam: Vitals signs as noted above General Appearance:Moderately built and nourished, no apparent distress Head: normocephalic, Atraumatic Eyes: normal inspection, EOMI, PERRL Neck: supple, Trachea midline Respiratory/Chest: Normal breath sounds, mild basal creps Cardiovascular: Irregularly irregular, tachycardia, No murmur Abdomen/GI:Soft, LLQ mild tender, Bowel sounds present Extremities/Musculoskelatal:normal inspection, no edema Neurologic/Psych:grossly no focal neurological deficits Skin:normal color,warm Assessment and Plan: Sepsis Likely secondary to Aspiration pneumonia and enteritis Aggressive IV fluids, broad spectrum IV antibiotics with Vanco, Zosyn and levaquin Patient and daughter prefers no aggressive management Speech eval BP usually runs in 90s (SBP) per patient Monitor lactate SBO: Conservative management for now Bowel rest, NPO, IV fluids Surgery consulted NG tube if develops nausea Stool for C.diff negative Afib with RVR: H/O DVT/PE Missed home BB today Will resume BB Mild elevation in troponin likely demand ischemia EKG:ST changes improved on repeat EKG Trend cardiac enzymes Patient denies chest pain Subtherapeutic INR: Will resume Coumadin once SBO resolves Will keep on Heparin SQ for now GARETH: likely prerenal IV Fluids Hold torsemide Monitor renal function I personally reviewed the record. Patient is interviewed and examined at bedside. Patient's care is coordinated with Tali Berrios PA-C. Please refer to the documentation above for details of patient's presentation and for discussion of other issues. Advanced Directives Existing Living Will: Yes Existing Power of Stain Wiper: Yes VTE Prophylaxis VTE Risk Assessment Done? Y/N: Yes Risk Level: Moderate Given or contraindicated: Warfarin (Coumadin) Physical Exam (per Admitting): General Appearance: WD/WN, no apparent distress, + pertinent finding ( pleasant alert 89 y/o female, appears comfortable in bed, daughter at bedside) Head: normocephalic, atraumatic Eyes: normal inspection, PERRL, EOMI, sclerae normal ENT: normal ENT inspection, + pertinent finding (hard of hearing) Neck: supple, trachea midline Respiratory/Chest: no respiratory distress, no accessory muscle use, + decreased breath sounds, + rales (right base), + pertinent finding (saturating well on 2 liters NC) Cardiovascular: no murmur, + tachycardia (rate 100), + irregularly irregular Abdomen/GI: soft, + abnormal bowel sounds (hyperactive bowel sounds), + pertinent finding (tender in LUQ. no rebound. ) Genitourinary - Female: + pertinent finding (forte draining concentrated yellow urine) Extremities/Musculoskelatal: normal inspection, no calf tenderness, no pedal edema Neurologic/Psych: alert, normal mood/affect, oriented x 3, + pertinent finding (grossly nonfocal) Skin: normal color, warm/dry Hospital Course Sepsis Likely secondary to Aspiration pneumonia and enteritis Was on IVF and started on IV Zosyn Day 7/ >>> Augmentin to complete 10 day course Vancomycin and Levaquin discontinued Patient and daughter prefers no aggressive management Aspiration precautions Blood/Urine culture: Negative to date and Lactate level improved Incentive Spirometry Clinically a lot better Getting PT/OT -ready to be discharged today SBO: Improved with conservative management S/P IV fluids NG tube discontinued Appreciate Surgery input Patient prefers no colostomy Resolved A fib with RVR:H/O DVT/PE Continue BB Heparin ggt till INR therapeutic Appreciate Cardiology input Coumadin started on 11/05/16 Monitor INR -therapeutic at 2.5 today GARETH: Likely prerenal Resolved Restart Furosemide on daicharge Hypokalemia/Hypomagnesemia/Hypophosphatemia: Likely secondary to GI loss and Diuretics, poor oral intake Replace and Monitor Normalized Grade II diastolic dysfunction No signs of exacerbation CXR without overt volume overload Torsemide held (on 10 mg once per week at home) for now Will resume as an OP Hypothyroidism Continue levothyroxine TSH:wnl PMR On chronic prednisone 5 mg daily GERD: Continue Ranitidine Anxiety: PRN Ativan CODE STATUS DNR/ DNI per patient and her daughter (DPOA) DISPOSITION Follows with Dr. Camp for primary care Continue to monitor in Tele Will benefit from Rehab-awaiting placement Total time spent on discharge = 35 minutes This includes examination of the patient, discharge planning, medication reconciliation, and communication with other providers. Discharge Instructions Date of Service Nov 07, 2016. Admission Reason for Admission: Hypotension, Pneumonia Discharge Discharge Diagnosis / Problem: Sepsis due to Aspiration Pneumonia,AF on Coumadin,SBO-resolved Discharge Goals Goal(s): Prevent Disease Progression Activity Recommendations Activity Level: Assistance Required Therapies: Physical Therapy, Occupational Therapy . Additional Information Patient informed of condition: Yes Advance Directives: No DNR: Yes Level of Care: Skilled Communicable Disease: No Prognosis: Stable Oxygen at (LPM): 2 liters via NC as needed Forte Catheter: No Instructions / Follow-Up Instructions / Follow-Up Dr Camp on 11/12/16 at 10:55AM Current Hospital Diet Patient's current hospital diet: Regular Diet Discharge Diet Recommended Diet: Regular Diet (Take precaution to prevent Aspiration) Fluid Restriction: 1500 ml (6 cups) Pending Studies Studies pending at discharge: no Medical Emergencies . Who to Call and When: Medical Emergencies: If at any time you feel your situation is an emergency, please call 911 immediately. . Non-Emergent Contact Non-Emergency issues call your: Primary Care Provider . Past History Medical & Surgical History: (1) Aspiration pneumonia (2) Hypothyroidism (3) Polymyalgia rheumatica (4) Atrial fibrillation (5) Chronic diastolic (congestive) heart failure (6) Status post right knee replacement (7) Status post cholecystectomy (8) Status post cataract extraction (9) Status post partial colectomy (10) Status post appendectomy . "Provider Documentation" section prepared by Jamilah Parisi. . Core Measure Problem Core Measures: None <Electronically signed by Jamilah Parisi M.D.> Additional Copies To Radha Camp,
[2016-11-13] MEDS ORDERED: METO1TAB66 PO (12:02)
== END 2016-11-07 16:32 | DRG 871 ==
LOC: C.EDB 09:47 → UNDOADMIN 12:15 → C.MED 12:15 → ENRESERV 12:51
PROVIDERS: ADMIT Internal Medicine; ATTEND Internal Medicine
DX: A41.9 Sepsis, unspecified organism (principal); I21.4 Non-ST elevation (NSTEMI) myocardial infarction; K56.60 Unspecified intestinal obstruction; N17.9 Acute kidney failure, unspecified; B37.0 Candidal stomatitis; Z66 Do not resuscitate; J69.0 Pneumonitis due to inhalation of food and vomit; I48.91 Unspecified atrial fibrillation; E03.9 Hypothyroidism, unspecified; H35.30 Unspecified macular degeneration; M81.0 Age-related osteoporosis without current pathological fracture; M35.3 Polymyalgia rheumatica; I95.9 Hypotension, unspecified; K52.9 Noninfective gastroenteritis and colitis, unspecified; D47.2 Monoclonal gammopathy; Z86.711 Personal history of pulmonary embolism; Z86.718 Personal history of other venous thrombosis and embolism; Z79.01 Long term (current) use of anticoagulants; Z90.49 Acquired absence of other specified parts of digestive tract; Z79.899 Other long term (current) drug therapy; Z80.3 Family history of malignant neoplasm of breast; Z82.49 Family history of ischemic heart disease and other diseases of the circulatory system; Z80.8 Family history of malignant neoplasm of other organs or systems

== ENCOUNTER 2016-11-10 11:47 | Inpatient (IN) | payer OTHER ==
[~2016-11-10] VITALS: Ht 167.6 cm; Wt 78.1 kg
[~2016-11-10 11:47] MED LIST changes: +AMOX1TAB43 PO; -AMOX875T PO; -B-COTAB18 PO; +B-COTAB53 PO; -CALC500C70 PO; +CALC600T9 PO; -CHOL1000 PO; +CHOL100010 PO; +CMD/25 PO; -CMD25 PO; -CMD5 PO; +FLUO10CA48 PO; -FLUO20CA35 PO; +LATA0.5S OPB; +LCTX PO; +METO1TAB66 PO; -METO50TA7 PO; -MULT-190 PO; +POLYSOL4 OP; -RANI150T2 PO; +RANI150T3 PO; +TORS10TA14 PO; -TORS20TA2 PO; +VNTHFA/IN INH
--- NOTE | 2016-11-10 12:23 | EMERGENCY ROOM VISIT NOTE ---
History Report prepared by Merna: Gisell Sparks Under the Supervision of: Dr. Burt Bose M.D. First contact with patient: 11:58 Chief Complaint: GI ASSESSMENT Stated Complaint: BOWEL OBSTRUCTION Nursing Triage Summary: Pt d/c from here three days ago with a SBO. N/V x 3 days, one small bm three days ago. Denies abd pain. History of Present Illness The patient is an 89 year old female who presents to the Emergency Room with complaints of persistent nausea and vomiting that began three days ago. Per nursing notes, the patient was recently discharged from the hospital after being diagnosed with a small bowel obstruction. Per the patient's daughter the patient began experiencing nausea and vomiting three days ago, describing the patient's emesis as bile and bowel movements. The patient states that she has not had a bowel movement in the past three days. The patient's daughter states that the patient's abdomen is distended. The patient denies any abdominal pain. She states that she took Zofran this morning after she began vomiting this morning. Source of History: patient, family (daughter), nursing staff Onset: three days ago Position: other (global) Quality: other (nausea and vomiting) Timing: other (persistent) Associated Symptoms: No abdominal pain Note: Associated Symptoms: abdominal distension, constipation. Review of Systems See HPI for pertinent positives & negatives. A total of 10 systems reviewed and were otherwise negative. Past Medical & Surgical Medical Problems: (1) Aspiration pneumonia (2) Atrial fibrillation (3) Chronic diastolic (congestive) heart failure (4) DVT (deep venous thrombosis) (5) History of pulmonary embolism (6) Hypothyroidism (7) Macular degeneration (8) Monoclonal gammopathy (9) Osteoarthritis (10) Osteoporosis (11) Polymyalgia rheumatica Surgical Problems: (1) Status post appendectomy (2) Status post cataract extraction (3) Status post cholecystectomy (4) Status post partial colectomy (5) Status post right knee replacement Family History Breast cancer SISTER Heart disease FATHER Skin cancer FATHER Suicide BROTHER Social History Smoking Status: Never Smoker Alcohol Use: none Drug Use: none Marital Status: single, Housing Status: lives with family Occupation Status: retired Current/Historical Medications Scheduled Amoxicillin & Pot Clavulanate (Amoxicillin/Clavulanate P), 875 MG PO BIDM B-Complex W/ Folic Acid (B Complex), 1 TAB PO DAILY Bimatoprost (Lumigan), 1 DROPS OPB HS Calcium Carbonate-Vitamin D (Calcium + D), 1 TAB PO DAILY Cholecalciferol (Vitamin D), 1,000 UNIT PO DAILY Difluprednate (Durezol), 1 DROP OPB BID Fluoxetine (Prozac), 10 MG PO DAILY Lactobacillus Acidophilus (Lactinex), 2 TAB PO BID Latanoprost (Xalatan 0.005% Oph Page), 1 DROPS OPB HS Levothyroxine Sodium (Levothyroxine Sodium), 125 MCG PO QAM Magnesium Oxide (Mag-Ox), 400 MG PO DAILY Metoprolol Succinate (Toprol Xl), 25 MG PO DAILY Potassium Chloride (Micro-K Ext Rel), 10 MEQ PO UD Prednisone (Prednisone), 5 MG PO DAILY Ranitidine Hcl (Zantac), 150 MG PO BID Warfarin Sod (Coumadin), 2.5 MG PO UD Scheduled PRN Acetaminophen (Tylenol), 650 MG PO DAILY PRN for Pain Albuterol Hfa (Ventolin Hfa), 2 PUFFS INH Q4H PRN for cough or wheezing Polyethylene Glycol-Propylene (Systane), 2 DROPS OP QID PRN for dry eyes Torsemide (Demadex), 10 MG PO WK PRN for SWELLING Allergies Coded Allergies: Alendronate (Verified Allergy, Unknown, 08/07/16) Physical Exam Vital Signs Date Time Temp Pulse Resp B/P (MAP) Pulse Ox O2 Delivery O2 Flow Rate FiO2 11/10/16 16:30 114 11/10/16 15:47 95 15 97 11/10/16 15:46 112/73 11/10/16 15:30 118/80 11/10/16 15:26 91/79 11/10/16 14:47 109 17 11/10/16 14:46 132/96 11/10/16 14:31 130/96 11/10/16 14:17 90 18 94 11/10/16 14:16 151/105 11/10/16 14:01 128/92 11/10/16 14:00 103 22 128/92 95 Room Air 11/10/16 13:47 93 18 96 11/10/16 13:46 134/100 11/10/16 13:31 130/98 11/10/16 13:30 101 22 130/98 93 Room Air 11/10/16 13:17 104 19 123/90 88 11/10/16 13:05 125 143/93 11/10/16 12:47 117 22 90 11/10/16 12:37 128 11/10/16 12:25 143/93 11/10/16 11:53 36.3 88 18 113/72 93 Room Air Physical Exam GENERAL: Patient is a healthy-appearing well-nourished female HEAD: Normocephalic atraumatic EYES: Ocular movements intact pupils equal and react to light OROPHARYNX mucous membranes are moist no exudates present no erythema or edema present NECK: Supple no nuchal rigidity CHEST: Good equal expansion LUNGS: Clear and equal to auscultation CARDIAC: Normal S1 and S2 ABDOMEN: Soft nontender no guarding BACK: No CVA tenderness EXTREMITIES: No pain upon palpation normal muscle strength in all groups no clubbing cyanosis or edema NEURO: Patient is following commands and answering questions appropriately. Alert and oriented x3 Cranial Nerves 2-12 grossly intact Medical Decision & Procedures ER Provider Diagnostic Interpretation: Radiology results as stated below per my review and radiologist interpretation: ABD/PELVIS IV AND ORAL CONT CLINICAL HISTORY: 89 years-old Female presenting with Pt c/o bowel obstruction, nausea and vomiting, constipation, no bowel movement for 3 days, history of cholecystectomy, appendectomy, and bowel resection. TECHNIQUE: Multidetector CT of the abdomen and pelvis was performed after the administration of intravenous contrast. IV contrast: 93 mL of Optiray 320. A dose lowering technique was used consistent with the principles of ALARA (as low as reasonably achievable). COMPARISON: 10/30/2016. CT DOSE (mGy.cm): The estimated cumulative dose is 429.30 mGy.cm. FINDINGS: Tentering Machine Off Bearer topogram: Cholecystectomy clips noted. Lung bases: Persistent although decreased multifocal patchy consolidation. Septal thickening noted. Interval development of moderate right and small left pleural effusions with associated extensive passive atelectasis. Biatrial enlargement of the heart. No pericardial effusion. Liver: The liver has somewhat of a nodular contour with relative hypertrophy of the left lobe, raising concern for cirrhosis. Focal lobular hypodensity in the inferior right hepatic lobe consistent with hepatic cyst or hamartoma. Patent hepatic vasculature. Biliary: Mild intrahepatic biliary ductal dilatation, which could be due to a reservoir effect in the post cholecystectomy state. No extrahepatic biliary ductal dilatation. Gallbladder surgically absent. Pancreas: Moderate parenchymal atrophy with less pronounced atrophy of the pancreatic head. Spleen: Normal. Adrenal glands: Normal. Kidneys and ureters: Previously noted hyperattenuating lesion in the anterior aspect of the interpolar region of the left kidney is again noted, indeterminate, and measuring 1.8 cm. No hydronephrosis. Nonvisualization of the previously seen nonobstructing 3 mm calculus at the lower pole the left kidney. Bladder: Incompletely evaluated secondary to underdistention. Pelvic organs: Uterus and right ovary normal. Left ovary not visualized. Bowel: Distal small bowel is decompressed. Subtotal colectomy noted with suspected enterocolonic anastomosis in the region of the rectosigmoid junction. Evaluation of the anastomosis is limited without oral contrast. Interval increase in more proximal small bowel distention, which measures up to 4.6 cm in diameter (previously 3.6 cm). Interval development of mesenteric edema. Evidence of a transition point in the superior pelvis (series 3 image 271). No pneumatosis or wall thickening at this time. Peritoneal cavity: Interval development of free fluid between the leaves of small bowel mesentery. Vasculature: Atherosclerosis of the normal caliber abdominal aorta. IVC patent. Lymph nodes: No enlarged lymph nodes in the abdomen or pelvis. Abdominal wall: Postsurgical changes along the midline in an from the local region. Musculoskeletal: Degenerative changes of the spine. IMPRESSION: 1. Interval worsening of small bowel obstruction with a transition point in the superior pelvis. Development of mesenteric edema and fluid between the leaves of small bowel mesentery are concerning for developing vascular compromise. No pneumatosis or wall thickening at this time. 2. 1.8 cm indeterminate left renal lesion, which could represent a hemorrhagic or proteinaceous cyst, although solid neoplasm cannot be excluded on this single phase examination. 3. Interval decrease in multifocal pulmonary opacities, consistent with evolving pneumonia. Electronically signed by: Saad Campos M.D. 11/10/2016 3:34 PM Dictated Date/Time: 11/10/2016 3:22 PM CHEST ONE VIEW PORTABLE CLINICAL HISTORY: 89 years-old Female presenting with Pt c/o N V. TECHNIQUE: Portable upright AP view of the chest was obtained. COMPARISON: 11/03/2016. FINDINGS: Atherosclerosis of the aortic arch. Slight decreased prominence of the mildly enlarged cardiac silhouette. Bronchial wall thickening is again noted. Prominence of the right hilum and pulmonary vasculature. Interval decrease in bilateral mid to basilar lung opacities. Persistent consolidation is most notable at the right lung base. Small right pleural effusion. No pneumothorax. Prominent ossific fragments noted inferior to the right humeral head, likely loose bodies within the axillary pouch. Apparent lucent region in the left humeral head measuring over 3 cm unchanged from prior. However, CT from 05/07/2016 does not reveal such an abnormality. Upper abdomen normal. IMPRESSION: 1. Interval decrease in bibasilar opacities, compatible with evolving multifocal pneumonia. 2. Small right pleural effusion. 3. Prominence of the right hilum could relate to lymphadenopathy or pulmonary vascular prominence. 4. Apparent lucent lesion in the right humeral head, not apparent on CT from 05/07/2016. This may be projectional, although this does raise concern for a lytic lesion. Dedicated radiographs of the left humerus could be considered. Electronically signed by: Saad Campos M.D. 11/10/2016 1:09 PM Dictated Date/Time: 11/10/2016 1:04 PM Laboratory Results 11/10/16 12:13 Red Blood Count 3.87, Mean Corpuscular Volume 99.7, Mean Corpuscular Hemoglobin 34.6, Mean Corpuscular Hemoglobin Concent 34.7, Mean Platelet Volume 9.2, Neutrophils (%) (Auto) 77.6, Lymphocytes (%) (Auto) 12.2, Monocytes (%) (Auto) 8.6, Eosinophils (%) (Auto) 0.7, Basophils (%) (Auto) 0.3, Neutrophils # (Auto) 9.17, Lymphocytes # (Auto) 1.44, Monocytes # (Auto) 1.02, Eosinophils # (Auto) 0.08, Basophils # (Auto) 0.03 11/10/16 12:13 Test 11/10/16 12:13 11/10/16 12:15 11/10/16 12:36 White Blood Count 11.81 K/uL (4.8-10.8) Red Blood Count 3.87 M/uL (4.2-5.4) Hemoglobin 13.4 g/dL (12.0-16.0) Hematocrit 38.6 % (37-47) Mean Corpuscular Volume 99.7 fL (80-100) Mean Corpuscular Hemoglobin 34.6 pg (25-34) Mean Corpuscular Hemoglobin Concent 34.7 g/dl (32-36) Platelet Count 392 K/uL (130-400) Mean Platelet Volume 9.2 fL (7.4-10.4) Neutrophils (%) (Auto) 77.6 % Lymphocytes (%) (Auto) 12.2 % Monocytes (%) (Auto) 8.6 % Eosinophils (%) (Auto) 0.7 % Basophils (%) (Auto) 0.3 % Neutrophils # (Auto) 9.17 K/uL (1.4-6.5) Lymphocytes # (Auto) 1.44 K/uL (1.2-3.4) Monocytes # (Auto) 1.02 K/uL (0.11-0.59) Eosinophils # (Auto) 0.08 K/uL (0-0.5) Basophils # (Auto) 0.03 K/uL (0-0.2) RDW Standard Deviation 51.0 fL (36.4-46.3) RDW Coefficient of Variation 14.4 % (11.5-14.5) Immature Granulocyte % (Auto) 0.6 % Immature Granulocyte # (Auto) 0.07 K/uL (0.00-0.02) Anion Gap 7.0 mmol/L (3-11) Estimated GFR () 81.9 Estimated GFR (Non- 70.7 BUN/Creatinine Ratio 20.4 (10-20) Calcium Level 8.8 mg/dl (8.5-10.1) Total Bilirubin 1.1 mg/dl (0.2-1) Direct Bilirubin 0.4 mg/dl (0-0.2) Aspartate Amino Transf (AST/SGOT) 19 U/L (15-37) Alanine Aminotransferase (ALT/SGPT) 14 U/L (12-78) Alkaline Phosphatase 79 U/L (45-117) Total Creatine Kinase 21 U/L (26-192) Creatine Kinase MB 1.0 ng/ml (0.5-3.6) Troponin I < 0.015 ng/ml (0-0.045) Total Protein 7.1 gm/dl (6.4-8.2) Albumin 2.3 gm/dl (3.4-5.0) Lipase 2518 U/L (73-393) Creatine Kinase MB Ratio (0-3.0) Prothrombin Time 76.7 SECONDS (9.0-12.0) Prothromb Time International Ratio 6.6 (0.9-1.1) Labs reviewed by ED physician. Medications Administered Medications (Trade) Dose Ordered Sig/Mike Route Start Time Stop Time Status Last Admin Dose Admin Metoprolol Tartrate (Lopressor Iv) 15 mg NOW STAT IV 11/10/16 12:45 11/10/16 12:46 DC 11/10/16 13:05 15 MG Metoclopramide HCl (Reglan Inj) 10 mg NOW STAT IV 11/10/16 12:45 11/10/16 12:46 DC 11/10/16 13:05 10 MG Ondansetron HCl (Zofran Inj) 4 mg NOW STAT IV 11/10/16 14:00 11/10/16 14:02 DC 11/10/16 14:07 4 MG Hydromorphone HCl (Dilaudid Inj) 0.5 mg NOW STAT IV 11/10/16 14:57 11/10/16 14:58 DC 11/10/16 15:27 0.5 MG Sodium Chloride 500 ml @ 999 mls/hr Q31M STAT IV 11/10/16 14:57 11/10/16 15:27 DC 11/10/16 15:26 999 MLS/HR ECG Indication: vomiting Rate (beats per minute): 130 Rhythm: atrial fibrillation Findings: no acute ischemic change, other (with RVR) ED Course 1212: Past medical records reviewed. The patient was evaluated in room A10. A complete history and physical examination was performed. 1245: Ordered Reglan Inj 10 mg IV, Lopressor IV 15 mg IV. 1253: I reevaluated the patient and she is resting comfortably. 1400: Ordered Zofran Inj 4 mg IV. 1457: Ordered Sodium Chloride 500 ml @ 999 mls/hr IV, Dilaudid Inj 0.5 mg IV. 1552: I reevaluated the patient and she is resting. I discussed the exam findings with her and her family and I discussed the treatment plan. She verbalized complete understanding and agreement. She is going to be evaluated for further treatment. 1601: I discussed the patients case with Romeo Patrick. He is going to evaluate the patient for further treatment. Medical Decision Differential diagnosis: Etiologies such as appendicitis, diverticulitis, PUD, biliary pathology, UTI, pancreatitis, obstruction, mesenteric ischemia, aortic pathology, infections, inflammatory bowel disease, renal colic, as well as others were entertained. This is an 89-year-old female who presents emergency department complaining of abdominal pain and vomiting. Patient has a history of small bowel obstruction. She is also in A. fib with RVR therefore the patient was given Lopressor in the emergency department. Her CAT scan is concerning for a progressive small bowel obstruction and I believe is now causing her pancreatitis on a reactive basis. An NG tube was placed. I lengthy discussion with the patient's family about what they wanted for the patient. They are refusing surgery and wished the patient to be a DO NOT RESUSCITATE. They also asked to talk with case management about taking the patient home on hospice however they have asked for admission temporarily. This I did discuss the case with the hospitalist who agreed to admit the patient. Patient and family were in agreement with the treatment plan. Medication Reconcilliation Current Medication List: was personally reviewed by me Blood Pressure Screening Patient's blood pressure: Elevated blood pressure Blood pressure disposition: Referred to PCP Consults Time Called: 1558 Consulting Physician: Romeo Patrick Returned Call: 1601 I discussed the patients case with Romeo Patrick. He is going to evaluate the patient for further treatment. Impression Primary Impression: Small bowel obstruction Critical Care I have personally spent greater than 30 minutes of critical care time in the direct management of this patient. This includes bedside care, interpretation of diagnostic studies, and testing, discussion with consultants, patient, and family members, and other required patient management activities. This 30 minutes is in excess of all separately billable procedures. Scribe Attestation The scribe's documentation has been prepared under my direction and personally reviewed by me in its entirety. I confirm that the note above accurately reflects all work, treatment, procedures, and medical decision making performed by me. Departure Information Dispostion Being Evaluated By Hospitalist Referrals Radha Camp DO (PCP)
[2016-11-10 12:29] LABS: HEMATOCRIT 38.6 % (37-47); MEAN CELL VOLUME 99.7 fL (80-100); MEAN CORPUSCULAR HEMOGLOBIN 34.6 pg (25-34); MEAN CORPUSCULAR HGB CONC 34.7 g/dl (32-36); MEAN PLATELET VOLUME 9.2 fL (7.4-10.4); PLATELET COUNT 392 K/uL (130-400); RED BLOOD COUNT 3.87 M/uL (4.2-5.4); WHITE BLOOD COUNT 11.81 K/uL (4.8-10.8)
[2016-11-10] MEDS ORDERED: OPTIRAY 320 IV PRN (12:30)
[2016-11-10] MEDS ORDERED: METOCLOPRAMIDE HCL INJ 5 MG/ML 2 ML VIAL IV STA (12:45)
[2016-11-10] MEDS ORDERED: METOPROLOL TARTRATE 1 MG/ML VIAL IV STA (12:45)
[2016-11-10 12:46] LABS: BASO % 0.3 %; BASO ABS # 0.03 K/uL (0-0.2); COMPLETE YES; EOS % 0.7 %; IG% 0.6 %; LYMPH % 12.2 %; LYMPH ABS # 1.44 K/uL (1.2-3.4); MONO % 8.6 %; NEUT % 77.6 %
[2016-11-10 12:49] LABS: ALT/SGPT 14 U/L (12-78); AST/SGOT 19 U/L (15-37); BLOOD UREA NITROGEN 15 mg/dl (7-18); BUN/CREATININE RATIO 20.4 (10-20); CALCIUM 8.8 mg/dl (8.5-10.1); CARBON DIOXIDE 33 mmol/L (21-32); CHLORIDE 95 mmol/L (98-107); CREATININE 0.75 mg/dl (0.60-1.20); GLUCOSE 79 mg/dl (70-99); POTASSIUM 3.5 mmol/L (3.5-5.1); SODIUM 135 mmol/L (136-145)
[2016-11-10 12:54] LABS: ALKALINE PHOSPHATASE 79 U/L (45-117); CKMB/CK RATIO 4.8 (0-3.0)
[2016-11-10 13:07] LABS: PROTHROMBIN TIME (PATIENT) 76.7 SECONDS (9.0-12.0)
--- NOTE | 2016-11-10 13:10 | DIAGNOSTIC IMAGING REPORT ---
CHEST ONE VIEW PORTABLE CLINICAL HISTORY: 89 years-old Female presenting with Pt c/o N V. TECHNIQUE: Portable upright AP view of the chest was obtained. COMPARISON: 11/03/2016. FINDINGS: Atherosclerosis of the aortic arch. Slight decreased prominence of the mildly enlarged cardiac silhouette. Bronchial wall thickening is again noted. Prominence of the right hilum and pulmonary vasculature. Interval decrease in bilateral mid to basilar lung opacities. Persistent consolidation is most notable at the right lung base. Small right pleural effusion. No pneumothorax. Prominent ossific fragments noted inferior to the right humeral head, likely loose bodies within the axillary pouch. Apparent lucent region in the left humeral head measuring over 3 cm unchanged from prior. However, CT from 05/07/2016 does not reveal such an abnormality. Upper abdomen normal. IMPRESSION: 1. Interval decrease in bibasilar opacities, compatible with evolving multifocal pneumonia. 2. Small right pleural effusion. 3. Prominence of the right hilum could relate to lymphadenopathy or pulmonary vascular prominence. 4. Apparent lucent lesion in the right humeral head, not apparent on CT from 05/07/2016. This may be projectional, although this does raise concern for a lytic lesion. Dedicated radiographs of the left humerus could be considered. Electronically signed by: Saad Campos M.D. 11/10/2016 1:09 PM Dictated Date/Time: 11/10/2016 1:04 PM
[2016-11-10 13:14] LABS: INR 6.6 (0.9-1.1)
[2016-11-10] MEDS ORDERED: ONDANSETRON INJ 2 MG/ML 2 ML VIAL IV STA (14:00)
[2016-11-10] MEDS ORDERED: HYDROmorphone INJ 0.5 MG/0.5 ML SYR IV STA (14:57)
[2016-11-10] MEDS ORDERED: SODIUM CHLORIDE 0.9% 500ML 500 ML IV STA (14:57)
--- NOTE | 2016-11-10 15:36 | DIAGNOSTIC IMAGING REPORT ---
ABD/PELVIS IV AND ORAL CONT CLINICAL HISTORY: 89 years-old Female presenting with Pt c/o bowel obstruction, nausea and vomiting, constipation, no bowel movement for 3 days, history of cholecystectomy, appendectomy, and bowel resection. TECHNIQUE: Multidetector CT of the abdomen and pelvis was performed after the administration of intravenous contrast. IV contrast: 93 mL of Optiray 320. A dose lowering technique was used consistent with the principles of ALARA (as low as reasonably achievable). COMPARISON: 10/30/2016. CT DOSE (mGy.cm): The estimated cumulative dose is 429.30 mGy.cm. FINDINGS: Pharmacy Specialist topogram: Cholecystectomy clips noted. Lung bases: Persistent although decreased multifocal patchy consolidation. Septal thickening noted. Interval development of moderate right and small left pleural effusions with associated extensive passive atelectasis. Biatrial enlargement of the heart. No pericardial effusion. Liver: The liver has somewhat of a nodular contour with relative hypertrophy of the left lobe, raising concern for cirrhosis. Focal lobular hypodensity in the inferior right hepatic lobe consistent with hepatic cyst or hamartoma. Patent hepatic vasculature. Biliary: Mild intrahepatic biliary ductal dilatation, which could be due to a reservoir effect in the post cholecystectomy state. No extrahepatic biliary ductal dilatation. Gallbladder surgically absent. Pancreas: Moderate parenchymal atrophy with less pronounced atrophy of the pancreatic head. Spleen: Normal. Adrenal glands: Normal. Kidneys and ureters: Previously noted hyperattenuating lesion in the anterior aspect of the interpolar region of the left kidney is again noted, indeterminate, and measuring 1.8 cm. No hydronephrosis. Nonvisualization of the previously seen nonobstructing 3 mm calculus at the lower pole the left kidney. Bladder: Incompletely evaluated secondary to underdistention. Pelvic organs: Uterus and right ovary normal. Left ovary not visualized. Bowel: Distal small bowel is decompressed. Subtotal colectomy noted with suspected enterocolonic anastomosis in the region of the rectosigmoid junction. Evaluation of the anastomosis is limited without oral contrast. Interval increase in more proximal small bowel distention, which measures up to 4.6 cm in diameter (previously 3.6 cm). Interval development of mesenteric edema. Evidence of a transition point in the superior pelvis (series 3 image 271). No pneumatosis or wall thickening at this time. Peritoneal cavity: Interval development of free fluid between the leaves of small bowel mesentery. Vasculature: Atherosclerosis of the normal caliber abdominal aorta. IVC patent. Lymph nodes: No enlarged lymph nodes in the abdomen or pelvis. Abdominal wall: Postsurgical changes along the midline in an from the local region. Musculoskeletal: Degenerative changes of the spine. IMPRESSION: 1. Interval worsening of small bowel obstruction with a transition point in the superior pelvis. Development of mesenteric edema and fluid between the leaves of small bowel mesentery are concerning for developing vascular compromise. No pneumatosis or wall thickening at this time. 2. 1.8 cm indeterminate left renal lesion, which could represent a hemorrhagic or proteinaceous cyst, although solid neoplasm cannot be excluded on this single phase examination. 3. Interval decrease in multifocal pulmonary opacities, consistent with evolving pneumonia. Electronically signed by: Saad Campos M.D. 11/10/2016 3:34 PM Dictated Date/Time: 11/10/2016 3:22 PM
[2016-11-10] MEDS ORDERED: ALBUTEROL HFA 8 GM INHALER INH PRN (17:15)
--- NOTE | 2016-11-10 17:39 | History and Physical ---
History & Physical Date & Time of Service: Nov 10, 2016 at 17:32 Chief Complaint: Bowel Obstruction Primary Care Physician: Radha Camp, History of Present Illness This is a 89 year old F with history significant for small bowel obstruction. She was treated last time at [facility] with symptoms improve after NG tube. [facility] then [facility] to [facility]. She returns with abdominal pain and found to have interval worsening of small bowel obstruction with a transition point in the superior pelvis. Patient and her daughter/next of kin, Gsiell Ya [phone] in discussion with ED physician and hospitalist medical provider that the patient does not want surgical intervention for small bowel obstruction. Code status is Do Not Resuscitate. Patient is also reluctant about allowing medical providers to start IV antibiotics. She did have pneumonia on last admission concerning for aspiration pneumonia and there are lower lobular pleural effusions possible suggestive of pneumonia and WBC elevated to 11, 000 however patient has been afebrile. However patient is agreeable to NG placement to decompress bowels . She is also allowing for surgical consultation to evaluate her if she changes her mind about surgery. She allows providers to draw blood. Abnormal labs on findings include serotherapeutic INR 6.6. Patient has been on coumadin for atrial fibrillation but INR could be elevated due to SBO compressing on liver. Vitamin K 10 mg IV ordered. She is tachycardic on exam with irregular rhythm likely exacerbated by abdominal distention and pain. Labs also elevated lipase of 2500 likely due to SBO vs pancreatitis from infectious source. Past Medical/Surgical History Medical Problems: (1) Atrial fibrillation Status: Chronic (2) Chronic diastolic (congestive) heart failure Status: Chronic (3) DVT (deep venous thrombosis) Status: Chronic (4) History of pulmonary embolism Status: Chronic (5) Hypothyroidism Status: Chronic (6) Macular degeneration Status: Chronic (7) Monoclonal gammopathy Status: Chronic (8) Osteoarthritis Status: Chronic (9) Osteoporosis Status: Chronic (10) Polymyalgia rheumatica Status: Chronic Surgical Problems: (1) Status post appendectomy Status: Chronic (2) Status post cataract extraction Status: Chronic (3) Status post cholecystectomy Status: Chronic (4) Status post partial colectomy Permanent Comment: 2000 [facility] diverticulitis with perforation Status: Chronic (5) Status post right knee replacement Status: Chronic Family History Breast cancer SISTER Heart disease FATHER Skin cancer FATHER Suicide BROTHER Social History Smoking Status: Never Smoker Drug Use: none Marital Status: single, Housing status: lives alone Occupational Status: retired Immunizations History of Influenza Vaccine: Yes Influenza Vaccine Date: Feb 03, 2016 History of Tetanus Vaccine?: Yes Tetanus Immunization Date: Jan 11, 2014 History of Pneumococcal: Yes Pneumococcal Date: Apr 27, 2014 Multi-Drug Resistant Organisms History of MDRO: Yes Type of MDRO: MRSA Allergies Coded Allergies: Alendronate (Verified Allergy, Unknown, 08/07/16) Home Medications Scheduled Amoxicillin & Pot Clavulanate (Amoxicillin/Clavulanate P), 875 MG PO BIDM B-Complex W/ Folic Acid (B Complex), 1 TAB PO DAILY Bimatoprost (Lumigan), 1 DROPS OPB HS Calcium Carbonate-Vitamin D (Calcium + D), 1 TAB PO DAILY Cholecalciferol (Vitamin D), 1,000 UNIT PO DAILY Difluprednate (Durezol), 1 DROP OPB BID Fluoxetine (Prozac), 10 MG PO DAILY Lactobacillus Acidophilus (Lactinex), 2 TAB PO BID Latanoprost (Xalatan 0.005% Oph Page), 1 DROPS OPB HS Levothyroxine Sodium (Levothyroxine Sodium), 125 MCG PO QAM Magnesium Oxide (Mag-Ox), 400 MG PO DAILY Metoprolol Succinate (Toprol Xl), 25 MG PO DAILY Potassium Chloride (Micro-K Ext Rel), 10 MEQ PO UD Prednisone (Prednisone), 5 MG PO DAILY Ranitidine Hcl (Zantac), 150 MG PO BID Warfarin Sod (Coumadin), 2.5 MG PO UD Scheduled PRN Acetaminophen (Tylenol), 650 MG PO DAILY PRN for Pain Albuterol Hfa (Ventolin Hfa), 2 PUFFS INH Q4H PRN for cough or wheezing Polyethylene Glycol-Propylene (Systane), 2 DROPS OP QID PRN for dry eyes Torsemide (Demadex), 10 MG PO WK PRN for SWELLING Review of Systems Constitutional: No fever Eyes: No eye pain ENT: No sore throat Respiratory: No cough, No wheezing, No shortness of breath, No dyspnea on exertion, No dyspnea at rest Cardiovascular: + edema (lower extremities), No chest pain, No palpitations Abdomen: + pain, + problem reported, No vomiting Genitourinary - Female: No dysuria Neurologic: No numbness/tingling Psychiatric: No depression symptoms Endocrine: No excessive thirst Hematologic / Lymphatic: No abnormal bleeding/bruising Integumentary: No rash, No itch Physical Exam Vital Signs Date Time Temp Pulse Resp B/P (MAP) Pulse Ox O2 Delivery O2 Flow Rate FiO2 11/10/16 16:30 114 11/10/16 15:47 95 15 97 11/10/16 15:46 112/73 11/10/16 15:30 118/80 11/10/16 15:26 91/79 11/10/16 14:47 109 17 11/10/16 14:46 132/96 11/10/16 14:31 130/96 11/10/16 14:17 90 18 94 11/10/16 14:16 151/105 11/10/16 14:01 128/92 11/10/16 14:00 103 22 128/92 95 Room Air 11/10/16 13:47 93 18 96 11/10/16 13:46 134/100 11/10/16 13:31 130/98 11/10/16 13:30 101 22 130/98 93 Room Air 11/10/16 13:17 104 19 123/90 88 11/10/16 13:05 125 143/93 11/10/16 12:47 117 22 90 11/10/16 12:37 128 11/10/16 12:25 143/93 11/10/16 11:53 36.3 88 18 113/72 93 Room Air General Appearance: + mild distress Head: normocephalic, atraumatic Eyes: normal inspection, EOMI, sclerae normal ENT: hearing grossly normal, pharynx normal Neck: supple, no JVD Respiratory/Chest: chest non-tender, lungs clear, normal breath sounds, no respiratory distress, no accessory muscle use Cardiovascular: + tachycardia, + irregularly irregular Abdomen/GI: + abnormal bowel sounds (hypoactive bowel sounds), + distended Back: normal inspection, no CVA tenderness, no muscle spasm Extremities/Musculoskelatal: normal inspection, no calf tenderness, normal capillary refill, + pedal edema Neurologic/Psych: alert, normal mood/affect, oriented x 3 Skin: normal color, warm/dry, no rash Diagnostics Laboratory Results Results Past 24 Hours Test 11/10/16 12:13 11/10/16 12:15 11/10/16 12:36 Range/Units White Blood Count 11.81 4.8-10.8 K/uL Red Blood Count 3.87 4.2-5.4 M/uL Hemoglobin 13.4 12.0-16.0 g/dL Hematocrit 38.6 37-47 % Mean Corpuscular Volume 99.7 80-100 fL Mean Corpuscular Hemoglobin 34.6 25-34 pg Mean Corpuscular Hemoglobin Concent 34.7 32-36 g/dl Platelet Count 392 130-400 K/uL Mean Platelet Volume 9.2 7.4-10.4 fL Neutrophils (%) (Auto) 77.6 % Lymphocytes (%) (Auto) 12.2 % Monocytes (%) (Auto) 8.6 % Eosinophils (%) (Auto) 0.7 % Basophils (%) (Auto) 0.3 % Neutrophils # (Auto) 9.17 1.4-6.5 K/uL Lymphocytes # (Auto) 1.44 1.2-3.4 K/uL Monocytes # (Auto) 1.02 0.11-0.59 K/uL Eosinophils # (Auto) 0.08 0-0.5 K/uL Basophils # (Auto) 0.03 0-0.2 K/uL RDW Standard Deviation 51.0 36.4-46.3 fL RDW Coefficient of Variation 14.4 11.5-14.5 % Immature Granulocyte % (Auto) 0.6 % Immature Granulocyte # (Auto) 0.07 0.00-0.02 K/uL Sodium Level 135 136-145 mmol/L Potassium Level 3.5 3.5-5.1 mmol/L Chloride Level 95 98-107 mmol/L Carbon Dioxide Level 33 21-32 mmol/L Anion Gap 7.0 3-11 mmol/L Blood Urea Nitrogen 15 7-18 mg/dl Creatinine 0.75 0.60-1.20 mg/dl Estimated GFR () 81.9 Estimated GFR (Non- 70.7 BUN/Creatinine Ratio 20.4 10-20 Random Glucose 79 70-99 mg/dl Calcium Level 8.8 8.5-10.1 mg/dl Total Bilirubin 1.1 0.2-1 mg/dl Direct Bilirubin 0.4 0-0.2 mg/dl Aspartate Amino Transf (AST/SGOT) 19 15-37 U/L Alanine Aminotransferase (ALT/SGPT) 14 12-78 U/L Alkaline Phosphatase 79 45-117 U/L Total Creatine Kinase 21 26-192 U/L Creatine Kinase MB 1.0 0.5-3.6 ng/ml Creatine Kinase MB Ratio 4.8 0-3.0 Troponin I < 0.015 0-0.045 ng/ml Total Protein 7.1 6.4-8.2 gm/dl Albumin 2.3 3.4-5.0 gm/dl Lipase 2518 73-393 U/L Prothrombin Time 76.7 9.0-12.0 SECONDS Prothromb Time International Ratio 6.6 0.9-1.1 Diagnostic Radiology Complete Imaging reports with radiology findings and radiology interpretations on 11/10/2016 --- CHEST ONE VIEW PORTABLE CLINICAL HISTORY: 89 years-old Female presenting with Pt c/o N V. TECHNIQUE: Portable upright AP view of the chest was obtained. COMPARISON: 11/03/2016. FINDINGS: Atherosclerosis of the aortic arch. Slight decreased prominence of the mildly enlarged cardiac silhouette. Bronchial wall thickening is again noted. Prominence of the right hilum and pulmonary vasculature. Interval decrease in bilateral mid to basilar lung opacities. Persistent consolidation is most notable at the right lung base. Small right pleural effusion. No pneumothorax. Prominent ossific fragments noted inferior to the right humeral head, likely loose bodies within the axillary pouch. Apparent lucent region in the left humeral head measuring over 3 cm unchanged from prior. However, CT from 05/07/2016 does not reveal such an abnormality. Upper abdomen normal. IMPRESSION: 1. Interval decrease in bibasilar opacities, compatible with evolving multifocal pneumonia. 2. Small right pleural effusion. 3. Prominence of the right hilum could relate to lymphadenopathy or pulmonary vascular prominence. 4. Apparent lucent lesion in the right humeral head, not apparent on CT from 05/07/2016. This may be projectional, although this does raise concern for a lytic lesion. Dedicated radiographs of the left humerus could be considered. ------- ABD/PELVIS IV AND ORAL CONT CLINICAL HISTORY: 89 years-old Female presenting with Pt c/o bowel obstruction, nausea and vomiting, constipation, no bowel movement for 3 days, history of cholecystectomy, appendectomy, and bowel resection. TECHNIQUE: Multidetector CT of the abdomen and pelvis was performed after the administration of intravenous contrast. IV contrast: 93 mL of Optiray 320. A dose lowering technique was used consistent with the principles of ALARA (as low as reasonably achievable). COMPARISON: 10/30/2016. CT DOSE (mGy.cm): The estimated cumulative dose is 429.30 mGy.cm. 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 Lung bases: Persistent although decreased multifocal patchy consolidation. Septal thickening noted. Interval development of moderate right and small left pleural effusions with associated extensive passive atelectasis. Biatrial enlargement of the heart. No pericardial effusion. Liver: The liver has somewhat of a nodular contour with relative hypertrophy of the left lobe, raising concern for cirrhosis. Focal lobular hypodensity in the inferior right hepatic lobe consistent with hepatic cyst or hamartoma. Patent hepatic vasculature. Biliary: Mild intrahepatic biliary ductal dilatation, which could be due to a reservoir effect in the post cholecystectomy state. No extrahepatic biliary ductal dilatation. Gallbladder surgically absent. Pancreas: Moderate parenchymal atrophy with less pronounced atrophy of the pancreatic head. Spleen: Normal. Adrenal glands: Normal. Kidneys and ureters: Previously noted hyperattenuating lesion in the anterior aspect of the interpolar region of the left kidney is again noted, indeterminate, and measuring 1.8 cm. No hydronephrosis. Nonvisualization of the previously seen nonobstructing 3 mm calculus at the lower pole the left kidney. Bladder: Incompletely evaluated secondary to underdistention. Pelvic organs: Uterus and right ovary normal. Left ovary not visualized. Bowel: Distal small bowel is decompressed. Subtotal colectomy noted with suspected enterocolonic anastomosis in the region of the rectosigmoid junction. Evaluation of the anastomosis is limited without oral contrast. Interval increase in more proximal small bowel distention, which measures up to 4.6 cm in diameter (previously 3.6 cm). Interval development of mesenteric edema. Evidence of a transition point in the superior pelvis (series 3 image 271). No pneumatosis or wall thickening at this time. Peritoneal cavity: Interval development of free fluid between the leaves of small bowel mesentery. Vasculature: Atherosclerosis of the normal caliber abdominal aorta. IVC patent. Lymph nodes: No enlarged lymph nodes in the abdomen or pelvis. Abdominal wall: Postsurgical changes along the midline in an from the local region. Musculoskeletal: Degenerative changes of the spine. IMPRESSION: 1. Interval worsening of small bowel obstruction with a transition point in the superior pelvis. Development of mesenteric edema and fluid between the leaves of small bowel mesentery are concerning for developing vascular compromise. No pneumatosis or wall thickening at this time. 2. 1.8 cm indeterminate left renal lesion, which could represent a hemorrhagic or proteinaceous cyst, although solid neoplasm cannot be excluded on this single phase examination. 3. Interval decrease in multifocal pulmonary opacities, consistent with evolving pneumonia. EKG afib with RVR 130 beats per minute Impression Assessment and Plan This is a 89 year old F with history significant for small bowel obstruction with worsening SBO and so far has declined surgical intervention SBO -decompress bowels with NG tube -consult surgery to follow with the case in case patient changes her mind and decides to have surgical intervention -bowel regimen to avoid ileus from narcotic pain medications -elevated INR and lipase levels may be from SBO compression versus coumadin overdose or pancreatitis from infectious source Atrial Fibrillation with RVR -supratherapeutic INR 6.6, give Vitamin K IV 10 mg, hold coumadin -beta panda with metoprolol -pain medications Respiratory -hold IV antibiotics unless patient agrees -possible pneumonia vs pleural effusion -continue oxygen -medications to decrease secretions prn if needed DNR and Comfort Measures -hold IV antibiotics unless patient agrees, however she is afrebrile and leukocytosis beyond normal range of reference labs is mildly elevated -patient allows for blood draws if needed -jones Ya [phone] planning to seek for the patient hospice care -contact palliative trained medical providers Resuscitation Status DO NOT RESUSCITATE VTE Prophylaxis VTE Risk Assessment Done? Y/N: Yes Risk Level: Moderate
[2016-11-10] MEDS ORDERED: PHYTONADIONE INJ 10 MG in SODIUM CHLORIDE 0.9% 50ML 50 ML IV ONE (17:45)
[2016-11-10 18:41] VITALS: BP 121/87; PULSE 98; TEMP 36.5; O2SAT 91; Ht 167.6 cm; Wt 78.1 kg
[2016-11-10] MEDS ORDERED: DIFLUPREDNATE OPB SCH (20:00)
--- NOTE | 2016-11-10 20:15 | Surgery Consultation ---
Consultation Date of Consultation: Nov 10, 2016. Attending Physician: Michael Campbell MD History of Present Illness Ariela Rodriguez is an 89 year old woman with A fib, CHF, Hx of DVT and PE, Hypothyroidism, OA, Osteoporosis, PMR, monoclonal gammopathy who was recently admitted with a bowel obstruction, managed non operatively. She was admitted again today with 3 days of nausea and vomiting, and thinks she hasn't had a BM in about a week. Patient states she is not having any pain. Nausea has improved with NGT placement; thick / bilious green output noted from the NGT. She has a history of partial colectomy with primary anastomosis. Patient states that she does not want surgery. She has been discussing options with palliative medicine. Past Medical/Surgical History Medical Problems: (1) Aspiration pneumonia (2) Atrial fibrillation (3) Chronic diastolic (congestive) heart failure (4) DVT (deep venous thrombosis) (5) History of pulmonary embolism (6) Hypothyroidism (7) Macular degeneration (8) Monoclonal gammopathy (9) Osteoarthritis (10) Osteoporosis (11) Polymyalgia rheumatica Surgical Problems: (1) Status post appendectomy (2) Status post cataract extraction (3) Status post cholecystectomy (4) Status post partial colectomy (5) Status post right knee replacement Family History Breast cancer SISTER Heart disease FATHER Skin cancer FATHER Suicide BROTHER Social History Smoking Status: Never Smoker Drug Use: none Marital Status: single, Housing Status: lives with family Occupation Status: retired Allergies Coded Allergies: Alendronate (Verified Allergy, Unknown, 08/07/16) Home Medications Scheduled Amoxicillin & Pot Clavulanate (Amoxicillin/Clavulanate P), 875 MG PO BIDM B-Complex W/ Folic Acid (B Complex), 1 TAB PO DAILY Bimatoprost (Lumigan), 1 DROPS OPB HS Calcium Carbonate-Vitamin D (Calcium + D), 1 TAB PO DAILY Cholecalciferol (Vitamin D), 1,000 UNIT PO DAILY Difluprednate (Durezol), 1 DROP OPB BID Fluoxetine (Prozac), 10 MG PO DAILY Lactobacillus Acidophilus (Lactinex), 2 TAB PO BID Latanoprost (Xalatan 0.005% Oph Page), 1 DROPS OPB HS Levothyroxine Sodium (Levothyroxine Sodium), 125 MCG PO QAM Magnesium Oxide (Mag-Ox), 400 MG PO DAILY Metoprolol Succinate (Toprol Xl), 25 MG PO DAILY Potassium Chloride (Micro-K Ext Rel), 10 MEQ PO UD Prednisone (Prednisone), 5 MG PO DAILY Ranitidine Hcl (Zantac), 150 MG PO BID Warfarin Sod (Coumadin), 2.5 MG PO UD Scheduled PRN Acetaminophen (Tylenol), 650 MG PO DAILY PRN for Pain Albuterol Hfa (Ventolin Hfa), 2 PUFFS INH Q4H PRN for cough or wheezing Polyethylene Glycol-Propylene (Systane), 2 DROPS OP QID PRN for dry eyes Torsemide (Demadex), 10 MG PO WK PRN for SWELLING Current Inpatient Medications Current Inpatient Medications Medications (Trade) Dose Ordered Sig/Mike Route Start Time Stop Time Status Last Admin Dose Admin Ioversol (Optiray 320) 100 ml UD PRN IV 11/10/16 12:30 11/14/16 12:29 Albuterol (Ventolin Hfa Inhaler) 2 puffs Q4H PRN INH 11/10/16 17:15 12/10/16 17:14 Latanoprost (Xalatan Oph Soln) 1 drops HS OPB 11/10/16 21:00 12/10/16 20:59 Metoprolol Succinate (Toprol Xl Tab) 25 mg DAILY PO 11/11/16 08:00 12/11/16 08:59 Bimatoprost (Lumigan 0.01%) 1 drops HS OPB 11/10/16 21:00 12/10/16 20:59 Miscellaneous Information (Order Awaiting Action) 1 ea QS N/A 11/11/16 00:00 12/11/16 00:00 Review of Systems Constitutional: No fever, No chills Eyes: No worsening of vision Respiratory: + cough, No sputum Cardiovascular: No chest pain Abdomen: + nausea, + vomiting, + constipation, No pain Genitourinary - Female: No dysuria Neurologic: + memory loss Endocrine: + fatigue Physical Exam Date Time Temp Pulse Resp B/P (MAP) Pulse Ox O2 Delivery O2 Flow Rate FiO2 11/10/16 17:51 116 15 11/10/16 17:46 119/67 11/10/16 17:36 109 12 11/10/16 17:31 111/68 11/10/16 17:22 122 20 11/10/16 17:16 135/97 11/10/16 17:01 104/80 11/10/16 16:52 120 17 11/10/16 16:46 117/85 11/10/16 16:31 114/86 11/10/16 16:30 114 11/10/16 16:22 115 18 11/10/16 16:16 114/87 11/10/16 16:01 112/77 11/10/16 15:52 89 25 99 11/10/16 15:47 95 15 97 11/10/16 15:46 112/73 11/10/16 15:30 118/80 11/10/16 15:26 91/79 11/10/16 14:47 109 17 11/10/16 14:46 132/96 11/10/16 14:31 130/96 11/10/16 14:17 90 18 94 11/10/16 14:16 151/105 11/10/16 14:01 128/92 11/10/16 14:00 103 22 128/92 95 Room Air 11/10/16 13:47 93 18 96 11/10/16 13:46 134/100 11/10/16 13:31 130/98 11/10/16 13:30 101 22 130/98 93 Room Air 11/10/16 13:17 104 19 123/90 88 11/10/16 13:05 125 143/93 11/10/16 12:47 117 22 90 11/10/16 12:37 128 11/10/16 12:25 143/93 11/10/16 11:53 36.3 88 18 113/72 93 Room Air General Appearance: WD/WN, no apparent distress Head: normocephalic Eyes: normal inspection Neck: supple Respiratory/Chest: lungs clear, normal breath sounds, no respiratory distress Cardiovascular: regular rate, rhythm Abdomen/GI: non tender, soft, + abnormal bowel sounds (absent bowel sounds), + distended Skin: normal color, warm/dry, no rash Laboratory Results Last 24 Hours Test 11/10/16 12:13 11/10/16 12:15 11/10/16 12:36 White Blood Count 11.81 K/uL Red Blood Count 3.87 M/uL Hemoglobin 13.4 g/dL Hematocrit 38.6 % Mean Corpuscular Volume 99.7 fL Mean Corpuscular Hemoglobin 34.6 pg Mean Corpuscular Hemoglobin Concent 34.7 g/dl Platelet Count 392 K/uL Mean Platelet Volume 9.2 fL Neutrophils (%) (Auto) 77.6 % Lymphocytes (%) (Auto) 12.2 % Monocytes (%) (Auto) 8.6 % Eosinophils (%) (Auto) 0.7 % Basophils (%) (Auto) 0.3 % Neutrophils # (Auto) 9.17 K/uL Lymphocytes # (Auto) 1.44 K/uL Monocytes # (Auto) 1.02 K/uL Eosinophils # (Auto) 0.08 K/uL Basophils # (Auto) 0.03 K/uL RDW Standard Deviation 51.0 fL RDW Coefficient of Variation 14.4 % Immature Granulocyte % (Auto) 0.6 % Immature Granulocyte # (Auto) 0.07 K/uL Sodium Level 135 mmol/L Potassium Level 3.5 mmol/L Chloride Level 95 mmol/L Carbon Dioxide Level 33 mmol/L Anion Gap 7.0 mmol/L Blood Urea Nitrogen 15 mg/dl Creatinine 0.75 mg/dl Estimated GFR () 81.9 Estimated GFR (Non- 70.7 BUN/Creatinine Ratio 20.4 Random Glucose 79 mg/dl Calcium Level 8.8 mg/dl Total Bilirubin 1.1 mg/dl Direct Bilirubin 0.4 mg/dl Aspartate Amino Transf (AST/SGOT) 19 U/L Alanine Aminotransferase (ALT/SGPT) 14 U/L Alkaline Phosphatase 79 U/L Total Creatine Kinase 21 U/L Creatine Kinase MB 1.0 ng/ml Creatine Kinase MB Ratio 4.8 Troponin I < 0.015 ng/ml Total Protein 7.1 gm/dl Albumin 2.3 gm/dl Lipase 2518 U/L Prothrombin Time 76.7 SECONDS Prothromb Time International Ratio 6.6 11/09/16 CT Abd / Pelvis with IV and PO contrast: IMPRESSION: 1. Interval worsening of small bowel obstruction with a transition point in the superior pelvis. Development of mesenteric edema and fluid between the leaves of small bowel mesentery are concerning for developing vascular compromise. No pneumatosis or wall thickening at this time. 2. 1.8 cm indeterminate left renal lesion, which could represent a hemorrhagic or proteinaceous cyst, although solid neoplasm cannot be excluded on this single phase examination. 3. Interval decrease in multifocal pulmonary opacities, consistent with evolving pneumonia. Assessment & Plan Ariela Rodriguez is an 89 year old woman with multiple medical comorbidities and history of partial colectomy with primary anastomosis who presents with a recurrent bowel obstruction. NGT is in place with relief of nausea and vomiting. Patient is mildly tachycardic, otherwise vitals are stable. Leukocytosis to 11.8, otherwise hemoglobin and electrolytes are within normal limits. She appears comfortable; abdomen is distended, but soft and non tender to palpation, no rebound / guarding. Patient states she does not want surgery under any circumstances. She is currently discussing options of symptom management with Palliative medicine. -No acute surgical intervention at this time, per patient's wishes. She would be a very high risk surgical candidate, and she understands this. -Recommend continuing NGT decompression - ok for patient to sip on Cola to help thin out gastric output / break down clogs -Pain and nausea control as needed -Appreciate palliative medicine input as well; patient's goals are control of symptoms and comfort to get home with home nursing care. -Will continue to follow. Effie Dickson MD 11/10/16
--- NOTE | 2016-11-10 20:35 | Palliative Care Consultation ---
Consultation Date of Consultation: Nov 10, 2016. Requesting Physician: Kojo GUERRIER MD Attending Physician: Michael Campbell MD Reason for Consultation: Complete Bowel Obstruction - determine goals and plan of care. History of Present Illness Pt is an 89 yo female who presented to the ER with vomiting bilious fecal material. Pt was admited approx 1 week ago for same. Her last admission she responded to conservative management with NG de-compression. [facility]. Pt does not want surgical intervention even in light of this being fatal . Pt's wishes are to return tot her home and enjoy her cat and family for whatever time she has left. Discussed trial of a Decadron/ativan infusion to try to relieve some of the obstruction - pt and daughter agreeable to this. Pt had a partial colectomy 16 years ago for bleeding diverticuli. Pt has a 12 gauge NGT to intermittent suction - it clogs at times due to thick material. Pt seen by surgery in case she changes her mind and wishes to proceed with surgery. Past Medical/Surgical History Medical History: A fib, Diastolic HF, h/o DVT, h/o PE, hypothyroid, macular degeneration, MUGUS, osteoarthritis, osteoporosis, Polymyalgia Rheumatica Surgical History: Appendectomy, cholecystectomy, partial colectomy 2000, R TKR Family History Positive for cancer and heart disease Social History Smoking Status: Never Smoker History of Alcohol Use: No Drug Use: none Marital Status: single, Housing Status: lives alone Occupation Status: retired Review of Systems Constitutional: + weakness, + fatigue Eyes: + worsening of vision ENT: + hearing loss Respiratory: + cough Cardiac: + orthopnea, + edema, No chest pain Abdomen: + nausea, + vomiting, No pain Neurologic: + weakness Psychiatric: + anxiety Heme: No abnormal bleeding/bruising Endo: + fatigue Allergies Coded Allergies: Alendronate (Verified Allergy, Unknown, 08/07/16) Medications Current Inpatient Medications Medications (Trade) Dose Ordered Sig/Mike Route Start Time Stop Time Status Last Admin Dose Admin Ioversol (Optiray 320) 100 ml UD PRN IV 11/10/16 12:30 11/14/16 12:29 Albuterol (Ventolin Hfa Inhaler) 2 puffs Q4H PRN INH 11/10/16 17:15 12/10/16 17:14 Latanoprost (Xalatan Oph Soln) 1 drops HS OPB 11/10/16 21:00 12/10/16 20:59 Metoprolol Succinate (Toprol Xl Tab) 25 mg DAILY PO 11/11/16 08:00 12/11/16 08:59 Bimatoprost (Lumigan 0.01%) 1 drops HS OPB 11/10/16 21:00 12/10/16 20:59 Miscellaneous Information (Order Awaiting Action) 1 ea QS N/A 11/11/16 00:00 12/11/16 00:00 Physical Exam Date Time Temp Pulse Resp B/P (MAP) Pulse Ox O2 Delivery O2 Flow Rate FiO2 11/10/16 18:41 36.5 98 19 121/87 91 Nasal Cannula 2.5 11/10/16 17:51 116 15 11/10/16 17:46 119/67 11/10/16 17:36 109 12 11/10/16 17:31 111/68 11/10/16 17:22 122 20 11/10/16 17:16 135/97 11/10/16 17:01 104/80 11/10/16 16:52 120 17 11/10/16 16:46 117/85 11/10/16 16:31 114/86 11/10/16 16:30 114 11/10/16 16:22 115 18 11/10/16 16:16 114/87 11/10/16 16:01 112/77 11/10/16 15:52 89 25 99 11/10/16 15:47 95 15 97 11/10/16 15:46 112/73 11/10/16 15:30 118/80 11/10/16 15:26 91/79 11/10/16 14:47 109 17 11/10/16 14:46 132/96 11/10/16 14:31 130/96 11/10/16 14:17 90 18 94 11/10/16 14:16 151/105 11/10/16 14:01 128/92 11/10/16 14:00 103 22 128/92 95 Room Air 11/10/16 13:47 93 18 96 11/10/16 13:46 134/100 11/10/16 13:31 130/98 11/10/16 13:30 101 22 130/98 93 Room Air 11/10/16 13:17 104 19 123/90 88 11/10/16 13:05 125 143/93 11/10/16 12:47 117 22 90 11/10/16 12:37 128 11/10/16 12:25 143/93 11/10/16 11:53 36.3 88 18 113/72 93 Room Air General Appearance: no apparent distress, + pertinent finding (NGT draining thickgreen material) Eyes: EOMI ENT: hearing grossly normal Neck: supple Respiratory: lungs clear Cardiovascular: + irregularly irregular Abdomen: + distended, + pertinent finding (high pitched bowel sounds) Musculoskeletal: pertinent finding (miild generalized weakness) Neurologic/Psychiatric: alert, oriented x 3 Skin: + pertinent finding (feet cold to touch - pt reports that is her normal) Laboratory Results Last 24 Hours Test 11/10/16 12:13 11/10/16 12:15 11/10/16 12:36 White Blood Count 11.81 K/uL Red Blood Count 3.87 M/uL Hemoglobin 13.4 g/dL Hematocrit 38.6 % Mean Corpuscular Volume 99.7 fL Mean Corpuscular Hemoglobin 34.6 pg Mean Corpuscular Hemoglobin Concent 34.7 g/dl Platelet Count 392 K/uL Mean Platelet Volume 9.2 fL Neutrophils (%) (Auto) 77.6 % Lymphocytes (%) (Auto) 12.2 % Monocytes (%) (Auto) 8.6 % Eosinophils (%) (Auto) 0.7 % Basophils (%) (Auto) 0.3 % Neutrophils # (Auto) 9.17 K/uL Lymphocytes # (Auto) 1.44 K/uL Monocytes # (Auto) 1.02 K/uL Eosinophils # (Auto) 0.08 K/uL Basophils # (Auto) 0.03 K/uL RDW Standard Deviation 51.0 fL RDW Coefficient of Variation 14.4 % Immature Granulocyte % (Auto) 0.6 % Immature Granulocyte # (Auto) 0.07 K/uL Sodium Level 135 mmol/L Potassium Level 3.5 mmol/L Chloride Level 95 mmol/L Carbon Dioxide Level 33 mmol/L Anion Gap 7.0 mmol/L Blood Urea Nitrogen 15 mg/dl Creatinine 0.75 mg/dl Estimated GFR () 81.9 Estimated GFR (Non- 70.7 BUN/Creatinine Ratio 20.4 Random Glucose 79 mg/dl Calcium Level 8.8 mg/dl Total Bilirubin 1.1 mg/dl Direct Bilirubin 0.4 mg/dl Aspartate Amino Transf (AST/SGOT) 19 U/L Alanine Aminotransferase (ALT/SGPT) 14 U/L Alkaline Phosphatase 79 U/L Total Creatine Kinase 21 U/L Creatine Kinase MB 1.0 ng/ml Creatine Kinase MB Ratio 4.8 Troponin I < 0.015 ng/ml Total Protein 7.1 gm/dl Albumin 2.3 gm/dl Lipase 2518 U/L Prothrombin Time 76.7 SECONDS Prothromb Time International Ratio 6.6 Assessment & Plan Palliative Performance Scale: 50 % (1) Small bowel obstruction Status: Acute Assessment & Plan: Spoke with pharmacy - will start a Decadron/Ativan infusion - to give 4 mg of Decadron and 2 mg of Ativan over 24 hours - will titrate tomorrow if no effect. Titrate to effect or sedation - Double rate every 12-24 hours to a max of 16 mg of Decadron and 8 mg of Ativan in 24 hours Cont NGT to intermittent suction - may need to place a larger NG due to thick material (2) Hypothyroidism Status: Chronic Assessment & Plan: Pt not able to take PO meds - hold synthroid (3) Atrial fibrillation Status: Chronic Assessment & Plan: Will need to give IV Metoprolol to control HR if pt gets tachycardic, coumadin also on hold (4) Chronic diastolic (congestive) heart failure Status: Chronic Assessment & Plan: Will limit IV fluids drip is concentrated , will use NS at KVO with drip. Spoke at length with patient and then spoke with daughter by phone - plan is to see if DA infusion will relieve some of the obstruction and get pt back to her home with Hospice. Will need to coordinate care with hospice as she will require NGT to suction at home. Pt's prognosis without surgery and if obstruction is complete is 7 - 10 days. Pt's daughter lost her to esophageal cancer < 3 years ago and has a 9 yo and a 16 yo at home. Will meet with daughter at 2 pm tomorrow and assess pt's response to infusion . Daughter is a pediatric medical assistant at [employer] and has worked in hospice in the past. Total time 90 minutes with > 50% of time spent counseling pt and family regarding treatment options, prognosis and POC
[2016-11-10] MEDS: LATANOPROST 0.005% OP SOLN 2.5 ML BTL OPB SCH (22:02)
[2016-11-10] MEDS: BIMATOPROST 0.01% OP SOLN 2.5 ML BTL OPB SCH (22:02)
[2016-11-10] MEDS: POLYOLEFIN IV PRN ×3 (22:08)
[2016-11-10] MEDS: D5W IV PRN ×3 (22:08)
[2016-11-10] MEDS: DEXAMETHASONE IV PRN ×3 (22:08)
[2016-11-10] MEDS: LORAZEPAM IV PRN ×3 (22:08)
[2016-11-10] MEDS: SODIUM CHLORIDE 0.9% 1000ML 1,000 ML IV SCH (22:08)
[2016-11-11 00:21] VITALS: BP 115/77; PULSE 107; TEMP 36.4; O2SAT 96
[2016-11-11 02:58] LABS: URINE APPEARANCE CLOUDY (CLEAR); URINE COLOR DK YELLOW; URINE EPITHELIAL CELL AUTO >30 /lpf (0-5); URINE NITRITE NEG (NEG); URINE SPECIFIC GRAVITY > 1.045 (1.000-1.030); UROBILINOGEN NEG (NEG)
[2016-11-11 03:05] LABS: MANUAL MICROSCOPIC REQUIRED? NO; REVIEW REQ? YES; URINE BILIRUBIN NEG (NEG)
[2016-11-11 03:45] VITALS: BP 114/78; PULSE 99; TEMP 36.5; O2SAT 95
[2016-11-11 07:58] VITALS: BP 108/73; PULSE 106; TEMP 36.5; O2SAT 95
[2016-11-11] MEDS ORDERED: METOPROLOL SUCC 50MG EXT REL TAB PO SCH (08:00)
--- NOTE | 2016-11-11 09:03 | Surgery Progress Note ---
Surgery Progress Note Date of Service Nov 11, 2016. Subjective Patient examined at bedside this morning. Afebrile, mildly tachycardic up to max 107 - otherwise vitals stable on room air, no acute events. Sitting up comfortably in bed this morning, denies abdominal pain or nausea. NGT remains in place and functioning - 450ml of thick, green output in cannister. Abdomen is slightly less distended than yesterday - remains soft, non tender to palpation, no rebound / guarding. Patient denies any flatus / BM. Objective Vital Signs: Date Time Temp Pulse Resp B/P (MAP) Pulse Ox O2 Delivery O2 Flow Rate FiO2 11/11/16 08:00 Room Air 11/11/16 07:58 36.5 106 18 108/73 (85) 95 Nasal Cannula 3.0 11/11/16 03:45 36.5 99 16 114/78 (90) 95 Nasal Cannula 3.0 11/11/16 00:21 36.4 107 18 115/77 (90) 96 3.0 11/11/16 00:00 Room Air 11/10/16 20:00 Room Air 11/10/16 18:41 36.5 98 19 121/87 91 Nasal Cannula 2.5 11/10/16 17:51 116 15 11/10/16 17:46 119/67 11/10/16 17:36 109 12 11/10/16 17:31 111/68 11/10/16 17:22 122 20 11/10/16 17:16 135/97 11/10/16 17:01 104/80 11/10/16 16:52 120 17 11/10/16 16:46 117/85 11/10/16 16:31 114/86 11/10/16 16:30 114 11/10/16 16:22 115 18 11/10/16 16:16 114/87 11/10/16 16:01 112/77 11/10/16 15:52 89 25 99 11/10/16 15:47 95 15 97 11/10/16 15:46 112/73 11/10/16 15:30 118/80 11/10/16 15:26 91/79 11/10/16 14:47 109 17 11/10/16 14:46 132/96 11/10/16 14:31 130/96 11/10/16 14:17 90 18 94 8/26/17 14:16 151/105 11/10/16 14:01 128/92 11/10/16 14:00 103 22 128/92 95 Room Air 11/10/16 13:47 93 18 96 11/10/16 13:46 134/100 11/10/16 13:31 130/98 11/10/16 13:30 101 22 130/98 93 Room Air 11/10/16 13:17 104 19 123/90 88 11/10/16 13:05 125 143/93 11/10/16 12:47 117 22 90 11/10/16 12:37 128 11/10/16 12:25 143/93 11/10/16 11:53 36.3 88 18 113/72 93 Room Air General Appearance: WD/WN, no apparent distress Head: normocephalic Neck: supple Respiratory/Chest: lungs clear, normal breath sounds Cardiovascular: regular rate, rhythm Abdomen: non tender, soft (no rebound / guarding), + abnormal bowel sounds ( hypoactive), + distended Laboratory Results: Results Past 24 Hours Test 11/10/16 12:13 11/10/16 12:15 11/10/16 12:36 11/11/16 00:00 Range/Units White Blood Count 11.81 4.8-10.8 K/uL Red Blood Count 3.87 4.2-5.4 M/uL Hemoglobin 13.4 12.0-16.0 g/dL Hematocrit 38.6 37-47 % Mean Corpuscular Volume 99.7 80-100 fL Mean Corpuscular Hemoglobin 34.6 25-34 pg Mean Corpuscular Hemoglobin Concent 34.7 32-36 g/dl Platelet Count 392 130-400 K/uL Mean Platelet Volume 9.2 7.4-10.4 fL Neutrophils (%) (Auto) 77.6 % Lymphocytes (%) (Auto) 12.2 % Monocytes (%) (Auto) 8.6 % Eosinophils (%) (Auto) 0.7 % Basophils (%) (Auto) 0.3 % Neutrophils # (Auto) 9.17 1.4-6.5 K/uL Lymphocytes # (Auto) 1.44 1.2-3.4 K/uL Monocytes # (Auto) 1.02 0.11-0.59 K/uL Eosinophils # (Auto) 0.08 0-0.5 K/uL Basophils # (Auto) 0.03 0-0.2 K/uL RDW Standard Deviation 51.0 36.4-46.3 fL RDW Coefficient of Variation 14.4 11.5-14.5 % Immature Granulocyte % (Auto) 0.6 % Immature Granulocyte # (Auto) 0.07 0.00-0.02 K/uL Sodium Level 135 136-145 mmol/L Potassium Level 3.5 3.5-5.1 mmol/L Chloride Level 95 98-107 mmol/L Carbon Dioxide Level 33 21-32 mmol/L Anion Gap 7.0 3-11 mmol/L Blood Urea Nitrogen 15 7-18 mg/dl Creatinine 0.75 0.60-1.20 mg/dl Estimated GFR () 81.9 Estimated GFR (Non- 70.7 BUN/Creatinine Ratio 20.4 10-20 Random Glucose 79 70-99 mg/dl Calcium Level 8.8 8.5-10.1 mg/dl Total Bilirubin 1.1 0.2-1 mg/dl Direct Bilirubin 0.4 0-0.2 mg/dl Aspartate Amino Transf (AST/SGOT) 19 15-37 U/L Alanine Aminotransferase (ALT/SGPT) 14 12-78 U/L Alkaline Phosphatase 79 45-117 U/L Total Creatine Kinase 21 26-192 U/L Creatine Kinase MB 1.0 0.5-3.6 ng/ml Creatine Kinase MB Ratio 4.8 0-3.0 Troponin I < 0.015 0-0.045 ng/ml Total Protein 7.1 6.4-8.2 gm/dl Albumin 2.3 3.4-5.0 gm/dl Lipase 2518 73-393 U/L Prothrombin Time 76.7 9.0-12.0 SECONDS Prothromb Time International Ratio 6.6 0.9-1.1 Urine Color DK YELLOW Urine Appearance CLOUDY CLEAR Urine pH 5.0 4.5-7.5 Urine Specific [place] > 1.045 1.000-1.030 Urine Protein NEG NEG Urine Glucose (UA) NEG NEG Urine Ketones 1+ NEG Urine Occult Blood NEG NEG Urine Nitrite NEG NEG Urine Bilirubin NEG NEG Urine Urobilinogen NEG NEG Urine Leukocyte Esterase NEG NEG Urine WBC (Auto) 10-30 0-5 /hpf Urine RBC (Auto) 0-4 0-4 /hpf Urine Hyaline Casts (Auto) 5-10 0-5 /lpf Urine Epithelial Cells (Auto) >30 0-5 /lpf Urine Bacteria (Auto) NEG NEG Urine Yeast (Auto) NONE PRSENT Assessment & Plan Ariela Rodriguez is an 89 year old woman with multiple medical comorbidities and history of partial colectomy with primary anastomosis who presents with a recurrent bowel obstruction. NGT is in place with relief of nausea and vomiting. Patient is mildly tachycardic, otherwise vitals are stable. She appears comfortable; abdomen is less distended today, remains soft and non tender to palpation, no rebound / guarding. Patient states she does not want surgery under any circumstances. She has discussed options of symptom management with Palliative medicine. -No acute surgical intervention at this time, per patient's wishes. She would be a very high risk surgical candidate, and she understands this. -Recommend continuing NGT decompression - ok for patient to sip on Cola to help thin out gastric output / break down clogs -Pain and nausea control as needed -Appreciate palliative medicine input as well; patient's goals are control of symptoms and comfort to get home with home nursing care. -Will continue to follow. Effie Dickson MD 11/11/16
--- NOTE | 2016-11-11 09:47 | Progress Note ---
Medicine Progress Note Date & Time of Visit: Nov 11, 2016 at 09:34. Subjective seen resting in bed, comfortable, sleeping but easily rousable, very pleasant, not in distress states she slept well last night this morning, states nausea has resolved, feels less distended on her abdomen tolerating her NG tube well denies abdominal pain, no BM/flatus yet denies headache, chest pain, dyspnea, dizziness, palpitations no bleeding denies other symptoms Objective Last 8 Hrs Date Time Temp Pulse Resp B/P (MAP) Pulse Ox O2 Delivery O2 Flow Rate FiO2 11/11/16 08:00 Room Air 11/11/16 07:58 36.5 106 18 108/73 (85) 95 Nasal Cannula 3.0 11/11/16 03:45 36.5 99 16 114/78 (90) 95 Nasal Cannula 3.0 Physical Exam: General- oriented x 3, not in distress, speaks in sentences with no effort Eyes- EOMI, anicteric ENT- NG tube in place draining 450cc of bilious output Neck- no JVD Lungs- clear to auscultation bilaterally Heart- mild tachycardia, irregularly irregular rhythm; no murmurs Abdomen- mildly distended, hypoactive bowel sounds, soft, nontender Extremities- mild pretibial edema, no calf tenderness Neuro- alert, oriented x 3; no gross focal deficits Skin- warm & dry Laboratory Results: Last 24 Hours Test 11/10/16 12:13 11/10/16 12:15 11/10/16 12:36 11/11/16 00:00 White Blood Count 11.81 K/uL Red Blood Count 3.87 M/uL Hemoglobin 13.4 g/dL Hematocrit 38.6 % Mean Corpuscular Volume 99.7 fL Mean Corpuscular Hemoglobin 34.6 pg Mean Corpuscular Hemoglobin Concent 34.7 g/dl Platelet Count 392 K/uL Mean Platelet Volume 9.2 fL Neutrophils (%) (Auto) 77.6 % Lymphocytes (%) (Auto) 12.2 % Monocytes (%) (Auto) 8.6 % Eosinophils (%) (Auto) 0.7 % Basophils (%) (Auto) 0.3 % Neutrophils # (Auto) 9.17 K/uL Lymphocytes # (Auto) 1.44 K/uL Monocytes # (Auto) 1.02 K/uL Eosinophils # (Auto) 0.08 K/uL Basophils # (Auto) 0.03 K/uL RDW Standard Deviation 51.0 fL RDW Coefficient of Variation 14.4 % Immature Granulocyte % (Auto) 0.6 % Immature Granulocyte # (Auto) 0.07 K/uL Sodium Level 135 mmol/L Potassium Level 3.5 mmol/L Chloride Level 95 mmol/L Carbon Dioxide Level 33 mmol/L Anion Gap 7.0 mmol/L Blood Urea Nitrogen 15 mg/dl Creatinine 0.75 mg/dl Estimated GFR () 81.9 Estimated GFR (Non- 70.7 BUN/Creatinine Ratio 20.4 Random Glucose 79 mg/dl Calcium Level 8.8 mg/dl Total Bilirubin 1.1 mg/dl Direct Bilirubin 0.4 mg/dl Aspartate Amino Transf (AST/SGOT) 19 U/L Alanine Aminotransferase (ALT/SGPT) 14 U/L Alkaline Phosphatase 79 U/L Total Creatine Kinase 21 U/L Creatine Kinase MB 1.0 ng/ml Creatine Kinase MB Ratio 4.8 Troponin I < 0.015 ng/ml Total Protein 7.1 gm/dl Albumin 2.3 gm/dl Lipase 2518 U/L Prothrombin Time 76.7 SECONDS Prothromb Time International Ratio 6.6 Urine Color DK YELLOW Urine Appearance CLOUDY Urine pH 5.0 Urine Specific [place] > 1.045 Urine Protein NEG Urine Glucose (UA) NEG Urine Ketones 1+ Urine Occult Blood NEG Urine Nitrite NEG Urine Bilirubin NEG Urine Urobilinogen NEG Urine Leukocyte Esterase NEG Urine WBC (Auto) 10-30 /hpf Urine RBC (Auto) 0-4 /hpf Urine Hyaline Casts (Auto) 5-10 /lpf Urine Epithelial Cells (Auto) >30 /lpf Urine Bacteria (Auto) NEG Urine Yeast (Auto) Assessment & Plan 89 year old female with history of recent SBO, history of Colectomy, Atrial Fibrillation on coumadin, CHD Diastolic Type, PMR on chronic prednisone, other problems noted below presenting with nausea and vomiting. SMALL BOWEL OBSTRUCTION - NG tube in place D5 with Dexamethasone, Lorazepam has been started - no nausea, less distention - will add IV D5 NSS continue medical management for now per patient's wishes - appreciate Surgery and Palliative Care input - Dr. Vyas to have meeting with patient and daughter today to discuss comfort measures further per patient's request PANCREATITIS - will check Lipase - CT abdomen: no signs of pancreatitis - repeat Lipase - check Lipase level SUPRATHERAPEUTIC INR CHRONIC COUMADIN USE - INR 6.6 on admission Vit K given - no signs of bleeding - check INR today ATRIAL FIBRILLATION - HR low 100s - will convert PO Metoprolol to IV as rapid RVR may cause discomfort - monitor CHF DIASTOLIC TYPE, CHRONIC - on the dry side - gentle IV fluids PMR ON CHRONIC PREDNISONE - on Prednisone 5mg daily for years - will convert to IV hydrocortisone for now HYPOTHYROIDISM - on l-thyroxine 125mcg - will convert to IV DVT /PE HISTORY - INR supratherapeutic - if subtherapeutic, may need heparin SC DNR Dispo pending Current Inpatient Medications: Current Inpatient Medications Medications (Trade) Dose Ordered Sig/Mike Route Start Time Stop Time Status Last Admin Dose Admin Ioversol (Optiray 320) 100 ml UD PRN IV 11/10/16 12:30 11/14/16 12:29 Albuterol (Ventolin Hfa Inhaler) 2 puffs Q4H PRN INH 11/10/16 17:15 12/10/16 17:14 Latanoprost (Xalatan Oph Soln) 1 drops HS OPB 11/10/16 21:00 12/10/16 20:59 11/10/16 22:02 1 DROPS Bimatoprost (Lumigan 0.01%) 1 drops HS OPB 11/10/16 21:00 12/10/16 20:59 11/10/16 22:02 1 DROPS Miscellaneous Information (Order Awaiting Action) 1 ea QS N/A 11/11/16 00:00 12/11/16 00:00 Lorazepam 4 mg/ Dexamethasone Sodium Phosphate 8 mg/Dextrose 48 ml @ 1 mls/hr Q24H PRN IV 11/10/16 21:00 12/10/16 20:59 11/10/16 22:08 1 MLS/HR Sodium Chloride 1,000 ml @ 15 mls/hr Q24H IV 11/10/16 20:45 12/10/16 20:44 11/10/16 22:08 15 MLS/HR Metoprolol Tartrate (Lopressor Iv) 2.5 mg Q12H IV. 11/11/16 09:30 12/11/16 09:29 UNV Hydrocortisone Sodium Succinate 50 mg/Syringe 1 ml @ 4 mls/min ONE IV 11/11/16 09:30 12/11/16 09:29 UNV Hydrocortisone Sodium Succinate 25 mg/Syringe 0.5 ml @ 4 mls/min Q8H IV 11/11/16 18:00 12/11/16 17:59 UNV
[2016-11-11 10:06] LABS: HEMATOCRIT 41.9 % (37-47); MEAN CELL VOLUME 101.2 fL (80-100); MEAN CORPUSCULAR HEMOGLOBIN 31.9 pg (25-34); MEAN CORPUSCULAR HGB CONC 31.5 g/dl (32-36); MEAN PLATELET VOLUME 9.3 fL (7.4-10.4); PLATELET COUNT 438 K/uL (130-400); RED BLOOD COUNT 4.14 M/uL (4.2-5.4); WHITE BLOOD COUNT 13.86 K/uL (4.8-10.8)
[2016-11-11] MEDS ORDERED: METOPROLOL TARTRATE 1 MG/ML VIAL IV. ONE ×2 (10:15→19:30)
[2016-11-11 10:16] LABS: INR 1.3 (0.9-1.1); PROTHROMBIN TIME (PATIENT) 13.8 SECONDS (9.0-12.0)
[2016-11-11] MEDS: D5W AND NSS 1,000 ML IV SCH ×2 (10:26→22:56)
[2016-11-11 10:30] LABS: BASO % 0.1 %; BASO ABS # 0.02 K/uL (0-0.2); COMPLETE YES; EOS % 0.1 %; IG% 0.2 %; LYMPH % 4.9 %; LYMPH ABS # 0.68 K/uL (1.2-3.4); MONO % 6.1 %; NEUT % 88.6 %
[2016-11-11] MEDS ORDERED: HYDROCORTISONE IV 50 MG in SYRINGE 0 ML IV ONE (10:30)
[2016-11-11 10:33] LABS: BUN/CREATININE RATIO 20.9 (10-20); CALCIUM 8.7 mg/dl (8.5-10.1); CREATININE 0.66 mg/dl (0.60-1.20); MAGNESIUM 1.4 mg/dl (1.8-2.4); POTASSIUM 3.9 mmol/L (3.5-5.1)
[2016-11-11 10:38] LABS: PHOSPHORUS 3.6 mg/dl (2.5-4.9)
[2016-11-11] MEDS: DEXAMETHASONE IV PRN ×6 (14:08→20:44)
[2016-11-11] MEDS: LORAZEPAM IV PRN ×6 (14:08→20:44)
[2016-11-11] MEDS: D5W IV PRN ×6 (14:08→20:44)
[2016-11-11] MEDS: POLYOLEFIN IV PRN ×6 (14:08→20:44)
[2016-11-11] MEDS ORDERED: NURSING VERBAL MED ORDER ONE ×2 (14:15→19:15)
--- NOTE | 2016-11-11 15:14 | Palliative Care Progress Note ---
Palliative Care Progress Note Date of Service Nov 11, 2016. Subjective Pt evaluation today including: conversation w/ patient, conversation w/ family , physical exam, chart review, lab review Pain: none PO Intake: taking sips Voiding: no voiding problems Pt is awake , alert and oriented, denies pain, fever,chills,SOB or abdominal discomfort. Pt draining a large amount of bilious , thick material from NGT. Denies nausea and vomiting Review of Systems Constitutional: No fever, No chills Eyes: No worsening of vision ENT: No trouble swallowing Respiratory: + cough, No shortness of breath Cardiac: + orthopnea, + edema, No chest pain Abdomen: + problem reported (pt has not passed any gas), No pain, No nausea, No vomiting Musculoskeletal: No joint pain Female : No dysuria Neurologic: + weakness Psychiatric: + anxiety Endo: + fatigue Objective Vital Signs Date Time Temp Pulse Resp B/P (MAP) Pulse Ox O2 Delivery O2 Flow Rate FiO2 11/11/16 12:10 90 125/86 11/11/16 12:00 Nasal Cannula 2.0 11/11/16 08:00 Room Air 11/11/16 07:58 36.5 106 18 108/73 (85) 95 Nasal Cannula 3.0 11/11/16 03:45 36.5 99 16 114/78 (90) 95 Nasal Cannula 3.0 11/11/16 00:21 36.4 107 18 115/77 (90) 96 3.0 11/11/16 00:00 Room Air 11/10/16 20:00 Room Air 11/10/16 18:41 36.5 98 19 121/87 91 Nasal Cannula 2.5 11/10/16 17:51 116 15 11/10/16 17:46 119/67 11/10/16 17:36 109 12 11/10/16 17:31 111/68 11/10/16 17:22 122 20 11/10/16 17:16 135/97 11/10/16 17:01 104/80 11/10/16 16:52 120 17 11/10/16 16:46 117/85 11/10/16 16:31 114/86 11/10/16 16:30 114 11/10/16 16:22 115 18 11/10/16 16:16 114/87 11/10/16 16:01 112/77 11/10/16 15:52 89 25 99 11/10/16 15:47 95 15 97 11/10/16 15:46 112/73 11/10/16 15:30 118/80 11/10/16 15:26 91/79 Physical Exam General Appearance: no apparent distress Eyes: EOMI ENT: hearing grossly normal, + pertinent finding (NGT in place) Neck: supple Respiratory/Chest: + crackles (bilaterally - increased as compared to yesterday ) Cardiovascular: + irregularly irregular Abdomen: non tender, soft, + abnormal bowel sounds, + pertinent finding (no high pitched BS today - markedly decreased BS) Extremities: + pedal edema Neurologic/Psychiatric: alert, normal mood/affect, oriented x 3 Skin: + pertinent finding (feet cold to touch - pt reports this is her baseline ) Laboratory Results Last 24 Hours Test 11/11/16 00:00 11/11/16 09:50 Urine Color DK YELLOW Urine Appearance CLOUDY Urine pH 5.0 Urine Specific [place] > 1.045 Urine Protein NEG Urine Glucose (UA) NEG Urine Ketones 1+ Urine Occult Blood NEG Urine Nitrite NEG Urine Bilirubin NEG Urine Urobilinogen NEG Urine Leukocyte Esterase NEG Urine WBC (Auto) 10-30 /hpf Urine RBC (Auto) 0-4 /hpf Urine Hyaline Casts (Auto) 5-10 /lpf Urine Epithelial Cells (Auto) >30 /lpf Urine Bacteria (Auto) NEG Urine Yeast (Auto) White Blood Count 13.86 K/uL Red Blood Count 4.14 M/uL Hemoglobin 13.2 g/dL Hematocrit 41.9 % Mean Corpuscular Volume 101.2 fL Mean Corpuscular Hemoglobin 31.9 pg Mean Corpuscular Hemoglobin Concent 31.5 g/dl Platelet Count 438 K/uL Mean Platelet Volume 9.3 fL Neutrophils (%) (Auto) 88.6 % Lymphocytes (%) (Auto) 4.9 % Monocytes (%) (Auto) 6.1 % Eosinophils (%) (Auto) 0.1 % Basophils (%) (Auto) 0.1 % Neutrophils # (Auto) 12.27 K/uL Lymphocytes # (Auto) 0.68 K/uL Monocytes # (Auto) 0.85 K/uL Eosinophils # (Auto) 0.01 K/uL Basophils # (Auto) 0.02 K/uL RDW Standard Deviation 52.8 fL RDW Coefficient of Variation 14.5 % Immature Granulocyte % (Auto) 0.2 % Immature Granulocyte # (Auto) 0.03 K/uL Prothrombin Time 13.8 SECONDS Prothromb Time International Ratio 1.3 Sodium Level 135 mmol/L Potassium Level 3.9 mmol/L Chloride Level 91 mmol/L Carbon Dioxide Level 35 mmol/L Anion Gap 9.0 mmol/L Blood Urea Nitrogen 14 mg/dl Creatinine 0.66 mg/dl Est Creatinine Clear Calc Drug Dose 60.9 ml/min Estimated GFR () 90.8 Estimated GFR (Non- 78.3 BUN/Creatinine Ratio 20.9 Random Glucose 62 mg/dl Calcium Level 8.7 mg/dl Phosphorus Level 3.6 mg/dl Magnesium Level 1.4 mg/dl Lipase 1755 U/L Assessment and Plan (1) Small bowel obstruction Status: Acute Assessment & Plan: Poor BS - on DA infusion - no sedation or agitation - will increase to 2 ml/hr - assess tomorrow, pt knows to report if she passes any gas. (2) Hypothyroidism Status: Chronic Assessment & Plan: Pt on IV Synthroid - unable to take PO due to SBO (3) Atrial fibrillation Status: Chronic Assessment & Plan: On IV Metoprolol for HR control, discussed adding SQ Lovenox as she cannot take PO coumadin - life expectancy is short - 7 to 10 days of bowel do not open up with bowel rest, NGT to suction and DA infusion (4) Chronic diastolic (congestive) heart failure Status: Chronic Assessment & Plan: Pt with increased rales on exam - monitor - may need to decreased IV fluid rate Total time - 45 min with > 50% of time spent counseling regarding treatment options, goals and POC - daughter at bedside. Palliative Performance Scale: 40 % Continued [facility] stay due to: other (SBO) Discharge planning: home with Hospice
[2016-11-11 16:19] VITALS: BP 123/72; PULSE 97; TEMP 36.4; O2SAT 94
[2016-11-11] MEDS: HYDROCORTISONE IV 25 MG in SYRINGE 0 ML IV SCH (18:06)
[2016-11-11] MEDS: MAGNESIUM SULFATE 1GM / D5W 1 GM in PREMIXED IN D5W 100 ML IV SCH ×2 (20:17→21:38)
[2016-11-11] MEDS: SODIUM CHLORIDE 0.9% 1000ML 1,000 ML IV SCH (20:42)
[2016-11-11] MEDS: BIMATOPROST 0.01% OP SOLN 2.5 ML BTL OPB SCH (20:46)
[2016-11-11] MEDS: LATANOPROST 0.005% OP SOLN 2.5 ML BTL OPB SCH (20:46)
[2016-11-11] MEDS ORDERED: METOPROLOL TARTRATE 1 MG/ML VIAL IV. SCH (21:00)
[2016-11-11 23:31] VITALS: BP 109/68; PULSE 87; TEMP 36.4; O2SAT 97
[2016-11-12] MEDS: HYDROCORTISONE IV 25 MG in SYRINGE 0 ML IV SCH ×3 (02:09→18:16)
[2016-11-12 06:28] LABS: BASO % 0.1 %; BASO ABS # 0.01 K/uL (0-0.2); COMPLETE YES; HEMATOCRIT 35.3 % (37-47); IG% 0.4 %; LYMPH % 3.7 %; LYMPH ABS # 0.41 K/uL (1.2-3.4); MEAN CELL VOLUME 98.6 fL (80-100); MEAN CORPUSCULAR HEMOGLOBIN 32.7 pg (25-34); MEAN CORPUSCULAR HGB CONC 33.1 g/dl (32-36); MEAN PLATELET VOLUME 9.1 fL (7.4-10.4); MONO % 3.5 %; NEUT % 92.3 %; PLATELET COUNT 411 K/uL (130-400); RED BLOOD COUNT 3.58 M/uL (4.2-5.4); WHITE BLOOD COUNT 11.14 K/uL (4.8-10.8)
[2016-11-12 06:42] LABS: INR 1.2 (0.9-1.1); PROTHROMBIN TIME (PATIENT) 12.5 SECONDS (9.0-12.0)
[2016-11-12 06:59] LABS: BUN/CREATININE RATIO 20.6 (10-20); CREATININE 0.52 mg/dl (0.60-1.20); MAGNESIUM 1.8 mg/dl (1.8-2.4); POTASSIUM 3.5 mmol/L (3.5-5.1)
[2016-11-12 07:00] LABS: PHOSPHORUS 2.5 mg/dl (2.5-4.9)
--- NOTE | 2016-11-12 07:24 | Surgery Progress Note ---
Surgery Progress Note Date of Service Nov 12, 2016. Subjective Patient examined at bedside this morning. Afebrile, vitals stable on 2L O2 via NC, no acute events overnight. Sitting up on commode. States she feels well, just weak. Denies abdominal pain or nausea. NGT remains in place and functioning - 2120ml recorded out / 24h, still appears thick and bilious. Denies flatus / BM. Urinating without difficulty. Objective Vital Signs: Date Time Temp Pulse Resp B/P (MAP) Pulse Ox O2 Delivery O2 Flow Rate FiO2 11/12/16 00:05 Nasal Cannula 2.0 11/11/16 23:31 36.4 87 18 109/68 (82) 97 Nasal Cannula 2.0 11/11/16 20:04 86 123/79 11/11/16 16:19 36.4 97 16 123/72 (89) 94 Nasal Cannula 2.0 11/11/16 16:00 Nasal Cannula 2.0 11/11/16 12:10 90 125/86 11/11/16 12:00 Nasal Cannula 2.0 11/11/16 08:00 Room Air 11/11/16 07:58 36.5 106 18 108/73 (85) 95 Nasal Cannula 3.0 General Appearance: WD/WN, no apparent distress Head: normocephalic Neck: supple Respiratory/Chest: lungs clear, normal breath sounds Cardiovascular: regular rate, rhythm Abdomen: non tender, soft, + abnormal bowel sounds (hypoactive bowel sounds), + distended Laboratory Results: Results Past 24 Hours Test 11/11/16 09:50 11/12/16 05:53 Range/Units White Blood Count 13.86 11.14 4.8-10.8 K/uL Red Blood Count 4.14 3.58 4.2-5.4 M/uL Hemoglobin 13.2 11.7 12.0-16.0 g/dL Hematocrit 41.9 35.3 37-47 % Mean Corpuscular Volume 101.2 98.6 80-100 fL Mean Corpuscular Hemoglobin 31.9 32.7 25-34 pg Mean Corpuscular Hemoglobin Concent 31.5 33.1 32-36 g/dl Platelet Count 438 411 130-400 K/uL Mean Platelet Volume 9.3 9.1 7.4-10.4 fL Neutrophils (%) (Auto) 88.6 92.3 % Lymphocytes (%) (Auto) 4.9 3.7 % Monocytes (%) (Auto) 6.1 3.5 % Eosinophils (%) (Auto) 0.1 0.0 % Basophils (%) (Auto) 0.1 0.1 % Neutrophils # (Auto) 12.27 10.29 1.4-6.5 K/uL Lymphocytes # (Auto) 0.68 0.41 1.2-3.4 K/uL Monocytes # (Auto) 0.85 0.39 0.11-0.59 K/uL Eosinophils # (Auto) 0.01 0.00 0-0.5 K/uL Basophils # (Auto) 0.02 0.01 0-0.2 K/uL RDW Standard Deviation 52.8 50.3 36.4-46.3 fL RDW Coefficient of Variation 14.5 14.1 11.5-14.5 % Immature Granulocyte % (Auto) 0.2 0.4 % Immature Granulocyte # (Auto) 0.03 0.04 0.00-0.02 K/uL Prothrombin Time 13.8 12.5 9.0-12.0 SECONDS Prothromb Time International Ratio 1.3 1.2 0.9-1.1 Sodium Level 135 136 136-145 mmol/L Potassium Level 3.9 3.5 3.5-5.1 mmol/L Chloride Level 91 95 98-107 mmol/L Carbon Dioxide Level 35 34 21-32 mmol/L Anion Gap 9.0 7.0 3-11 mmol/L Blood Urea Nitrogen 14 11 7-18 mg/dl Creatinine 0.66 0.52 0.60-1.20 mg/dl Est Creatinine Clear Calc Drug Dose 60.9 77.3 ml/min Estimated GFR () 90.8 98.2 Estimated GFR (Non- 78.3 84.7 BUN/Creatinine Ratio 20.9 20.6 10-20 Random Glucose 62 163 70-99 mg/dl Calcium Level 8.7 8.0 8.5-10.1 mg/dl Phosphorus Level 3.6 2.5 2.5-4.9 mg/dl Magnesium Level 1.4 1.8 1.8-2.4 mg/dl Lipase 1755 1236 73-393 U/L Assessment & Plan Ariela Rodriguez is an 89 year old woman with multiple medical comorbidities and history of partial colectomy with primary anastomosis who presents with a recurrent bowel obstruction. NGT is in place with relief of nausea and vomiting. Patient is mildly tachycardic, otherwise vitals are stable. She appears comfortable; abdomen is mildly distended, remains soft and non tender to palpation, no rebound / guarding. Patient states she does not want surgery under any circumstances. She has discussed options of symptom management with Palliative medicine. -No acute surgical intervention at this time, per patient's wishes. She would be a very high risk surgical candidate, and she understands this. -Continue NGT decompression - ok for patient to sip on Cola to help thin out gastric output / break down clogs -Pain and nausea control as needed -Appreciate palliative medicine input as well; patient's goals are control of symptoms and comfort to get home with home nursing care. -Will continue to follow. Effie Dickson MD 11/12/16
[2016-11-12 08:14] VITALS: BP 115/81; PULSE 108; TEMP 36.3; O2SAT 95
[2016-11-12] MEDS ORDERED: NURSING VERBAL MED ORDER ONE ×4 (08:15→19:45)
--- NOTE | 2016-11-12 08:28 | Palliative Care Progress Note ---
Palliative Care Progress Note Date of Service Nov 12, 2016. Subjective Pt evaluation today including: conversation w/ patient, physical exam Pain: none PO Intake: sips only Voiding: no voiding problems Review of Systems Constitutional: No fever, No chills Eyes: No worsening of vision, No discharge ENT: No sore throat Respiratory: + cough (improving per pt) Cardiac: + edema, No chest pain Abdomen: + problem reported (has not passed any gas), No pain, No nausea, No vomiting Musculoskeletal: No muscle pain Female : No urinary frequency Neurologic: No memory loss Psychiatric: + anxiety Heme: No abnormal bleeding/bruising Skin: No rash Objective Vital Signs Date Time Temp Pulse Resp B/P (MAP) Pulse Ox O2 Delivery O2 Flow Rate FiO2 11/12/16 08:14 36.3 108 18 115/81 (92) 95 Nasal Cannula 2.0 11/12/16 00:05 Nasal Cannula 2.0 11/11/16 23:31 36.4 87 18 109/68 (82) 97 Nasal Cannula 2.0 11/11/16 20:04 86 123/79 11/11/16 16:19 36.4 97 16 123/72 (89) 94 Nasal Cannula 2.0 11/11/16 16:00 Nasal Cannula 2.0 11/11/16 12:10 90 125/86 11/11/16 12:00 Nasal Cannula 2.0 Physical Exam General Appearance: no apparent distress, + pertinent finding (up in chair - denies feeling drowsy on DA infusion) Eyes: EOMI ENT: hearing grossly normal Neck: supple Respiratory/Chest: + pertinent finding (few crackles on L, right clear) Cardiovascular: + irregularly irregular, + pertinent finding (1+ LE edema - unchanged) Abdomen: non tender, soft, + pertinent finding (few BS - normal in character) Extremities: + pedal edema Neurologic/Psychiatric: oriented x 3 Skin: + pertinent finding (feet less cold to touch) Laboratory Results Last 24 Hours Test 11/11/16 09:50 11/12/16 05:53 White Blood Count 13.86 K/uL 11.14 K/uL Red Blood Count 4.14 M/uL 3.58 M/uL Hemoglobin 13.2 g/dL 11.7 g/dL Hematocrit 41.9 % 35.3 % Mean Corpuscular Volume 101.2 fL 98.6 fL Mean Corpuscular Hemoglobin 31.9 pg 32.7 pg Mean Corpuscular Hemoglobin Concent 31.5 g/dl 33.1 g/dl Platelet Count 438 K/uL 411 K/uL Mean Platelet Volume 9.3 fL 9.1 fL Neutrophils (%) (Auto) 88.6 % 92.3 % Lymphocytes (%) (Auto) 4.9 % 3.7 % Monocytes (%) (Auto) 6.1 % 3.5 % Eosinophils (%) (Auto) 0.1 % 0.0 % Basophils (%) (Auto) 0.1 % 0.1 % Neutrophils # (Auto) 12.27 K/uL 10.29 K/uL Lymphocytes # (Auto) 0.68 K/uL 0.41 K/uL Monocytes # (Auto) 0.85 K/uL 0.39 K/uL Eosinophils # (Auto) 0.01 K/uL 0.00 K/uL Basophils # (Auto) 0.02 K/uL 0.01 K/uL RDW Standard Deviation 52.8 fL 50.3 fL RDW Coefficient of Variation 14.5 % 14.1 % Immature Granulocyte % (Auto) 0.2 % 0.4 % Immature Granulocyte # (Auto) 0.03 K/uL 0.04 K/uL Prothrombin Time 13.8 SECONDS 12.5 SECONDS Prothromb Time International Ratio 1.3 1.2 Sodium Level 135 mmol/L 136 mmol/L Potassium Level 3.9 mmol/L 3.5 mmol/L Chloride Level 91 mmol/L 95 mmol/L Carbon Dioxide Level 35 mmol/L 34 mmol/L Anion Gap 9.0 mmol/L 7.0 mmol/L Blood Urea Nitrogen 14 mg/dl 11 mg/dl Creatinine 0.66 mg/dl 0.52 mg/dl Est Creatinine Clear Calc Drug Dose 60.9 ml/min 77.3 ml/min Estimated GFR () 90.8 98.2 Estimated GFR (Non- 78.3 84.7 BUN/Creatinine Ratio 20.9 20.6 Random Glucose 62 mg/dl 163 mg/dl Calcium Level 8.7 mg/dl 8.0 mg/dl Phosphorus Level 3.6 mg/dl 2.5 mg/dl Magnesium Level 1.4 mg/dl 1.8 mg/dl Lipase 1755 U/L 1236 U/L Assessment and Plan (1) Small bowel obstruction Status: Acute Assessment & Plan: On bowel rest with NGT to intermittent suction, on a DA infusion - will increase to 3ml/hr - pt to notify nursing if passes gas. Pt may get OOB and ambulate - can disconnect suction for short periods of time. (2) Hypothyroidism Status: Chronic Assessment & Plan: On IV Synthroid (3) Atrial fibrillation Status: Chronic Assessment & Plan: On IV Metoprolol for HR cntrol (4) Chronic diastolic (congestive) heart failure Status: Chronic Assessment & Plan: Controlled - only a few rales on the L lung base - monitor fluid status Total time - 25 min with > 50% of time spent counseling regarding treatment ongoing and POC Daughter checking with area hospices to be sure they can accommodate home NG suction Palliative Performance Scale: 40 % Continued [facility] stay due to: other (SBO) Discharge planning: home with Hospice
[2016-11-12] MEDS: LORAZEPAM IV PRN ×6 (08:45→16:45)
[2016-11-12] MEDS: POLYOLEFIN IV PRN ×6 (08:45→16:45)
[2016-11-12] MEDS: D5W IV PRN ×6 (08:45→16:45)
[2016-11-12] MEDS: DEXAMETHASONE IV PRN ×6 (08:45→16:45)
[2016-11-12] MEDS: LEVOTHYROXINE SODIUM IV SCH (09:59)
[2016-11-12] MEDS ORDERED: METOPROLOL TARTRATE 1 MG/ML VIAL IV. SCH (11:15)
[2016-11-12 12:30] VITALS: BP 106/82; PULSE 91
--- NOTE | 2016-11-12 12:32 | Progress Note ---
Medicine Progress Note Date & Time of Visit: Nov 12, 2016 at 12:28. Subjective patient seen resting in bed, drowsy on ativan/dexamethasone drip denies abdominal pain, nausea no flatus/BMs yet states she is comfortable overall Objective Last 8 Hrs Date Time Temp Pulse Resp B/P (MAP) Pulse Ox O2 Delivery O2 Flow Rate FiO2 11/12/16 12:17 111 124/86 11/12/16 08:14 36.3 108 18 115/81 (92) 95 Nasal Cannula 2.0 11/12/16 08:00 Nasal Cannula 2.0 Physical Exam: General- oriented x 3, not in distress, speaks in sentences with no effort Eyes- anicteric ENT- NG tube in place draining bilious output Neck- no JVD Lungs- clear breath sounds bilaterally, no rales/wheezing Heart- mild tachycardia, irregularly irregular rhythm; no murmurs Abdomen- mildly distended, hypoactive bowel sounds, soft, nontender Extremities- mild pretibial edema, no calf tenderness Neuro- alert, oriented x 3; no gross focal deficits Skin- warm & dry Laboratory Results: Last 24 Hours Test 11/12/16 05:53 White Blood Count 11.14 K/uL Red Blood Count 3.58 M/uL Hemoglobin 11.7 g/dL Hematocrit 35.3 % Mean Corpuscular Volume 98.6 fL Mean Corpuscular Hemoglobin 32.7 pg Mean Corpuscular Hemoglobin Concent 33.1 g/dl Platelet Count 411 K/uL Mean Platelet Volume 9.1 fL Neutrophils (%) (Auto) 92.3 % Lymphocytes (%) (Auto) 3.7 % Monocytes (%) (Auto) 3.5 % Eosinophils (%) (Auto) 0.0 % Basophils (%) (Auto) 0.1 % Neutrophils # (Auto) 10.29 K/uL Lymphocytes # (Auto) 0.41 K/uL Monocytes # (Auto) 0.39 K/uL Eosinophils # (Auto) 0.00 K/uL Basophils # (Auto) 0.01 K/uL RDW Standard Deviation 50.3 fL RDW Coefficient of Variation 14.1 % Immature Granulocyte % (Auto) 0.4 % Immature Granulocyte # (Auto) 0.04 K/uL Prothrombin Time 12.5 SECONDS Prothromb Time International Ratio 1.2 Sodium Level 136 mmol/L Potassium Level 3.5 mmol/L Chloride Level 95 mmol/L Carbon Dioxide Level 34 mmol/L Anion Gap 7.0 mmol/L Blood Urea Nitrogen 11 mg/dl Creatinine 0.52 mg/dl Est Creatinine Clear Calc Drug Dose 77.3 ml/min Estimated GFR () 98.2 Estimated GFR (Non- 84.7 BUN/Creatinine Ratio 20.6 Random Glucose 163 mg/dl Calcium Level 8.0 mg/dl Phosphorus Level 2.5 mg/dl Magnesium Level 1.8 mg/dl Lipase 1236 U/L Assessment & Plan 89 year old female with history of recent SBO, history of Colectomy, Atrial Fibrillation on coumadin, CHD Diastolic Type, PMR on chronic prednisone, other problems noted below presenting with nausea and vomiting. SMALL BOWEL OBSTRUCTION - NG tube in place D5 with Dexamethasone, Lorazepam has been started - no pain/nausea although no flatus, BM yet - on D5 NSS, NSS with Ativan/Dexamethasone NG tube NPO for now continue medical management for now per patient's wishes - appreciate Surgery and Palliative Care input - Dr. Vyas to have meeting with patient and daughter today to discuss comfort measures further per patient's request PANCREATITIS - Lipase improving - CT abdomen: no signs of pancreatitis - on IV fluids SUPRATHERAPEUTIC INR CHRONIC COUMADIN USE - INR 6.6 on admission Vit K given - no signs of bleeding - check INR 1.2 plan for home with hospice, off coumadin ATRIAL FIBRILLATION - HR low 100s - PO Metoprolol converted to IV Metoprolol for now CHF DIASTOLIC TYPE, CHRONIC - on the dry side - gentle IV fluids PMR ON CHRONIC PREDNISONE - on Prednisone 5mg daily for years - converted to IV hydrocortisone for now HYPOTHYROIDISM - on l-thyroxine 125mcg - converted to IV DVT /PE HISTORY - off coumadin DNR Dispo plan for home with hospice d/c tomorrow Continued [facility] stay due to: other (SBO) Discharge planning: home with Hospice Current Inpatient Medications: Current Inpatient Medications Medications (Trade) Dose Ordered Sig/Mike Route Start Time Stop Time Status Last Admin Dose Admin Ioversol (Optiray 320) 100 ml UD PRN IV 11/10/16 12:30 11/14/16 12:29 Albuterol (Ventolin Hfa Inhaler) 2 puffs Q4H PRN INH 11/10/16 17:15 9/25/17 17:14 Latanoprost (Xalatan Oph Soln) 1 drops HS OPB 11/10/16 21:00 12/10/16 20:59 11/11/16 20:46 1 DROPS Bimatoprost (Lumigan 0.01%) 1 drops HS OPB 11/10/16 21:00 12/10/16 20:59 11/11/16 20:46 1 DROPS Miscellaneous Information (Order Awaiting Action) 1 ea QS N/A 11/11/16 00:00 12/11/16 00:00 Lorazepam 4 mg/ Dexamethasone Sodium Phosphate 8 mg/Dextrose 48 ml @ 3 mls/hr Q16H PRN IV 11/10/16 21:00 12/10/16 20:59 11/12/16 08:45 3 MLS/HR Sodium Chloride 1,000 ml @ 15 mls/hr Q24H IV 11/10/16 20:45 12/10/16 20:44 11/11/16 20:42 15 MLS/HR Metoprolol Tartrate (Lopressor Iv) 2.5 mg Q12H IV. 11/11/16 21:00 12/11/16 20:59 Future Hold Hydrocortisone Sodium Succinate 25 mg/Syringe 0.5 ml @ 4 mls/min Q8H IV 11/11/16 18:00 12/11/16 17:59 11/12/16 09:59 4 MLS/MIN Dextrose/Sodium Chloride 1,000 ml @ 75 mls/hr [id number] IV 11/11/16 09:30 12/11/16 09:29 11/11/16 22:56 75 MLS/HR Levothyroxine Sodium 60 mcg/ Syringe 3 ml @ 1.5 mls/min DAILY@09 IV 11/12/16 09:00 12/12/16 08:59 11/12/16 09:59 1.5 MLS/MIN
[2016-11-12] MEDS: D5W AND NSS 1,000 ML IV SCH (13:15)
[2016-11-12 15:06] VITALS: BP 118/75; PULSE 90; TEMP 36.4; O2SAT 92
[2016-11-12] MEDS ORDERED: METOPROLOL TARTRATE 1 MG/ML VIAL IV. ONE (19:00)
--- NOTE | 2016-11-12 19:56 | Palliative Care Progress Note ---
Palliative Care Progress Note Date of Service Nov 12, 2016. Subjective Pt evaluation today including: conversation w/ patient, physical exam Pain: none PO Intake: sips Voiding: no voiding problems DA infusion increased approx 12 hours ago to 3 ml/hr - has not yet passed gas. Will increase to 4 ml/hr - if no response at this rate after 12 hours - we will d/c infusion. Pt drowsy at 3 ml/hr but still easy to arouse. Review of Systems Constitutional: + fatigue, No fever, No chills Eyes: No worsening of vision ENT: + trouble swallowing Respiratory: + cough (improved) Cardiac: + edema, No chest pain Abdomen: + problem reported (has not passed gas as of yet), No pain, No nausea , No vomiting Female : No dysuria Neurologic: + problem reported (+ drowsiness when drip increased to 3 ml/hr ) Psychiatric: + anxiety Endo: + fatigue Objective Vital Signs Date Time Temp Pulse Resp B/P (MAP) Pulse Ox O2 Delivery O2 Flow Rate FiO2 11/12/16 16:00 Nasal Cannula 2.0 11/12/16 15:06 36.4 90 18 118/75 (89) 92 Nasal Cannula 2.0 11/12/16 12:30 91 106/82 (90) 11/12/16 12:17 111 124/86 11/12/16 08:14 36.3 108 18 115/81 (92) 95 Nasal Cannula 2.0 11/12/16 08:00 Nasal Cannula 2.0 11/12/16 00:05 Nasal Cannula 2.0 11/11/16 23:31 36.4 87 18 109/68 (82) 97 Nasal Cannula 2.0 11/11/16 20:04 86 123/79 Physical Exam General Appearance: no apparent distress Eyes: EOMI ENT: hearing grossly normal Respiratory/Chest: no respiratory distress Cardiovascular: regular rate, rhythm Abdomen: + pertinent finding (rare bowel sounds) Extremities: + pedal edema Neurologic/Psychiatric: + pertinent finding (drowsy , but arousable) Skin: + pertinent finding (feet warmer ) Laboratory Results Last 24 Hours Test 11/12/16 05:53 White Blood Count 11.14 K/uL Red Blood Count 3.58 M/uL Hemoglobin 11.7 g/dL Hematocrit 35.3 % Mean Corpuscular Volume 98.6 fL Mean Corpuscular Hemoglobin 32.7 pg Mean Corpuscular Hemoglobin Concent 33.1 g/dl Platelet Count 411 K/uL Mean Platelet Volume 9.1 fL Neutrophils (%) (Auto) 92.3 % Lymphocytes (%) (Auto) 3.7 % Monocytes (%) (Auto) 3.5 % Eosinophils (%) (Auto) 0.0 % Basophils (%) (Auto) 0.1 % Neutrophils # (Auto) 10.29 K/uL Lymphocytes # (Auto) 0.41 K/uL Monocytes # (Auto) 0.39 K/uL Eosinophils # (Auto) 0.00 K/uL Basophils # (Auto) 0.01 K/uL RDW Standard Deviation 50.3 fL RDW Coefficient of Variation 14.1 % Immature Granulocyte % (Auto) 0.4 % Immature Granulocyte # (Auto) 0.04 K/uL Prothrombin Time 12.5 SECONDS Prothromb Time International Ratio 1.2 Sodium Level 136 mmol/L Potassium Level 3.5 mmol/L Chloride Level 95 mmol/L Carbon Dioxide Level 34 mmol/L Anion Gap 7.0 mmol/L Blood Urea Nitrogen 11 mg/dl Creatinine 0.52 mg/dl Est Creatinine Clear Calc Drug Dose 77.3 ml/min Estimated GFR () 98.2 Estimated GFR (Non- 84.7 BUN/Creatinine Ratio 20.6 Random Glucose 163 mg/dl Calcium Level 8.0 mg/dl Phosphorus Level 2.5 mg/dl Magnesium Level 1.8 mg/dl Lipase 1236 U/L Assessment and Plan (1) Small bowel obstruction Status: Acute Assessment & Plan: Pt still refusing surgery , no response to DA infusion when titrated to 3 ml/hr - will increase to 4 ml/hr X 12 hours and re-assess - if no response - will d/c DA infusion (2) Hypothyroidism Status: Chronic Assessment & Plan: on IV Synthroid - will d/c when d/c home - no longer needed as prognosis is 7- 10 days (3) Atrial fibrillation Status: Chronic Assessment & Plan: IV Metoprolol on hold due to low BP - HR controlled - will d /c at discharge home as life expectancy is short (4) Chronic diastolic (congestive) heart failure Status: Chronic Assessment & Plan: Pt tolerating IV fluids - do not plan to cont at home - pt is expected to become septic at some point and will start to third space fluids. This is second visit today - total time 25 min at bedside assessing and speaking with pt regarding her wishes. Total time - 25 min with > 50% of time spent counseling regarding treatment ongoing and POC Daughter checking with area hospices to be sure they can accommodate home NG suction Palliative Performance Scale: 40 % Continued [facility] stay due to: other (SBO) Discharge planning: home with Hospice
[2016-11-12 20:01] VITALS: BP 125/85; PULSE 102
[2016-11-12] MEDS: SODIUM CHLORIDE 0.9% 1000ML 1,000 ML IV SCH (20:44)
[2016-11-12] MEDS: BIMATOPROST 0.01% OP SOLN 2.5 ML BTL OPB SCH (20:46)
[2016-11-12] MEDS: LATANOPROST 0.005% OP SOLN 2.5 ML BTL OPB SCH (20:46)
[2016-11-13 00:25] VITALS: BP 111/75; PULSE 91; TEMP 36.4; O2SAT 93
[2016-11-13] MEDS: D5W AND NSS 1,000 ML IV SCH ×2 (00:54→09:56)
[2016-11-13] MEDS: HYDROCORTISONE IV 25 MG in SYRINGE 0 ML IV SCH ×2 (01:35→09:38)
[2016-11-13 06:25] LABS: COMPLETE YES; IG% 0.4 %; LYMPH % 5.8 %; LYMPH ABS # 0.63 K/uL (1.2-3.4); MEAN CELL VOLUME 101.3 fL (80-100); MEAN CORPUSCULAR HGB CONC 31.6 g/dl (32-36); MONO % 4.2 %; NEUT % 89.6 %; PLATELET COUNT 421 K/uL (130-400); RED BLOOD COUNT 3.75 M/uL (4.2-5.4); WHITE BLOOD COUNT 10.81 K/uL (4.8-10.8)
[2016-11-13 06:36] LABS: INR 1.1 (0.9-1.1); PROTHROMBIN TIME (PATIENT) 11.7 SECONDS (9.0-12.0)
--- NOTE | 2016-11-13 06:49 | Surgery Progress Note ---
Surgery Progress Note Date of Service Nov 13, 2016. Subjective Patient examined at bedside this morning. Afebrile, vitals stable on room air, no acute events overnight. Sleeping comfortably on arrival. Denies abdominal pain. NGT in place and functioning. Abdomen soft, mildly distended, non tender to palpation. No flatus / BM reported. Objective Vital Signs: Date Time Temp Pulse Resp B/P (MAP) Pulse Ox O2 Delivery O2 Flow Rate FiO2 11/13/16 00:25 36.4 91 18 111/75 (87) 93 2.0 11/13/16 00:00 Nasal Cannula 2.0 11/12/16 20:01 102 125/85 (98) 11/12/16 16:00 Nasal Cannula 2.0 11/12/16 15:06 36.4 90 18 118/75 (89) 92 Nasal Cannula 2.0 11/12/16 12:30 91 106/82 (90) 11/12/16 12:17 111 124/86 11/12/16 08:14 36.3 108 18 115/81 (92) 95 Nasal Cannula 2.0 11/12/16 08:00 Nasal Cannula 2.0 General Appearance: WD/WN, no apparent distress Head: normocephalic Neck: supple Respiratory/Chest: lungs clear, normal breath sounds, no respiratory distress Cardiovascular: regular rate, rhythm Abdomen: non tender, soft, + distended Laboratory Results: Results Past 24 Hours Test 11/13/16 06:13 Range/Units White Blood Count 10.81 4.8-10.8 K/uL Red Blood Count 3.75 4.2-5.4 M/uL Hemoglobin 12.0 12.0-16.0 g/dL Hematocrit 38.0 37-47 % Mean Corpuscular Volume 101.3 80-100 fL Mean Corpuscular Hemoglobin 32.0 25-34 pg Mean Corpuscular Hemoglobin Concent 31.6 32-36 g/dl Platelet Count 421 130-400 K/uL Mean Platelet Volume 9.0 7.4-10.4 fL Neutrophils (%) (Auto) 89.6 % Lymphocytes (%) (Auto) 5.8 % Monocytes (%) (Auto) 4.2 % Eosinophils (%) (Auto) 0.0 % Basophils (%) (Auto) 0.0 % Neutrophils # (Auto) 9.69 1.4-6.5 K/uL Lymphocytes # (Auto) 0.63 1.2-3.4 K/uL Monocytes # (Auto) 0.45 0.11-0.59 K/uL Eosinophils # (Auto) 0.00 0-0.5 K/uL Basophils # (Auto) 0.00 0-0.2 K/uL RDW Standard Deviation 52.1 36.4-46.3 fL RDW Coefficient of Variation 14.2 11.5-14.5 % Immature Granulocyte % (Auto) 0.4 % Immature Granulocyte # (Auto) 0.04 0.00-0.02 K/uL Prothrombin Time 11.7 9.0-12.0 SECONDS Prothromb Time International Ratio 1.1 0.9-1.1 Assessment & Plan Ariela Rodriguez is an 89 year old woman with multiple medical comorbidities and history of partial colectomy with primary anastomosis who presents with a recurrent bowel obstruction. NGT is in place with relief of nausea and vomiting. Patient is mildly tachycardic, otherwise vitals are stable. She appears comfortable; abdomen is mildly distended, remains soft and non tender to palpation, no rebound / guarding. Patient states she does not want surgery under any circumstances. She has discussed options of symptom management with Palliative medicine. -No acute surgical intervention, per patient's wishes. She would be a very high risk surgical candidate, and she understands this. -Continue NGT decompression - ok for patient to sip on Cola to help thin out gastric output / break down clogs -Pain and nausea control as needed -Plan by primary team and palliative medicine to discharge to home with home nursing today Effie Dickson MD 11/13/16
[2016-11-13 06:58] LABS: BUN/CREATININE RATIO 14.1 (10-20); CALCIUM 7.7 mg/dl (8.5-10.1); CREATININE 0.59 mg/dl (0.60-1.20); MAGNESIUM 1.8 mg/dl (1.8-2.4); POTASSIUM 3.6 mmol/L (3.5-5.1)
[2016-11-13] MEDS: DEXAMETHASONE IV PRN ×3 (07:22)
[2016-11-13] MEDS: POLYOLEFIN IV PRN ×3 (07:22)
[2016-11-13] MEDS: D5W IV PRN ×3 (07:22)
[2016-11-13] MEDS: LORAZEPAM IV PRN ×3 (07:22)
[2016-11-13 07:53] VITALS: BP 103/69; PULSE 107; TEMP 36.1; O2SAT 90
--- NOTE | 2016-11-13 09:12 | Palliative Care Progress Note ---
Palliative Care Progress Note Date of Service Nov 13, 2016. Subjective Pt evaluation today including: conversation w/ patient, physical exam, chart review, lab review Pain: none PO Intake: sips Voiding: forte catheter in place Pt arousable this am, mild confusion due to ativan in DA infusion. Deinies pain , SOB, fever chills Has not passed any gas. DA infusion increased last pm to 4 ml/hr - still no results. Will cont drip until we know when she will be returning home. Review of Systems Constitutional: No fever, No chills Eyes: No redness, No discharge ENT: No sore throat Respiratory: + cough, No shortness of breath Cardiac: + edema, No chest pain Abdomen: + problem reported (not passing gas), No nausea, No vomiting Musculoskeletal: No swelling Female : + problem reported (forte placed at pt's request for ease of care at home) Neurologic: + problem reported (mild confusion on ativan in DA infusion) Psychiatric: + anxiety Heme: No abnormal bleeding/bruising Endo: + fatigue Objective Vital Signs Date Time Temp Pulse Resp B/P (MAP) Pulse Ox O2 Delivery O2 Flow Rate FiO2 11/13/16 07:53 36.1 107 20 103/69 (80) 90 Nasal Cannula 2.0 11/13/16 00:25 36.4 91 18 111/75 (87) 93 2.0 11/13/16 00:00 Nasal Cannula 2.0 11/12/16 20:01 102 125/85 (98) 11/12/16 16:00 Nasal Cannula 2.0 11/12/16 15:06 36.4 90 18 118/75 (89) 92 Nasal Cannula 2.0 11/12/16 12:30 91 106/82 (90) 11/12/16 12:17 111 124/86 Physical Exam General Appearance: no apparent distress Eyes: EOMI ENT: hearing grossly normal Neck: supple Respiratory/Chest: no respiratory distress, no accessory muscle use Cardiovascular: regular rate, rhythm Abdomen: non tender, soft, + pertinent finding (NGT in place, rare BS) Extremities: + pedal edema Neurologic/Psychiatric: normal mood/affect, + pertinent finding (awale, only mild confusion on IV ativan in DA infusion) Skin: no rash Laboratory Results Last 24 Hours Test 11/13/16 06:13 White Blood Count 10.81 K/uL Red Blood Count 3.75 M/uL Hemoglobin 12.0 g/dL Hematocrit 38.0 % Mean Corpuscular Volume 101.3 fL Mean Corpuscular Hemoglobin 32.0 pg Mean Corpuscular Hemoglobin Concent 31.6 g/dl Platelet Count 421 K/uL Mean Platelet Volume 9.0 fL Neutrophils (%) (Auto) 89.6 % Lymphocytes (%) (Auto) 5.8 % Monocytes (%) (Auto) 4.2 % Eosinophils (%) (Auto) 0.0 % Basophils (%) (Auto) 0.0 % Neutrophils # (Auto) 9.69 K/uL Lymphocytes # (Auto) 0.63 K/uL Monocytes # (Auto) 0.45 K/uL Eosinophils # (Auto) 0.00 K/uL Basophils # (Auto) 0.00 K/uL RDW Standard Deviation 52.1 fL RDW Coefficient of Variation 14.2 % Immature Granulocyte % (Auto) 0.4 % Immature Granulocyte # (Auto) 0.04 K/uL Prothrombin Time 11.7 SECONDS Prothromb Time International Ratio 1.1 Sodium Level 138 mmol/L Potassium Level 3.6 mmol/L Chloride Level 100 mmol/L Carbon Dioxide Level 35 mmol/L Anion Gap 3.0 mmol/L Blood Urea Nitrogen 8 mg/dl Creatinine 0.59 mg/dl Est Creatinine Clear Calc Drug Dose 68.2 ml/min Estimated GFR () 94.2 Estimated GFR (Non- 81.3 BUN/Creatinine Ratio 14.1 Random Glucose 159 mg/dl Calcium Level 7.7 mg/dl Phosphorus Level 2.0 mg/dl Magnesium Level 1.8 mg/dl Lipase 784 U/L Assessment and Plan (1) Small bowel obstruction Status: Acute Assessment & Plan: NO improvement on DA infusion - will d/c if going home today. Will need to cont some ativan to prevent benzo withdraw. Will cont drip for now -can still remain hopeful pt will pass some gas. Pt will need suction at home for NGT (2) Hypothyroidism Status: Chronic Assessment & Plan: Will d/c Synthroid when d/c home (3) Atrial fibrillation Status: Chronic Assessment & Plan: Rate controlled with IV Metoprolol - can use Lopressor prn at home - can be crushed and slurried if tachycardia bothers pt (4) Chronic diastolic (congestive) heart failure Status: Chronic Assessment & Plan: Pt tolerating IV fluids - no increase in rales or pedal edema - will not be going home on IV fluids Total time -> 35 min with > 50% of time spent counseling regarding prognosis and POC and coordinating d/c home with hospice Will speak with daughter when she is available Palliative Performance Scale: 40 % Continued [facility] stay due to: other (SBO) Discharge planning: home with Hospice, other (Will wean O2 to see if pt can go home without O2, will need suction at home , will d/c with Hospice comfort meds if needed. )
[2016-11-13] MEDS: LEVOTHYROXINE SODIUM IV SCH (09:38)
--- NOTE | 2016-11-13 12:00 | Progress Note ---
Medicine Progress Note Date & Time of Visit: Nov 13, 2016 at 11:47. Subjective patient seen resting in bed, drowsy but easily rousable states she feels fine overall just tired smiling denies nausea, abdominal pain, dyspnea denies any pain states she is ready for discharge to home today Objective Last 8 Hrs Date Time Temp Pulse Resp B/P (MAP) Pulse Ox O2 Delivery O2 Flow Rate FiO2 11/13/16 07:53 36.1 107 20 103/69 (80) 90 Nasal Cannula 2.0 Physical Exam: General- oriented x 3, not in distress, speaks in sentences with no effort Eyes- anicteric ENT- NG tube in place draining bilious output Neck- no JVD Lungs- clear breath sounds bilaterally Heart- mild tachycardia, irregularly irregular rhythm; no murmurs Abdomen- mildly distended, hypoactive bowel sounds, soft, nontender Extremities- mild pretibial edema, no calf tenderness Neuro- alert, oriented x 3; no gross focal deficits Skin- warm & dry Laboratory Results: Last 24 Hours Test 11/13/16 06:13 White Blood Count 10.81 K/uL Red Blood Count 3.75 M/uL Hemoglobin 12.0 g/dL Hematocrit 38.0 % Mean Corpuscular Volume 101.3 fL Mean Corpuscular Hemoglobin 32.0 pg Mean Corpuscular Hemoglobin Concent 31.6 g/dl Platelet Count 421 K/uL Mean Platelet Volume 9.0 fL Neutrophils (%) (Auto) 89.6 % Lymphocytes (%) (Auto) 5.8 % Monocytes (%) (Auto) 4.2 % Eosinophils (%) (Auto) 0.0 % Basophils (%) (Auto) 0.0 % Neutrophils # (Auto) 9.69 K/uL Lymphocytes # (Auto) 0.63 K/uL Monocytes # (Auto) 0.45 K/uL Eosinophils # (Auto) 0.00 K/uL Basophils # (Auto) 0.00 K/uL RDW Standard Deviation 52.1 fL RDW Coefficient of Variation 14.2 % Immature Granulocyte % (Auto) 0.4 % Immature Granulocyte # (Auto) 0.04 K/uL Prothrombin Time 11.7 SECONDS Prothromb Time International Ratio 1.1 Sodium Level 138 mmol/L Potassium Level 3.6 mmol/L Chloride Level 100 mmol/L Carbon Dioxide Level 35 mmol/L Anion Gap 3.0 mmol/L Blood Urea Nitrogen 8 mg/dl Creatinine 0.59 mg/dl Est Creatinine Clear Calc Drug Dose 68.2 ml/min Estimated GFR () 94.2 Estimated GFR (Non- 81.3 BUN/Creatinine Ratio 14.1 Random Glucose 159 mg/dl Calcium Level 7.7 mg/dl Phosphorus Level 2.0 mg/dl Magnesium Level 1.8 mg/dl Lipase 784 U/L Assessment & Plan 89 year old female with history of recent SBO, history of Colectomy, Atrial Fibrillation on coumadin, CHD Diastolic Type, PMR on chronic prednisone, other problems noted below presenting with nausea and vomiting. SMALL BOWEL OBSTRUCTION - NG tube in place D5 with Dexamethasone, Lorazepam given no pain or nausea, NG tube draining well no BMs yet - patient and daughter have preferred to go home with hospice Dr. Vyas consulted, discussed with her re: discharge plans patient will be transitioned to home hospice care today continue NG tube with suction at home PRN Morphine, Ativan, Haldol PANCREATITIS - Lipase improving - CT abdomen: no signs of pancreatitis - given IV fluids SUPRATHERAPEUTIC INR CHRONIC COUMADIN USE - INR 6.6 on admission Vit K given - no signs of bleeding - INR 1.2 Metoprolol PRN for symptomatic tachycardia coumadin discontinued ATRIAL FIBRILLATION - HR low 100s - asymptomatic CHF DIASTOLIC TYPE, CHRONIC - on the dry side - gentle IV fluids given PMR ON CHRONIC PREDNISONE - Prednisone converted to IV hydrocortisone HYPOTHYROIDISM - on l-thyroxine 125mcg - converted to IV DVT /PE HISTORY - off coumadin DNR Dispo d/c home today with hospice services tried to call daughter but no answer. Dr. Vyas has been in contact with daughter Gisell re: discharge plans. Continued [facility] stay due to: other (SBO) Discharge planning: home with Hospice, other (Will wean O2 to see if pt can go home without O2, will need suction at home , will d/c with Hospice comfort meds if needed. ) Current Inpatient Medications: Current Inpatient Medications Medications (Trade) Dose Ordered Sig/Mike Route Start Time Stop Time Status Last Admin Dose Admin Ioversol (Optiray 320) 100 ml UD PRN IV 11/10/16 12:30 11/14/16 12:29 Albuterol (Ventolin Hfa Inhaler) 2 puffs Q4H PRN INH 11/10/16 17:15 12/10/16 17:14 Latanoprost (Xalatan Oph Soln) 1 drops HS OPB 11/10/16 21:00 12/10/16 20:59 11/12/16 20:46 1 DROPS Bimatoprost (Lumigan 0.01%) 1 drops HS OPB 11/10/16 21:00 12/10/16 20:59 11/12/16 20:46 1 DROPS Miscellaneous Information (Order Awaiting Action) 1 ea QS N/A 11/11/16 00:00 12/11/16 00:00 Lorazepam 4 mg/ Dexamethasone Sodium Phosphate 8 mg/Dextrose 48 ml @ 4 mls/hr Q12H PRN IV 11/10/16 21:00 12/10/16 20:59 11/13/16 07:22 4 MLS/HR Sodium Chloride 1,000 ml @ 15 mls/hr Q24H IV 11/10/16 20:45 12/10/16 20:44 11/11/16 20:42 15 MLS/HR Metoprolol Tartrate (Lopressor Iv) 2.5 mg Q12H IV. 11/11/16 21:00 12/11/16 20:59 Future Hold Hydrocortisone Sodium Succinate 25 mg/Syringe 0.5 ml @ 4 mls/min Q8H IV 11/11/16 18:00 12/11/16 17:59 11/13/16 09:38 4 MLS/MIN Dextrose/Sodium Chloride 1,000 ml @ 75 mls/hr [id number] IV 11/11/16 09:30 12/11/16 09:29 11/13/16 09:56 75 MLS/HR Levothyroxine Sodium 60 mcg/ Syringe 3 ml @ 1.5 mls/min DAILY@09 IV 11/12/16 09:00 12/12/16 08:59 11/13/16 09:38 1.5 MLS/MIN
[2016-11-13] MEDS ORDERED: METO1TAB66 PO (12:02)
--- NOTE | 2016-11-13 12:08 | Discharge Summary ---
Discharge Summary Date of Service Nov 13, 2016. Discharge Summary Admission Date: Nov 10, 2016 at 16:56 Discharge Date: Nov 13, 2016 Discharge Disposition: Home with services Principal Diagnosis: SMALL BOWEL OBSTRUCTION Consultations: Palliative Care Dr. Vyas; Gen Surg Dr. Dickson Medication Reconciliation Changed Medications: Metoprolol Succinate (Toprol Xl) 50 Mg Tab 25 MG PO DAILY PRN for symptomatic tachycardia for 30 Days (Medication details modified) may be crushed and put under the tongue PRN for symptomatic tachycardia Discontinued Medications: Acetaminophen (Tylenol) 325 Mg Tab 650 MG PO DAILY PRN for Pain, TAB Albuterol Hfa (Ventolin Hfa) 200 Puffs/56450 Mcg Aers 2 PUFFS INH Q4H PRN for cough or wheezing, #1 INHALER Amoxicillin & Pot Clavulanate (Amoxicillin/Clavulanate P) 1 Tab Tab 875 MG PO BIDM for 3 Days, #6 TAB B-Complex W/ Folic Acid (B Complex) 1 Tab Tab 1 TAB PO DAILY Bimatoprost (Lumigan) 0.01 % Page 1 DROPS OPB HS for 90 Days, #7.5 ML 3 Refills Calcium Carbonate-Vitamin D (Calcium + D) 1 Tab Tab 1 TAB PO DAILY Cholecalciferol (Vitamin D) 1,000 Unit Tab 1000 UNIT PO DAILY Difluprednate (Durezol) 0.05 % Emu 1 DROP OPB BID Fluoxetine (Prozac) 10 Mg Cap 10 MG PO DAILY Lactobacillus Acidophilus (Lactinex) Tab 2 TAB PO BID, #20 TAB Latanoprost (Xalatan 0.005% Oph Page) 0.005 % Page 1 DROPS OPB HS Levothyroxine Sodium (Levothyroxine Sodium) 125 Mcg Tab 125 MCG PO QAM TAKE ON AN EMPTY STOMACH Magnesium Oxide (Mag-Ox) 400 Mg Tab 400 MG PO DAILY Polyethylene Glycol-Propylene (Systane) 1 Page Page 2 DROPS OP QID PRN for dry eyes, #30 ML 5 Refills Potassium Chloride (Micro-K Ext Rel) 10 Meq Cap 10 MEQ PO UD Take 10 mEq by mouth on days when torsemide is taken. Prednisone (Prednisone) 5 Mg Tab 5 MG PO DAILY Ranitidine Hcl (Zantac) 150 Mg Tab 150 MG PO BID Torsemide (Demadex) 10 Mg Tab 10 MG PO WK PRN for SWELLING Wednesdays Warfarin Sod (Coumadin) 2.5 Mg Tab 2.5 MG PO UD Take 5 mg by mouth on Saturday and Saturday. Take 2.5 mg by mouth on Saturday, Saturday, Saturday, , Saturday. Admission Information HPI (per Admitting provider): This is a 89 year old F with history significant for small bowel obstruction. She was treated last time at [facility] with symptoms improve after NG tube. [facility]. She returns with abdominal pain and found to have interval worsening of small bowel obstruction with a transition point in the superior pelvis. Patient and her daughter/next of kin, Gisell Ya [phone] in discussion with ED physician and hospitalist medical provider that the patient does not want surgical intervention for small bowel obstruction. Code status is Do Not Resuscitate. Patient is also reluctant about allowing medical providers to start IV antibiotics. She did have pneumonia on last admission concerning for aspiration pneumonia and there are lower lobular pleural effusions possible suggestive of pneumonia and WBC elevated to 11, 000 however patient has been afebrile. However patient is agreeable to NG placement to decompress bowels . She is also allowing for surgical consultation to evaluate her if she changes her mind about surgery. She allows providers to draw blood. Abnormal labs on findings include serotherapeutic INR 6.6. Patient has been on coumadin for atrial fibrillation but INR could be elevated due to SBO compressing on liver. Vitamin K 10 mg IV ordered. She is tachycardic on exam with irregular rhythm likely exacerbated by abdominal distention and pain. Labs also elevated lipase of 2500 likely due to SBO vs pancreatitis from infectious source. Physical Exam (per Admitting): General Appearance: + mild distress Head: normocephalic, atraumatic Eyes: normal inspection, EOMI, sclerae normal ENT: hearing grossly normal, pharynx normal Neck: supple, no JVD Respiratory/Chest: chest non-tender, lungs clear, normal breath sounds, no respiratory distress, no accessory muscle use Cardiovascular: + tachycardia, + irregularly irregular Abdomen/GI: + abnormal bowel sounds (hypoactive bowel sounds), + distended Back: normal inspection, no CVA tenderness, no muscle spasm Extremities/Musculoskelatal: normal inspection, no calf tenderness, normal capillary refill, + pedal edema Neurologic/Psych: alert, normal mood/affect, oriented x 3 Skin: normal color, warm/dry, no rash Hospital Course 89 year old female with history of recent SBO, history of Colectomy, Atrial Fibrillation on coumadin, CHD Diastolic Type, PMR on chronic prednisone, other problems noted below presenting with nausea and vomiting. SMALL BOWEL OBSTRUCTION - NG tube placed D5 with Dexamethasone, Lorazepam given no pain or nausea, NG tube draining well no BMs - patient and daughter have preferred to go home with hospice Dr. Vyas consulted, discussed with her re: discharge plans patient will be transitioned to home hospice care today continue NG tube with suction at home PRN Morphine, Ativan, Haldol PANCREATITIS - Lipase improved - CT abdomen: no signs of pancreatitis - given IV fluids SUPRATHERAPEUTIC INR CHRONIC COUMADIN USE - INR 6.6 on admission Vit K given - no signs of bleeding - INR 1.2 Metoprolol PRN for symptomatic tachycardia coumadin discontinued ATRIAL FIBRILLATION - HR low 100s - asymptomatic CHF DIASTOLIC TYPE, CHRONIC - on the dry side - gentle IV fluids given PMR ON CHRONIC PREDNISONE - Prednisone converted to IV hydrocortisone HYPOTHYROIDISM - on l-thyroxine 125mcg - converted to IV DVT /PE HISTORY - off coumadin DNR Dispo d/c home today with hospice services tried to call daughter but no answer. Dr. Vyas has been in contact with daughter Gisell re: discharge plans. Total time spent on discharge = 40 minutes This includes examination of the patient, discharge planning, medication reconciliation, and communication with other providers. Discharge Instructions Discharge Instructions Date of Service Nov 13, 2016. Admission Reason for Admission: A Fib, Small Bowel Obstruction Discharge Discharge Diagnosis / Problem: SMALL BOWEL OBSTRUCTION Discharge Goals Goal(s): Diagnostic testing, Therapeutic intervention Activity Recommendations Activity Limitations: as noted below ( TOLERATED) . Instructions / Follow-Up Instructions / Follow-Up PATIENT TO CONTINUE NG TUBE WITH SUCTIONING. PRN MORPHINE, ATIVAN, HALDOL FOR SYMPTOM MANAGEMENT. HOME HOSPICE SERVICES WILL BE FOLLOWING THE PATIENT AT HOME. Current Hospital Diet Patient's current hospital diet: Discharge Diet Recommended Diet: Clear Liquid Diet (AVOID SOLID FOODS OR FOOD THAT MAY CLOG NGT) Pending Studies Studies pending at discharge: no Medical Emergencies . Who to Call and When: Medical Emergencies: If at any time you feel your situation is an emergency, please call 911 immediately. . Non-Emergent Contact Non-Emergency issues call your: Specialist (HOSPICE SERVICES) . . "Provider Documentation" section prepared by Michael Campbell. . VTE Core Measure Inpt VTE Proph given/why not?: SCD's
[2016-11-13] MEDS ORDERED: NURSING VERBAL MED ORDER ONE (13:15)
[2016-11-13 13:36] VITALS: BP 103/69; PULSE 107; TEMP 36.1; O2SAT 90
[2016-11-13 15:41] VITALS: BP 119/74; PULSE 93; TEMP 36.4; O2SAT 94
== END 2016-11-13 16:48 | disposition hospice, home (50) | DRG 388 ==
LOC: C.EDB 11:47 → C.4E 16:56 → ENRESERV 17:13 → CANRESERV 11-11 09:52 → ENRESERV 11-11 09:52 → CANBEDREQ 11-11 09:56
PROVIDERS: ADMIT Hospitalist; ATTEND Internal Medicine
DX: K56.60 Unspecified intestinal obstruction (principal); K85.90 Acute pancreatitis without necrosis or infection, unspecified; I50.32 Chronic diastolic (congestive) heart failure; R79.1 Abnormal coagulation profile; R00.0 Tachycardia, unspecified; R41.0 Disorientation, unspecified; T42.4X5A Adverse effect of benzodiazepines, initial encounter; Y92.230 Patient room in hospital as the place of occurrence of the external cause; I48.91 Unspecified atrial fibrillation; M35.3 Polymyalgia rheumatica; D47.2 Monoclonal gammopathy; E03.9 Hypothyroidism, unspecified; M19.90 Unspecified osteoarthritis, unspecified site; M81.0 Age-related osteoporosis without current pathological fracture; Z66 Do not resuscitate; Z51.5 Encounter for palliative care; Z96.651 Presence of right artificial knee joint; Z86.718 Personal history of other venous thrombosis and embolism; Z86.711 Personal history of pulmonary embolism; Z79.2 Long term (current) use of antibiotics; Z79.52 Long term (current) use of systemic steroids; Z79.01 Long term (current) use of anticoagulants; Z79.899 Other long term (current) drug therapy; Z86.14 Personal history of Methicillin resistant Staphylococcus aureus infection